=== PATIENT | female | born 2000 | race Caucasian/White ===

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

== ENCOUNTER 2021-03-24 11:06 | Emergency (ER) | payer OTHER, SELFPAY ==
--- NOTE | 2021-03-24 11:48 | ER ---
Nurse's Notes [facility] Name: Tali Guidry Age: 20 yrs Sex: Female : 2000 Arrival Date: 03/24/2021 Time: 11:10 Bed Waiting Private MD: Diagnosis: Acute upper respiratory infection, unspecified Presentation: 03/24 11:26 Chief complaint: Patient states: Pt states sore throat, denies cough. Stated boyfriend vg1 was Covid Positive last week. Coronavirus screen: Vaccine status: Patient reports being unvaccinated. Client denies travel out of the [place] in the last 14 days. Client presents with at least one sign or symptom that may indicate coronavirus-19. Standard/surgical mask placed on the client. Ebola Screen: Patient negative for fever greater than or equal to 101.5 degrees Fahrenheit, and additional compatible Ebola Virus Disease symptoms. Initial Sepsis Screen: Does the patient meet any 2 criteria? No. Patient's initial sepsis screen is negative. Does the patient have a suspected source of infection? No. Patient's initial sepsis screen is negative. Risk Assessment: Do you want to hurt yourself or someone else? Patient reports no desire to harm self or others. Onset of symptoms was March 23, 2021. 11:26 Method Of Arrival: Ambulatory [facility] 11:26 Acuity: GERMAN 4 vg1 Triage Assessment: 11:30 General: Appears in no apparent distress. comfortable, Behavior is calm, cooperative. vg1 Pain: Denies pain. 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 - Social history:: Smoking status: Patient denies any tobacco usage or history of. Screenin:09 Abuse screen: Denies threats or abuse. Nutritional screening: No deficits noted. vg1 Tuberculosis screening: No symptoms or risk factors identified. Fall Risk None identified. Assessment: 12:09 Reassessment: Pt left lobby before signing d/c papers. vg1 Vital Signs: 11:26 BP 113 / 79; Pulse 88; Resp 16; Temp 97.9; Pulse Ox 100% ; Weight 72.57 kg; Height 5 vg1 ft. 4 in. (162.56 cm); Pain 0/10; 11:26 Body Mass Index 27.46 (72.57 kg, 162.56 cm) vg1 ED Course: 11:10 Patient arrived in ED. ds1 11:27 [facility]ga [facility] [place] 11:27 Alcon Rajan MD is Attending Physician. [facility] 11:30 Triage completed. vg1 11:30 Arm band placed on. vg1 Administered Medications: No medications were administered Outcome: 11:48 Discharge ordered by . [facility] 12:10 Discharged to home ambulatory. vg1 12:10 Condition: stable 12:10 Patient left the ED. vg1 Signatures: Dequan Noriega PA PA jmm Sanford, Demi ds1 Oma Martinez, RN RN vg1
--- NOTE | 2021-03-24 11:48 | EDPHYS ---
Physician Documentation [facility] Name: Tali Guidry Age: 20 yrs Sex: Female : 2000 Arrival Date: 03/24/2021 Time: 11:10 Bed Waiting Private MD: ED Physician Alcon Rajan HPI: 03/24 11:46 This 20 yrs old Female presents to ER via Ambulatory with complaints of R/O jmm Covid. 11:46 The patient or guardian reports cough. Onset: The symptoms/episode began/occurred jmm gradually. Modifying factors: The symptoms are alleviated by nothing. the symptoms are aggravated by nothing. Associated signs and symptoms: Pertinent positives: sore throat, Pertinent negatives: fever. It is unknown whether or not the patient has had similar symptoms in the past. Room mates have covid. 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 - Social history:: Smoking status: Patient denies any tobacco usage or history of. ROS: 11:46 Constitutional: Negative for fever, chills, and weight loss, Cardiovascular: Negative jmm for chest pain, palpitations, and edema. 11:46 ENT: Positive for sore throat. 11:46 Respiratory: Positive for cough. 11:46 All other systems are negative. Exam: 11:46 Constitutional: This is a well developed, well nourished patient who is awake, alert, jmm and in no acute distress. Head/Face: atraumatic. Eyes: EOMI, no conjunctival erythema appreciated 11:46 ENT: Moist Mucus Membranes Neck: Trachea midline, Supple Chest/axilla: Normal chest wall appearance and motion. Cardiovascular: Regular rate and rhythm. No edema appreciated Respiratory: Normal respirations, no respiratory distress appreciated Abdomen/GI: Non distended, soft Back: Normal ROM Skin: General appearance color normal MS/ Extremity: Moves all extremities, no obvious deformities appreciated, no edema noted to the lower extremities Neuro: Awake and alert, normal gait Psych: Behavior is normal, Mood is normal, Patient is cooperative and pleasant Vital Signs: 11:26 BP 113 / 79; Pulse 88; Resp 16; Temp 97.9; Pulse Ox 100% ; Weight 72.57 kg; Height 5 vg1 ft. 4 in. (162.56 cm); Pain 0/10; 11:26 Body Mass Index 27.46 (72.57 kg, 162.56 cm) vg1 MDM: 11:45 Patient medically screened. [facility] 11:47 Data reviewed: vital signs, nurses notes. Counseling: I had a detailed discussion with [facility] the patient and/or guardian regarding: the historical points, exam findings, and any diagnostic results supporting the discharge/admit diagnosis, the need for outpatient follow up, to return to the emergency department if symptoms worsen or persist or if there are any questions or concerns that arise at home. 03/24 11:32 Order name: Strep vg1 Administered Medications: No medications were administered Disposition: 13:33 Co-signature as Attending Physician, Alcon Rajan MD I agree with the assessment and kdr plan of care. Disposition Summary: 03/24/21 11:48 Discharge Ordered Location: Home [facility] Condition: Stable [facility] Diagnosis - Acute upper respiratory infection, unspecified [facility] Followup: [facility] - With: Private Physician - When: 2 - 3 days - Reason: Recheck today's complaints, Continuance of care, Re-evaluation by your physician Discharge Instructions: - Discharge Summary Sheet m - Upper Respiratory Infection, Adult [facility] Forms: - Medication Reconciliation Form [facility] - Thank You Letter [facility] - Antibiotic Education [facility] - Prescription Opioid Use [facility] Signatures: Dispatcher [employer] EDlAcon Blanchard MD MD kdr Mickail, Joel, PA PA jmm Garcia, Victoria, RN RN vg1 Corrections: (The following items were deleted from the chart) 12:08 11:32 CORONAVIRUS+MR.LAB.BRZ ordered. EDMS EDMS 12: 11:32 Influenza Screen (A \T\ B)+BA.LAB.BRZ ordered. EDMS EDMS
[2021-03-24 12:21] VITALS: BP 113/79; TEMP 97.9; O2SAT 100
[2021-03-24 12:49] LABS: SARS-COV-2 RT PCR NEGATIVE (NEGATIVE)
== END 2021-03-24 12:10 | disposition home or self-care (01) ==
LOC: ER 11:06
DX: J06.9 Acute upper respiratory infection, unspecified (principal); Z20.822 Contact with and (suspected) exposure to COVID-19
CPT/HCPCS: 87070; 87081; 0240U; 99281

== ENCOUNTER 2022-01-03 14:43 | Emergency (ER) | payer OTHER ==
--- OUTSIDE RECORDS SUMMARY | 2022-01-03 14:48 | XMS REPORT | Continuity of Care Document ---
:2000 Author Organization [facility] t Address [address] [place] [address] Care Team Providers Name Role Phone Unknown Primary Care Physician Unavailable PROSPER Attending Clinician Unavailable ANGELI Attending Clinician Unavailable PUNEET GRIFFITH Attending Clinician Unavailable Puneet Griffith MD Attending Clinician Pebbles DECKER Attending Clinician PEBBLES Attending Clinician Unavailable MAKI Attending Clinician Unavailable [place] Attending Clinician [phone] Angeli RICE Attending Clinician MAKI Admitting Clinician Unavailable Payers Payer Name Policy Type Policy Number Effective Date Expiration Date Long wagner [facility] [employer] [id number] 2021 STAR 00:00:00 MEDICAID JOINT VENTURE [facility] [place] [facility] [id number] 2021 00:00:00 Problems Condition Condition Condition Status Onset Resolution Last Treating Co mments Source Name Details Category Date Date Treatment Clinician Date Missed Missed Disease Active Univers menses menses 6-13 ity of 00:00: [place] [id number] Medical Branch Disease Active Uni vers examinatio examinatio 6-13 it y of n [place] test, [place] 00 Medica l result result Branch BMI BMI Disease Active Univers 28.0-28.9, 28.0-28.9, 6-13 it y of adult adult 00:00: [place] [facility] Obesity Obesity Disease Active Univers (BMI (BMI 4-24 ity of 30-39.9) 30-39.9) 00:00: [place] [facility] History of History of Disease Active U lele depression depression 4-24 it y of 00:00: [place] [facility] History of History of Disease Active U lele anxiety anxiety 4-24 ity of 00:: [place] [facility] Screening Screening Disease Active Uni vers for STDs for STDs 1-26 ity of (sexually ([place] transmit[place] transmitte 00 Me dical d d Branch diseases) diseases) Skin Skin Disease Active Univers lesion lesion -21 ity of 00:00: [place] [facility] Asthma Asthma Disease Active Overview: Univer s 5-21 Formattin ity of 00:00: g of this [place] note Medical might be Branch different from the original. 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 Drug [facility] No Known Drug [facility] No Known Drug [facility] No Known Drug Active [facility] No Known [facility] No Known Drug Active [facility] Social History Social Habit Start Date Stop Date Quantity Comments Source ASSERTION [facility] [place] Alcohol intake 2021 2021 Current University of 00:00:00 00:00:00 non-drinker of [facility] alcohol (finding) Branch Exposure to 2021-10-16 2021-10-26 Not sure [facility] SARS-CoV-2 00:00:00 14:16:00 [facility] (event) Branch Tobacco use and 2021-10-24 2021-10-24 Smokeless tobacco [place] [facility] exposure 00:00:00 00:00:00 non-user Sex Assigned At 2000 2000 [place] [facility] 00:00:00 00:00:00 Smoking Status Start Date Stop Date Source Never smoker [facility] Medications Ordered Filled Start Stop Current Ordering Indication Dosage Frequency Signature Comments Components Source Medication Medication Date Date Medication? Clinician (SIG) Name Name 2021- No Take by Univ ers vit 6-08 06-08 mouth. ity of no.124/iron 17:04: 00:00 [place] /folic 39 :00 Medical ( Branch VITAMIN ORAL) Yes [id number] 1{tbl} Take 1 Univers vit 6-08 tablet by ity of no.130-iron 00:00: mouth [place] -folic 00 daily. Medical ( Branch VITAMIN) Yes [id number] 1{tbl} Take 1 Univers vit 6-08 tablet by ity of no.130-iron 00:00: mouth [place] -folic 00 daily. Medical ( Branch VITAMIN) Yes [id number] 1{tbl} Take 1 Univers vit 6-08 tablet by ity of no.130-iron 00:00: mouth [place] -folic 00 daily. Medical ( Branch VITAMIN) Yes [id number] 1{tbl} Take 1 Univers vit 6-08 tablet by ity of no.130-iron 00:00: mouth [place] -folic 00 daily. Medical ( Branch VITAMIN) neomycin-po 2022-0 Yes neomycin-p [place] lymyxin-dex 4-18 olymyxin-d He alth amethasone 13:13: exameth (Maxitrol) 38 3.5 0.1 % mg/mL-10,0 ophthalmic 00 suspension unit/mL-0. 1% eye drops INSTILL 1 DROP INTO AFFECTED EYE(S) BY OPHTHALMIC ROUTE EVERY 3-4 HOURS FOR 7 DAYS clindamycin Yes clindamyci [place] -benzoyl 4-18 n 1 Health peroxide 13:13: %-benzoyl (BenzacLIN) 37 peroxide 5 gel % topical gel Apply to acne areas twice a day doxycycline Yes doxycyclin [place] (Vibra-Tabs 4-18 e hyclate Hea lth ) 100 MG 13:13: 100 mg tablet 37 tablet TAKE 1 TABLET BY MOUTH ONCE DAILY doxycycline Yes [facility] (Vibramycin 3-07 Health ) 100 MG 00:00: capsule 00 fluconazole 2020-07 Yes TAKE 1 [facility] (Diflucan) 2-01 TABLET BY [facility] th 150 MG 00:00: MOUTH 1 tablet 00 TIME NOW FOR 1 DOSE fluconazole Yes 1{tbl} QD Take 1 [facility] (Diflucan) 8-19 tablet by [facility] th 200 MG 00:00: mouth 1 tablet 00 (one) time each day. fluconazole Yes 200mg QD Take 200 U T (Diflucan) 8-19 mg by [facility] 200 MG 00:00: mouth 1 tablet 00 (one) time each day. amoxicillin Yes TAKE 1 UT (Amoxil) 8-06 [facility] MG 00:00: MOUTH capsule 00 EVERY 8 HOURS UNTIL ALL TAKEN ibuprofen Yes 800mg Take 800 UT 800 MG 8-06 mg by [facility] tablet 00:00: mouth 00 every 8 (eight) hours if needed. neomycin-po Yes UT lymyxin-dex 6-29 Health amethasone 00:00: (Maxitrol) 00 3.5-73230-7 .1 ophthalmic suspension clindamycin Yes APPLY UT -benzoyl 6-21 TOPICALLY Health peroxide 00:00: TO ACNE (BenzacLIN) 00 AREA TWICE gel DAILY clindamycin Yes UT -benzoyl 4-20 Health peroxide 00:00: (Duac) 00 1.2-5% gel doxycycline Yes 100mg Q.5D Take 100 U T (Vibra-Tabs 4-20 mg by Health ) 100 MG 00:00: mouth 2 tablet 00 (two) times a day. SERTraline 2018-07 Yes [id number] 25mg Take 1 Univers (ZOLOFT) 25 0-04 tablet by ity of mg tablet 00:00: mouth [place] 00 daily. [facility] SERTraline 2018-07 Yes [id number] 25mg Take 1 Univers (ZOLOFT) 25 0-04 tablet by ity of mg tablet 00:00: mouth [place] 00 daily. [facility] SERTraline 2018-07 Yes [id number] 25mg Take 1 Univers (ZOLOFT) 25 0-04 tablet by ity of mg tablet 00:00: mouth [place] 00 daily. [facility] SERTraline 2018-07 Yes [id number] 25mg Take 1 Univers (ZOLOFT) 25 0-04 tablet by ity of mg tablet 00:00: mouth [place] 00 daily. [facility] SERTraline 2018-07 Yes [id number] 25mg Take 1 Univers (ZOLOFT) 25 0-04 tablet by ity of mg tablet 00:00: mouth [place] 00 daily. [facility] Immunizations Ordered Immunization Filled Immunization Date Status Commen ts Source Name Name TDAP (ADACEL) 2018-11-28 Completed University of VACCINE 00:00:00 [facility] TDAP (ADACEL) 2018-11-28 Completed University of VACCINE 00:00:00 [facility] TDAP (ADACEL) 2018-11-28 Completed University of VACCINE 00:00:00 [facility] TDAP (ADACEL) 2018-11-28 Completed University of VACCINE 00:00:00 [facility] TDAP (ADACEL) 2018-11-28 Completed University of VACCINE 00:00:00 [facility] Meningococcal 2014-02-09 Completed University of Vaccine 00:00:00 [facility] TDAP 2014-02-09 Completed University of 00:00:00 [facility] Varicella 2014-02-09 Completed University of (varivax)(chicken 00:00:00 [place] [facility] pox) [place] Meningococcal 2014-02-09 Completed University of Vaccine 00:00:00 [facility] TDAP 2014-02-09 Completed University of 00:00:00 [facility] Varicella 2014-02-09 Completed University of (varivax)(chicken 00:00:00 [place] [facility] pox) Branch Meningococcal 2014-02-09 Completed University of Vaccine 00:00:00 [facility] TDAP 2014-02-09 Completed University of 00:00:00 [facility] Varicella 2014-02-09 Completed University of (varivax)(chicken 00:00:00 [place] [facility] pox) Branch Meningococcal 2014-02-09 Completed University of Vaccine 00:00:00 [facility] TDAP 2014-02-09 Completed University of 00:00:00 [facility] Varicella 2014-02-09 Completed University of (varivax)(chicken 00:00:00 [place] [facility] pox) Branch Meningococcal 2014-02-09 Completed University of Vaccine 00:00:00 [facility] TDAP 2014-02-09 Completed University of 00:00:00 [facility] Varicella 2014-02-09 Completed University of (varivax)(chicken 00:00:00 [facility] edical pox) Branch H1n1 Vaccine 2009-06-24 Completed University o f 00:00:00 [facility] H1n1 Vaccine 2009-06-24 Completed University o f 00:00:00 [facility] H1n1 Vaccine 2009-06-24 Completed University o f 00:00:00 [facility] H1n1 Vaccine 2009-06-24 Completed University o f 00:00:00 [facility] H1n1 Vaccine 2009-06-24 Completed University o f 00:00:00 [facility] HEPATITIS A 2006-02-12 Completed University of 00:00:00 [facility] HEPATITIS A 2006-02-12 Completed University of 00:00:00 [facility] HEPATITIS A 2006-02-12 Completed University of 00:00:00 [facility] HEPATITIS A 2006-02-12 Completed University of 00:00:00 [facility] HEPATITIS A 2006-02-12 Completed University of 00:00:00 [facility] Pneumococcal 7 2005-07-17 Completed University of Conjugate, PCV7 00:00:00 [place] [facility] (Prevnar7) Branch Pneumococcal 7 2005-07-17 Completed University of Conjugate, PCV7 00:00:00 [place] [facility] (Prevnar7) Branch Pneumococcal 7 2005-07-17 Completed University of Conjugate, PCV7 00:00:00 [place] [facility] (Prevnar7) Branch Pneumococcal 7 2005-07-17 Completed University of Conjugate, PCV7 00:00:00 [place] [facility] (Prevnar7) Branch Pneumococcal 7 2005-07-17 Completed University of Conjugate, PCV7 00:00:00 [place] [facility] (Prevnar7) Branch HEPATITIS A 2005-03-14 Completed University of 00:00:00 [facility] Branch Pneumococcal 7 2005-03-14 Completed University of Conjugate, PCV7 00:00:00 [place] [facility] (Prevnar7) Branch HEPATITIS A 2005-03-14 Completed University of 00:00:00 [facility] Branch Pneumococcal 7 2005-03-14 Completed University of Conjugate, PCV7 00:00:00 [place] [facility] (Prevnar7) Branch HEPATITIS A 2005-03-14 Completed University of 00:00:00 [facility] Branch Pneumococcal 7 2005-03-14 Completed University of Conjugate, PCV7 00:00:00 [place] [facility] (Prevnar7) Branch HEPATITIS A 2005-03-14 Completed University of 00:00:00 [facility] Pneumococcal 7 2005-03-14 Completed University of Conjugate, PCV7 00:00:00 [place] [facility] (Prevnar7) Branch HEPATITIS A 2005-03-14 Completed University of 00:00:00 [facility] Pneumococcal 7 2005-03-14 Completed University of Conjugate, PCV7 00:00:00 [place] [facility] (Prevnar7) Branch DTAP 2004-11-02 Completed University of 00:00:00 [facility] MMR 2004-11-02 Completed University of 00:00:00 [facility] Polio (IPV/OPV) 2004-11-02 Completed Universit y of 00:00:00 [facility] DTAP 2004-11-02 Completed University of 00:00:00 [facility] MMR 2004-11-02 Completed University of 00:00:00 [facility] Polio (IPV/OPV) 2004-11-02 Completed Universit y of 00:00:00 [facility] DTAP 2004-11-02 Completed University of 00:00:00 [facility] MMR 2004-11-02 Completed University of 00:00:00 [facility] Polio (IPV/OPV) 2004-11-02 Completed Universit y of 00:00:00 [facility] DTAP 2004-11-02 Completed University of 00:00:00 [facility] MMR 2004-11-02 Completed University of 00:00:00 [place] [facility] Polio (IPV/OPV) 2004-11-02 Completed Universit y of 00:00:00 [facility] Branch DTAP 2004-11-02 Completed University of 00:00:00 [facility] MMR 2004-11-02 Completed University of 00:00:00 [facility] Polio (IPV/OPV) 2004-11-02 Completed Universit y of 00:00:00 [facility] DTAP 2003-07-23 Completed University of 00:00:00 [facility] HIB 4 Dose Schedule 2003-07-23 Completed Unive rsity of 00:00:00 [facility] Branch DTAP 2003-07-23 Completed University of 00:00:00 [facility] HIB 4 Dose Schedule 2003-07-23 Completed Unive rsity of 00:00:00 [facility] Branch DTAP 2003-07-23 Completed University of 00:00:00 [facility] HIB 4 Dose Schedule 2003-07-23 Completed Unive rsity of 00:00:00 [facility] DTAP 2003-07-23 Completed University of 00:00:00 [facility] HIB 4 Dose Schedule 2003-07-23 Completed Unive rsity of 00:00:00 [facility] DTAP 2003-07-23 Completed University of 00:00:00 [facility] HIB 4 Dose Schedule 2003-07-23 Completed Unive rsity of 00:00:00 [facility] DTAP 2002-09-17 Completed University of 00:00:00 [facility] HIB 4 Dose Schedule 2002-09-17 Completed Unive rsity of 00:00:00 [facility] DTAP 2002-09-17 Completed University of 00:00:00 [facility] HIB 4 Dose Schedule 2002-09-17 Completed Unive rsity of 00:00:00 [facility] DTAP 2002-09-17 Completed University of 00:00:00 [facility] HIB 4 Dose Schedule 2002-09-17 Completed Unive rsity of 00:00:00 [facility] Branch DTAP 2002-09-17 Completed University of 00:00:00 [facility] HIB 4 Dose Schedule 2002-09-17 Completed Unive rsity of 00:00:00 [facility] DTAP 2002-09-17 Completed University of 00:00:00 [facility] HIB 4 Dose Schedule 2002-09-17 Completed Unive rsity of 00:00:00 [facility] MMR 2001-12-18 Completed University of 00:00:00 [facility] Polio (IPV/OPV) 2001-12-18 Completed Universit y of 00:00:00 [facility] Varicella 2001-12-18 Completed University of (varivax)(chicken 00:00:00 [place] [facility] pox) Branch MMR 2001-12-18 Completed University of 00:00:00 [facility] Polio (IPV/OPV) 2001-12-18 Completed Universit y of 00:00:00 [facility] Varicella 2001-12-18 Completed University of (varivax)(chicken 00:00:00 [place] [facility] pox) Branch MMR 2001-12-18 Completed University of 00:00:00 [facility] Polio (IPV/OPV) 2001-12-18 Completed Universit y of 00:00:00 [facility] Varicella 2001-12-18 Completed University of (varivax)(chicken 00:00:00 [place] [facility] pox) Branch MMR 2001-12-18 Completed University of 00:00:00 [facility] Polio (IPV/OPV) 2001-12-18 Completed Universit y of 00:00:00 [facility] Varicella 2001-12-18 Completed University of (varivax)(chicken 00:00:00 [place] [facility] pox) Branch MMR 2001-12-18 Completed University of 00:00:00 [facility] Polio (IPV/OPV) 2001-12-18 Completed Universit y of 00:00:00 [facility] Varicella 2001-12-18 Completed University of (varivax)(chicken 00:00:00 [place] [facility] pox) Branch DTAP 2001-07-24 Completed University of 00:00:00 [facility] Pneumococcal 7 2001-07-24 Completed University of Conjugate, PCV7 00:00:00 [place] [facility] (Prevnar7) Branch DTAP 2001-07-24 Completed University of 00:00:00 [facility] Pneumococcal 7 2001-07-24 Completed University of Conjugate, PCV7 00:00:00 [place] [facility] (Prevnar7) Branch DTAP 2001-07-24 Completed University of 00:00:00 [facility] Pneumococcal 7 2001-07-24 Completed University of Conjugate, PCV7 00:00:00 [place] [facility] (Prevnar7) Branch DTAP 2001-07-24 Completed University of 00:00:00 [facility] Pneumococcal 7 2001-07-24 Completed University of Conjugate, PCV7 00:00:00 [place] [facility] (Prevnar7) Branch DTAP 2001-07-24 Completed University of 00:00:00 [facility] Pneumococcal 7 2001-07-24 Completed University of Conjugate, PCV7 00:00:00 [place] [facility] (Prevnar7) Branch HIB 4 Dose Schedule 2001-04-22 Completed Unive rsity of 00:00:00 [facility] Hep B, Adol or Pedi 2001-04-22 Completed Unive rsity of Dosage 00:00:00 [facility] Pneumococcal 7 2001-04-22 Completed University of Conjugate, PCV7 00:00:00 [place] [facility] (Prevnar7) Branch HIB 4 Dose Schedule 2001-04-22 Completed Unive rsity of 00:00:00 [facility] Hep B, Adol or Pedi 2001-04-22 Completed Unive rsity of Dosage 00:00:00 [facility] Pneumococcal 7 2001-04-22 Completed University of Conjugate, PCV7 00:00:00 [place] [facility] (Prevnar7) Branch HIB 4 Dose Schedule 2001-04-22 Completed Unive rsity of 00:00:00 [facility] Hep B, Adol or Pedi 2001-04-22 Completed Unive rsity of Dosage 00:00:00 [facility] Pneumococcal 7 2001-04-22 Completed University of Conjugate, PCV7 00:00:00 [place] [facility] (Prevnar7) Branch HIB 4 Dose Schedule 2001-04-22 Completed Unive rsity of 00:00:00 [facility] Hep B, Adol or Pedi 2001-04-22 Completed Unive rsity of Dosage 00:00:00 [facility] Pneumococcal 7 2001-04-22 Completed University of Conjugate, PCV7 00:00:00 [place] [facility] (Prevnar7) Branch HIB 4 Dose Schedule 2001-04-22 Completed Unive rsity of 00:00:00 [facility] Hep B, Adol or Pedi 2001-04-22 Completed Unive rsity of Dosage 00:00:00 [facility] Pneumococcal 7 2001-04-22 Completed University of Conjugate, PCV7 00:00:00 [place] [facility] (Prevnar7) Branch DTAP 2001-02-14 Completed University of 00:00:00 [place] [facility] HIB 4 Dose Schedule 2001-02-14 Completed Unive rsity of 00:00:00 [place] [facility] Polio (IPV/OPV) 2001-02-14 Completed Universit y of 00:00:00 [facility] Branch DTAP 2001-02-14 Completed University of 00:00:00 [place] [facility] HIB 4 Dose Schedule 2001-02-14 Completed Unive rsity of 00:00:00 [place] [facility] Polio (IPV/OPV) 2001-02-14 Completed Universit y of 00:00:00 [place] [facility] DTAP 2001-02-14 Completed University of 00:00:00 [facility] Branch HIB 4 Dose Schedule 2001-02-14 Completed Unive rsity of 00:00:00 [place] [facility] Polio (IPV/OPV) 2001-02-14 Completed Universit y of 00:00:00 [facility] Branch DTAP 2001-02-14 Completed University of 00:00:00 [facility] HIB 4 Dose Schedule 2001-02-14 Completed Unive rsity of 00:00:00 [facility] Branch Polio (IPV/OPV) 2001-02-14 Completed Universit y of 00:00:00 [place] [facility] DTAP 2001-02-14 Completed University of 00:00:00 [place] [facility] [place] HIB 4 Dose Schedule 2001-02-14 Completed Unive rsity of 00:00:00 [facility] Branch Polio (IPV/OPV) 2001-02-14 Completed Universit y of 00:00:00 [facility] DTAP 2000 Completed University of 00:00:00 [facility] HIB 4 Dose Schedule 2000 Completed Unive rsity of 00:00:00 [facility] Branch Hep B, Adol or Pedi 2000 Completed Unive rsity of Dosage 00:00:00 [facility] Branch Polio (IPV/OPV) 2000 Completed Universit y of 00:00:00 [facility] Branch DTAP 2000 Completed University of 00:00:00 [facility] HIB 4 Dose Schedule 2000 Completed Unive rsity of 00:00:00 [facility] Hep B, Adol or Pedi 2000 Completed Unive rsity of Dosage 00:00:00 [facility] Branch Polio (IPV/OPV) 2000 Completed Universit y of 00:00:00 [facility] DTAP 2000 Completed University of 00:00:00 [facility] HIB 4 Dose Schedule 2000 Completed Unive rsity of 00:00:00 [facility] Branch Hep B, Adol or Pedi 2000 Completed Unive rsity of Dosage 00:00:00 [facility] Polio (IPV/OPV) 2000 Completed Universit y of 00:00:00 [facility] DTAP 2000 Completed University of 00:00:00 [facility] HIB 4 Dose Schedule 2000 Completed Unive rsity of 00:00:00 [facility] Hep B, Adol or Pedi 2000 Completed Unive rsity of Dosage 00:00:00 [facility] Polio (IPV/OPV) 2000 Completed Universit y of 00:00:00 [facility] DTAP 2000 Completed University of 00:00:00 [facility] HIB 4 Dose Schedule 2000 Completed Unive rsity of 00:00:00 [facility] Branch Hep B, Adol or Pedi 2000 Completed Unive rsity of Dosage 00:00:00 [facility] Polio (IPV/OPV) 2000 Completed Universit y of 00:00:00 [place] [facility] Hep B, Adol or Pedi 2000 Completed Unive rsity of Dosage 00:00:00 [facility] Branch Hep B, Adol or Pedi 2000 Completed Unive rsity of Dosage 00:00:00 [place] [facility] Hep B, Adol or Pedi 2000 Completed Unive rsity of Dosage 00:00:00 [facility] Branch Hep B, Adol or Pedi 2000 Completed Unive rsity of Dosage 00:00:00 [facility] Branch Hep B, Adol or Pedi 2000 Completed Unive rsity of Dosage 00:00:00 [facility] Vital Signs Vital Name Observation Time Observation Value Comments Source Systolic blood 2021-12-14 21:38:00 119 mm[Hg] Univer sity of pressure [facility] Diastolic blood 2021-12-14 21:38:00 80 mm[Hg] Unive rsity of pressure [facility] Heart rate 2021-12-14 21:38:00 62 /min [facility] Body temperature 2021-12-14 21:38:00 36.83 Maricruz [facility] Respiratory rate 2021-12-14 21:38:00 18 /min [facility] Body height 2021-12-14 21:38:00 162.6 cm [facility] Body weight 2021-12-14 21:38:00 75.297 kg [facility] BMI 2021-12-14 21:38:00 28.49 kg/m2 [facility] Height/Length 2021-07-26 10:08:23 162.56 cm Measured Weight Dosing 2021-07-26 10:08:23 82.00 kg Height/Length 2021-07-26 10:08:04 162.56 cm Measured Weight Dosing 2021-07-26 10:08:04 82.00 kg Height/Length 2021-07-26 10:08:00 162.56 cm Measured Weight Dosing 2021-07-26 10:08:00 82.00 kg Height/Length 2021-07-26 10:07:51 162.56 cm Measured Weight Dosing 2021-07-26 10:07:51 82.00 kg Height/Length 2021-07-26 10:07:38 162.56 cm Measured Weight Dosing 2021-07-26 10:07:38 82.00 kg Height/Length 2021-07-26 10:07:37 162.56 cm Measured Weight Dosing 2021-07-26 10:07:37 82.00 kg Height/Length 2021-07-26 10:07:12 162 cm Measured Weight Dosing 2021-07-26 10:07:12 82.00 kg Height/Length 2021-07-26 10:07:10 162 cm Measured Height/Length 2021-07-26 10:07:09 162 cm Measured Height/Length 2021-07-26 10:07:08 162 cm Measured Height/Length 2019-11-02 15:34:38 Measured Height/Length 2019-11-02 09:58:44 Measured Height/Length 2019-11-02 03:45:54 Measured Procedures Procedure Date / Time Performing Clinician Source Performed URINE DRUG (IMMUNOASSAY) 2021-12-14 21:57:00 Estefania Rogel [facility] SCREEN GC & CHLAMYDIA AMPLIFIED 2021-12-14 21:57:00 Estefania Rogel [facility] TRICHOMONAS AMPLIFIED 2021-12-14 21:57:00 [facility] 2021-12-14 00:00:00 [facility] POCT URINALYSIS W/O 2021-12-14 00:00:00 Estefania Rogel [facility] SPECIFIC [facility] [place] VISUAL FIELD - 2021-10-24 18:31:10 [place] [facility] OU - BOTH EYES [place] OCT, OPTIC NERVE - OU - 2021-10-24 18:15:43 [place] [facility] [place] BOTH EYES [place] Encounters Start End Encounter Admission Attending Care Care Encounter Source Date/Time Date/Time Type Type Clinicians Facility Department ID 2021-12-06 Outpatient [facility] [id number] [place] 16:36:01 [id number] [facility] 2021-11-19 Outpatient [facility] [id number] [place] 12:50:56 [id number] [facility] 2021-10-28 Outpatient [facility] [id number] [place] 01:06:10 ORE-OFEOLUW [id number] [facility] 2022-01-25 2022-01-25 Outpatient Ale SUH [facility] [id number] Univers 11:00:00 11:00:00 KELSI [id number] [facility] 2022-01-11 2022-01-11 Outpatient DEMETRIUS LEWIS [facility] [id number] Univers 10:45:00 10:45:00 [id number] [facility] 2022-01-11 2022-01-11 Outpatient DEMETRIUS LEWIS [facility] [id number] Univers 10:45:00 10:45:00 [facility] 2022-01-02 2022-01-02 Demetrius Tony [facility] [id number] Univers 00:00:00 00:00:00 [place] [id number] i [place] [id number] [address] 2022-01-02 2022-01-02 Telephone Demetrius Griffith [facility] [id number] Univers 00:00:00 00:00:00 [place] [id number] i [facility] [id number] [id number] [address] 2021-12-21 2021-12-21 Telephone [facility] [id number] Univers 00:00:00 00:00:00 Estefania [place] [id number] it y [id number] [id number] [address] 2021-12-14 2021-12-14 Outpatient R ESTEFANIA ROGEL [facility] B [id number] Univers 16:00:00 17:01:05 ESTEFANIA ROGEL [facility] 2021-12-14 2021-12-14 Initial [facility] [id number] Univers 16:00:00 17:01:05 Estefania H[place] [id number] i ty of [place] [id number] [address] 2021-12-14 2021-12-14 Outpatient R ESTEFANIA ROGEL [facility] B [id number] Univers 16:00:00 16:00:00 ESTEFANIA ROGEL [id number] ity [facility] 2021-10-26 2021-10-26 Refill Demetrius Griffith [facility] [id number] Univers 00:00:00 00:00:00 Cam [place] [id number] [place] CAR[place] [id number] Ca dical [address] 2021-10-24 2021-10-24 Office RAFAEL Leyva 6400 [id number] [place] 12:30:00 12:45:00 Visit ShivClaudy SHIEN 350.1.13.58 [facility] [id number] [id number] 2021-01-04 2021-01-04 Outpatient ERICKSON_R [facility] [address] 11:49:00 11:49:00 [id number] [facility] 2021-01-04 2021-01-04 Outpatient Carroll [facility] [id number] 00:00:00 00:00:00 Jeremi [id number] All [id number] 2020-11-22 2020-11-22 Outpatient [facility] [address] 04:58:00 04:58:00 0517 [facility] 2020-10-21 2020-10-21 Outpatient [facility] [address] 04:08:00 04:08:00 0415 [facility] 2020-10-21 2020-10-21 Outpatient Carroll [facility] [id number] 00:00:00 00:00:00 Jeremi [id number] All [id number] 2020-10-18 2020-10-18 Outpatient [facility] [address] 11:34:00 11:34:00 0412 [facility] 2020-03-09 2020-03-09 Telephone GHULAM Suh [id number] 00:00:00 00:00:00 Kelsi Moses [id number] [place] 4.2.7.2.686 Professio [id number] [address] 2020-03-08 2020-03-08 Telephone GHULAM Suh [id number] 00:00:00 00:00:00 Kelsi Moses [id number] [place] 4.2.7.2.686 Profamilcar [id number] [address] 2020-03-05 2020-03-05 Office Angeli IAANTHONY [id number] 15:45:34 16:27:28 Visit Kelsi Moses [id number] [place] 4.2.7.2.686 luisarthur [id number] [address] 2019-11-02 2019-11-02 Emergency [facility] [id number] [address] 03:36:00 03:36:00 [facility] 2019-11-02 2019-11-02 Emergency [facility] [id number] [address] 03:36:00 03:36:00 [id number] [facility] Results Test Description Test Time Test Comments Results Result Comments Source POCT TEST 2021-12-14 21:46:00 Test Item Value Reference Range Interpretation Comme nts POCT PREG (test code = 1605) Positive On board controls acceptable with C Line (test code = 3574) Yes POCT PREG LOT # (test code = 3575) POCT PREG TEST DATE (test code = 3576) [facility]/O SPECIFIC [id number] 21:46:00 Test Item Value Reference Range Interpretation Comments POCT PH U (test code = 3254) N/A 5-8 POCT U LEUK EST (test code = N/A Negative - Negative 3263) POCT U NIT (test code = 3262) N/A Negative - Negative POCT U PROT (test code = 3259) Negative Negative - Negative POCT U GLU (test code = 3256) Negative Negative - Negative POCT U KETONE (test code = 3258) N/A Negative - Negative POCT U BLD (test code = 3257) N/A Negative - Negative [facility] [id number] 10:35:14 Test Item Value Reference Range Interpretation Comments TSH (test code = TSH) 1.650 mIU/mL 0.270-4.200 Lipid [id number] 10:28:08 Test Item Value Reference Range Interpretation Comments Cholesterol Total 200 mg/dL 0-200 RISK OF HE ART (test code = DISEASEPublishe d by Cholesterol Total) [place] [employer] [place] Optimal Borderl ine Increased RiskC HOL <200 200-239 >2 40TRIG <150 150-199 >2 00HDL Male >60 <40H DL Female >60 <5 0LDL <100 130-159 >1 60LDL Near optimal is 100-129 Triglycerides (test 75 mg/dL 9-200 code = Triglycerides) HDL (test code = HDL) 53 mg/dL 50-60 LDL (test code = LDL) 132 mg/dL 0-130 H The eq uation being used in this calcula tion is LDL = (Chol - H DL) - (Trig / 5) VLDL (test code = 15 mg/dL 5-40 The equati on being used VLDL) in this calcula tion is VLDL = Trig / 5 Chol/HDL (test code = 3.8 ratio 0.0-4.4 Chol/HDL) LDL/HDL Ratio (test 2 N The equa tion being used code = LDL/HDL Ratio) in thi s calculation is LDL/HDL Ratio=L DL Calc/HDL Chol Urine [id number] 08:29:07 C Urine Added by [id number] growth at 24 hours. No growth at 48 hours.RPR [id number] 19:04:53 Test Item Value Reference Range Interpretation Comments RPR Qual (test code = RPR Qual) Non-Reactive Non-Reactive Reactive Control (test code = Reactive Reactive Control) Weak Reactive Control (test Weak Reactive code = Weak Reactive Control) Non-Reactive Control (test code Non-Reactive = Non-Reactive Control) Lot # (test code = Lot #) [id number] Expiration Dt (test code = 07-08-2020 N Expiration Dt) HCG Qualitative [id number] 06:59:14 Test Item Value Reference Range Interpretation Comments hCG Ur (test code = Negative If the r esult is hCG Ur) "Negative" in p atients suspected to be , recom mend retest with a s ample obtained 48 to 72 hours later, or by ordering a quantitative as say. If the result i s "Borderline" te sting should be repea brooke in 48 to 72 hours. Lot # (test code = [id number] N Lot #) Expiration Dt (test 10/06/2020 N code = Expiration Dt) Neg Control (test Negative code = Neg Control) Pos Control (test Positive code = Pos Control) Internal QC (test Acceptable code = Internal QC) Automated [id number] 06:09:27 Test Item Value Reference Range Interpretation Comments Neutro Auto (test code = Neutro 60.5 % 36.0-70.0 Auto) Lymph Auto (test code = Lymph Auto) 30.6 % 12.0-44.0 [place] Auto (test code = [place] Auto) 6.1 % 0.0-11.0 Eos, Auto (test code = Eos, Auto) 2.1 % 0.0-7.0 Basophil Auto (test code = Basophil 0.3 % 0.0-2.0 Auto) Neutro Absolute (test code = Neutro 6.6 x10 1.6-7.4 Absolute) Lymph Absolute (test code = Lymph 3.33 x10 .50-4.60 Absolute) [place] Absolute (test code = [place] .66 x10 .00-1.20 Absolute) Eos Absolute (test code = Eos 0.23 x10 0.00-0.74 Absolute) Baso Absolute (test code = Baso 0.03 x10 0.00-0.21 Absolute) IG [id number] 06:09:27 Test Item Value Reference Range Interpretation Comments IG (test code = IG) 0.4 % 0.0-5.0 IG Abs (test code = IG Abs) 0 x10 N Complete Blood Count with [id number] 06:09:26 Test Item Value Reference Range Interpretation Comments WBC (test code = WBC) 10.9 x10 4.4-10.5 H RBC (test code = RBC) 5.44 x10 3.75-5.20 H Hgb (test code = Hgb) 14.0 g/dL 12.2-14.8 Hct (test code = Hct) 44.3 % 36.5-44.4 MCV (test code = MCV) 81.40 fL 80.00-100.00 MCHC (test code = 31.60 g/dL 32.00-37.50 L MCHC) RDW CV (test code = 13.2 % 11.5-14.5 RDW CV) MCH (test code = MCH) 25.7 pg 27.0-32.5 L Platelets (test code = 240.0 x10 140.0-440.0 Platelets) MPV (test code = MPV) 12.2 fL N Slide Review (test Auto Auto Result cr eated by code = Slide Review) GL_SJM_ SLIDE_REV_AUTO nRBC (test code = 0 N nRBC) NRBC Abs (test code = 0.00 x10 N NRBC Abs) IPF (test code = IPF) 0 % N Comprehensive Metabolic [id number] 06:01:23 Test Item Value Reference Range Interpretation Comments Sodium Level (test code = Sodium 141.0 mmol/L 135.0-145.0 Level) Potassium Level (test code = 4.4 mmol/L 3.5-5.1 Potassium Level) Chloride Level (test code = 103 mmol/L 98-105 Chloride Level) CO2 (test code = CO2) 24 mmol/L 22-29 Anion Gap (test code = Anion 14 mmol/L 7-16 Gap) BUN (test code = BUN) 14.10 mg/dL 6.00-20.00 Creatinine Level (test code = 0.80 mg/dL 0.50-0.90 Creatinine Level) BUN/Creat Ratio (test code = 18 N BUN/Creat Ratio) Glucose Level (test code = 76 mg/dL 70-115 Glucose Level) Calcium Level (test code = 10.0 mg/dL 8.3-10.5 Calcium Level) Alk Phos (test code = Alk Phos) 109 U/L 35-104 H Bilirubin Total (test code = 0.4 mg/dL 0.1-0.9 Bilirubin Total) Albumin Level (test code = 4.7 g/dL 3.5-5.2 Albumin Level) Protein Total (test code = 7.7 g/dL 6.4-8.3 Protein Total) ALT (test code = ALT) 9 U/L 1-33 AST (test code = AST) 18 U/L 1-32 Globulin (test code = Globulin) 3.0 g/dL 2.9-3.1 A/G Ratio (test code = A/G 1.6 ratio N Ratio) Comprehensive Metabolic [id number] 06:01:23 Test Item Value Reference Range Interpretation Comments Sodium Level (test 141.0 mmol/L 135.0-145.0 code = Sodium Level) Potassium Level 4.4 mmol/L 3.5-5.1 (test code = Potassium Level) Chloride Level (test 103 mmol/L 98-105 code = Chloride Level) CO2 (test code = 24 mmol/L 22-29 CO2) Anion Gap (test code 14 mmol/L 7-16 = Anion Gap) BUN (test code = 14.10 mg/dL 6.00-20.00 BUN) Creatinine Level 0.80 mg/dL 0.50-0.90 (test code = Creatinine Level) BUN/Creat Ratio 18 N (test code = BUN/Creat Ratio) Glucose Level (test 76 mg/dL 70-115 code = Glucose Level) Calcium Level (test 10.0 mg/dL 8.3-10.5 code = Calcium Level) Alk Phos (test code 109 U/L 35-104 H = Alk Phos) Bilirubin Total 0.4 mg/dL 0.1-0.9 (test code = Bilirubin Total) Albumin Level (test 4.7 g/dL 3.5-5.2 code = Albumin Level) Protein Total (test 7.7 g/dL 6.4-8.3 code = Protein Total) ALT (test code = 9 U/L 1-33 ALT) AST (test code = 18 U/L 1-32 AST) Globulin (test code 3.0 g/dL 2.9-3.1 = Globulin) A/G Ratio (test code 1.6 ratio N = A/G Ratio) eGFR AA (test code = >60 N eGFR (e stimated eGFR AA) mL/min/1.73 m2 Glomerular Filtration Rate ) is an estimated va lue, calculated from the patient's serum creatinine usin g the MDRD equation. It is NOT the patient 's actual GFR. The eGFR provides a more clinically usef ul measure of kidn ey disease than se rum creatinine alone.This calculation nawaf es sex and race in to account, if the information is provided. If th e race is not provided, and t he patient is -Rubi n, multiply by 1.2 12. If sex is not provided, and t he patient is fema le, multiply by 0.7 42. Results for pat ients <18 years of ag e have not been validated by e MDRD study and should be interpreted wit h caution. eGFR R esult Interpretation: eGFR > or = 60 is in the Normal RangeeGF R < 60 may mean kid isacc diseaseeGFR < 1 5 may mean kidney failure Rang es recommended by the National Kidney Foundation, http://nkdep.ni h.gov Alcohol [id number] 06:01:23 Test Item Value Reference Range Interpretation Comments Ethanol Level (test <0.00 g/dL 0.00-0.01 Intoxica brooke 0.080 g/dL code = Ethanol or more Level) Ethanol Inst (test <0 N code = Ethanol Inst) Comprehensive Metabolic [id number] 06:01:23 Test Item Value Reference Range Interpretation Comments Sodium Level (test 141.0 mmol/L 135.0-145.0 code = Sodium Level) Potassium Level 4.4 mmol/L 3.5-5.1 (test code = Potassium Level) Chloride Level (test 103 mmol/L 98-105 code = Chloride Level) CO2 (test code = 24 mmol/L 22-29 CO2) Anion Gap (test code 14 mmol/L 7-16 = Anion Gap) BUN (test code = 14.10 mg/dL 6.00-20.00 BUN) Creatinine Level 0.80 mg/dL 0.50-0.90 (test code = Creatinine Level) BUN/Creat Ratio 18 N (test code = BUN/Creat Ratio) Glucose Level (test 76 mg/dL 70-115 code = Glucose Level) Calcium Level (test 10.0 mg/dL 8.3-10.5 code = Calcium Level) Alk Phos (test code 109 U/L 35-104 H = Alk Phos) Bilirubin Total 0.4 mg/dL 0.1-0.9 (test code = Bilirubin Total) Albumin Level (test 4.7 g/dL 3.5-5.2 code = Albumin Level) Protein Total (test 7.7 g/dL 6.4-8.3 code = Protein Total) ALT (test code = 9 U/L 1-33 ALT) AST (test code = 18 U/L 1-32 AST) Globulin (test code 3.0 g/dL 2.9-3.1 = Globulin) A/G Ratio (test code 1.6 ratio N = A/G Ratio) eGFR AA (test code = >60 N eGFR (e stimated eGFR AA) mL/min/1.73 m2 Glomerular Filtration Rate ) is an estimated va lue, calculated from the patient's serum creatinine usin g the MDRD equation. It is NOT the patient 's actual GFR. The eGFR provides a more clinically usef ul measure of kidn ey disease than se rum creatinine alone.This calculation nawaf es sex and race in to account, if the information is provided. If th e race is not provided, and t he patient is -Rubi n, multiply by 1.2 12. If sex is not provided, and t he patient is fema le, multiply by 0.7 42. Results for pat ients <18 years of ag e have not been validated by [facility] MDRD study and should be interpreted wit h caution. eGFR R esult Interpretation: eGFR > or = 60 is in the Normal RangeeGF R < 60 may mean kid isacc diseaseeGFR < 1 5 may mean kidney failure Rang es recommended by the National Kidney Foundation, http://nkdep.ni h.gov eGFR Non-AA (test >60.00 N eGFR (lane mated code = eGFR Non-AA) mL/min/1.73 m2 Glomer ular Filtration Rate ) is an estimated va lue, calculated from the patient's serum creatinine usin g the MDRD equation. It is NOT the patient 's actual GFR. The eGFR provides a more clinically usef ul measure of kidn ey disease than se rum creatinine alone.This calculation nawaf es sex and race in to account, if the information is provided. If th e race is not provided, and t he patient is -Rubi n, multiply by 1.2 12. If sex is not provided, and t he patient is fema le, multiply by 0.7 42. Results for pat ients <18 years of ag e have not been validated by [facility] MDRD study and should be interpreted wit h caution. eGFR R esult Interpretation: eGFR > or = 60 is in the Normal RangeeGF R < 60 may mean kid isacc diseaseeGFR < 1 5 may mean kidney failure Rang es recommended by the National Kidney Foundation, http://nkdep.ni h.gov Urinalysis [id number] 05:47:01 Test Item Value Reference Range Interpretation Comments UA WBC (test code = UA WBC) 6-10 0-5 A UA RBC (test code = UA RBC) 0-5 0-5 UA Bacteria (test code = UA None Seen Bacteria) UA Squam Epithelial (test code = UA 6-10 A Squam Epithelial) UA Mucous (test code = UA Mucous) Moderate A Urine Drug [id number] 05:43:24 Test Item Value Reference Range Interpretation Comments Amphetamine Screen Ur Negative Negative (test code = Amphetamine Screen Ur) Barbiturate Screen Ur Negative Negative (test code = Barbiturate Screen Ur) Benzodiazepines Ur (test Negative Negative code = Benzodiazepines Ur) Cocaine Screen Ur (test Negative Negative code = Cocaine Screen Ur) U Methadone Scr (test Negative Negative code = U Methadone Scr) Opiate Screen Ur (test Negative Negative code = Opiate Screen Ur) U PCP Scrn (test code = Negative Negative U PCP Scrn) Cannabinoid Screen Ur POSITIVE Negative A (test code = Cannabinoid Screen Ur) U TCA (test code = U Negative Negative The res ults of all TCA) drug screen nerissa ts are only preliminar y. Clinical consideration a nd professional ju dgment should be appli ed to any drug of abu se test result, particularly wh en preliminary pos itive results are obt ained. Please order a separate confir matory test if desired . Urinalysis with Culture, if [id number] 05:43:13 Test Item Value Reference Range Interpretation Comments UA Color (test code = UA Color) YELLO Yellow UA Appear (test code = UA Appear) CLEAR Clear UA pH (test code = UA pH) 5.5 N UA Spec Grav (test code = UA Spec 1.030 1.001-1.035 Grav) UA Glucose (test code = UA NEG Negative Glucose) UA Bili (test code = UA Bili) small mg/dL N UA Ketones (test code = UA 40 mg/dL N Ketones) UA Blood (test code = UA Blood) TR Negative A UA Protein (test code = UA 100 mg/dL N Protein) UA Urobilinogen (test code = UA .2 mg/dL >0.2 Urobilinogen) UA Nitrite (test code = UA NEG Negative Nitrite) UA Leuk Est (test code = UA Leuk NEG Negative Est) UA Micro Ind? (test code = UA Indicated Not Indicated A Micro Ind?)
--- NOTE | 2022-01-03 17:26 | ER ---
Nurse's Notes [facility] Name: Tali Guidry Age: 21 yrs Sex: Female : 2000 Arrival Date: 01/03/2022 Time: 14:48 Bed 20 Private MD: Diagnosis: Acute upper respiratory infection, unspecified Presentation: 01/03 15:13 Chief complaint: Patient states: Sent by PCP to be tested for COVID. Pt reports sore ss throat, body aches and cough that began Sunday. Coronavirus screen: Client denies travel out of the [place] in the last 14 days. Ebola Screen: Patient denies exposure to infectious person. Patient denies travel to an Ebola-affected area in the 21 days before illness onset. Initial Sepsis Screen: Does the patient meet any 2 criteria? No. Patient's initial sepsis screen is negative. Does the patient have a suspected source of infection? No. Patient's initial sepsis screen is negative. Risk Assessment: Do you want to hurt yourself or someone else? Patient reports no desire to harm self or others. Onset of symptoms was December 30, 2021. 15:13 Method Of Arrival: Ambulatory ss 15:13 Acuity: GERMAN 4 ss Triage Assessment: 15:00 General: Appears in no apparent distress. Behavior is calm, cooperative. Pain: jg9 Complains of pain in neck-throat. 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 - Social history:: Smoking status: Patient denies any tobacco usage or history of. Screenin:00 Abuse screen: Denies threats or abuse. Denies injuries from another. Nutritional jg9 screening: No deficits noted. Tuberculosis screening: No symptoms or risk factors identified. Fall Risk None identified. Assessment: 17:40 Reassessment: Po challenge completed without incident. jg9 Vital Signs: 15:13 BP 108 / 68; Pulse 99; Resp 15; Temp 98.4(TE); Pulse Ox 100% on R/A; Weight 72.57 kg; ss Height 5 ft. 4 in. (162.56 cm); Pain 2/10; 17:35 BP 109 / 81; Pulse 82; Resp 12 S; Pulse Ox 99% on R/A; jg9 15:13 Body Mass Index 27.46 (72.57 kg, 162.56 cm) ED Course: 14:48 Patient arrived in ED. mr 14:56 Wood Bunch PA is PHCP. cp 14:56 Jeramy Hernandez MD is Attending Physician. cp 15:15 Triage completed. ss 15:15 Arm band placed on right wrist. ss 16:00 Patient has correct armband on for positive identification. Bed in low position. Call jg9 light in reach. Side rails up X 1. 17:00 Darlene Meyers, LETI is Primary Nurse. jg9 17:41 No provider procedures requiring assistance completed. jg9 17:42 Patient did not have IV access during this emergency room visit. jg9 Administered Medications: No medications were administered Medication: 17:41 VIS not applicable for this client. jg9 Outcome: 17:25 Discharge ordered by . cp 17:41 Discharged to home ambulatory. jg9 17:41 Condition: stable 17:41 Discharge instructions given to patient, Instructed on discharge instructions, follow up and referral plans. Demonstrated understanding of instructions, follow-up care. 17:42 Patient left the ED. jg9 Signatures: SheriffCristina mr BullockMary, RN RN Wood Bunch PA PA cp Darlene Meyers, LETI RN jg9
--- NOTE | 2022-01-03 17:26 | EDPHYS ---
Physician Documentation [facility] Name: Tali Guidry Age: 21 yrs Sex: Female : 2000 Arrival Date: 01/03/2022 Time: 14:48 Bed 20 Private MD: ED Physician Jeramy Hernandez HPI: 01/03 15:20 This 21 yrs old Female presents to ER via Ambulatory with complaints of Flu Symptoms, cp 8wks . 15:20 The patient or guardian reports cough, that is intermittent. cp 15:20 Onset: The symptoms/episode began/occurred 4 day(s) ago. cp 15:20 Associated signs and symptoms: Pertinent positives: sore throat, Pertinent negatives: cp diarrhea, vomiting, vaginal bleeding. 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 - Social history:: Smoking status: Patient denies any tobacco usage or history of. ROS: 15:25 Constitutional: Negative for chills, fever, poor PO intake. cp 15:25 Eyes: Negative for injury, pain, redness, and discharge. cp 15:25 ENT: Positive for sore throat, Negative for drainage from ear(s), ear pain, difficulty swallowing, difficulty handling secretions. 15:25 Respiratory: Positive for cough, Negative for shortness of breath, wheezing. 15:25 Abdomen/GI: Negative for abdominal pain, nausea, vomiting, and diarrhea. 15:25 : Negative for urinary symptoms, vaginal bleeding. cp 15:25 Neuro: Negative for altered mental status, dizziness, headache, weakness. cp 15:25 All other systems are negative. Exam: 15:30 Constitutional: The patient appears in no acute distress, alert, awake, comfortable, cp non-toxic, well developed, well nourished. 15:30 Head/Face: Normocephalic, atraumatic. cp 15:30 Eyes: Periorbital structures: appear normal, Conjunctiva: normal, no exudate, no cp injection, Lids and lashes: appear normal, bilaterally. 15:30 ENT: External ear(s): are unremarkable, Ear canal(s): are normal, clear, TM's: dullness, bilaterally, Nose: is normal, Mouth: Lips: moist, Oral mucosa: moist, Posterior pharynx: Airway: no evidence of obstruction, patent. 15:30 Neck: ROM/movement: is normal, is supple, without pain, no range of motions limitations, no meningismus. 15:30 Chest/axilla: Inspection: normal. 15:30 Cardiovascular: Rate: normal, Rhythm: regular. 15:30 Respiratory: the patient does not display signs of respiratory distress, Respirations: normal, no use of accessory muscles, no retractions, labored breathing, is not present, Breath sounds: decreased breath sounds, are not appreciated, stridor, is not appreciated, + upper airway congestion. wheezing: is not appreciated. 15:30 Abdomen/GI: Exam negative for discomfort, distension, guarding, Inspection: abdomen appears normal. Vital Signs: 15:13 BP 108 / 68; Pulse 99; Resp 15; Temp 98.4(TE); Pulse Ox 100% on R/A; Weight 72.57 kg; ss Height 5 ft. 4 in. (162.56 cm); Pain 2/10; 17:35 BP 109 / 81; Pulse 82; Resp 12 S; Pulse Ox 99% on R/A; jg9 15:13 Body Mass Index 27.46 (72.57 kg, 162.56 cm) ss MDM: 15:41 Patient medically screened. cp 16:00 Differential diagnosis: bronchitis, flu, URI, COVID-19. cp 17:24 Data reviewed: vital signs, nurses notes, lab test result(s), and as a result, I will cp discharge patient. Counseling: I had a detailed discussion with the patient and/or guardian regarding: the historical points, exam findings, and any diagnostic results supporting the discharge/admit diagnosis, lab results, to return to the emergency department if symptoms worsen or persist or if there are any questions or concerns that arise at home. 01/03 15:16 Order name: Flu; Complete Time: 17:20 ss 01/03 15:16 Order name: Strep; Complete Time: 17:20 ss 01/03 15:16 Order name: COVID-19 SARS RT PCR (Document "Date of Onset" if Symptomatic); Complete ss Time: 17:20 01/03 16:21 Order name: Throat Culture EDMO 01/03 17:20 Order name: PO challenge; Complete Time: 17:42 cp Administered Medications: No medications were administered Disposition: 18:04 Co-signature as Attending Physician, Jeramy Hernandez MD. rn Disposition Summary: 01/03/22 17:25 Discharge Ordered Location: Home cp Problem: new cp Symptoms: are unchanged cp Condition: Stable cp Diagnosis - Acute upper respiratory infection, unspecified cp Followup: cp - With: Private Physician - When: 2 - 3 days - Reason: Worsening of condition Discharge Instructions: - Discharge Summary Sheet cp - Viral Respiratory Infection cp - Cool Mist Vaporizer cp Forms: - Medication Reconciliation Form cp - Thank You Letter cp - Antibiotic Education cp - Prescription Opioid Use cp Signatures: Dispatcher [employer] Jermay Najera MD MD rn Smirch, Shelby, RN RN ss Page, Corey, PA PA cp Corrections: (The following items were deleted from the chart) 01/04 15:06 01/03 15:20 Associated signs and symptoms: Pertinent positives: sore throat, Pertinent cp negatives: diarrhea, vomiting, cp
[2022-01-03 17:59] VITALS: TEMP 98.4
[2022-01-03 18:01] VITALS: BP 109/81; O2SAT 99
== END 2022-01-03 17:42 | disposition home or self-care (01) ==
LOC: ER 14:43
DX: O99.511 Diseases of the respiratory system complicating pregnancy, first trimester (principal); J06.9 Acute upper respiratory infection, unspecified; Z3A.08 8 weeks gestation of pregnancy; Z20.822 Contact with and (suspected) exposure to COVID-19
CPT/HCPCS: 87070; 87081; 87804 ×2; U0003

== ENCOUNTER 2023-01-20 20:51 | Emergency (ER) | payer OTHER ==
--- OUTSIDE RECORDS SUMMARY | 2023-01-20 21:02 | XMS REPORT | Continuity of Care Document ---
:[address] [facility] t Address [address] [place] [address] Care Team Providers Name Role Phone Unknown, Physician Primary Care Physician Unavailable DEMETRIUS GRIFFITH Attending Clinician Unavailable Gladis FRIEDMAN, Demetrius Maynard Attending Clinician Kevyn Meadows MD Attending Clinician [phone] Fabby Suh PA-C Attending Clinician FABBY SUH Attending Clinician Unavailable 2, [facility] Attending Clinician Unavailable Doctor Unassigned, Shelby Attending Clinician Unavailable Michelle Campbell MD Attending Clinician Kaitlin Romo MD Attending Clinician Kali FRIEDMAN, Bree Spann Attending Clinician [phone] Ultrasound, Ad[facility] Mfm Attending Clinician Unavailable Maxi Kelley MD, Kae Attending Clinician [phone] KAE SCHMIDT Attending Clinician Unavailable Polo LANDEROS, Clarissa Bernardo Attending Clinician Unavailable Anyi LUTZ, Migdalia Attending Clinician Tam LUTZ, Erickson Attending Clinician ERICKSON SHAH Attending Clinician Unavailable Henry Emmanuel Attending Clinician Nilam DECKER, Adalid Attending Clinician ADALID ROGEL Attending Clinician Unavailable Narendra Leyva MD Attending Clinician [phone] Tiana Goncalves MD Attending Clinician Pob, [facility] Main Attending Clinician Unavailable MICHELLE CAMPBELL Attending Clinician Unavailable ERANASTACIA_R Attending Clinician Unavailable Jeremi Hodges Attending Clinician [phone] Lab, Adc Fam Pob I Attending Clinician Unavailable Shazia Bliss Attending Clinician SHAZIA JAY Attending Clinician Unavailable Caridad Avitia MA Attending Clinician Unavailable Tyson Daugherty DO Attending Clinician Robert Carbone Attending Clinician ProviderAdam Urgent Care Attending Clinician Unavailable ROBERT ZULETA Attending Clinician Unavailable Pa Frias DO Attending Clinician Celeste Madera DO Attending Clinician Rashi Moon MD Attending Clinician RASHI MOON Attending Clinician Unavailable Brit Montano PA-C Attending Clinician Oswald LANDEROS, Stephanie Marcos Attending Clinician Unavailable DEMETRIUS GRIFFITH Admitting Clinician Unavailable Demetrius Griffith MD Admitting Clinician KAITLIN ROMO Admitting Clinician Unavailable BREE BASS Admitting Clinician Unavailable ERICKSON_R Admitting Clinician Unavailable Payers Payer Name Policy Type Policy Number Effective Date Expiration Date [facility] [id number] 2022 00:00:00 [facility] COMMUNITY PLAN [id number] 2021 STAR 00:00:00 MEDICAID OF [place] [id number] 2021 00:00:00 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 will need Repeat Pap smear PP Chlamydia Chlamydia Disease Active Uni vers trachomati trachomati 1-25 it y of s s 00:00: [place] infection infection 00 Medi suzanna of lower of lower Branch genitourin genitourin apolinar sites apolinar sites Normal Normal Disease Active Univers labor labor 1-25 ity of 00:00: [place] 00 Medical Branch Pain of Pain of Disease Active 2021-07 Univers round round 2-12 ity of ligament ligament 00:00: [place] during during 00 Medical Bran ch 24 weeks 24 weeks Disease Active 2021-07 [facility] di gestation gestation 0-20 st of of 00:00: [facility] 00 l Status Status Disease Active 2021-07 Methodi post fall post fall 0-20 st 00:00: [facility]ospita 00 l High risk High risk Disease Active Uni vers , , 7-06 it y of antepartum antepartum 00:[place] 00 [place] Problem Active S weeny depression Depression 4-15 Co mmuni 00:00: ty 00 [facility] Acne Acne Problem Active [place] 4-15 Communi 00:00: ty 00 [facility] Microcytos Microcytos Problem Active S weeny is is 4-15 Communi 00:00: ty 00 [facility] History of History of Problem Active S weeny chlamydial Chlamydial 2-05 Co mmuni infection Infection 00:00: ty 00 [facility] Liveborn Liveborn Disease Active Unive rs infant, of infant, of 8-01 it y of shafer shafer 00:00: Kylah lamar , , 00 Me dical born in born in [facility] by vaginal by vaginal delivery delivery 38 weeks 38 weeks Disease Active Unive rs gestation gestation 7-30 ity of of of 00:00: [place] 00 [facility] suzanna Branch History of History of Disease Active U adaners depression depression 4-24 it y of 00:00: [place] 00 Medical Branch History of History of Disease Active U nivers anxiety anxiety 4-24 ity of 00:00: [place] 00 Medical Branch Skin Skin Disease Active Univers lesion lesion 11-26 ity of 00:00: [place] [address] Medical Branch Asthma Asthma Disease Active Overview: Univer s 11-26 Formattin ity of 00:00: g of this [place] note Medical might be Branch different from the original. 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 Known Drug [facility] Known Drug [facility] No Known Drug [facility] NO KNOWN Drug Active [facility] ALLERGIE Class ity of [facility] Social History Social Habit Start Date Stop Date Quantity Comments Source ASSERTION 2021-11-18 [facility] 00:[facility]:00 Hospital Gender identity [facility] Sexual orientation [facility] Alcohol intake 2022-11-032022-11-03 Ex-drinker [facility] 00:00:00 00:00:00 (finding) Hospital History of Social 2022-11-03 2022-11-[address] function 00:00:00 00:00:00 Hospital Exposure to 2022-08-13 2022-08-23 Not sure University SARS-CoV-2 (event) 00:00:00 15:53:00 [facility] Tobacco use and 2022-04-27 2022-04-27 Smokeless [facility] exposure 00:00:00 00:00:00 tobacco non-user Hospital Sex Assigned At 2000 2000 [facility] 00:00:00 00:00:00 Hospital Smoking Status Start Date Stop Date Source Never smoked tobacco [facility] Medications Ordered Filled Start Stop Current Ordering Indication Dosage Frequency Signature Comments Components Source Medication Medication Date Date Medication? Clinician (SIG) Name Name Yes [id number] 1{tbl} Take 1 Univers vitamin 1-27 tablet by ity of w/FA tablet 00:00: [place] 00 the Medical morning. Branch docusate Yes [id number] 200mg Take 2 U nivers 100 mg 1-27 capsules ity of capsule 00:00: by mouth [place] 00 once daily Medical as needed Branch for Constipati on. ferrous Yes [id number] 325mg Take 1 Un star sulfate 325 1-27 tablet by ity of mg (65 mg 00:00: [place] iron[place] 00 the Medical tablet morning Branch and 1 tablet in the evening. ibuprofen Yes [id number] 600mg Take 1 Univers 600 mg 1-27 tablet by ity of tablet 00:00: mouth [place] 00 every 6 Medical (six) Branch hours as needed (Pain). Take with food or milk. 2022- No [id number] 1{tbl} Take 1 Univers vitamin 1-27 02-15 tablet by ity of w/FA tablet 00:00: 00:00 mouth [place] :00 the Medical morning. Branch docusate 2022- No [id number] 200mg Take 2 Univers 100 mg 1-27 02-15 capsules ity of capsule 00:00: 00:00 by mouth [place] 00 :00 once daily Medical as needed Branch for Constipati on. ferrous 2022- No [id number] 325mg Take 1 U nivers sulfate 325 08-0415 tablet by it y of mg (65 mg 00:00: 00:00 mouth [place] iron) 00 :00 the Medical tablet morning Branch and 1 tablet in the evening. ibuprofen 2022- No [id number] 600mg Take 1 Univers 600 mg 08-0415 tablet by ity of tablet 00:00: 00:00 mouth [place] 00 :00 every 6 Medical (six) Branch hours as needed (Pain). Take with food or milk. rho(D) Yes 300ug 300 mcg, Univer s immune 08-03 Intramuscu ity of globulin 20:07: lar, ONCE, [place] (RHOGAM) 53 For 1 Medical syringe 300 dose, Branch mcg Conditiona l, Routine witch Shankar Yes Topical, Un star (TUCKS) 50 08-03 Q4HPRN, ity of % topical 20:07: [place] pad 48 on [facility] Medical 08/03/22 at Branch 1407, Until Discontinu ed, Routine, rectal/hem orrhoidal pain HYDROcodone Yes 1{tbl} 1 tablet, Univers -acetaminop 08-03 Oral, ity of hen (NORCO 20:07: Q6HPRN, [place] 5) 5-325 mg 48 Starting Medi suzanna tablet 1 on [facility] Branch tablet 08/03/22 at 1407, Until Discontinu ed, Routine, Pain (scale 7-10) ibuprofen Yes 600mg 600 mg, Univ ers (IBU) 08-03 Oral, ity of tablet 600 20:07: Q6HPRN, [place] mg 48 Starting Medical on [place] Branch 08/03/22 at 1407, Until Discontinu ed, Routine, Pain (scale 4-6) acetaminoph Yes 650mg 650 mg, Un star en 08-03 Oral, ity of (TYLENOL) 20:07: Q6HPRN, [place] tablet 650 48 Starting Medic al mg on [place] Branch 08/03/22 at 1407, Until Discontinu ed, Routine, Pain (scale 1-3) diphenhydrA 0 Yes 25mg 25 mg, Univ ers MINE 08-03 Oral, ity of (BENADRYL) 20:07: Q6HPRN, [place] tablet 25 48 Starting Medica l mg on [facility] Branch 08/03/22 at 1407, Until Discontinu ed, Routine, Sleep, Itching ondansetron 0 Yes 4mg 4 mg, Slow Univers (ZOFRAN 08-03 IV Push, ity of (PF)) 20:07: Q8HPRN, [place] injection 4 48 Starting Medi suzanna mg on [facility] Branch 08/03/22 at 1407, Until Discontinu ed, Routine, Nausea and Vomiting (N/V) simethicone 0 Yes 160mg 160 mg, Un star (GAS RELIEF 08-03 Oral, ity of (SIMETHICON 20:07: PC+HSPRN, [place] E)) 48 Starting Medical chewable on [facility] tablet 160 08/03/22 at mg 1407, Until Discontinu ed, Routine, Gas docusate 0 Yes 200mg 200 mg, Unive rs (COLACE) 08-03 Oral, ity of capsule 200 20:07: QDAILYPRN, [place] mg 48 Starting Medical on [facility] Branch 08/03/22 at 1407, Until Discontinu ed, Routine, Constipati on magnesium 0 Yes 30mL 30 mL, Univer s hydroxide 08-03 Oral, ity of (MILK OF 20:07: QDAILYPRN, [place] MAGNESIA) 48 Starting Medica l 400 mg/5 mL on [facility] suspension 08/03/22 at 30 mL 1407, Until Discontinu ed, Routine, Constipati on benzocaine- 0 Yes Topical, Un star menthol 08-03 PRN, ity of (DERMOPLAST 20:07: [place] ) 20-0.5 % 48 on [facility] Medical topical 08/03/22 at Branch spray 1407, Until Discontinu ed, Routine, Perineum discomfort oxytocin 2022-0 2023- No 300mL/h 300 mL/hr, Univers (PITOCIN) 08-03 IV ity of 30 units in 19:27: 20:07 Infusion, [place] NS 500 mL 42 :51 SEE-INSTRU Medi suzanna IV infusion CTIONS, Branc h Starting on [place] 08/03/[address] art at 300 mL/hr for 1 hr then 150 mL/hr for 1 hr. & nbsp; For post delivery uterotonic
fentaNYL-ro 2022-2022- No Epidural, Univers pivacaine 2 08-03 CONTINUOUS i ty of mcg/mL-0.1 16:38: 20:35 PRN, [place] % (PF) in 00 :41 Starting Medica l NS 200 mL on [place] Branch epidural 08/03/22 at infusion 1038, RTU Until [place] 08/03/22 at 1435, Routine, Intra-op fentaNYL-ro 2022- No Epidural, Univers pivacaine 2 08-03 ONCE INTRA i ty of mcg/mL-0.1 16:38: 20:35 PROCEDURE, [place] % (PF) in 00 :41 Starting Medica l NS 200 mL on [place] Branch epidural 08/03/22 at infusion 1038, RTU Until [place] 08/03/22 at 1435, Routine, Intra-op lidocaine-e 2022- No Intraderma Univers pinephrine 08-03 l, ONCE ity o f (XYLOCAINE 16:32: 20:35 INTRA [place] W/EPINEPHRI 00 :41 PROCEDURE, Me dical NE) 1.5 Starting Branch %-1:200,000 on [place] injection 08/03/22 at 1032, Until [place] 08/03/22 at 1435, Routine, Intra-op oxytocin 2022- No 2mU/min at 2-40 Un star (PITOCIN) 08-03 mL/hr, IV ity of 30 units in 14:53: 20:07 Infusion, [place] NS 500 mL 47 :51 TITRATE, Medica l IV infusion Starting Bran ch on [place] 08/03/22 at 0853, Until [place] 08/03/22 at 1407, MIGUEL lactated 2022- No 500mL at 999 Unive rs ringers IV 08-02 mL/hr, 500 it y of infusion 22:50: 20:07 mL, IV [place] 500 mL 47 :51 Infusion, Medical PRN - SEE Branch INSTRUCTIO NS, Starting on Sun08/02/22 at 1650, Until [place] 08/03/22 at 1407, Routine D5W-LR IV 2022- No 1000mL at 1-125 U nivers infusion 08-02 01- mL/hr, IV ity o f 1,000 mL 22:50: 20:07 Infusion, [place] 47 :51 TITRATE, Medical Starting Branch on Sun08/02/22 at 1650, Until [place] 08/03/22 at 1407, Routine azithromyci 0 Yes [id number] 500mg Take 1 Univers n 500 mg 1-18 tablet by ity of tablet 00:00: mouth in [place] 00 the Medical morning. Muse fluconazole 0 Yes [id number] 200mg Take 1 Univers (DIFLUCAN) 1-18 tablet by ity of 200 mg 00:00: mouth in [place] tablet 00 the Medical morning. Muse azithromyci 0 Yes [id number] 500mg Take 1 Univers n 500 mg 1-18 tablet by ity of tablet 00:00: mouth in [place] 00 the Medical morning. Branch fluconazole 2022-0 Yes [id number] 200mg Take 1 Univers (DIFLUCAN) 1-18 tablet by ity of 200 mg 00:00: mouth in [place] tablet 00 the Medical morning. Branch azithromyci 0 Yes [id number] 500mg Take 1 Univers n 500 mg 1-18 tablet by ity of tablet 00:00: mouth in [place] 00 the Medical morning. Branch fluconazole 2022-0 Yes [id number] 200mg Take 1 Univers (DIFLUCAN) 1-18 tablet by ity of 200 mg 00:00: mouth in [place] tablet 00 the Medical morning. Muse azithromyci 0 Yes [id number] 500mg Take 1 Univers n 500 mg 1-18 tablet by ity of tablet 00:00: mouth in [place] 00 the Medical morning. Branch fluconazole 2022-0 Yes [id number] 200mg Take 1 Univers (DIFLUCAN) 1-18 tablet by ity of 200 mg 00:00: mouth in [place] tablet 00 the Medical morning. Branch azithromyci 2022-0 2022- No [id number] 500mg Take 1 Univers n 500 mg 1-18 25 tablet by ity o f tablet 00:00: 00:00 mouth in [place] 00 :00 the Medical morning. Branch fluconazole 2022-2022- No [id number] 200mg Take 1 Univers (DIFLUCAN) 07-26 tablet by ity of 200 mg 00:00: 00:00 mouth in [place] tablet 00 :00 the Medical morning. Branch 2021-07 Yes 1{tbl} QD Take 1 [facility] di vit,calc76- 0-[address] iron-folic 16:55: mouth Hospit a 29 mg iron- 35 daily. l 1 mg tablet per tablet 2021-07 Yes 1{tbl} QD Take 1 [facility] di vit,calc76- 0-[address] iron-folic 16:55: mouth Hospit a 29 mg iron- 35 daily. l 1 mg tablet per tablet metroNIDAZO Yes [id number] 500mg Take 1 Univers LE 500 mg 8-26 tablet by ity o f tablet 00:00: mouth [place] 00 every 12 Medical (twelve) Branch hours. metroNIDAZO Yes [id number] 500mg Take 1 Univers LE 500 mg 8-26 tablet by ity o f tablet 00:00: mouth [place] 00 every 12 Medical (twelve) Branch hours. metroNIDAZO 0 Yes [id number] 500mg Take 1 Univers LE 500 mg 8-26 tablet by ity o f tablet 00:00: mouth [place] 00 every 12 Medical (twelve) Branch hours. metroNIDAZO Yes [id number] 500mg Take 1 Univers LE 500 mg 8-26 tablet by ity o f tablet 00:00: mouth [place] 00 every 12 Medical (twelve) Branch hours. metroNIDAZO 0 Yes [id number] 500mg Take 1 Univers LE 500 mg 8-26 tablet by ity o f tablet 00:00: mouth [place] 00 every 12 Medical (twelve) Branch hours. metroNIDAZO 2021-0 Yes [id number] 500mg Take 1 Univers LE 500 mg 8-26 tablet by ity o f tablet 00:00: mouth [place] 00 every 12 Medical (twelve) Branch hours. metroNIDAZO Yes [id number] 500mg Take 1 Univers LE 500 mg 8-26 tablet by ity o f tablet 00:00: mouth [place] 00 every 12 Medical (twelve) Branch hours. metroNIDAZO 2-0 Yes [id number] 500mg Take 1 Univers LE 500 mg 8-26 tablet by ity o f tablet 00:00: mouth [place] 00 every 12 Medical (twelve) Branch hours. metroNIDAZO 2-0 Yes [id number] 500mg Take 1 Univers LE 500 mg 8-26 tablet by ity o f tablet 00:00: mouth [place] 00 every 12 Medical (twelve) Branch hours. metroNIDAZO 2-0 Yes [id number] 500mg Take 1 Univers LE 500 mg 8-26 tablet by ity o f tablet 00:00: mouth [place] 00 every 12 Medical (twelve) Branch hours. metroNIDAZO 2-0 Yes [id number] 500mg Take 1 Univers LE 500 mg 8-26 tablet by ity o f tablet 00:00: mouth [place] 00 every 12 Medical (twelve) Branch hours. metroNIDAZO 2-0 Yes [id number] 500mg Take 1 Univers LE 500 mg 8-26 tablet by ity o f tablet 00:00: mouth [place] 00 every 12 Medical (twelve) Branch hours. metroNIDAZO 2021-0 Yes [id number] 500mg Take 1 Univers LE 500 mg 8-26 tablet by ity o f tablet 00:00: mouth [place] 00 every 12 Medical (twelve) Branch hours. metroNIDAZO 2-0 Yes [id number] 500mg Take 1 Univers LE 500 mg 8-26 tablet by ity o f tablet 00:00: mouth [place] 00 every 12 Medical (twelve) Branch hours. metroNIDAZO 2-0 Yes [id number] 500mg Take 1 Univers LE 500 mg 8-26 tablet by ity o f tablet 00:00: mouth [place] 00 every 12 Medical (twelve) Branch hours. metroNIDAZO 2-0 Yes [id number] 500mg Take 1 Univers LE 500 mg 8-26 tablet by ity o f tablet 00:00: mouth [place] 00 every 12 Medical (twelve) Branch hours. metroNIDAZO 2022-0 Yes [id number] 500mg Take 1 Univers LE 500 mg 8-26 tablet by ity o f tablet 00:00: mouth [place] 00 every 12 Medical (twelve) Branch hours. metroNIDAZO 2-0 Yes [id number] 500mg Take 1 Univers LE 500 mg 8-26 tablet by ity o f tablet 00:00: mouth [place] 00 every 12 Medical (twelve) Branch hours. metroNIDAZO 2022-0 Yes [id number] 500mg Take 1 Univers LE 500 mg 8-26 tablet by ity o f tablet 00:00: mouth [place] 00 every 12 Medical (twelve) Branch hours. metroNIDAZO 2022-0 Yes [id number] 500mg Take 1 Univers LE 500 mg 8-26 tablet by ity o f tablet 00:00: mouth [place] 00 every 12 Medical (twelve) Branch hours. metroNIDAZO 2022-0 Yes [id number] 500mg Take 1 Univers LE 500 mg 8-26 tablet by ity o f tablet 00:00: mouth [place] 00 every 12 Medical (twelve) Branch hours. metroNIDAZO 2022-0 Yes [id number] 500mg Take 1 Univers LE 500 mg 8-26 tablet by ity o f tablet 00:00: mouth [place] 00 every 12 Medical (twelve) Branch hours. metroNIDAZO 2-0 Yes [id number] 500mg Take 1 Univers LE 500 mg 8-26 tablet by ity o f tablet 00:00: mouth [place] 00 every 12 Medical (twelve) Branch hours. metroNIDAZO 2-0 Yes [id number] 500mg Take 1 Univers LE 500 mg 8-26 tablet by ity o f tablet 00:00: mouth [place] 00 every 12 Medical (twelve) Branch hours. metroNIDAZO 2-0 Yes [id number] 500mg Take 1 Univers LE 500 mg 8-26 tablet by ity o f tablet 00:00: mouth [place] 00 every 12 Medical (twelve) Branch hours. metroNIDAZO 2-0 Yes [id number] 500mg Take 1 Univers LE 500 mg 8-26 tablet by ity o f tablet 00:00: mouth [place] 00 every 12 Medical (twelve) Branch hours. metroNIDAZO 2022-0 Yes [id number] 500mg Take 1 Univers LE 500 mg 8-26 tablet by ity o f tablet 00:00: mouth [place] 00 every 12 Medical (twelve) Branch hours. metroNIDAZO 2022-0 Yes [id number] 500mg Take 1 Univers LE 500 mg 8-26 tablet by ity o f tablet 00:00: mouth [place] 00 every 12 Medical (twelve) Branch hours. metroNIDAZO 2022-0 Yes [id number] 500mg Take 1 Univers LE 500 mg 8-26 tablet by ity o f tablet 00:00: mouth [place] 00 every 12 Medical (twelve) Branch hours. metroNIDAZO 2021-0 Yes [id number] 500mg Take 1 Univers LE 500 mg 8-26 tablet by ity o f tablet 00:00: mouth [place] 00 every 12 Medical (twelve) Branch hours. metroNIDAZO 2021-0 Yes [id number] 500mg Take 1 Univers LE 500 mg 8-26 tablet by ity o f tablet 00:00: mouth [place] 00 every 12 Medical (twelve) Branch hours. metroNIDAZO 2021-0 2023- No [id number] 500mg Take 1 Univers LE 500 mg 8-26 01-25 tablet by ity of tablet 00:00: 00:00 mouth [place] 00 :00 every 12 Medical (twelve) Branch hours. pyridoxine, 0 Yes [id number] 25mg Take 1 Univers VITAMIN 7-06 tablet by ity of B-6, 00:00: mouth [place] (VITAMIN 00 every 6 Medical B-6) 25 mg (six) Branch tablet hours as needed for Nausea and Vomiting (N/V). doxylamine 2021-0 Yes [id number] 25mg Take 1 U nivers (UNISOM, 7-06 tablet by ity of DOXYLAMINE, 00:00: [place] 25 mg 00 bedtime as Medica l tablet needed for Branch Nausea and Vomiting (N/V). metoclopram 2021-0 Yes [id number] 10mg Take 1 Univers john HCl 10 7-06 tablet by ity of mg tablet 00:00: mouth [place] 00 every 6 Medical (six) Branch hours as needed for Nausea and Vomiting (N/V). pyridoxine, 2021-0 Yes [id number] 25mg Take 1 Univers VITAMIN 7-06 tablet by ity of B-6, 00:00: mouth [place] (VITAMIN 00 every 6 Medical B-6) 25 mg (six) Branch tablet hours as needed for Nausea and Vomiting (N/V). doxylamine 2021-0 Yes [id number] 25mg Take 1 U nivers (UNISOM, 7-06 tablet by ity of DOXYLAMINE, 00:00: [place] 25 mg 00 bedtime as Medica l tablet needed for Branch Nausea and Vomiting (N/V). metoclopram 2022-0 Yes [id number] 10mg Take 1 Univers john HCl 10 7-06 tablet by ity of mg tablet 00:00: mouth [place] 00 every 6 Medical (six) Branch hours as needed for Nausea and Vomiting (N/V). pyridoxine, 2021-0 Yes [id number] 25mg Take 1 Univers VITAMIN 7-06 tablet by ity of B-6, 00:00: mouth [place] (VITAMIN 00 every 6 Medical B-6) 25 mg (six) Branch tablet hours as needed for Nausea and Vomiting (N/V). doxylamine 2-0 Yes [id number] 25mg Take 1 U nivers (UNISOM, 7-06 tablet by ity of DOXYLAMINE, 00:00: mouth [place] 25 mg 00 bedtime as Medica l tablet needed for Branch Nausea and Vomiting (N/V). metoclopram 2-0 Yes [id number] 10mg Take 1 Univers jhon HCl 10 7-06 tablet by ity of mg tablet 00:00: mouth [place] 00 every 6 Medical (six) Branch hours as needed for Nausea and Vomiting (N/V). pyridoxine, 2021-0 Yes [id number] 25mg Take 1 Univers VITAMIN 7-06 tablet by ity of B-6, 00:00: mouth [place] (VITAMIN 00 every 6 Medical B-6) 25 mg (six) Branch tablet hours as needed for Nausea and Vomiting (N/V). doxylamine 2-0 Yes [id number] 25mg Take 1 U nivers (UNISOM, 7-06 tablet by ity of DOXYLAMINE, 00:00: mouth [place] 25 mg 00 bedtime as Medica l tablet needed for Branch Nausea and Vomiting (N/V). metoclopram 2-0 Yes [id number] 10mg Take 1 Univers john HCl 10 7-06 tablet by ity of mg tablet 00:00: mouth [place] 00 every 6 Medical (six) Branch hours as needed for Nausea and Vomiting (N/V). pyridoxine, 2-0 Yes [id number] 25mg Take 1 Univers VITAMIN 7-06 tablet by ity of B-6, 00:00: mouth [place] (VITAMIN 00 every 6 Medical B-6) 25 mg (six) Branch tablet hours as needed for Nausea and Vomiting (N/V). doxylamine 2022-0 Yes [id number] 25mg Take 1 U nivers (UNISOM, 7-06 tablet by ity of DOXYLAMINE, 00:00: mouth [place] 25 mg 00 bedtime as Medica l tablet needed for Branch Nausea and Vomiting (N/V). metoclopram 2022-0 Yes [id number] 10mg Take 1 Univers john HCl 10 7-06 tablet by ity of mg tablet 00:00: mouth [place] 00 every 6 Medical (six) Branch hours as needed for Nausea and Vomiting (N/V). pyridoxine, 2022-0 Yes [id number] 25mg Take 1 Univers VITAMIN 7-06 tablet by ity of B-6, 00:00: mouth [place] (VITAMIN 00 every 6 Medical B-6) 25 mg (six) Branch tablet hours as needed for Nausea and Vomiting (N/V). doxylamine 2022-0 Yes [id number] 25mg Take 1 U nivers (UNISOM, 7-06 tablet by ity of DOXYLAMINE, 00:00: [place] 25 mg 00 bedtime as Medica l tablet needed for Branch Nausea and Vomiting (N/V). metoclopram 2022-0 Yes [id number] 10mg Take 1 Univers john HCl 10 7-06 tablet by ity of mg tablet 00:00: mouth [place] 00 every 6 Medical (six) Branch hours as needed for Nausea and Vomiting (N/V). pyridoxine, 2022-0 Yes [id number] 25mg Take 1 Univers VITAMIN 7-06 tablet by ity of B-6, 00:00: mouth [place] (VITAMIN 00 every 6 Medical B-6) 25 mg (six) Branch tablet hours as needed for Nausea and Vomiting (N/V). doxylamine 2022-0 Yes [id number] 25mg Take 1 U nivers (UNISOM, 7-06 tablet by ity of DOXYLAMINE, 00:00: [place] 25 mg 00 bedtime as Medica l tablet needed for Branch Nausea and Vomiting (N/V). metoclopram 2022-0 Yes [id number] 10mg Take 1 Univers john HCl 10 7-06 tablet by ity of mg tablet 00:00: mouth [place] 00 every 6 Medical (six) Branch hours as needed for Nausea and Vomiting (N/V). pyridoxine, 2021-0 Yes [id number] 25mg Take 1 [facility] VIT[facility] 7-06 tablet by [facility] of B-6, 00:00: mouth [place] (VITAMIN 00 every 6 Medical B-6) 25 mg (six) Branch tablet hours as needed for Nausea and Vomiting (N/V). doxylamine 2-0 Yes [id number] 25mg Take 1 [facility] (UNISOM, 7-06 tablet by [facility] of DOXYLAMINE, 00:00: [place] 25 mg 00 bedtime as Medica l tablet needed for Branch Nausea and Vomiting (N/V). metoclopram 2022-0 Yes [id number] 10mg Take 1 [facility] john HCl 10 7-06 tablet by [facility] of mg tablet 00:00: mouth [place] 00 every 6 Medical (six) Branch hours as needed for Nausea and Vomiting (N/V). pyridoxine, 2021-0 Yes [id number] 25mg Take 1 [facility] VITAMIN 7-06 tablet by [facility] of B-6, 00:00: mouth [place] (VITAMIN 00 every 6 Medical B-6) 25 mg (six) Branch tablet hours as needed for Nausea and Vomiting (N/V). doxylamine 2021-0 Yes [id number] 25mg Take 1 [facility] (UNISOM, 7-06 tablet by it[facility] of DOXYLAMINE, 00:00: [facility] [place] 25 mg 00 bedtime as Medica l tablet needed for Branch Nausea and Vomiting (N/V). metoclopram 2-0 Yes [id number] 10mg Take 1 [facility] j[facility] HCl 10 7-06 tablet by [facility] of mg tablet 00:00: mouth [place] 00 every 6 Medical (six) Branch hours as needed for Nausea and Vomiting (N/V). pyridoxine, 2-0 Yes [id number] 25mg Take 1 [facility] VITAMIN 7-06 tablet by [facility] of B-6, 00:00: mouth [place] (VITAMIN 00 every 6 Medical B-6) 25 mg (six) Branch tablet hours as needed for Nausea and Vomiting (N/V). doxylamine 2022-0 Yes [id number] 25mg Take 1 [facility] (UNISOM, 7-06 tablet by it[facility] of DOXYLAMINE, 00:00: [facility] [place] 25 mg 00 bedtime as Medica l tablet needed for Branch Nausea and Vomiting (N/V). metoclopram 2022-0 Yes [id number] 10mg Take 1 [facility] j[facility] HCl 10 7-06 tablet by [facility] of mg tablet 00:00: mouth [place] 00 every 6 Medical (six) Branch hours as needed for Nausea and Vomiting (N/V). pyridoxine, 2-0 Yes [id number] 25mg Take 1 [facility] VITAMIN 7-06 tablet by [facility] of B-6, 00:00: mouth [place] (VITAMIN 00 every 6 Medical B-6) 25 mg (six) Branch tablet hours as needed for Nausea and Vomiting (N/V). doxylamine 2022-0 Yes [id number] 25mg Take 1 [facility] (UNISOM, 7-06 tablet by [facility] of DOXYLAMINE, 00:00: [facility] [place] 25 mg 00 bedtime as Medica l tablet needed for Branch Nausea and Vomiting (N/V). metoclopram 2022-0 Yes [id number] 10mg Take 1 [facility] HCl 10 7-06 tablet by [facility] of mg tablet 00:00: mouth [place] 00 every 6 Medical (six) Branch hours as needed for Nausea and Vomiting (N/V). pyridoxine, 2021-0 Yes [id number] 25mg Take 1 [facility] VITAMIN 7-06 tablet by [facility] of B-6, 00:00: mouth [place] (VITAMIN 00 every 6 Medical B-6) 25 mg (six) Branch tablet hours as needed for Nausea and Vomiting (N/V). doxylamine 2022-0 Yes [id number] 25mg Take 1 [facility] (UNISOM, 7-06 tablet by [facility] of DOXYLAMINE, 00:00: mouth [place] 25 mg 00 bedtime as Medica l tablet needed for Branch Nausea and Vomiting (N/V). metoclopram 2022-0 Yes [id number] 10mg Take 1 [facility] HCl 10 7-06 tablet by [facility] of mg tablet 00:00: mouth [place] 00 every 6 Medical (six) Branch hours as needed for Nausea and Vomiting (N/V). pyridoxine, 2022-0 Yes [id number] 25mg Take 1 [facility] VITAMIN 7-06 tablet by [facility] of B-6, 00:00: mouth [place] (VITAMIN 00 every 6 Medical B-6) 25 mg (six) Branch tablet hours as needed for Nausea and Vomiting (N/V). doxylamine 2022-0 Yes [id number] 25mg Take 1 [facility] (UNISOM, 7-06 tablet by it[facility] of DOXYLAMINE, 00:00: mouth [place] ) 25 mg 00 bedtime as Medica l tablet needed for Branch Nausea and Vomiting (N/V). metoclopram 2-0 Yes [id number] 10mg Take 1 [facility] HCl 10 7-06 tablet by [facility] of mg tablet 00:00: mouth [place] 00 every 6 Medical (six) Branch hours as needed for Nausea and Vomiting (N/V). pyridoxine, 2021-0 Yes [id number] 25mg Take 1 [facility] VITAMIN 7-06 tablet by [facility] of B-6, 00:00: mouth [place] (VITAMIN 00 every 6 Medical B-6) 25 mg (six) Branch tablet hours as needed for Nausea and Vomiting (N/V). doxylamine 2-0 Yes [id number] 25mg Take 1 [facility] (UNISOM, 7-06 tablet by it[facility] of DOXYLAMINE, 00:00: mouth [place] ) 25 mg 00 bedtime as Medica l tablet needed for Branch Nausea and Vomiting (N/V). metoclopram 2-0 Yes [id number] 10mg Take 1 [facility] HCl 10 7-06 tablet by [facility] of mg tablet 00:00: mouth [place] 00 every 6 Medical (six) Branch hours as needed for Nausea and Vomiting (N/V). pyridoxine, 2-0 Yes [id number] 25mg Take 1 [facility] VITAMIN 7-06 tablet by [facility] of B-6, 00:00: mouth [place] (VITAMIN 00 every 6 Medical B-6) 25 mg (six) Branch tablet hours as needed for Nausea and Vomiting (N/V). doxylamine 2022-0 Yes [id number] 25mg Take 1 [facility] (UNISOM, 7-06 tablet by ity of DOXYLAMINE, 00:00: mouth [place] ) 25 mg 00 bedtime as Medica l tablet needed for Branch Nausea and Vomiting (N/V). metoclopram 2022-0 Yes [id number] 10mg Take 1 [facility] HCl 10 7-06 tablet by [facility] of mg tablet 00:00: mouth [place] 00 every 6 Medical (six) Branch hours as needed for Nausea and Vomiting (N/V). pyridoxine, 2021-0 Yes [id number] 25mg Take 1 [facility] VITAMIN 7-06 tablet by [facility] of B-6, 00:00: mouth [place] (VITAMIN 00 every 6 Medical B-6) 25 mg (six) Branch tablet hours as needed for Nausea and Vomiting (N/V). doxylamine 2021-0 Yes [id number] 25mg Take 1 [facility] (UNISOM, 7-06 tablet by ity of DOXYLAMINE, 00:00: mouth [place] ) 25 mg 00 bedtime as Medica l tablet needed for Branch Nausea and Vomiting (N/V). metoclopram 2021-0 Yes [id number] 10mg Take 1 [facility] HCl 10 7-06 tablet by [facility] of mg tablet 00:00: mouth [place] 00 every 6 Medical (six) Branch hours as needed for Nausea and Vomiting (N/V). pyridoxine, 2021-0 Yes [id number] 25mg Take 1 [facility] VITAMIN 7-06 tablet by [facility] of B-6, 00:00: mouth [place] (VITAMIN 00 every 6 Medical B-6) 25 mg (six) Branch tablet hours as needed for Nausea and Vomiting (N/V). doxylamine 2021-0 Yes [id number] 25mg Take 1 [facility] (UNISOM, 7-06 tablet by ity of DOXYLAMINE, 00:00: mouth [place] ) 25 mg 00 bedtime as Medica l tablet needed for Branch Nausea and Vomiting (N/V). metoclopram 2021-0 Yes [id number] 10mg Take 1 [facility] HCl 10 7-06 tablet by [facility] of mg tablet 00:00: mouth [place] 00 every 6 Medical (six) Branch hours as needed for Nausea and Vomiting (N/V). pyridoxine, 2021-0 Yes [id number] 25mg Take 1 [facility] VITAMIN 7-06 tablet by [facility] of B-6, 00:00: mouth [place] (VITAMIN 00 every 6 Medical B-6) 25 mg (six) Branch tablet hours as needed for Nausea and Vomiting (N/V). doxylamine 2022-0 Yes [id number] 25mg Take 1 [facility] (UNISOM, 7-06 tablet by it[facility] of DOXYLAMINE, 00:00: mouth [place] ) 25 mg 00 bedtime as Medica l tablet needed for Branch Nausea and Vomiting (N/V). metoclopram 2022-0 Yes [id number] 10mg Take 1 [facility] HCl 10 7-06 tablet by [facility] of mg tablet 00:00: mouth [place] 00 every 6 Medical (six) Branch hours as needed for Nausea and Vomiting (N/V). pyridoxine, 2-0 Yes [id number] 25mg Take 1 [facility] VITAMIN 7-06 tablet by [facility] of B-6, 00:00: mouth [place] (VITAMIN 00 every 6 Medical B-6) 25 mg (six) Branch tablet hours as needed for Nausea and Vomiting (N/V). doxylamine 2022-0 Yes [id number] 25mg Take 1 [facility] (UNISOM, 7-06 tablet by [facility] of DOXYLAMINE, 00:00: mouth [place] ) 25 mg 00 bedtime as Medica l tablet needed for Branch Nausea and Vomiting (N/V). metoclopram 2022-0 Yes [id number] 10mg Take 1 [facility] HCl 10 7-06 tablet by [facility] of mg tablet 00:00: mouth [place] 00 every 6 Medical (six) Branch hours as needed for Nausea and Vomiting (N/V). pyridoxine, 2-0 Yes [id number] 25mg Take 1 [facility] VITAMIN 7-06 tablet by [facility] of B-6, 00:00: mouth [place] (VITAMIN 00 every 6 Medical B-6) 25 mg (six) Branch tablet hours as needed for Nausea and Vomiting (N/V). doxylamine 2022-0 Yes [id number] 25mg Take 1 [facility] (UNISOM, 7-06 tablet by ity of DOXYLAMINE, 00:00: mouth [place] ) 25 mg 00 bedtime as Medica l tablet needed for Branch Nausea and Vomiting (N/V). metoclopram 2022-0 Yes [id number] 10mg Take 1 [facility] HCl 10 7-06 tablet by [facility] of mg tablet 00:00: mouth [place] 00 every 6 Medical (six) Branch hours as needed for Nausea and Vomiting (N/V). pyridoxine, 2-0 Yes [id number] 25mg Take 1 [facility] VITAMIN 7-06 tablet by [facility] of B-6, 00:00: mouth [place] (VITAMIN 00 every 6 Medical B-6) 25 mg (six) Branch tablet hours as needed for Nausea and Vomiting (N/V). doxylamine 2022-0 Yes [id number] 25mg Take 1 [facility] (UNISOM, 7-06 tablet by ity of DOXYLAMINE, 00:00: mouth [place] ) 25 mg 00 bedtime as Medica l tablet needed for Branch Nausea and Vomiting (N/V). metoclopram 2022-0 Yes [id number] 10mg Take 1 [facility] HCl 10 7-06 tablet by [facility] of mg tablet 00:00: mouth [place] 00 every 6 Medical (six) Branch hours as needed for Nausea and Vomiting (N/V). pyridoxine, 2021-0 Yes [id number] 25mg Take 1 [facility] VITAMIN 7-06 tablet by [facility] of B-6, 00:00: mouth [place] (VITAMIN 00 every 6 Medical B-6) 25 mg (six) Branch tablet hours as needed for Nausea and Vomiting (N/V). doxylamine 2021-0 Yes [id number] 25mg Take 1 [facility] (UNISOM, 7-06 tablet by ity of DOXYLAMINE, 00:00: mouth [place] ) 25 mg 00 bedtime as Medica l tablet needed for Branch Nausea and Vomiting (N/V). metoclopram 2-0 Yes [id number] 10mg Take 1 [facility] HCl 10 7-06 tablet by [facility] of mg tablet 00:00: mouth [place] 00 every 6 Medical (six) Branch hours as needed for Nausea and Vomiting (N/V). pyridoxine, 2-0 Yes [id number] 25mg Take 1 [facility] VITAMIN 7-06 tablet by [facility] of B-6, 00:00: mouth [place] (VITAMIN 00 every 6 Medical B-6) 25 mg (six) Branch tablet hours as needed for Nausea and Vomiting (N/V). doxylamine 2022-0 Yes [id number] 25mg Take 1 [facility] (UNISOM, 7-06 tablet by ity of DOXYLAMINE, 00:00: mouth [place] ) 25 mg 00 bedtime as Medica l tablet needed for Branch Nausea and Vomiting (N/V). metoclopram 2022-0 Yes [id number] 10mg Take 1 [facility] HCl 10 7-06 tablet by [facility] of mg tablet 00:00: mouth [place] 00 every 6 Medical (six) Branch hours as needed for Nausea and Vomiting (N/V). pyridoxine, 2-0 Yes [id number] 25mg Take 1 [facility] VITAMIN 7-06 tablet by [facility] of B-6, 00:00: mouth [place] (VITAMIN 00 every 6 Medical B-6) 25 mg (six) Branch tablet hours as needed for Nausea and Vomiting (N/V). doxylamine 2022-0 Yes [id number] 25mg Take 1 [facility] (UNISOM, 7-06 tablet by ity of DOXYLAMINE, 00:00: mouth [place] ) 25 mg 00 bedtime as Medica l tablet needed for Branch Nausea and Vomiting (N/V). metoclopram 2-0 Yes [id number] 10mg Take 1 [facility] HCl 10 7-06 tablet by [facility] of mg tablet 00:00: mouth [place] 00 every 6 Medical (six) Branch hours as needed for Nausea and Vomiting (N/V). pyridoxine, 2021-0 Yes [id number] 25mg Take 1 [facility] VITAMIN 7-06 tablet by ity of B-6, 00:00: mouth [place] (VITAMIN 00 every 6 Medical B-6) 25 mg (six) Branch tablet hours as needed for Nausea and Vomiting (N/V). doxylamine 2-0 Yes [id number] 25mg Take 1 [facility] (UNISOM, 7-06 tablet by ity of DOXYLAMINE, 00:00: mouth [place] ) 25 mg 00 bedtime as Medica l tablet needed for Branch Nausea and Vomiting (N/V). metoclopram 2022-0 Yes [id number] 10mg Take 1 [facility] j[facility] HCl 10 7-06 tablet by ity of mg tablet 00:00: mouth [place] 00 every 6 Medical (six) Branch hours as needed for Nausea and Vomiting (N/V). pyridoxine, 2022-0 Yes [id number] 25mg Take 1 [facility] VITAMIN 7-06 tablet by ity of B-6, 00:00: mouth [place] (VITAMIN 00 every 6 Medical B-6) 25 mg (six) Branch tablet hours as needed for Nausea and Vomiting (N/V). doxylamine 2022-0 Yes [id number] 25mg Take 1 [facility] (UNISOM, 7-06 tablet by ity of DOXYLAMINE, 00:00: mouth [place] ) 25 mg 00 bedtime as Medica l tablet needed for Branch Nausea and Vomiting (N/V). metoclopram 2-0 Yes [id number] 10mg Take 1 [facility] HCl 10 7-06 tablet by ity of mg tablet 00:00: mouth [place] 00 every 6 Medical (six) Branch hours as needed for Nausea and Vomiting (N/V). pyridoxine, 2021-0 Yes [id number] 25mg Take 1 [facility] VITAMIN 7-06 tablet by ity of B-6, 00:00: mouth [place] (VITAMIN 00 every 6 Medical B-6) 25 mg (six) Branch tablet hours as needed for Nausea and Vomiting (N/V). doxylamine 2021-0 Yes [id number] 25mg Take 1 [facility] (UNISOM, 7-06 tablet by ity of DOXYLAMINE, 00:00: mouth [place] ) 25 mg 00 bedtime as Medica l tablet needed for Branch Nausea and Vomiting (N/V). metoclopram 2021-0 Yes [id number] 10mg Take 1 [facility] HCl 10 7-06 tablet by ity of mg tablet 00:00: mouth [place] 00 every 6 Medical (six) Branch hours as needed for Nausea and Vomiting (N/V). pyridoxine, 2021-0 Yes [id number] 25mg Take 1 [facility] VITAMIN 7-06 tablet by ity of B-6, 00:00: mouth [place] (VITAMIN 00 every 6 Medical B-6) 25 mg (six) Branch tablet hours as needed for Nausea and Vomiting (N/V). doxylamine 2022-0 Yes [id number] 25mg Take 1 [facility] (UNISOM, 7-06 tablet by ity of DOXYLAMINE, 00:00: mouth [place] ) 25 mg 00 bedtime as Medica l tablet needed for Branch Nausea and Vomiting (N/V). metoclopram 2022-0 Yes [id number] 10mg Take 1 [facility] HCl 10 7-06 tablet by ity of mg tablet 00:00: mouth [place] 00 every 6 Medical (six) Branch hours as needed for Nausea and Vomiting (N/V). pyridoxine, 2021-0 Yes [id number] 25mg Take 1 [facility] VITAMIN 7-06 tablet by it[facility] of B-6, 00:00: mouth [place] (VITAMIN 00 every 6 Medical B-6) 25 mg (six) Branch tablet hours as needed for Nausea and Vomiting (N/V). doxylamine 2021-0 Yes [id number] 25mg Take 1 [facility] (UNISOM, 7-06 tablet by ity of DOXYLAMINE, 00:00: mouth [place] ) 25 mg 00 bedtime as Medica l tablet needed for Branch Nausea and Vomiting (N/V). metoclopram 2021-0 Yes [id number] 10mg Take 1 [facility] HCl 10 7-06 tablet by [facility] of mg tablet 00:00: mouth [place] 00 every 6 Medical (six) Branch hours as needed for Nausea and Vomiting (N/V). pyridoxine, 2021-0 Yes [id number] 25mg Take 1 [facility] VITAMIN 7-06 tablet by ity of B-6, 00:00: mouth [place] (VITAMIN 00 every 6 Medical B-6) 25 mg (six) Branch tablet hours as needed for Nausea and Vomiting (N/V). doxylamine 2021-0 Yes [id number] 25mg Take 1 [facility] (UNISOM, 7-06 tablet by ity of DOXYLAMINE, 00:00: mouth [place] ) 25 mg 00 bedtime as Medica l tablet needed for Branch Nausea and Vomiting (N/V). metoclopram 2021-0 Yes [id number] 10mg Take 1 [facility] HCl 10 7-06 tablet by [facility] of mg tablet 00:00: mouth [place] 00 every 6 Medical (six) Branch hours as needed for Nausea and Vomiting (N/V). pyridoxine, 2021-0 Yes [id number] 25mg Take 1 [facility] VITAMIN 7-06 tablet by [facility] of B-6, 00:00: mouth [place] (VITAMIN 00 every 6 Medical B-6) 25 mg (six) Branch tablet hours as needed for Nausea and Vomiting (N/V). doxylamine 2022-0 Yes [id number] 25mg Take 1 [facility] (UNISOM, 7-06 tablet by ity of DOXYLAMINE, 00:00: mouth [place] ) 25 mg 00 bedtime as Medica l tablet needed for Branch Nausea and Vomiting (N/V). metoclopram 2022-0 Yes [id number] 10mg Take 1 [facility] HCl 10 7-06 tablet by [facility] of mg tablet 00:00: mouth [place] 00 every 6 Medical (six) Branch hours as needed for Nausea and Vomiting (N/V). pyridoxine, 2021-0 Yes [id number] 25mg Take 1 [facility] VITAMIN 7-06 tablet by ity of B-6, 00:00: mouth [place] (VITAMIN 00 every 6 Medical B-6) 25 mg (six) Branch tablet hours as needed for Nausea and Vomiting (N/V). doxylamine 2022-0 Yes [id number] 25mg Take 1 [facility] (UNISOM, 7-06 tablet by ity of DOXYLAMINE, 00:00: mouth [place] ) 25 mg 00 bedtime as Medica l tablet needed for Branch Nausea and Vomiting (N/V). metoclopram 2-0 Yes [id number] 10mg Take 1 [facility] HCl 10 7-06 tablet by [facility] of mg tablet 00:00: mouth [place] 00 every 6 Medical (six) Branch hours as needed for Nausea and Vomiting (N/V). pyridoxine, 2021-0 Yes [id number] 25mg Take 1 [facility] VITAMIN 7-06 tablet by it[facility] of B-6, 00:00: mouth [place] (VITAMIN 00 every 6 Medical B-6) 25 mg (six) Branch tablet hours as needed for Nausea and Vomiting (N/V). doxylamine 2022-0 Yes [id number] 25mg Take 1 [facility] (UNISOM, 7-06 tablet by ity of DOXYLAMINE, 00:00: mouth [place] ) 25 mg 00 bedtime as Medica l tablet needed for Branch Nausea and Vomiting (N/V). metoclopram 2022-0 Yes [id number] 10mg Take 1 [facility] HCl 10 7-06 tablet by [facility] of mg tablet 00:00: mouth [place] 00 every 6 Medical (six) Branch hours as needed for Nausea and Vomiting (N/V). pyridoxine, 2022- No [id number] 25mg Take 1 [facility] VITAMIN 01-11 tablet by [facility] of B-6, 00:00: 00:00 mouth [place] (VITAMIN 00 :00 every 6 Medical B-6) 25 mg (six) Branch tablet hours as needed for Nausea and Vomiting (N/V). doxylamine 2022- No [id number] 25mg Take 1 [facility] (UNISOM, 01-11 tablet by ity o f DOXYLAMINE, 00:00: 00:00 [place] 25 mg 00 :00 bedtime as Medica l tablet needed for Branch Nausea and Vomiting (N/V). metoclopram 2022- No [id number] 10mg Take 1 [facility] HCl 10 01-11 tablet by [facility] of mg tablet 00:00: 00:00 mouth [place] 00 :00 every 6 Medical (six) Branch hours as needed for Nausea and Vomiting (N/V). Yes [id number] 1{tbl} Take 1 [facility] vit 6-08 tablet by it[facility] of no.130-iron 00:00: mouth [place] -folic 00 daily. Medical ( Branch VITAMIN) Yes [id number] 1{tbl} Take 1 [facility] vit 6-08 tablet by [facility] of no.130-iron 00:00: mouth [place] -folic 00 daily. Medical ( Branch VITAMIN) Yes [id number] 1{tbl} Take 1 [facility] vit 6-08 tablet by it[facility] of no.130-iron 00:00: mouth [place] -folic 00 daily. Medical ( Branch VITAMIN) Yes [id number] 1{tbl} Take 1 [facility] vit 6-08 tablet by it[facility] of no.130-iron 00:00: mouth [place] -folic 00 daily. Medical ( Branch VITAMIN) Yes [id number] 1{tbl} Take 1 [facility] vit 6-08 tablet by it[facility] of no.130-iron 00:00: mouth [place] -folic 00 daily. Medical ( Branch VITAMIN) Yes [id number] 1{tbl} Take 1 [facility] vit 6-08 tablet by [facility] of no.130-iron 00:00: mouth [place] -folic 00 daily. Medical ( Branch VITAMIN) Yes [id number] 1{tbl} Take 1 [facility] vit 6-08 tablet by it[facility] of no.130-iron 00:00: mouth [place] -folic 00 daily. Medical ( Branch VITAMIN) Yes [id number] 1{tbl} Take 1 [facility] vit 6-08 tablet by ity of no.130-iron 00:00: mouth [place] -folic 00 daily. Medical ( Branch VITAMIN) Yes [id number] 1{tbl} Take 1 [facility] vit 6-08 tablet by it[facility] of no.130-iron 00:00: mouth [place] -folic 00 daily. Medical ( Branch VITAMIN) Yes [id number] 1{tbl} Take 1 [facility] vit 6-08 tablet by [facility]y of no.130-iron 00:00: mouth [place] -folic 00 daily. Medical ( Branch VITAMIN) Yes [id number] 1{tbl} Take 1 [facility] vit 6-08 tablet by [facility] of no.130-iron 00:00: mouth [place] -folic 00 daily. Medical ( Branch VITAMIN) Yes [id number] 1{tbl} Take 1 [facility] vit 6-08 tablet by [facility] of no.130-iron 00:00: mouth [place] -folic 00 daily. Medical ( Branch VITAMIN) Yes [id number] 1{tbl} Take 1 [facility] vit 6-08 tablet by ity of no.130-iron 00:00: mouth [place] -folic 00 daily. Medical ( Branch VITAMIN) Yes [id number] 1{tbl} Take 1 [facility] vit 6-08 tablet by ity of no.130-iron 00:00: mouth [place] -folic 00 daily. Medical ( Branch VITAMIN) Yes [id number] 1{tbl} Take 1 [facility] vit 6-08 tablet by ity of no.130-iron 00:00: mouth [place] -folic 00 daily. Medical ( Branch VITAMIN) Yes [id number] 1{tbl} Take 1 [facility] vit 6-08 tablet by ity of no.130-iron 00:00: mouth [place] -folic 00 daily. Medical ( Branch VITAMIN) Yes [id number] 1{tbl} Take 1 [facility] vit 6-08 tablet by ity of no.130-iron 00:00: mouth [place] -folic 00 daily. Medical ( Branch VITAMIN) Yes [id number] 1{tbl} Take 1 [facility] vit 6-08 tablet by [facility] of no.130-iron 00:00: mouth [place] -folic 00 daily. Medical ( Branch VITAMIN) Yes [id number] 1{tbl} Take 1 [facility] vit 6-08 tablet by ity of no.130-iron 00:00: mouth [place] -folic 00 daily. Medical ( Branch VITAMIN) Yes [id number] 1{tbl} Take 1 [facility] vit 6-08 tablet by ity of no.130-iron 00:00: mouth [place] -folic 00 daily. Medical ( Branch VITAMIN) Yes [id number] 1{tbl} Take 1 [facility] vit 6-08 tablet by [facility] of no.130-iron 00:00: mouth [place] -folic 00 daily. Medical ( Branch VITAMIN) Yes [id number] 1{tbl} Take 1 [facility] vit 6-08 tablet by ity of no.130-iron 00:00: mouth [place] -folic 00 daily. Medical ( Branch VITAMIN) Yes [id number] 1{tbl} Take 1 [facility] vit 6-08 tablet by ity of no.130-iron 00:00: mouth [place] -folic 00 daily. Medical ( Branch VITAMIN) Yes [id number] 1{tbl} Take 1 [facility] vit 6-08 tablet by ity of no.130-iron 00:00: mouth [place] -folic 00 daily. Medical ( Branch VITAMIN) Yes [id number] 1{tbl} Take 1 [facility] vit 6-08 tablet by ity of no.130-iron 00:00: mouth [place] -folic 00 daily. Medical ( Branch VITAMIN) Yes [id number] 1{tbl} Take 1 [facility] vit 6-08 tablet by ity of no.130-iron 00:00: mouth [place] -folic 00 daily. Medical ( Branch VITAMIN) Yes [id number] 1{tbl} Take 1 [facility] vit 6-08 tablet by ity of no.130-iron 00:00: mouth [place] -folic 00 daily. Medical ( Branch VITAMIN) Yes [id number] 1{tbl} Take 1 [facility] vit 6-08 tablet by ity of no.130-iron 00:00: mouth [place] -folic 00 daily. Medical ( Branch VITAMIN) Yes [id number] 1{tbl} Take 1 [facility] vit 6-08 tablet by ity of no.130-iron 00:00: mouth [place] -folic 00 daily. Medical ( Branch VITAMIN) Yes [id number] 1{tbl} Take 1 [facility] vit 6-08 tablet by ity of no.130-iron 00:00: mouth [place] -folic 00 daily. Medical ( Branch VITAMIN) Yes [id number] 1{tbl} Take 1 [facility] vit 6-08 tablet by ity of no.130-iron 00:00: mouth [place] -folic 00 daily. Medical ( Branch VITAMIN) Yes [id number] 1{tbl} Take 1 [facility] vit 6-08 tablet by ity of no.130-iron 00:00: mouth [place] -folic 00 daily. Medical ( Branch VITAMIN) Yes [id number] 1{tbl} Take 1 [facility] vit 6-08 tablet by ity of no.130-iron 00:00: mouth [place] -folic 00 daily. Medical ( Branch VITAMIN) 2022- No [id number] 1{tbl} Take 1 [facility] vit 6-08 01-27 tablet by [facility] of no.130-iron 00:00: 00:[place] :00 daily. Medical ( Branch VITAMIN) neomycin-po Yes neomycin-p [facility] lymyxin-dex 4-18 olymyxin-d He [...] TAKE 1 [facility] (Diflucan) 2-01 TABLET BY [facility] th 150 MG 00:00: MOUTH 1 tablet 00 TIME NOW FOR 1 DOSE fluconazole Yes 1{tbl} QD Take 1 [facility] (Diflucan) 8-19 tablet by [facility] 200 MG 00:00: mouth 1 tablet 00 (one) time each day. fluconazole Yes 200mg QD Take 200 U T (Diflucan) 8-19 mg by [facility] 200 MG 00:00: mouth 1 tablet 00 (one) time each day. amoxicillin Yes TAKE 1 [facility] (Amoxil) 8-06 CAPSULE BY [facility] h 500 MG 00:00: MOUTH capsule 00 EVERY 8 HOURS UNTIL ALL TAKEN ibuprofen Yes 800mg Take 800 [facility] 800 MG 8-06 mg by [facility] tablet 00:00: mouth 00 every 8 (eight) hours if needed. neomycin-po Yes [facility] lymyxin-dex 6-29 Health amethasone 00:00: (Maxitrol) 00 3.5-65175-5 .1 ophthalmic suspension clindamycin Yes APPLY [facility] -benzoyl 6-21 TOPICALLY Health peroxide 00:00: TO [facility] (BenzacLIN) 00 AREA TWICE gel DAILY clindamycin Yes [facility] -benzoyl 4-20 Health peroxide 00:00: (Duac) 00 1.2-5% gel doxycycline Yes 100mg Q.5D Take 100 U T (Vibra-Tabs 4-20 mg by [facility] ) 100 MG 00:00: mouth 2 tablet 00 (two) times a day. clindamycin clindamycin No clindamyci [place] 1 %-benzoyl 1 %-benzoyl n 1 C [facility] peroxide 5 peroxide 5 %-benzoyl ty % topical % topical peroxide 5 [facility] gel APPLY gel APPLY % topical l TO THE TO THE gel APPLY Clinic s AFFECTED AFFECTED TO THE AREA(S) BY AREA(S) BY AFFECTED TOPICAL TOPICAL AREA(S) BY ROUTE 2 ROUTE 2 TOPICAL TIMES PER TIMES PER ROUTE 2 DAY IN THE DAY IN THE TIMES PER MORNING AND MORNING AND DAY IN THE EVENING EVENING MORNING AND EVENING doxycycline doxycycline No 1 BID doxycyclin [place] hyclate 100 hyclate 100 e hyclate Communi mg tablet mg tablet 100 mg ty Take 1 Take 1 tablet [facility] tablet tablet Take 1 l twice a day twice a day tablet Clinics by oral by oral twice a route. route. day by oral route. clindamycin clindamycin No clindamyci [place] 1 %-benzoyl 1 %-benzoyl n 1 C [facility] peroxide 5 peroxide 5 %-benzoyl ty % topical % topical peroxide 5 [facility] gel Apply gel Apply % topical l to acne to acne gel Apply Clin ics areas twice areas twice to acne a day a day areas twice a day doxycycline doxycycline No doxycyclin [place] hyclate 100 hyclate 100 e hyclate Communi mg tablet mg tablet 100 mg ty TAKE 1 TAKE 1 tablet [facility] TABLET BY TABLET BY TAKE 1 l MOUTH ONCE MOUTH ONCE TABLET BY Clinics DAILY DAILY MOUTH ONCE DAILY neomycin-po neomycin-po No neomycin-p [place] lymyxin-dex lymyxin-dex olymyxin-d [facility] ameth 3.5 ameth 3.5 exameth ty mg/mL-10,00 mg/mL-10,00 3.5 H [facility] 0 0 mg/mL-10,0 l unit/mL-0.1 unit/mL-0.1 00 C linics % eye drops % eye drops unit/mL-0. INSTILL 1 INSTILL 1 1% eye DROP INTO DROP INTO drops AFFECTED AFFECTED INSTILL 1 EYE(S) BY EYE(S) BY DROP INTO OPHTHALMIC OPHTHALMIC AFFECTED ROUTE EVERY ROUTE EVERY EYE(S) BY 3-4 HOURS 3-4 HOURS OPHTHALMIC FOR 7 DAYS FOR 7 DAYS ROUTE EVERY 3-4 HOURS FOR 7 DAYS Immunizations Ordered Immunization Filled Immunization Date Status Commen ts Source Name Name AP 2022-06-19 Completed [facility] 00:00:00 [facility] 2022-06-19 Completed [facility] 00:00:00 [facility] 2022-06-19 Completed [facility]00 [facility] TDAP 2022-06-19 Completed [facility] 00:00:00 [facility] TDAP 2022-06-19 Completed [facility] 00:00:00 [facility] TDAP 2022-06-19 Completed [facility] 00:00:00 [facility] TDAP 2022-06-19 Completed [facility] 00:00:00 [facility] TDAP 2022-06-19 Completed [facility] 00:00:00 [facility] TDAP 2022-06-19 Completed [facility] 00:00:00 [facility] TDAP 2022-06-19 Completed [facility] 00:00:00 [facility] TDAP 2022-06-19 Completed [facility] 00:00:00 [facility] TDAP 2022-06-19 Completed [facility] 00:00:00 [facility] TDAP 2022-06-19 Completed [facility] 00:00:00 [facility] TDAP 2022-06-19 Completed [facility] 00:00:00 [facility] TDAP 2022-06-19 Completed [facility] 00:00:00 [facility] TDAP 2022-06-19 Completed [facility] 00:00:00 [facility] TDAP 2022-06-19 Completed [facility] 00:00:00 [facility] TDAP 2022-06-19 Completed [facility] 00:00:00 [facility] TDAP 2022-06-19 Completed [facility] 00:00:00 [facility] TDAP 2022-06-19 Completed [facility] 00:00:00 [facility] TDAP 2022-06-19 Completed [facility] 00:00:00 [facility] TDAP 2022-06-19 Completed [facility] 00:00:00 [facility] TDAP (ADACEL) 2018-11-28 Completed [facility] VACCINE 00:00:00 [facility] TDAP (ADACEL) 2018-11-28 Completed [facility] VACCINE 00:00:00 [facility] TDAP (ADACEL) 2018-11-28 Completed [facility] VACCINE 00:00:00 [facility] TDAP (ADACEL) 2018-11-28 Completed [facility] VACCINE 00:00:00 [facility] TDAP (ADACEL) 2018-11-28 Completed [facility] VACCINE 00:00:00 [facility] TDAP (ADACEL) 2018-11-28 Completed [facility] VACCINE 00:00:00 [facility] TDAP (ADACEL) 2018-11-28 Completed [facility] VACCINE 00:00:00 [facility] TDAP (ADACEL) 2018-11-28 Completed [facility] VACCINE 00:00:00 [facility] TDAP (ADACEL) 2018-11-28 Completed [facility] VACCINE 00:00:00 [facility] TDAP (ADACEL) 2018-11-28 Completed [facility] VACCINE 00:00:00 [facility] TDAP (ADACEL) 2018-11-28 Completed [facility] VACCINE 00:00:00 [facility] TDAP (ADACEL) 2018-11-28 Completed [facility] VACCINE 00:00:00 [facility] TDAP (ADACEL) 2018-11-28 Completed [facility] VACCINE 00:00:00 [facility] TDAP (ADACEL) 2018-11-28 Completed [facility] VACCINE 00:00:00 [facility] TDAP (ADACEL) 2018-11-28 Completed [facility] VACCINE 00:00:00 [facility] TDAP (ADACEL) 2018-11-28 Completed [facility] VACCINE 00:00:00 [facility] TDAP (ADACEL) 2018-11-28 Completed [facility] VACCINE 00:00:00 [facility] TDAP (ADACEL) 2018-11-28 Completed [facility] VACCINE 00:00:00 [facility] TDAP (ADACEL) 2018-11-28 Completed [facility] VACCINE 00:00:00 [facility] TDAP (ADACEL) 2018-11-28 Completed [facility] VACCINE 00:00:00 [facility] TDAP (ADACEL) 2018-11-28 Completed [facility] VACCINE 00:00:00 [facility] TDAP (ADACEL) 2018-11-28 Completed [facility] VACCINE 00:00:00 [facility] TDAP (ADACEL) 2018-11-28 Completed [facility] VACCINE 00:00:00 [facility] TDAP (ADACEL) 2018-11-28 Completed [facility] VACCINE 00:00:00 [facility] TDAP (ADACEL) 2018-11-28 Completed [facility] VACCINE 00:00:00 [facility] TDAP (ADACEL) 2018-11-28 Completed [facility] VACCINE 00:00:00 [facility] TDAP (ADACEL) 2018-11-28 Completed [facility] VACCINE 00:00:00 [facility] TDAP (ADACEL) 2018-11-28 Completed [facility] VACCINE 00:00:00 [facility] TDAP (ADACEL) 2018-11-28 Completed [facility] VACCINE 00:00:00 [facility] TDAP (ADACEL) 2018-11-28 Completed [facility] VACCINE 00:00:00 [facility] TDAP (ADACEL) 2018-11-28 Completed [facility] VACCINE 00:00:00 [facility] TDAP (ADACEL) 2018-11-28 Completed [facility] VACCINE 00:00:00 [facility] TDAP (ADACEL) 2018-11-28 Completed [facility] VACCINE 00:00:00 [facility] TDAP (ADACEL) 2018-11-28 Completed [facility] VACCINE 00:00:00 [facility] TDAP (ADACEL) 2018-11-28 Completed [facility] VACCINE 00:00:00 [facility] Meningococcal 2014-02-09 Completed [facility] Vaccine 00:00:00 [facility] TDAP 2014-02-09 Completed [facility] 00:00:00 [facility] Varicella 2014-02-09 Completed [facility] (varivax)(chicken 00:00:00 [facility] pox[facility] Meningococcal 2014-02-09 Completed [facility] Vaccine 00:00:00 [facility] TDAP 2014-02-09 Completed [facility] 00:00:00 [facility] Varicella 2014-02-09 Completed [facility] (varivax)(chicken 00:00:00 [facility] Meningococcal 2014-02-09 Completed [facility] Vaccine 00:00:00 [facility] TDAP 2014-02-09 Completed [facility] 00:00:00 [facility] Varicella 2014-02-09 Completed [facility] (varivax)(chicken 00:00:00 [facility] Meningococcal 2014-02-09 Completed [facility] Vaccine 00:00:00 [facility] TDAP 2014-02-09 Completed [facility] 00:00:00 [facility] Varicella 2014-02-09 Completed [facility] (varivax)(chicken 00:00:00 [facility] Meningococcal 2014-02-09 Completed [facility] Vaccine 00:00:00 [facility] TDAP 2014-02-09 Completed [facility] 00:00:00 [facility] Varicella 2014-02-09 Completed [facility] (varivax)(chicken 00:00:00 [facility] Meningococcal 2014-02-09 Completed [facility] Vaccine 00:00:00 [facility] TDAP 2014-02-09 Completed [facility] 00:00:00 [facility] Varicella 2014-02-09 Completed [facility] (varivax)(chicken 00:00:00 [facility] Meningococcal 2014-02-09 Completed [facility] Vaccine 00:00:00 [facility] TDAP 2014-02-09 Completed [facility] 00:00:00 [facility] Varicella 2014-02-09 Completed [facility] (varivax)(chicken 00:00:00 [facility] Meningococcal 2014-02-09 Completed [facility] Vaccine 00:00:00 [facility] TDAP 2014-02-09 Completed [facility] 00:00:00 [facility] Varicella 2014-02-09 Completed [facility] (varivax)(chicken 00:00:00 [place] [facility] Meningococcal 2014-02-09 Completed [facility] Vaccine 00:00:00 [facility] TDAP 2014-02-09 Completed [facility] 00:00:00 [facility] Varicella 2014-02-09 Completed [facility] (varivax)(chicken 00:00:00 [place] [facility] Meningococcal 2014-02-09 Completed [facility] Vaccine 00:00:00 [facility] TDAP 2014-02-09 Completed [facility] 00:00:00 [facility] Varicella 2014-02-09 Completed [facility] (varivax)(chicken 00:00:00 [place] [facility] Meningococcal 2014-02-09 Completed [facility] Vaccine 00:00:00 [facility] TDAP 2014-02-09 Completed [facility] 00:00:00 [facility] Varicella 2014-02-09 Completed [facility] (varivax)(chicken 00:00:00 [place] [facility] Meningococcal 2014-02-09 Completed [facility] Vaccine 00:00:00 [facility] TDAP 2014-02-09 Completed [facility] 00:00:00 [facility] Varicella 2014-02-09 Completed [facility] (varivax)(chicken 00:00:00 [facility] Meningococcal 2014-02-09 Completed [facility] Vaccine 00:00:00 [facility] TDAP 2014-02-09 Completed [facility] 00:00:00 [facility] Varicella 2014-02-09 Completed [facility] (varivax)(chicken 00:00:00 [place] [facility] Meningococcal 2014-02-09 Completed [facility] Vaccine 00:00:00 [facility] TDAP 2014-02-09 Completed [facility] 00:00:00 [facility] Varicella 2014-02-09 Completed [facility] (varivax)(chicken 00:00:00 [place] [facility] Meningococcal 2014-02-09 Completed [facility] Vaccine 00:00:00 [facility] TDAP 2014-02-09 Completed [facility] 00:00:00 [facility] Varicella 2014-02-09 Completed [facility] (varivax)(chicken 00:00:00 [place] [facility] Meningococcal 2014-02-09 Completed [facility] Vaccine 00:00:00 [facility] TDAP 2014-02-09 Completed [facility] 00:00:00 [facility] Varicella 2014-02-09 Completed [facility] (varivax)(chicken 00:00:00 [place] [facility] Meningococcal 2014-02-09 Completed [facility] Vaccine 00:00:00 [facility] TDAP 2014-02-09 Completed [facility] 00:00:00 [facility] Varicella 2014-02-09 Completed [facility] (varivax)(chicken 00:00:00 [place] [facility] Meningococcal 2014-02-09 Completed [facility] Vaccine 00:00:00 [facility] TDAP 2014-02-09 Completed [facility] 00:00:00 [facility] Varicella 2014-02-09 Completed [facility] (varivax)(chicken 00:00:00 [place] [facility] Meningococcal 2014-02-09 Completed [facility] Vaccine 00:00:00 [facility] TDAP 2014-02-09 Completed [facility] 00:00:00 [facility] Varicella 2014-02-09 Completed [facility] (varivax)(chicken 00:00:00 [place] [facility] Meningococcal 2014-02-09 Completed [facility] Vaccine 00:00:00 [facility] TDAP 2014-02-09 Completed [facility] 00:00:00 [facility] Varicella 2014-02-09 Completed [facility] (varivax)(chicken 00:00:00 [place] [facility] Meningococcal 2014-02-09 Completed [facility] Vaccine 00:00:00 [facility] TDAP 2014-02-09 Completed [facility] 00:00:00 [facility] Varicella 2014-02-09 Completed [facility] (varivax)(chicken 00:00:00 [place] [facility] Meningococcal 2014-02-09 Completed [facility] Vaccine 00:00:00 [facility] TDAP 2014-02-09 Completed [facility] 00:00:00 [facility] Varicella 2014-02-09 Completed [facility] (varivax)(chicken 00:00:00 [place] [facility] Meningococcal 2014-02-09 Completed [facility] Vaccine 00:00:00 [facility] TDAP 2014-02-09 Completed [facility] 00:00:00 [facility] Varicella 2014-02-09 Completed [facility] (varivax)(chicken 00:00:00 [place] [facility] Meningococcal 2014-02-09 Completed [facility] Vaccine 00:00:00 [facility] TDAP 2014-02-09 Completed [facility] 00:00:00 [facility] Varicella 2014-02-09 Completed [facility] (varivax)(chicken 00:00:00 [place] [facility] Meningococcal 2014-02-09 Completed [facility] Vaccine 00:00:00 [facility] TDAP 2014-02-09 Completed [facility] 00:00:00 [facility] Varicella 2014-02-09 Completed [facility] (varivax)(chicken 00:00:00 [facility] Meningococcal 2014-02-09 Completed [facility] Vaccine 00:00:00 [facility] TDAP 2014-02-09 Completed [facility] 00:00:00 [facility] Varicella 2014-02-09 Completed [facility] (varivax)(chicken 00:00:00 [place] [facility] Meningococcal 2014-02-09 Completed [facility] Vaccine 00:00:00 [facility] TDAP 2014-02-09 Completed [facility] 00:00:00 [facility] Varicella 2014-02-09 Completed [facility] (varivax)(chicken 00:00:00 [place] [facility] Meningococcal 2014-02-09 Completed [facility] Vaccine 00:00:00 [facility] TDAP 2014-02-09 Completed [facility] 00:00:00 [facility] Varicella 2014-02-09 Completed [facility] (varivax)(chicken 00:00:00 [place] [facility] Meningococcal 2014-02-09 Completed [facility] Vaccine 00:00:00 [facility] TDAP 2014-02-09 Completed [facility] 00:00:00 [facility] Varicella 2014-02-09 Completed [facility] (varivax)(chicken 00:00:00 [place] [facility] Meningococcal 2014-02-09 Completed [facility] Vaccine 00:00:00 [facility] TDAP 2014-02-09 Completed [facility] 00:00:00 [facility] Varicella 2014-02-09 Completed [facility] (varivax)(chicken 00:00:00 [place] [facility] Meningococcal 2014-02-09 Completed [facility] Vaccine 00:00:00 [facility] TDAP 2014-02-09 Completed [facility] 00:00:00 [facility] Varicella 2014-02-09 Completed [facility] (varivax)(chicken 00:00:00 [place] [facility] Meningococcal 2014-02-09 Completed [facility] Vaccine 00:00:00 [facility] TDAP 2014-02-09 Completed [facility] 00:00:00 [facility] Varicella 2014-02-09 Completed [facility] (varivax)(chicken 00:00:00 [place] [facility] Meningococcal 2014-02-09 Completed [facility] Vaccine 00:00:00 [facility] TDAP 2014-02-09 Completed [facility] 00:00:00 [facility] Varicella 2014-02-09 Completed [facility] (varivax)(chicken 00:00:00 [place] [facility] Meningococcal 2014-02-09 Completed [facility] Vaccine 00:00:00 [facility] TDAP 2014-02-09 Completed [facility] 00:00:00 [facility] Varicella 2014-02-09 Completed [facility] (varivax)(chicken 00:00:00 [place] [facility] Meningococcal 2014-02-09 Completed [facility] Vaccine 00:00:00 [facility] TDAP 2014-02-09 Completed [facility] 00:00:00 [facility] Varicella 2014-02-09 Completed [facility] (varivax)(chicken 00:00:00 [place] [facility] H1n1 Vaccine 2009-06-24 Completed [facility] f 00:00:00 [facility] H1n1 Vaccine 2009-06-24 Completed [facility] f 00:00:00 [facility] H1n1 Vaccine 2009-06-24 Completed [facility] 00:00:00 [facility] H1n1 Vaccine 2009-06-24 Completed [facility] 00:00:00 [facility] H1n1 Vaccine 2009-06-24 Completed [facility] 00:00:00 [facility] H1n1 Vaccine 2009-06-24 Completed [facility] 00:00:00 [facility] H1n1 Vaccine 2009-06-24 Completed [facility] 00:00:00 [facility] H1n1 Vaccine 2009-06-24 Completed [facility] 00:00:00 [facility] H1n1 Vaccine 2009-06-24 Completed [facility] 00:00:00 [facility] H1n1 Vaccine 2009-06-24 Completed [facility] 00:00:00 [facility] H1n1 Vaccine 2009-06-24 Completed [facility] f 00:00:00 [facility] H1n1 Vaccine 2009-06-24 Completed [facility] f 00:00:00 [facility] H1n1 Vaccine 2009-06-24 Completed [facility] f 00:00:00 [facility] H1n1 Vaccine 2009-06-24 Completed [facility] 00:00:00 [facility] H1n1 Vaccine 2009-06-24 Completed [facility] 00:00:00 [facility] H1n1 Vaccine 2009-06-24 Completed [facility] 00:00:00 [facility] H1n1 Vaccine 2009-06-24 Completed [facility] f 00:00:00 [facility] H1n1 Vaccine 2009-06-24 Completed [facility] f 00:00:00 [facility] H1n1 Vaccine 2009-06-24 Completed [facility] f 00:00:00 [facility] H1n1 Vaccine 2009-06-24 Completed [facility] f 00:00:00 [facility] H1n1 Vaccine 2009-06-24 Completed [facility] 00:00:00 [facility] H1n1 Vaccine 2009-06-24 Completed [facility] 00:00:00 [facility] H1n1 Vaccine 2009-06-24 Completed [facility] f 00:00:00 [facility] H1n1 Vaccine 2009-06-24 Completed [facility] 00:00:00 [facility] H1n1 Vaccine 2009-06-24 Completed [facility] 00:00:00 [facility] H1n1 Vaccine 2009-06-24 Completed [facility] 00:00:00 [facility] H1n1 Vaccine 2009-06-24 Completed [facility] 00:00:00 [facility] H1n1 Vaccine 2009-06-24 Completed [facility] 00:00:00 [facility] H1n1 Vaccine 2009-06-24 Completed [facility] 00:00:00 [facility] H1n1 Vaccine 2009-06-24 Completed [facility] 00:00:00 [facility] H1n1 Vaccine 2009-06-24 Completed [facility] 00:00:00 [facility] H1n1 Vaccine 2009-06-24 Completed [facility] 00:00:00 [facility] H1n1 Vaccine 2009-06-24 Completed [facility] 00:00:00 [facility] H1n1 Vaccine 2009-06-24 Completed [facility] 00:00:00 [facility] H1n1 Vaccine 2009-06-24 Completed [facility] f 00:00:00 [facility] HEPATITIS A 2006-02-12 Completed [facility] 00:00:00 [facility] HEPATITIS A 2006-02-12 Completed [facility] 00:00:00 [facility] HEPATITIS A 2006-02-12 Completed [facility] 00:00:00 [facility] HEPATITIS A 2006-02-12 Completed [facility] 00:00:00 [facility] HEPATITIS A 2006-02-12 Completed [facility] 00:00:00 [facility] HEPATITIS A 2006-02-12 Completed [facility] 00:00:00 [facility] HEPATITIS A 2006-02-12 Completed [facility] 00:00:00 [facility] HEPATITIS A 2006-02-12 Completed [facility] 00:00:00 [facility] HEPATITIS A 2006-02-12 Completed [facility] 00:00:00 [facility] HEPATITIS A 2006-02-12 Completed [facility] 00:00:00 [facility] HEPATITIS A 2006-02-12 Completed [facility] 00:00:00 [facility] HEPATITIS A 2006-02-12 Completed [facility] 00:00:00 [facility] HEPATITIS A 2006-02-12 Completed [facility] 00:00:00 [facility] HEPATITIS A 2006-02-12 Completed [facility] 00:00:00 [facility] HEPATITIS A 2006-02-12 Completed [facility] 00:00:00 [facility] HEPATITIS A 2006-02-12 Completed [facility] 00:00:00 [facility] HEPATITIS A 2006-02-12 Completed [facility] 00:00:00 [facility] HEPATITIS A 2006-02-12 Completed [facility] 00:00:00 [facility] HEPATITIS A 2006-02-12 Completed [facility] 00:00:00 [facility] HEPATITIS A 2006-02-12 Completed [facility] 00:00:00 [facility] HEPATITIS A 2006-02-12 Completed [facility] 00:00:00 [facility] HEPATITIS A 2006-02-12 Completed [facility] 00:00:00 [facility] HEPATITIS A 2006-02-12 Completed [facility] 00:00:00 [facility] HEPATITIS A 2006-02-12 Completed [facility] 00:00:00 [facility] HEPATITIS A 2006-02-12 Completed [facility] 00:00:00 [facility] HEPATITIS A 2006-02-12 Completed [facility] 00:00:00 [facility] HEPATITIS A 2006-02-12 Completed [facility] 00:00:00 [facility] HEPATITIS A 2006-02-12 Completed [facility] 00:00:00 [facility] HEPATITIS A 2006-02-12 Completed [facility] 00:00:00 [facility] HEPATITIS A 2006-02-12 Completed [facility] 00:00:00 [facility] HEPATITIS A 2006-02-12 Completed [facility] 00:00:00 [facility] HEPATITIS A 2006-02-12 Completed [facility] 00:00:00 [facility] HEPATITIS A 2006-02-12 Completed [facility] 00:00:00 [facility] HEPATITIS A 2006-02-12 Completed [facility] 00:00:00 [facility] HEPATITIS A 2006-02-12 Completed [facility] 00:00:00 [facility] Pneumococcal 7 2005-07-17 Completed [facility] Conjugate, [...] HEPATITIS A 2005-03-14 Completed [facility] 00:00:00 [facility] Pneumococcal 7 2005-03-14 Completed [facility] Conjugate, PCV7 00:00:00 [place] [facility] (Prevnar7[facility] HEPATITIS A 2005-03-14 Completed [facility] 00:00:00 [facility] Pneumococcal 7 2005-03-14 Completed [facility] Conjugate, PCV7 00:00:00 [place] [facility] (Prevnar7[facility] HEPATITIS A 2005-03-14 Completed [facility] 00:00:00 [facility] Pneumococcal 7 2005-03-14 Completed [facility] Conjugate, PCV7 00:00:00 [place] [facility] (Prevnar7) [facility] HEPATITIS A 2005-03-14 Completed [facility] 00:00:00 [facility] Pneumococcal 7 2005-03-14 Completed [facility] Conjugate, PCV7 00:00:00 [place] [facility] (Prevnar7) [facility] HEPATITIS A 2005-03-14 Completed [facility] 00:00:00 [facility] Pneumococcal 7 2005-03-14 Completed [facility] Conjugate, PCV7 00:00:00 [place] [facility] (Prevnar7) [facility] HEPATITIS A 2005-03-14 Completed [facility] 00:00:00 [facility] Pneumococcal 7 2005-03-14 Completed [facility] Conjugate, PCV7 00:00:00 [place] [facility] (Prevnar7) [facility] HEPATITIS A 2005-03-14 Completed [facility] 00:00:00 [facility] Pneumococcal 7 2005-03-14 Completed [facility] Conjugate, PCV7 00:00:00 [place] [facility] (Prevnar7) Branch HEPATITIS A 2005-03-14 Completed [facility] 00:00:00 [facility] Pneumococcal 7 2005-03-14 Completed [facility] of Conjugate, PCV7 00:00:00 [facility] (Pre[facility] HEPATITIS A 2005-03-14 Completed [facility] 00:00:00 [facility] Pneumococcal 7 2005-03-14 Completed [facility] of Conjugate, PCV7 00:00:00 [facility] (Prevnar7) [facility] HEPATITIS A 2005-03-14 Completed [facility] 00:00:00 [facility] Pneumococcal 7 2005-03-14 Completed [facility] of Conjugate, PCV7 00:00:00 [facility] (Prevnar7) [facility] HEPATITIS A 2005-03-14 Completed [facility] 00:00:00 [facility] Pneumococcal 7 2005-03-14 Completed [facility] of Conjugate, PCV7 00:00:00 [facility] (Pre[facility]ar7[facility] Muse HEPATITIS A 2005-03-14 Completed [facility] 00:00:00 [facility] Pneumococcal 7 2005-03-14 Completed [facility] of Conjugate, PCV7 00:00:00 [facility] (Prevnar7) [facility] HEPATITIS A 2005-03-14 Completed [facility] 00:00:00 [facility] Pneumococcal 7 2005-03-14 Completed [facility] of Conjugate, PCV7 00:00:00 [facility] (Prevnar7) [facility] HEPATITIS A 2005-03-14 Completed [facility] 00:00:00 [facility] Pneumococcal 7 2005-03-14 Completed [facility] of Conjugate, PCV7 00:00:00 [facility] (Prevnar7) [facility] HEPATITIS A 2005-03-14 Completed [facility] 00:00:00 [facility] Pneumococcal 7 2005-03-14 Completed [facility] Conjugate, PCV7 00:00:00 [facility] (Prevnar7) [facility] HEPATITIS A 2005-03-14 Completed [facility] 00:00:00 [facility] Pneumococcal 7 2005-03-14 Completed [facility] Conjugate, PCV7 00:00:00 [facility] (Prevnar7) [facility] HEPATITIS A 2005-03-14 Completed [facility] 00:00:00 [facility] Pneumococcal 7 2005-03-14 Completed [facility] Conjugate, PCV7 00:00:00 [facility] (Prevnar7) [facility] HEPATITIS A 2005-03-14 Completed [facility] 00:00:00 [facility] Pneumococcal 7 2005-03-14 Completed [facility] Conjugate, PCV7 00:00:00 [facility] (Prevnar7) [facility] HEPATITIS A 2005-03-14 Completed [facility] 00:00:00 [facility] Pneumococcal 7 2005-03-14 Completed [facility] Conjugate, PCV7 00:00:00 [facility] (Prevnar7) [facility] HEPATITIS A 2005-03-14 Completed [facility] 00:00:00 [facility] Pneumococcal 7 2005-03-14 Completed [facility] Conjugate, PCV7 00:00:00 [facility] (Prevnar7) [facility] HEPATITIS A 2005-03-14 Completed [facility] 00:00:00 [facility] Pneumococcal 7 2005-03-14 Completed [facility] Conjugate, PCV7 00:00:00 [facility] (Prevnar7) [facility] HEPATITIS A 2005-03-14 Completed [facility] 00:00:00 [facility] Pneumococcal 7 2005-03-14 Completed [facility] Conjugate, PCV7 00:00:00 [facility] (Prevnar7) [facility] HEPATITIS A 2005-03-14 Completed [facility] 00:00:00 [facility] Pneumococcal 7 2005-03-14 Completed [facility] Conjugate, PCV7 00:00:00 [facility] (Prevnar7) [facility] HEPATITIS A 2005-03-14 Completed [facility] 00:00:00 [facility] Pneumococcal 7 2005-03-14 Completed [facility] Conjugate, PCV7 00:00:00 [facility] (Prevnar7) [facility] HEPATITIS A 2005-03-14 Completed [facility] 00:00:00 [facility] Pneumococcal 7 2005-03-14 Completed [facility] Conjugate, PCV7 00:00:00 [facility] (Prevnar7) [facility] HEPATITIS A 2005-03-14 Completed [facility] 00:00:00 [facility] Pneumococcal 7 2005-03-14 Completed [facility] Conjugate, PCV7 00:00:00 [facility] (Prevnar7) [facility] HEPATITIS A 2005-03-14 Completed [facility] 00:00:00 [facility] Pneumococcal 7 2005-03-14 Completed [facility] of Conjugate, PCV7 00:00:00 [facility] (Prevnar7) [facility] HEPATITIS A 2005-03-14 Completed [facility] 00:00:00 [facility] Pneumococcal 7 2005-03-14 Completed [facility] of Conjugate, PCV7 00:00:00 [facility] (Prevnar7) [facility] HEPATITIS A 2005-03-14 Completed [facility] 00:00:00 [facility] Pneumococcal 7 2005-03-14 Completed [facility] of Conjugate, PCV7 00:00:00 [facility] (Prevnar7) [facility] HEPATITIS A 2005-03-14 Completed [facility] 00:00:00 [facility] Pneumococcal 7 2005-03-14 Completed [facility] Conjugate, PCV7 00:00:00 [facility] (Prevnar7) [facility] HEPATITIS A 2005-03-14 Completed [facility] 00:00:00 [facility] Pneumococcal 7 2005-03-14 Completed [facility] Conjugate, PCV7 00:00:00 [facility] (Prevnar7) [facility] HEPATITIS A 2005-03-14 Completed [facility] 00:00:00 [facility] Pneumococcal 7 2005-03-14 Completed [facility] Conjugate, PCV7 00:00:00 [facility] ([facility] HEPATITIS A 2005-03-14 Completed [facility] 00:00:00 [facility] Pneumococcal 7 2005-03-14 Completed [facility] Conjugate, PCV7 00:00:00 [facility] (Prevnar7) [facility] HEPATITIS A 2005-03-14 Completed [facility] 00:00:00 [facility] Pneumococcal 7 2005-03-14 Completed [facility] of Conjugate, PCV7 00:00:00 [facility] (Prevnar7) [facility] HEPATITIS A 2005-03-14 Completed [facility] 00:00:00 [facility] Pneumococcal 7 2005-03-14 Completed [facility] of Conjugate, PCV7 00:00:00 [facility] (Prevnar7) [facility] DTAP 2004-11-02 Completed [facility] 00:00:00 [facility] MMR 2004-11-02 Completed [facility] of 00:00:00 [facility] Polio (IPV/OPV) 2004-11-02 Completed [facility]it [facility] 00:00:00 [facility] DTAP 2004-11-02 Completed [facility] 00:00:00 [facility] MMR 2004-11-02 Completed [facility] 00:00:00 [facility] Polio (IPV/OPV) 2004-11-02 Completed [facility] 00:00:00 [facility] DTAP 2004-11-02 Completed [facility] 00:00:00 [facility] MMR 2004-11-02 Completed [facility] 00:00:00 [facility] Polio (IPV/OPV) 2004-11-02 Completed [facility] 00:00:00 [facility] DTAP 2004-11-02 Completed [facility] 00:00:00 [facility] MMR 2004-11-02 Completed [facility] 00:00:00 [facility] Polio (IPV/OPV) 2004-11-02 Completed [facility] 00:00:00 [facility] DTAP 2004-11-02 Completed [facility] 00:00:00 [facility] MMR 2004-11-02 Completed [facility] 00:00:00 [facility] Polio (IPV/OPV) 2004-11-02 Completed [facility] 00:00:00 [facility] DTAP 2004-11-02 Completed [facility] 00:00:00 [facility] MMR 2004-11-02 Completed [facility] 00:00:00 [facility] Polio (IPV/OPV) 2004-11-02 Completed [facility] 00:00:00 [facility] DTAP 2004-11-02 Completed [facility] 00:00:00 [facility] MMR 2004-11-02 Completed [facility] 00:00:00 [facility] Polio (IPV/OPV) 2004-11-02 Completed [facility] 00:00:00 [facility] DTAP 2004-11-02 Completed [facility] 00:00:00 [facility] MMR 2004-11-02 Completed [facility] 00:00:00 [facility] Polio (IPV/OPV) 2004-11-02 Completed [facility] 00:00:00 [facility] DTAP 2004-11-02 Completed [facility] 00:00:00 [facility] MMR 2004-11-02 Completed [facility] 00:00:00 [facility] Polio (IPV/OPV) 2004-11-02 Completed [facility] 00:00:00 [facility] DTAP 2004-11-02 Completed [facility] 00:00:00 [facility] MMR 2004-11-02 Completed [facility] 00:00:00 [facility] Polio (IPV/OPV) 2004-11-02 Completed [facility] 00:00:00 [facility] DTAP 2004-11-02 Completed [facility] 00:00:00 [facility] MMR 2004-11-02 Completed [facility] 00:00:00 [facility] Polio (IPV/OPV) 2004-11-02 Completed [facility] 00:00:00 [facility] DTAP 2004-11-02 Completed [facility] 00:00:00 [facility] MMR 2004-11-02 Completed [facility] 00:00:00 [facility] Polio (IPV/OPV) 2004-11-02 Completed [facility] 00:00:00 [facility] DTAP 2004-11-02 Completed [facility] 00:00:00 [facility] MMR 2004-11-02 Completed [facility] 00:00:00 [facility] Polio (IPV/OPV) 2004-11-02 Completed [facility] 00:00:00 [facility] DTAP 2004-11-02 Completed [facility] 00:00:00 [facility] MMR 2004-11-02 Completed [facility] 00:00:00 [facility] Polio (IPV/OPV) 2004-11-02 Completed [facility] 00:00:00 [facility] DTAP 2004-11-02 Completed [facility] 00:00:00 [facility] MMR 2004-11-02 Completed [facility] 00:00:00 [facility] Polio (IPV/OPV) 2004-11-02 Completed [facility] 00:00:00 [facility] DTAP 2004-11-02 Completed [facility] 00:00:00 [facility] MMR 2004-11-02 Completed [facility] 00:00:00 [facility] Polio (IPV/OPV) 2004-11-02 Completed [facility] 00:00:00 [facility] DTAP 2004-11-02 Completed [facility] 00:00:00 [facility] MMR 2004-11-02 Completed [facility] 00:00:00 [facility] Polio (IPV/OPV) 2004-11-02 Completed [facility] 00:00:00 [facility] DTAP 2004-11-02 Completed [facility] 00:00:00 [facility] MMR 2004-11-02 Completed [facility] 00:00:00 [facility] Polio (IPV/OPV) 2004-11-02 Completed [facility] 00:00:00 [facility] DTAP 2004-11-02 Completed [facility] 00:00:00 [facility] MMR 2004-11-02 Completed [facility] 00:00:00 [facility] Polio (IPV/OPV) 2004-11-02 Completed [facility] 00:00:00 [facility] DTAP 2004-11-02 Completed [facility] 00:00:00 [facility] MMR 2004-11-02 Completed [facility] 00:00:00 [facility] Polio (IPV/OPV) 2004-11-02 Completed [facility] 00:00:00 [facility] DTAP 2004-11-02 Completed [facility] 00:00:00 [facility] MMR 2004-11-02 Completed [facility] 00:00:00 [facility] Polio (IPV/OPV) 2004-11-02 Completed [facility] 00:00:00 [facility] DTAP 2004-11-02 Completed [facility] 00:00:00 [facility] MMR 2004-11-02 Completed [facility] 00:00:00 [facility] Polio (IPV/OPV) 2004-11-02 Completed [facility] 00:00:00 [facility] DTAP 2004-11-02 Completed [facility] 00:00:00 [facility] MMR 2004-11-02 Completed [facility] 00:00:00 [facility] Polio (IPV/OPV) 2004-11-02 Completed [facility] 00:00:00 [facility] DTAP 2004-11-02 Completed [facility] 00:00:00 [facility] MMR 2004-11-02 Completed [facility] 00:00:00 [facility] Polio (IPV/OPV) 2004-11-02 Completed [facility] 00:00:00 [facility] DTAP 2004-11-02 Completed [facility] 00:00:00 [facility] MMR 2004-11-02 Completed [facility] 00:00:00 [facility] Polio (IPV/OPV) 2004-11-02 Completed [facility] 00:00:00 [facility] DTAP 2004-11-02 Completed [facility] 00:00:00 [facility] MMR 2004-11-02 Completed [facility] 00:00:00 [facility] Polio (IPV/OPV) 2004-11-02 Completed [facility] 00:00:00 [facility] DTAP 2004-11-02 Completed [facility] 00:00:00 [facility] MMR 2004-11-02 Completed [facility] 00:00:00 [facility] Polio (IPV/OPV) 2004-11-02 Completed [facility] 00:00:00 [facility] DTAP 2004-11-02 Completed [facility] 00:00:00 [facility] MMR 2004-11-02 Completed [facility] 00:00:00 [facility] Polio (IPV/OPV) 2004-11-02 Completed [facility] 00:00:00 [facility] DTAP 2004-11-02 Completed [facility] 00:00:00 [facility] MMR 2004-11-02 Completed [facility] 00:00:00 [facility] Polio (IPV/OPV) 2004-11-02 Completed [facility] 00:00:00 [facility] DTAP 2004-11-02 Completed [facility] 00:00:00 [facility] MMR 2004-11-02 Completed [facility] 00:00:00 [facility] Polio (IPV/OPV) 2004-11-02 Completed [facility] 00:00:00 [facility] DTAP 2004-11-02 Completed [facility] 00:00:00 [facility] MMR 2004-11-02 Completed [facility] 00:00:00 [facility] Polio (IPV/OPV) 2004-11-02 Completed [facility] 00:00:00 [facility] DTAP 2004-11-02 Completed [facility] 00:00:00 [facility] MMR 2004-11-02 Completed [facility] 00:00:00 [facility] Polio (IPV/OPV) 2004-11-02 Completed [facility] 00:00:00 [facility] DTAP 2004-11-02 Completed [facility] 00:00:00 [facility] MMR 2004-11-02 Completed [facility] 00:00:00 [facility] Polio (IPV/OPV) 2004-11-02 Completed [facility] 00:00:00 [facility] DTAP 2004-11-02 Completed [facility] 00:00:00 [facility] MMR 2004-11-02 Completed [facility] 00:00:00 [facility] Polio (IPV/OPV) 2004-11-02 Completed [facility] 00:00:00 [facility] DTAP 2004-11-02 Completed [facility] 00:00:00 [facility] MMR 2004-11-02 Completed [facility] 00:00:00 [facility] Polio (IPV/OPV) 2004-11-02 Completed [facility] 00:00:00 [facility] DTAP 2003-07-23 Completed [facility] 00:00:00 [facility] HIB 4 Dose Schedule 2003-07-23 Completed Unive rsity of 00:00:00 [facility] DTAP 2003-07-23 Completed [facility] 00:00:00 [facility] HIB 4 Dose Schedule 2003-07-23 Completed Unive rsity of 00:00:00 [facility] DTAP 2003-07-23 Completed [facility] 00:00:00 [facility] HIB 4 Dose Schedule 2003-07-23 Completed Unive rsity of 00:00:00 [facility] DTAP 2003-07-23 Completed [facility] 00:00:00 [facility] HIB 4 Dose Schedule 2003-07-23 Completed Unive rsity of 00:00:00 [facility] DTAP 2003-07-23 Completed [facility] 00:00:00 [facility] HIB 4 Dose Schedule 2003-07-23 Completed Unive rsity of 00:00:00 [facility] DTAP 2003-07-23 Completed [facility] 00:00:00 [facility] HIB 4 Dose Schedule 2003-07-23 Completed Unive rsity of 00:00:00 [facility] DTAP 2003-07-23 Completed [facility] 00:00:00 [facility] HIB 4 Dose Schedule 2003-07-23 Completed Unive rsity of 00:00:00 [facility] DTAP 2003-07-23 Completed [facility] 00:00:00 [facility] HIB 4 Dose Schedule 2003-07-23 Completed Unive rsity of 00:00:00 [facility] DTAP 2003-07-23 Completed [facility] 00:00:00 [facility] HIB 4 Dose Schedule 2003-07-23 Completed Unive rsity of 00:00:00 [facility] DTAP 2003-07-23 Completed [facility] 00:00:00 [facility] HIB 4 Dose Schedule 2003-07-23 Completed Unive rsity of 00:00:00 [facility] DTAP 2003-07-23 Completed [facility] 00:00:00 [facility] HIB 4 Dose Schedule 2003-07-23 Completed Unive rsity of 00:00:00 [facility] DTAP 2003-07-23 Completed [facility] 00:00:00 [facility] HIB 4 Dose Schedule 2003-07-23 Completed Unive rsity of 00:00:00 [facility] DTAP 2003-07-23 Completed [facility] 00:00:00 [facility] HIB 4 Dose Schedule 2003-07-23 Completed Unive rsity of 00:00:00 [facility] DTAP 2003-07-23 Completed [facility] 00:00:00 [facility] HIB 4 Dose Schedule 2003-07-23 Completed Unive rsity of 00:00:00 [facility] DTAP 2003-07-23 Completed [facility] 00:00:00 [facility] HIB 4 Dose Schedule 2003-07-23 Completed Unive rsity of 00:00:00 [facility] DTAP 2003-07-23 Completed [facility] 00:00:00 [facility] HIB 4 Dose Schedule 2003-07-23 Completed Unive rsity of 00:00:00 [facility] DTAP 2003-07-23 Completed [facility] 00:00:00 [facility] HIB 4 Dose Schedule 2003-07-23 Completed Unive rsity of 00:00:00 [facility] DTAP 2003-07-23 Completed [facility] 00:00:00 [facility] HIB 4 Dose Schedule 2003-07-23 Completed Unive rsity of 00:00:00 [facility] DTAP 2003-07-23 Completed [facility] 00:00:00 [facility] HIB 4 Dose Schedule 2003-07-23 Completed Unive rsity of 00:00:00 [facility] DTAP 2003-07-23 Completed [facility] 00:00:00 [facility] HIB 4 Dose Schedule 2003-07-23 Completed Unive rsity of 00:00:00 [facility] DTAP 2003-07-23 Completed [facility] 00:00:00 [facility] HIB 4 Dose Schedule 2003-07-23 Completed [facility]ive rsity of 00:00:00 [facility] DTAP 2003-07-23 Completed [facility] 00:00:00 [facility] HIB 4 Dose Schedule 2003-07-23 Completed Unive rsity of 00:00:00 [facility] DTAP 2003-07-23 Completed [facility] 00:00:00 [facility] HIB 4 Dose Schedule 2003-07-23 Completed Unive rsity of 00:00:00 [facility] DTAP 2003-07-23 Completed [facility] 00:00:00 [facility] HIB 4 Dose Schedule 2003-07-23 Completed Unive rsity of 00:00:00 [facility] DTAP 2003-07-23 Completed [facility] 00:00:00 [facility] HIB 4 Dose Schedule 2003-07-23 Completed Unive rsity of 00:00:00 [facility] DTAP 2003-07-23 Completed [facility] 00:00:00 [facility] HIB 4 Dose Schedule 2003-07-23 Completed [facility]ive rsity of 00:00:00 [facility] DTAP 2003-07-23 Completed [facility] 00:00:00 [facility] HIB 4 Dose Schedule 2003-07-23 Completed [facility] rsity of 00:00:00 [facility] DTAP 2003-07-23 Completed [facility] 00:00:00 [facility] HIB 4 Dose Schedule 2003-07-23 Completed Unive rsity of 00:00:00 [facility] DTAP 2003-07-23 Completed [facility] 00:00:00 [facility] HIB 4 Dose Schedule 2003-07-23 Completed Unive rsity of 00:00:00 [facility] DTAP 2003-07-23 Completed [facility] 00:00:00 [facility] HIB 4 Dose Schedule 2003-07-23 Completed Unive rsity of 00:00:00 [facility] DTAP 2003-07-23 Completed [facility] 00:00:00 [facility] HIB 4 Dose Schedule 2003-07-23 Completed [facility] rs[facility] of 00:00:00 [facility] DTAP 2003-07-23 Completed [facility] 00:00:00 [facility] HIB 4 Dose Schedule 2003-07-23 Completed [facility] of 00:00:00 [facility] DTAP 2003-07-23 Completed [facility] 00:00:00 [facility] HIB 4 Dose Schedule 2003-07-23 Completed [facility]ive rs[facility] of 00:00:00 [facility] DTAP 2003-07-23 Completed [facility] 00:00:00 [facility] HIB 4 Dose Schedule 2003-07-23 Completed [facility] rsity of 00:00:00 [facility] DTAP 2003-07-23 Completed [facility] 00:00:00 [facility] HIB 4 Dose Schedule 2003-07-23 Completed [facility]ive rsity of 00:00:00 [facility] DTAP 2002-09-17 Completed [facility] 00:00:00 [facility] HIB 4 Dose Schedule 2002-09-17 Completed [facility]ive [facility]ity of 00:00:00 [facility] DTAP 2002-09-17 Completed [facility] 00:00:00 [facility] HIB 4 Dose Schedule 2002-09-17 Completed [facility] 00:00:00 [facility] DTAP 2002-09-17 Completed [facility] 00:00:00 [facility] HIB 4 Dose Schedule 2002-09-17 Completed [facility] 00:00:00 [facility] DTAP 2002-09-17 Completed [facility] 00:00:00 [facility] HIB 4 Dose Schedule 2002-09-17 Completed [facility] 00:00:00 [facility] DTAP 2002-09-17 Completed [facility] 00:00:00 [facility] HIB 4 Dose Schedule 2002-09-17 Completed [facility] 00:00:00 [facility] DTAP 2002-09-17 Completed [facility] 00:00:00 [facility] HIB 4 Dose Schedule 2002-09-17 Completed [facility] 00:00:00 [facility] DTAP 2002-09-17 Completed [facility] 00:00:00 [facility] HIB 4 Dose Schedule 2002-09-17 Completed [facility] 00:00:00 [facility] DTAP 2002-09-17 Completed [facility] 00:00:00 [facility] HIB 4 Dose Schedule 2002-09-17 Completed [facility] 00:00:00 [facility] DTAP 2002-09-17 Completed [facility] 00:00:00 [facility] HIB 4 Dose Schedule 2002-09-17 Completed [facility] 00:00:00 [facility] DTAP 2002-09-17 Completed [facility] 00:00:00 [facility] HIB 4 Dose Schedule 2002-09-17 Completed [facility] 00:00:00 [facility] DTAP 2002-09-17 Completed [facility] 00:00:00 [facility] HIB 4 Dose Schedule 2002-09-17 Completed [facility] 00:00:00 [facility] DTAP 2002-09-17 Completed [facility] 00:00:00 [facility] HIB 4 Dose Schedule 2002-09-17 Completed [facility] 00:00:00 [facility] DTAP 2002-09-17 Completed [facility] 00:00:00 [facility] HIB 4 Dose Schedule 2002-09-17 Completed [facility] 00:00:00 [facility] DTAP 2002-09-17 Completed [facility] 00:00:00 [facility] HIB 4 Dose Schedule 2002-09-17 Completed [facility] 00:00:00 [facility] DTAP 2002-09-17 Completed [facility] 00:00:00 [facility] HIB 4 Dose Schedule 2002-09-17 Completed [facility] 00:00:00 [facility] DTAP 2002-09-17 Completed [facility] 00:00:00 [facility] HIB 4 Dose Schedule 2002-09-17 Completed [facility] 00:00:00 [facility] DTAP 2002-09-17 Completed [facility] 00:00:00 [facility] HIB 4 Dose Schedule 2002-09-17 Completed [facility] 00:00:00 [facility] DTAP 2002-09-17 Completed [facility] 00:00:00 [facility] HIB 4 Dose Schedule 2002-09-17 Completed [facility] 00:00:00 [facility] DTAP 2002-09-17 Completed [facility] 00:00:00 [facility] HIB 4 Dose Schedule 2002-09-17 Completed [facility] 00:00:00 [facility] DTAP 2002-09-17 Completed [facility] 00:00:00 [facility] HIB 4 Dose Schedule 2002-09-17 Completed [facility] 00:00:00 [facility] DTAP 2002-09-17 Completed [facility] 00:00:00 [facility] HIB 4 Dose Schedule 2002-09-17 Completed [facility] 00:00:00 [facility] DTAP 2002-09-17 Completed [facility] 00:00:00 [facility] HIB 4 Dose Schedule 2002-09-17 Completed [facility] 00:00:00 [facility] DTAP 2002-09-17 Completed [facility] 00:00:00 [facility] HIB 4 Dose Schedule 2002-09-17 Completed [facility] 00:00:00 [facility] DTAP 2002-09-17 Completed [facility] 00:00:00 [facility] HIB 4 Dose Schedule 2002-09-17 Completed [facility] 00:00:00 [facility] DTAP 2002-09-17 Completed [facility] 00:00:00 [facility] HIB 4 Dose Schedule 2002-09-17 Completed [facility] 00:00:00 [facility] DTAP 2002-09-17 Completed [facility] 00:00:00 [facility] HIB 4 Dose Schedule 2002-09-17 Completed [facility] 00:00:00 [facility] DTAP 2002-09-17 Completed [facility] 00:00:00 [facility] HIB 4 Dose Schedule 2002-09-17 Completed [facility] 00:00:00 [facility] DTAP 2002-09-17 Completed [facility] 00:00:00 [facility] HIB 4 Dose Schedule 2002-09-17 Completed [facility] 00:00:00 [facility] DTAP 2002-09-17 Completed [facility] 00:00:00 [facility] HIB 4 Dose Schedule 2002-09-17 Completed [facility] 00:00:00 [facility] DTAP 2002-09-17 Completed [facility] 00:00:00 [facility] HIB 4 Dose Schedule 2002-09-17 Completed [facility] 00:00:00 [facility] DTAP 2002-09-17 Completed [facility] 00:00:00 [facility] HIB 4 Dose Schedule 2002-09-17 Completed [facility] 00:00:00 [facility] DTAP 2002-09-17 Completed [facility] 00:00:00 [facility] HIB 4 Dose Schedule 2002-09-17 Completed [facility] 00:00:00 [facility] DTAP 2002-09-17 Completed [facility] 00:00:00 [facility] HIB 4 Dose Schedule 2002-09-17 Completed [facility] 00:00:00 [facility] DTAP 2002-09-17 Completed [facility] 00:00:00 [facility] HIB 4 Dose Schedule 2002-09-17 Completed [facility] 00:00:00 [facility] DTAP 2002-09-17 Completed [facility] 00:00:00 [facility] HIB 4 Dose Schedule 2002-09-17 Completed [facility] 00:00:00 [facility] MMR 2001-12-18 Completed [facility] 00:00:00 [facility] Polio (IPV/OPV) 2001-12-18 Completed [facility] 00:00:00 [facility] Varicella 2001-12-18 Completed [facility] of (varivax)(chicken 00:00:00 [facility] [place] [facility] pox[facility] MMR 2001-12-18 Completed [facility] 00:00:00 [facility] Polio (IPV/OPV) 2001-12-18 Completed [facility] 00:00:00 [facility] Varicella 2001-12-18 Completed [facility] (varivax)(chicken 00:00:00 [place] [facility] pox[facility] MMR 2001-12-18 Completed [facility] 00:00:00 [facility] Polio (IPV/OPV) 2001-12-18 Completed [facility] 00:00:00 [facility] Varicella 2001-12-18 Completed [facility] (varivax)(chicken 00:00:00 [place] [facility] pox[facility] MMR 2001-12-18 Completed [facility] 00:00:00 [facility] Polio (IPV/OPV) 2001-12-18 Completed [facility] 00:00:00 [facility] Varicella 2001-12-18 Completed [facility] (varivax)(chicken 00:00:00 [place] [facility] pox) [facility] MMR 2001-12-18 Completed [facility] 00:00:00 [facility] Polio (IPV/OPV) 2001-12-18 Completed [facility] 00:00:00 [facility] Varicella 2001-12-18 Completed [facility] (varivax)(chicken 00:00:00 [place] [facility] pox) [facility] MMR 2001-12-18 Completed [facility] 00:00:00 [facility] Polio (IPV/OPV) 2001-12-18 Completed [facility] 00:00:00 [facility] Varicella 2001-12-18 Completed [facility] (varivax)(chicken 00:00:00 [place] [facility] pox) [facility] MMR 2001-12-18 Completed [facility] 00:00:00 [facility] Polio (IPV/OPV) 2001-12-18 Completed [facility] 00:00:00 [facility] Varicella 2001-12-18 Completed [facility] (varivax)(chicken 00:00:00 [place] [facility] pox) [facility] MMR 2001-12-18 Completed [facility] 00:00:00 [facility] Polio (IPV/OPV) 2001-12-18 Completed [facility] 00:00:00 [facility] Varicella 2001-12-18 Completed [facility] (varivax)(chicken 00:00:00 [place] [facility] pox) [facility] MMR 2001-12-18 Completed [facility] 00:00:00 [facility] Polio (IPV/OPV) 2001-12-18 Completed [facility] 00:00:00 [facility] Varicella 2001-12-18 Completed [facility] (varivax)(chicken 00:00:00 [place] [facility] pox) [facility] MMR 2001-12-18 Completed [facility] 00:00:00 [facility] Polio (IPV/OPV) 2001-12-18 Completed [facility] 00:00:00 [facility] Varicella 2001-12-18 Completed [facility] (varivax)(chicken 00:00:00 [place] [facility] pox) [facility] MMR 2001-12-18 Completed [facility] 00:00:00 [facility] Polio (IPV/OPV) 2001-12-18 Completed [facility] 00:00:00 [facility] Varicella 2001-12-18 Completed [facility] (varivax)(chicken 00:00:00 [place] [facility] pox[facility] 2001-12-18 Completed [facility] 00:00:00 [facility] Polio (IPV/OPV) 2001-12-18 Completed [facility] 00:00:00 [facility] Varicella 2001-12-18 Completed [facility] (varivax)(chicken 00:00:00 [place] [facility] pox[facility] 2001-12-18 Completed [facility] 00:00:00 [facility] Polio (IPV/OPV) 2001-12-18 Completed [facility] 00:00:00 [facility] Varicella 2001-12-18 Completed [facility] (varivax)(chicken 00:00:00 [place] [facility] pox) [facility] MMR 2001-12-18 Completed [facility] 00:00:00 [facility] Polio (IPV/OPV) 2001-12-18 Completed [facility] 00:00:00 [facility] Varicella 2001-12-18 Completed [facility] (varivax)(chicken 00:00:00 [place] [facility] pox) [facility] MMR 2001-12-18 Completed [facility] 00:00:00 [facility] Polio (IPV/OPV) 2001-12-18 Completed [facility] 00:00:00 [facility] Varicella 2001-12-18 Completed [facility] (varivax)(chicken 00:00:00 [place] [facility] pox) [facility] MMR 2001-12-18 Completed [facility] 00:00:00 [facility] Polio (IPV/OPV) 2001-12-18 Completed [facility] 00:00:00 [facility] Varicella 2001-12-18 Completed [facility] (varivax)(chicken 00:00:00 [place] [facility] pox) [facility] MMR 2001-12-18 Completed [facility] 00:00:00 [facility] Polio (IPV/OPV) 2001-12-18 Completed [facility] 00:00:00 [facility] Varicella 2001-12-18 Completed [facility] (varivax)(chicken 00:00:00 [place] [facility] pox) [facility] MMR 2001-12-18 Completed [facility] 00:00:00 [facility] Polio (IPV/OPV) 2001-12-18 Completed [facility] 00:00:00 [facility] Varicella 2001-12-18 Completed [facility] (varivax)(chicken 00:00:00 [place] [facility] pox[facility] 2001-12-18 Completed [facility] 00:00:00 [facility] Polio (IPV/OPV) 2001-12-18 Completed [facility] 00:00:00 [facility] Varicella 2001-12-18 Completed [facility] (varivax)(chicken 00:00:00 [place] [facility] pox[facility] 2001-12-18 Completed [facility] 00:00:00 [facility] Polio (IPV/OPV) 2001-12-18 Completed [facility] 00:00:00 [facility] Varicella 2001-12-18 Completed [facility] (varivax)(chicken 00:00:00 [place] [facility] pox[facility] 2001-12-18 Completed [facility] 00:00:00 [facility] Polio (IPV/OPV) 2001-12-18 Completed [facility] 00:00:00 [facility] Varicella 2001-12-18 Completed [facility] (varivax)(chicken 00:00:00 [place] [facility] pox) [facility] MMR 2001-12-18 Completed [facility] 00:00:00 [facility] Polio (IPV/OPV) 2001-12-18 Completed [facility] 00:00:00 [facility] Varicella 2001-12-18 Completed [facility] (varivax)(chicken 00:00:00 [place] [facility] pox) [facility] MMR 2001-12-18 Completed [facility] 00:00:00 [facility] Polio (IPV/OPV) 2001-12-18 Completed [facility] 00:00:00 [facility] Varicella 2001-12-18 Completed [facility] (varivax)(chicken 00:00:00 [place] [facility] pox[facility] 2001-12-18 Completed [facility] 00:00:00 [facility] Polio (IPV/OPV) 2001-12-18 Completed [facility] 00:00:00 [facility] Varicella 2001-12-18 Completed [facility] (varivax)(chicken 00:00:00 [place] [facility] pox[facility] 2001-12-18 Completed [facility] 00:00:00 [facility] Polio (IPV/OPV) 2001-12-18 Completed [facility] 00:00:00 [facility] Varicella 2001-12-18 Completed [facility] (varivax)(chicken 00:00:00 [place] [facility] pox[facility] 2001-12-18 Completed [facility] 00:00:00 [facility] Polio (IPV/OPV) 2001-12-18 Completed [facility] 00:00:00 [facility] Varicella 2001-12-18 Completed [facility] (varivax)(chicken 00:00:00 [place] [facility] pox[facility] 2001-12-18 Completed [facility] 00:00:00 [facility] Polio (IPV/OPV) 2001-12-18 Completed [facility] 00:00:00 [facility] Varicella 2001-12-18 Completed [facility] (varivax)(chicken 00:00:00 [place] [facility] pox[facility] 2001-12-18 Completed [facility] 00:00:00 [facility] Polio (IPV/OPV) 2001-12-18 Completed [facility] 00:00:00 [facility] Varicella 2001-12-18 Completed [facility] (varivax)(chicken 00:00:00 [place] [facility] pox[facility] 2001-12-18 Completed [facility] 00:00:00 [facility] Polio (IPV/OPV) 2001-12-18 Completed [facility] 00:00:00 [facility] Varicella 2001-12-18 Completed [facility] (varivax)(chicken 00:00:00 [place] [facility] pox[facility] 2001-12-18 Completed [facility] 00:00:00 [facility] Polio (IPV/OPV) 2001-12-18 Completed [facility] 00:00:00 [facility] Varicella 2001-12-18 Completed [facility] (varivax)(chicken 00:00:00 [place] [facility] pox) [facility] MMR 2001-12-18 Completed [facility] 00:00:00 [facility] Polio (IPV/OPV) 2001-12-18 Completed [facility] 00:00:00 [facility] Varicella 2001-12-18 Completed [facility] (varivax)(chicken 00:00:00 [place] [facility] pox) [facility] MMR 2001-12-18 Completed [facility] 00:00:00 [facility] Polio (IPV/OPV) 2001-12-18 Completed [facility] 00:00:00 [facility] Varicella 2001-12-18 Completed [facility] (varivax)(chicken 00:00:00 [facility] [place] [facility] 2001-12-18 Completed [facility] 00:00:00 [facility] Polio (IPV/OPV) 2001-12-18 Completed [facility] 00:00:00 [facility] Varicella 2001-12-18 Completed [facility] (varivax)(chicken 00:00:00 [place] [facility] pox[facility] 2001-12-18 Completed [facility] 00:00:00 [facility] Polio (IPV/OPV) 2001-12-18 Completed [facility] 00:00:00 [facility] Varicella 2001-12-18 Completed [facility] (varivax)(chicken 00:00:00 [place] [facility] pox[facility] 2001-12-18 Completed [facility] 00:00:00 [facility] Polio (IPV/OPV) 2001-12-18 Completed [facility] 00:00:00 [facility] Varicella 2001-12-18 Completed [facility] (varivax)(chicken 00:00:00 [place] [facility] pox) [facility] DTAP 2001-07-24 Completed [facility] 00:00:00 [facility] Pneumococcal 7 2001-07-24 Completed [facility] of Conjugate, PCV7 00:00:00 [facility] [place] [facility] (Prevnar7) [facility] DTAP 2001-07-24 Completed [facility] 00:00:00 [facility] Pneumococcal 7 2001-07-24 Completed [facility] Conjugate, PCV7 00:00:00 [facility] [place] [facility] (Prevnar7) [facility] DTAP 2001-07-24 Completed [facility] 00:00:00 [facility] Pneumococcal 7 2001-07-24 Completed [facility] Conjugate, PCV7 00:00:00 [place] [facility] (Prevnar7) [facility] DTAP 2001-07-24 Completed [facility] 00:00:00 [facility] Pneumococcal 7 2001-07-24 Completed [facility] Conjugate, PCV7 00:00:00 [place] [facility] (Prevnar7) [facility] DTAP 2001-07-24 Completed [facility] 00:00:00 [facility] Pneumococcal 7 2001-07-24 Completed [facility] Conjugate, PCV7 00:00:00 [place] [facility] (Prevnar7) [facility] DTAP 2001-07-24 Completed [facility] 00:00:00 [facility] Pneumococcal 7 2001-07-24 Completed [facility] Conjugate, PCV7 00:00:00 [place] [facility] (Prevnar7) [facility] DTAP 2001-07-24 Completed [facility] 00:00:00 [facility] Pneumococcal 7 2001-07-24 Completed [facility] Conjugate, PCV7 00:00:00 [place] [facility] (Prevnar7) [facility] DTAP 2001-07-24 Completed [facility] 00:00:00 [facility] Pneumococcal 7 2001-07-24 Completed [facility] Conjugate, PCV7 00:00:00 [place] [facility] (Prevnar7) [facility] DT 2001-07-24 Completed [facility] 00:00:00 [facility] Pneumococcal 7 2001-07-24 Completed [facility] Conjugate, PCV7 00:00:00 [place] [facility] (Prevnar7) [facility] DTAP 2001-07-24 Completed [facility] 00:00:00 [facility] Pneumococcal 7 2001-07-24 Completed [facility] Conjugate, PCV7 00:00:00 [place] [facility] (Prevnar7) [facility] DTAP 2001-07-24 Completed [facility] 00:00:00 [facility] Pneumococcal 7 2001-07-24 Completed [facility] Conjugate, PCV7 00:00:00 [place] [facility] (Prevnar7) [facility] DTAP 2001-07-24 Completed [facility] 00:00:00 [facility] Pneumococcal 7 2001-07-24 Completed [facility] Conjugate, PCV7 00:00:00 [place] [facility] (Prevnar7) [facility] DTAP 2001-07-24 Completed [facility] 00:00:00 [facility] Pneumococcal 7 2001-07-24 Completed [facility] Conjugate, PCV7 00:00:00 [place] [facility] (Prevnar7) [facility] DTAP 2001-07-24 Completed [facility] 00:00:00 [facility] Pneumococcal 7 2001-07-24 Completed [facility] Conjugate, PCV7 00:00:00 [place] [facility] (Prevnar7) [facility] DTAP 2001-07-24 Completed [facility] 00:00:00 [facility] Pneumococcal 7 2001-07-24 Completed [facility] Conjugate, PCV7 00:00:00 [place] [facility] (Prevnar7) [facility] DTAP 2001-07-24 Completed [facility] 00:00:00 [facility] Pneumococcal 7 2001-07-24 Completed [facility] Conjugate, PCV7 00:00:00 [place] [facility] (Prevnar7) [facility] DTAP 2001-07-24 Completed [facility] 00:00:00 [facility] Pneumococcal 7 2001-07-24 Completed [facility] Conjugate, PCV7 00:00:00 [place] [facility] (Prevnar7) [facility] 2001-07-24 Completed [facility] 00:00:00 [facility] Pneumococcal 7 2001-07-24 Completed [facility] Conjugate, PCV7 00:00:00 [place] [facility] (Prevnar7) [facility] DT 2001-07-24 Completed [facility] 00:00:00 [facility] Pneumococcal 7 2001-07-24 Completed [facility] Conjugate, PCV7 00:00:00 [place] [facility] (Prevnar7) [facility] 2001-07-24 Completed [facility] 00:00:00 [facility] Pneumococcal 7 2001-07-24 Completed [facility] Conjugate, PCV7 00:00:00 [place] [facility] (Prevnar7) [facility] 2001-07-24 Completed [facility] 00:00:00 [facility] Pneumococcal 7 2001-07-24 Completed [facility] Conjugate, PCV7 00:00:00 [place] [facility] (Prevnar7) [facility] AP 2001-07-24 Completed [facility] 00:00:00 [facility] Pneumococcal 7 2001-07-24 Completed [facility] Conjugate, PCV7 00:00:00 [place] [facility] (Prevnar7) [facility] AP 2001-07-24 Completed [facility] 00:00:00 [facility] Pneumococcal 7 2001-07-24 Completed [facility] Conjugate, PCV7 00:00:00 [place] [facility] (Prevnar7) [facility] 2001-07-24 Completed [facility] 00:00:00 [facility] Pneumococcal 7 2001-07-24 Completed [facility] Conjugate, PCV7 00:00:00 [place] [facility] (Prevnar7) [facility] DTAP 2001-07-24 Completed [facility] 00:00:00 [facility] Pneumococcal 7 2001-07-24 Completed [facility] Conjugate, PCV7 00:00:00 [place] [facility] (Prevnar7) [facility] DTAP 2001-07-24 Completed [facility] 00:00:00 [facility] Pneumococcal 7 2001-07-24 Completed [facility] Conjugate, PCV7 00:00:00 [place] [facility] (Prevnar7) [facility] DTAP 2001-07-24 Completed [facility] 00:00:00 [facility] Pneumococcal 7 2001-07-24 Completed [facility] Conjugate, PCV7 00:00:00 [place] [facility] (Prevnar7) [facility] DT 2001-07-24 Completed [facility] 00:00:00 [facility] Pneumococcal 7 2001-07-24 Completed [facility] Conjugate, PCV7 00:00:00 [place] [facility] (Prevnar7) [facility] 2001-07-24 Completed [facility] 00:00:00 [facility] Pneumococcal 7 2001-07-24 Completed [facility] Conjugate, PCV7 00:00:00 [place] [facility] (Prevnar7) [facility] 2001-07-24 Completed [facility] 00:00:00 [facility] Pneumococcal 7 2001-07-24 Completed [facility] Conjugate, PCV7 00:00:00 [place] [facility] (Prevnar7) [facility] 2001-07-24 Completed [facility] 00:00:00 [facility] Pneumococcal 7 2001-07-24 Completed [facility] Conjugate, PCV7 00:00:00 [place] [facility] (Prevnar7) [facility] DT 2001-07-24 Completed [facility] 00:00:00 [facility] Pneumococcal 7 2001-07-24 Completed [facility] Conjugate, PCV7 00:00:00 [place] [facility] (Prevnar7) [facility] 2001-07-24 Completed [facility] 00:00:00 [facility] Pneumococcal 7 2001-07-24 Completed [facility] Conjugate, PCV7 00:00:00 [place] [facility] (Prevnar7) [facility] 2001-07-24 Completed [facility] 00:00:00 [facility] Pneumococcal 7 2001-07-24 Completed [facility] Conjugate, PCV7 00:00:00 [place] [facility] (Prevnar7) [facility] 2001-07-24 Completed [facility] 00:00:00 [facility] Pneumococcal 7 2001-07-24 Completed [facility] Conjugate, PCV7 00:00:00 [place] [facility] (Prevnar7) [facility] HIB 4 Dose Schedule 2001-04-22 Completed [facility] 00:00:00 [facility] Hep B, Adol or Pedi 2001-04-22 Completed [facility] Dosage 00:00:00 [facility] Pneumococcal 7 2001-04-22 Completed [facility] Conjugate, PCV7 00:00:00 [place] [facility] (Prevnar7) [facility] HIB 4 Dose Schedule 2001-04-22 Completed [facility] 00:00:00 [facility] Hep B, Adol or Pedi 2001-04-22 Completed [facility] Dosage 00:00:00 [facility] Pneumococcal 7 2001-04-22 Completed [facility] Conjugate, PCV7 00:00:00 [place] [facility] (Prevnar7) [facility] HIB 4 Dose Schedule 2001-04-22 Completed [facility] 00:00:00 [facility] Hep B, Adol or Pedi 2001-04-22 Completed [facility] Dosage 00:00:00 [facility] Pneumococcal 7 2001-04-22 Completed [facility] Conjugate, PCV7 00:00:00 [place] [facility] (Prevnar7) [facility] HIB 4 Dose Schedule 2001-04-22 Completed [facility] 00:00:00 [facility] Hep B, Adol or Pedi 2001-04-22 Completed [facility] Dosage 00:00:00 [facility] Pneumococcal 7 2001-04-22 Completed [facility] Conjugate, PCV7 00:00:00 [place] [facility] (Prevnar7) [facility] HIB 4 Dose Schedule 2001-04-22 Completed [facility] 00:00:00 [facility] Hep B, Adol or Pedi 2001-04-22 Completed [facility] Dosage 00:00:00 [facility] Pneumococcal 7 2001-04-22 Completed [facility] Conjugate, PCV7 00:00:00 [place] [facility] (Prevnar7) [facility] HIB 4 Dose Schedule 2001-04-22 Completed [facility] 00:00:00 [facility] Hep B, Adol or Pedi 2001-04-22 Completed [facility] Dosage 00:00:00 [facility] Pneumococcal 7 2001-04-22 Completed [facility] Conjugate, PCV7 00:00:00 [place] [facility] (Prevnar7) [facility] HIB 4 Dose Schedule 2001-04-22 Completed [facility] 00:00:00 [facility] Hep B, Adol or Pedi 2001-04-22 Completed [facility] Dosage 00:00:00 [facility] Pneumococcal 7 2001-04-22 Completed [facility] Conjugate, PCV7 00:00:00 [place] [facility] (Pre[facility] HIB 4 Dose Schedule 2001-04-22 Completed [facility] 00:00:00 [facility] Hep B, Adol or Pedi 2001-04-22 Completed [facility] Dosage 00:00:00 [facility] Pneumococcal 7 2001-04-22 Completed [facility] Conjugate, PCV7 00:00:00 [place] [facility] (Prevnar7) [facility] HIB 4 Dose Schedule 2001-04-22 Completed [facility] 00:00:00 [facility] Hep B, Adol or Pedi 2001-04-22 Completed [facility] Dosage 00:00:00 [facility] Pneumococcal 7 2001-04-22 Completed [facility] Conjugate, PCV7 00:00:00 [facility] [place] [facility] (Prevnar7) [facility] HIB 4 Dose Schedule 2001-04-22 Completed [facility] 00:00:00 [facility] Hep B, Adol or Pedi 2001-04-22 Completed [facility] Dosage 00:00:00 [facility] Pneumococcal 7 2001-04-22 Completed [facility] Conjugate, PCV7 00:00:00 [place] [facility] (Prevnar7[facility] HIB 4 Dose Schedule 2001-04-22 Completed [facility] 00:00:00 [facility] Hep B, Adol or Pedi 2001-04-22 Completed [facility] Dosage 00:00:00 [facility] Pneumococcal 7 2001-04-22 Completed [facility] Conjugate, PCV7 00:00:00 [place] [facility] (Prevnar7) [facility] HIB 4 Dose Schedule 2001-04-22 Completed [facility] 00:00:00 [facility] Hep B, Adol or Pedi 2001-04-22 Completed [facility] Dosage 00:00:00 [facility] Pneumococcal 7 2001-04-22 Completed [facility] Conjugate, PCV7 00:00:00 [place] [facility] (Prevnar7) [facility] HIB 4 Dose Schedule 2001-04-22 Completed [facility] 00:00:00 [facility] Hep B, Adol or Pedi 2001-04-22 Completed [facility] Dosage 00:00:00 [facility] Pneumococcal 7 2001-04-22 Completed [facility] Conjugate, PCV7 00:00:00 [place] [facility] (Prevnar7[facility] HIB 4 Dose Schedule 2001-04-22 Completed [facility] 00:00:00 [facility] Hep B, Adol or Pedi 2001-04-22 Completed [facility] Dosage 00:00:00 [facility] Pneumococcal 7 2001-04-22 Completed [facility] Conjugate, PCV7 00:00:00 [place] [facility] (Prevnar7[facility] HIB 4 Dose Schedule 2001-04-22 Completed [facility] 00:00:00 [facility] Hep B, Adol or Pedi 2001-04-22 Completed [facility] Dosage 00:00:00 [facility] Pneumococcal 7 2001-04-22 Completed [facility] Conjugate, PCV7 00:00:00 [place] [facility] (Prevnar7[facility] HIB 4 Dose Schedule 2001-04-22 Completed [facility] 00:00:00 [facility] Hep B, Adol or Pedi 2001-04-22 Completed [facility] Dosage 00:00:00 [facility] Pneumococcal 7 2001-04-22 Completed [facility] Conjugate, PCV7 00:00:00 [place] [facility] (Prevnar7[facility] HIB 4 Dose Schedule 2001-04-22 Completed [facility] 00:00:00 [facility] Hep B, Adol or Pedi 2001-04-22 Completed [facility] Dosage 00:00:00 [facility] Pneumococcal 7 2001-04-22 Completed [facility] Conjugate, PCV7 00:00:00 [place] [facility] (Prevnar7[facility] HIB 4 Dose Schedule 2001-04-22 Completed [facility] 00:00:00 [facility] Hep B, Adol or Pedi 2001-04-22 Completed [facility] Dosage 00:00:00 [facility] Pneumococcal 7 2001-04-22 Completed [facility] Conjugate, PCV7 00:00:00 [place] [facility] (Prevnar7[facility] HIB 4 Dose Schedule 2001-04-22 Completed [facility] 00:00:00 [facility] Hep B, Adol or Pedi 2001-04-22 Completed [facility] Dosage 00:00:00 [facility] Pneumococcal 7 2001-04-22 Completed [facility] Conjugate, PCV7 00:00:00 [place] [facility] (Prevnar7[facility] HIB 4 Dose Schedule 2001-04-22 Completed [facility] 00:00:00 [facility] Hep B, Adol or Pedi 2001-04-22 Completed [facility] Dosage 00:00:00 [facility] Pneumococcal 7 2001-04-22 Completed [facility] Conjugate, PCV7 00:00:00 [place] [facility] (Prevnar7) [facility] HIB 4 Dose Schedule 2001-04-22 Completed [facility] 00:00:00 [facility] Hep B, Adol or Pedi 2001-04-22 Completed [facility] Dosage 00:00:00 [facility] Pneumococcal 7 2001-04-22 Completed [facility] Conjugate, PCV7 00:00:00 [place] [facility] (Prevnar7[facility] HIB 4 Dose Schedule 2001-04-22 Completed [facility] 00:00:00 [facility] Hep B, Adol or Pedi 2001-04-22 Completed [facility] Dosage 00:00:00 [facility] Pneumococcal 7 2001-04-22 Completed [facility] Conjugate, PCV7 00:00:00 [place] [facility] (Prevnar7) [facility] HIB 4 Dose Schedule 2001-04-22 Completed [facility] 00:00:00 [facility] Hep B, Adol or Pedi 2001-04-22 Completed [facility] Dosage 00:00:00 [facility] Pneumococcal 7 2001-04-22 Completed [facility] Conjugate, PCV7 00:00:00 [place] [facility] (Prevnar7) [facility] HIB 4 Dose Schedule 2001-04-22 Completed [facility] 00:00:00 [facility] Hep B, Adol or Pedi 2001-04-22 Completed [facility] Dosage 00:00:00 [facility] Pneumococcal 7 2001-04-22 Completed [facility] Conjugate, PCV7 00:00:00 [place] [facility] (Prevnar7) [facility] HIB 4 Dose Schedule 2001-04-22 Completed [facility] 00:00:00 [facility] Hep B, Adol or Pedi 2001-04-22 Completed [facility] Dosage 00:00:00 [facility] Pneumococcal 7 2001-04-22 Completed [facility] Conjugate, PCV7 00:00:00 [place] [facility] (Prevnar7[facility] HIB 4 Dose Schedule 2001-04-22 Completed [facility] 00:00:00 [facility] Hep B, Adol or Pedi 2001-04-22 Completed [facility] Dosage 00:00:00 [facility] Pneumococcal 7 2001-04-22 Completed [facility] Conjugate, PCV7 00:00:00 [place] [facility] (Prevnar7) [facility] HIB 4 Dose Schedule 2001-04-22 Completed [facility] 00:00:00 [facility] Hep B, Adol or Pedi 2001-04-22 Completed [facility] Dosage 00:00:00 [facility] Pneumococcal 7 2001-04-22 Completed [facility] Conjugate, PCV7 00:00:00 [place] [facility] (Prevnar7) [facility] HIB 4 Dose Schedule 2001-04-22 Completed [facility] 00:00:00 [facility] Hep B, Adol or Pedi 2001-04-22 Completed [facility] Dosage 00:00:00 [facility] Pneumococcal 7 2001-04-22 Completed [facility] Conjugate, PCV7 00:00:00 [place] [facility] (Prevnar7[facility] HIB 4 Dose Schedule 2001-04-22 Completed [facility] 00:00:00 [facility] Hep B, Adol or Pedi 2001-04-22 Completed [facility] Dosage 00:00:00 [facility] Pneumococcal 7 2001-04-22 Completed [facility] Conjugate, PCV7 00:00:00 [place] [facility] (Prevnar7) [facility] HIB 4 Dose Schedule 2001-04-22 Completed [facility] 00:00:00 [facility] Hep B, Adol or Pedi 2001-04-22 Completed [facility] Dosage 00:00:00 [facility] Pneumococcal 7 2001-04-22 Completed [facility] Conjugate, PCV7 00:00:00 [place] [facility] (Prevnar7) [facility] HIB 4 Dose Schedule 2001-04-22 Completed [facility] 00:00:00 [facility] Hep B, Adol or Pedi 2001-04-22 Completed [facility] Dosage 00:00:00 [facility] Pneumococcal 7 2001-04-22 Completed [facility] Conjugate, PCV7 00:00:00 [place] [facility] (Prevnar7) [facility] HIB 4 Dose Schedule 2001-04-22 Completed [facility] 00:00:00 [facility] Hep B, Adol or Pedi 2001-04-22 Completed [facility] Dosage 00:00:00 [facility] Pneumococcal 7 2001-04-22 Completed [facility] Conjugate, PCV7 00:00:00 [place] [facility] (Prevnar7) [facility] HIB 4 Dose Schedule 2001-04-22 Completed [facility] 00:00:00 [facility] Hep B, Adol or Pedi 2001-04-22 Completed [facility] Dosage 00:00:00 [facility] Pneumococcal 7 2001-04-22 Completed [facility] Conjugate, PCV7 00:00:00 [place] [facility] (Prevnar7) [facility] HIB 4 Dose Schedule 2001-04-22 Completed [facility] 00:00:00 [facility] Hep B, Adol or Pedi 2001-04-22 Completed [facility] Dosage 00:00:00 [facility] Pneumococcal 7 2001-04-22 Completed [facility] Conjugate, PCV7 00:00:00 [place] [facility] (Prevnar7) [facility] HIB 4 Dose Schedule 2001-04-22 Completed [facility] 00:00:00 [facility] Hep B, Adol or Pedi 2001-04-22 Completed [facility] Dosage 00:00:00 [facility] Pneumococcal 7 2001-04-22 Completed [facility] Conjugate, PCV7 00:00:00 [place] [facility] (Prevnar7[facility] DTAP 2001-02-14 Completed [facility] 00:00:00 [facility] HIB 4 Dose Schedule 2001-02-14 Completed [facility] 00:00:00 [facility] Polio (IPV/OPV) 2001-02-14 Completed [facility] 00:00:00 [facility] DTAP 2001-02-14 Completed [facility] 00:00:00 [facility] HIB 4 Dose Schedule 2001-02-14 Completed [facility] 00:00:00 [facility] Polio (IPV/OPV) 2001-02-14 Completed [facility] 00:00:00 [facility] DTAP 2001-02-14 Completed [facility] 00:00:00 [facility] HIB 4 Dose Schedule 2001-02-14 Completed [facility] 00:00:00 [facility] Polio (IPV/OPV) 2001-02-14 Completed [facility] 00:00:00 [facility] DTAP 2001-02-14 Completed [facility] 00:00:00 [facility] HIB 4 Dose Schedule 2001-02-14 Completed [facility] 00:00:00 [facility] Polio (IPV/OPV) 2001-02-14 Completed [facility] 00:00:00 [facility] DTAP 2001-02-14 Completed [facility] 00:00:00 [facility] HIB 4 Dose Schedule 2001-02-14 Completed [facility] 00:00:00 [facility] Polio (IPV/OPV) 2001-02-14 Completed [facility] 00:00:00 [facility] DTAP 2001-02-14 Completed [facility] 00:00:00 [facility] HIB 4 Dose Schedule 2001-02-14 Completed [facility] 00:00:00 [facility] Polio (IPV/OPV) 2001-02-14 Completed [facility] 00:00:00 [facility] DTAP 2001-02-14 Completed [facility] 00:00:00 [facility] HIB 4 Dose Schedule 2001-02-14 Completed [facility] 00:00:00 [facility] Polio (IPV/OPV) 2001-02-14 Completed [facility] 00:00:00 [facility] DTAP 2001-02-14 Completed [facility] 00:00:00 [facility] HIB 4 Dose Schedule 2001-02-14 Completed [facility] 00:00:00 [facility] Polio (IPV/OPV) 2001-02-14 Completed [facility] 00:00:00 [facility] DTAP 2001-02-14 Completed [facility] 00:00:00 [facility] HIB 4 Dose Schedule 2001-02-14 Completed [facility] 00:00:00 [facility] Polio (IPV/OPV) 2001-02-14 Completed [facility] 00:00:00 [facility] DTAP 2001-02-14 Completed [facility] 00:00:00 [facility] HIB 4 Dose Schedule 2001-02-14 Completed [facility] 00:00:00 [facility] Polio (IPV/OPV) 2001-02-14 Completed [facility] 00:00:00 [facility] DTAP 2001-02-14 Completed [facility] 00:00:00 [facility] HIB 4 Dose Schedule 2001-02-14 Completed [facility] 00:00:00 [facility] Polio (IPV/OPV) 2001-02-14 Completed [facility] 00:00:00 [facility] DTAP 2001-02-14 Completed [facility] 00:00:00 [facility] HIB 4 Dose Schedule 2001-02-14 Completed [facility] 00:00:00 [facility] Polio (IPV/OPV) 2001-02-14 Completed [facility] 00:00:00 [facility] DTAP 2001-02-14 Completed [facility] 00:00:00 [facility] HIB 4 Dose Schedule 2001-02-14 Completed [facility] 00:00:00 [facility] Polio (IPV/OPV) 2001-02-14 Completed [facility] 00:00:00 [facility] DTAP 2001-02-14 Completed [facility] 00:00:00 [facility] HIB 4 Dose Schedule 2001-02-14 Completed [facility] 00:00:00 [facility] Polio (IPV/OPV) 2001-02-14 Completed [facility] 00:00:00 [facility] DTAP 2001-02-14 Completed [facility] 00:00:00 [facility] HIB 4 Dose Schedule 2001-02-14 Completed [facility] 00:00:00 [facility] Polio (IPV/OPV) 2001-02-14 Completed [facility] 00:00:00 [facility] DTAP 2001-02-14 Completed [facility] 00:00:00 [facility] HIB 4 Dose Schedule 2001-02-14 Completed [facility] 00:00:00 [facility] Polio (IPV/OPV) 2001-02-14 Completed [facility] 00:00:00 [facility] DTAP 2001-02-14 Completed [facility] 00:00:00 [facility] HIB 4 Dose Schedule 2001-02-14 Completed [facility] 00:00:00 [facility] Polio (IPV/OPV) 2001-02-14 Completed [facility] 00:00:00 [facility] DTAP 2001-02-14 Completed [facility] 00:00:00 [facility] HIB 4 Dose Schedule 2001-02-14 Completed [facility] 00:00:00 [facility] Polio (IPV/OPV) 2001-02-14 Completed [facility] 00:00:00 [facility] DTAP 2001-02-14 Completed [facility] 00:00:00 [facility] HIB 4 Dose Schedule 2001-02-14 Completed [facility] 00:00:00 [facility] Polio (IPV/OPV) 2001-02-14 Completed [facility] 00:00:00 [facility] DTAP 2001-02-14 Completed [facility] 00:00:00 [facility] HIB 4 Dose Schedule 2001-02-14 Completed [facility] 00:00:00 [facility] Polio (IPV/OPV) 2001-02-14 Completed [facility] 00:00:00 [facility] DTAP 2001-02-14 Completed [facility] 00:00:00 [facility] HIB 4 Dose Schedule 2001-02-14 Completed [facility] 00:00:00 [facility] Polio (IPV/OPV) 2001-02-14 Completed [facility] 00:00:00 [facility] DTAP 2001-02-14 Completed [facility] 00:00:00 [facility] HIB 4 Dose Schedule 2001-02-14 Completed [facility] 00:00:00 [facility] Polio (IPV/OPV) 2001-02-14 Completed [facility] 00:00:00 [facility] DTAP 2001-02-14 Completed [facility] 00:00:00 [facility] HIB 4 Dose Schedule 2001-02-14 Completed [facility] 00:00:00 [facility] Polio (IPV/OPV) 2001-02-14 Completed [facility] 00:00:00 [facility] DTAP 2001-02-14 Completed [facility] 00:00:00 [facility] HIB 4 Dose Schedule 2001-02-14 Completed [facility] 00:00:00 [facility] Polio (IPV/OPV) 2001-02-14 Completed [facility] 00:00:00 [facility] DTAP 2001-02-14 Completed [facility] 00:00:00 [facility] HIB 4 Dose Schedule 2001-02-14 Completed [facility] 00:00:00 [facility] Polio (IPV/OPV) 2001-02-14 Completed [facility] 00:00:00 [facility] DTAP 2001-02-14 Completed [facility] 00:00:00 [facility] HIB 4 Dose Schedule 2001-02-14 Completed [facility] 00:00:00 [facility] Polio (IPV/OPV) 2001-02-14 Completed [facility] 00:00:00 [facility] DTAP 2001-02-14 Completed [facility] 00:00:00 [facility] HIB 4 Dose Schedule 2001-02-14 Completed [facility] 00:00:00 [facility] Polio (IPV/OPV) 2001-02-14 Completed [facility] 00:00:00 [facility] DTAP 2001-02-14 Completed [facility] 00:00:00 [facility] HIB 4 Dose Schedule 2001-02-14 Completed [facility] 00:00:00 [facility] Polio (IPV/OPV) 2001-02-14 Completed [facility] 00:00:00 [facility] DTAP 2001-02-14 Completed [facility] 00:00:00 [facility] HIB 4 Dose Schedule 2001-02-14 Completed [facility] 00:00:00 [facility] Polio (IPV/OPV) 2001-02-14 Completed [facility] 00:00:00 [facility] DTAP 2001-02-14 Completed [facility] 00:00:00 [facility] HIB 4 Dose Schedule 2001-02-14 Completed [facility] 00:00:00 [facility] Polio (IPV/OPV) 2001-02-14 Completed [facility] 00:00:00 [facility] DTAP 2001-02-14 Completed [facility] 00:00:00 [facility] HIB 4 Dose Schedule 2001-02-14 Completed [facility] 00:00:00 [facility] Polio (IPV/OPV) 2001-02-14 Completed [facility] 00:00:00 [facility] DTAP 2001-02-14 Completed [facility] 00:00:00 [facility] HIB 4 Dose Schedule 2001-02-14 Completed [facility] 00:00:00 [facility] Polio (IPV/OPV) 2001-02-14 Completed [facility] 00:00:00 [facility] DTAP 2001-02-14 Completed [facility] 00:00:00 [facility] HIB 4 Dose Schedule 2001-02-14 Completed [facility] 00:00:00 [facility] Polio (IPV/OPV) 2001-02-14 Completed [facility] 00:00:00 [facility] DTAP 2001-02-14 Completed [facility] 00:00:00 [facility] HIB 4 Dose Schedule 2001-02-14 Completed [facility] 00:00:00 [facility] Polio (IPV/OPV) 2001-02-14 Completed [facility] 00:00:00 [facility] DTAP 2001-02-14 Completed [facility] 00:00:00 [facility] HIB 4 Dose Schedule 2001-02-14 Completed [facility] 00:00:00 [facility] Polio (IPV/OPV) 2001-02-14 Completed [facility] 00:00:00 [facility] DTAP 2000 Completed [facility] 00:00:00 [facility] HIB 4 Dose Schedule 2000 Completed [facility] 00:00:00 [facility] Hep B, Adol or Pedi 2000 Completed [facility] Dosage 00:00:00 [facility] Polio (IPV/OPV) 2000 Completed [facility] 00:00:00 [facility] DTAP 2000 Completed [facility] 00:00:00 [facility] HIB 4 Dose Schedule 2000 Completed [facility] 00:00:00 [facility] Hep B, Adol or Pedi 2000 Completed [facility] Dosage 00:00:00 [facility] Polio (IPV/OPV) 2000 Completed [facility] 00:00:00 [facility] DTAP 2000 Completed [facility] 00:00:00 [facility] HIB 4 Dose Schedule 2000 Completed [facility] 00:00:00 [facility] Hep B, Adol or Pedi 2000 Completed [facility] Dosage 00:00:00 [facility] Polio (IPV/OPV) 2000 Completed [facility] 00:00:00 [facility] DTAP 2000 Completed [facility] 00:00:00 [facility] HIB 4 Dose Schedule 2000 Completed [facility] 00:00:00 [facility] Hep B, Adol or Pedi 2000 Completed [facility] Dosage 00:00:00 [facility] Polio (IPV/OPV) 2000 Completed [facility] 00:00:00 [facility] DTAP 2000 Completed [facility] 00:00:00 [facility] HIB 4 Dose Schedule 2000 Completed [facility] 00:00:00 [facility] Hep B, Adol or Pedi 2000 Completed [facility] Dosage 00:00:00 [facility] Polio (IPV/OPV) 2000 Completed [facility] 00:00:00 [facility] DTAP 2000 Completed [facility] 00:00:00 [facility] HIB 4 Dose Schedule 2000 Completed [facility] 00:00:00 [facility] Hep B, Adol or Pedi 2000 Completed [facility] Dosage 00:00:00 [facility] Polio (IPV/OPV) 2000 Completed [facility] 00:00:00 [facility] DTAP 2000 Completed [facility] 00:00:00 [facility] HIB 4 Dose Schedule 2000 Completed [facility] 00:00:00 [facility] Hep B, Adol or Pedi 2000 Completed [facility] Dosage 00:00:00 [facility] Polio (IPV/OPV) 2000 Completed [facility] 00:00:00 [facility] DTAP 2000 Completed [facility] 00:00:00 [facility] HIB 4 Dose Schedule 2000 Completed [facility] 00:00:00 [facility] Hep B, Adol or Pedi 2000 Completed [facility] Dosage 00:00:00 [facility] Polio (IPV/OPV) 2000 Completed [facility] 00:00:00 [facility] DTAP 2000 Completed [facility] 00:00:00 [facility] HIB 4 Dose Schedule 2000 Completed [facility] 00:00:00 [facility] Hep B, Adol or Pedi 2000 Completed [facility] Dosage 00:00:00 [facility] Polio (IPV/OPV) 2000 Completed [facility] 00:00:00 [facility] DTAP 2000 Completed [facility] 00:00:00 [facility] HIB 4 Dose Schedule 2000 Completed [facility] 00:00:00 [facility] Hep B, Adol or Pedi 2000 Completed [facility] Dosage 00:00:00 [facility] Polio (IPV/OPV) 2000 Completed [facility] 00:00:00 [facility] DTAP 2000 Completed [facility] 00:00:00 [facility] HIB 4 Dose Schedule 2000 Completed [facility] 00:00:00 [facility] Hep B, Adol or Pedi 2000 Completed [facility] Dosage 00:00:00 [facility] Polio (IPV/OPV) 2000 Completed [facility] 00:00:00 [facility] DTAP 2000 Completed [facility] 00:00:00 [facility] HIB 4 Dose Schedule 2000 Completed [facility] 00:00:00 [facility] Hep B, Adol or Pedi 2000 Completed [facility] Dosage 00:00:00 [facility] Polio (IPV/OPV) 2000 Completed [facility] 00:00:00 [facility] DTAP 2000 Completed [facility] 00:00:00 [facility] HIB 4 Dose Schedule 2000 Completed [facility] 00:00:00 [facility] Hep B, Adol or Pedi 2000 Completed [facility] Dosage 00:00:00 [facility] Polio (IPV/OPV) 2000 Completed [facility] 00:00:00 [facility] DTAP 2000 Completed [facility] 00:00:00 [facility] HIB 4 Dose Schedule 2000 Completed [facility] 00:00:00 [facility] Hep B, Adol or Pedi 2000 Completed [facility] Dosage 00:00:00 [facility] Polio (IPV/OPV) 2000 Completed [facility] 00:00:00 [facility] DTAP 2000 Completed [facility] 00:00:00 [facility] [facility] HIB 4 Dose Schedule 2000 Completed [facility] 00:00:00 [facility] Hep B, Adol or Pedi 2000 Completed Unive rsity of Dosage 00:00:00 [facility] Polio (IPV/OPV) 2000 Completed [facility] y [facility] 00:00:00 [facility] DTAP 2000 Completed University of 00:00:00 [facility] HIB 4 Dose Schedule 2000 Completed [facility] rsity of 00:00:00 [facility] Hep B, Adol or Pedi 2000 Completed Unive rsity of Dosage 00:00:00 [facility] Polio (IPV/OPV) 2000 Completed [facility] y [facility] 00:00:00 [facility] DTAP 2000 Completed University of 00:00:00 [facility] HIB 4 Dose Schedule 2000 Completed [facility]ive rsity of 00:00:00 [facility] Hep B, Adol or Pedi 2000 Completed [facility]ive rsity of Dosage 00:00:00 [facility] Polio (IPV/OPV) 2000 Completed [facility] 00:00:00 [facility] DTAP 2000 Completed University of 00:00:00 [facility] HIB 4 Dose Schedule 2000 Completed [facility]ity [facility] 00:00:00 [facility] Hep B, Adol or Pedi 2000 Completed Unive rsity of Dosage 00:00:00 [facility] Polio (IPV/OPV) 2000 Completed [facility] 00:00:00 [facility] DTAP 2000 Completed University of 00:00:00 [facility] HIB 4 Dose Schedule 2000 Completed [facility]ive rsity of 00:00:00 [facility] Hep B, Adol or Pedi 2000 Completed Unive rsity of Dosage 00:00:00 [facility] Polio (IPV/OPV) 2000 Completed [facility] y [facility] 00:00:00 [facility] DTAP 2000 Completed University of 00:00:00 [facility] HIB 4 Dose Schedule 2000 Completed [facility]ity of 00:00:00 [facility] Hep B, Adol or Pedi 2000 Completed Unive rsity of Dosage 00:00:00 [facility] Polio (IPV/OPV) 2000 Completed [facility] 00:00:00 [facility] DTAP 2000 Completed University [facility] 00:00:00 [facility] HIB 4 Dose Schedule 2000 Completed [facility]ive rsity of 00:00:00 [facility] Hep B, Adol or Pedi 2000 Completed [facility]ive rsity of Dosage 00:00:00 [facility] Polio (IPV/OPV) 2000 Completed [facility] 00:00:00 [facility] DTAP 2000 Completed University [facility] 00:00:00 [facility] HIB 4 Dose Schedule 2000 Completed Unive rsity of 00:00:00 [facility] Hep B, Adol or Pedi 2000 Completed Unive rsity of Dosage 00:00:00 [facility] Polio (IPV/OPV) 2000 Completed [facility] 00:00:00 [facility] DTAP 2000 Completed University of 00:00:00 [facility] HIB 4 Dose Schedule 2000 Completed [facility] rsity of 00:00:00 [facility] Hep B, Adol or Pedi 2000 Completed [facility]ive rsity of Dosage 00:00:00 [facility] Polio (IPV/OPV) 2000 Completed [facility] 00:00:00 [facility] DTAP 2000 Completed University of 00:00:00 [facility] HIB 4 Dose Schedule 2000 Completed [facility]ity of 00:00:00 [facility] Hep B, Adol or Pedi 2000 Completed [facility]ive rsity of Dosage 00:00:00 [facility] Polio (IPV/OPV) 2000 Completed [facility] 00:00:00 [facility] DTAP 2000 Completed University of 00:00:00 [facility] HIB 4 Dose Schedule 2000 Completed [facility]ive [facility]ity of 00:00:00 [facility] Hep B, Adol or Pedi 2000 Completed [facility]ity of Dosage 00:00:00 [facility] Polio (IPV/OPV) 2000 Completed [facility] 00:00:00 [facility] DTAP 2000 Completed [facility] 00:00:00 [facility] HIB 4 Dose Schedule 2000 Completed [facility]ity of 00:00:00 [facility] Hep B, Adol or Pedi 2000 Completed [facility]ive rsity of Dosage 00:00:00 [facility] Polio (IPV/OPV) 2000 Completed [facility] 00:00:00 [facility] DTAP 2000 Completed University of 00:00:00 [facility] HIB 4 Dose Schedule 2000 Completed [facility]ity of 00:00:00 [facility] Hep B, Adol or Pedi 2000 Completed [facility]ive rsity of Dosage 00:00:00 [facility] Polio (IPV/OPV) 2000 Completed [facility] 00:00:00 [facility] DTAP 2000 Completed [facility] of 00:00:00 [facility] HIB 4 Dose Schedule 2000 Completed [facility]ity of 00:00:00 [facility] Hep B, Adol or Pedi 2000 Completed Unive rsity of Dosage 00:00:00 [facility] Polio (IPV/OPV) 2000 Completed [facility] 00:00:00 [facility] DTAP 2000 Completed University of 00:00:00 [facility] HIB 4 Dose Schedule 2000 Completed [facility]ive rsity of 00:00:00 [facility] Hep B, Adol or Pedi 2000 Completed [facility]ive rsity of Dosage 00:00:00 [facility] Polio (IPV/OPV) 2000 Completed [facility] 00:00:00 [facility] DTAP 2000 Completed University of 00:00:00 [facility] HIB 4 Dose Schedule 2000 Completed [facility] 00:00:00 [facility] Hep B, Adol or Pedi 2000 Completed [facility]ive rsity of Dosage 00:00:00 [facility] Polio (IPV/OPV) 2000 Completed [facility] 00:00:00 [facility] DTAP 2000 Completed University of 00:00:00 [facility] HIB 4 Dose Schedule 2000 Completed [facility]ity of 00:00:00 [facility] Hep B, Adol or Pedi 2000 Completed [facility]ive rsity of Dosage 00:00:00 [facility] Polio (IPV/OPV) 2000 Completed [facility] 00:00:00 [facility] DTAP 2000 Completed [facility] of 00:00:00 [facility] HIB 4 Dose Schedule 2000 Completed [facility]ity of 00:00:00 [facility] Hep B, Adol or Pedi 2000 Completed [facility]ive rsity of Dosage 00:00:00 [facility] Polio (IPV/OPV) 2000 Completed [facility] 00:00:00 [facility] DTAP 2000 Completed [facility] of 00:00:00 [facility] HIB 4 Dose Schedule 2000 Completed [facility] of 00:00:00 [facility] Hep B, Adol or Pedi 2000 Completed [facility]ive rsity of Dosage 00:00:00 [facility] Polio (IPV/OPV) 2000 Completed [facility] 00:00:00 [facility] DTAP 2000 Completed [facility] 00:00:00 [facility] HIB 4 Dose Schedule 2000 Completed [facility]ity of 00:00:00 [facility] Hep B, Adol or Pedi 2000 Completed [facility]ive rsity of Dosage 00:00:00 [facility] Polio (IPV/OPV) 2000 Completed [facility] 00:00:00 [facility] DTAP 2000 Completed University of 00:00:00 [facility] HIB 4 Dose Schedule 2000 Completed [facility]ive rsity of 00:00:00 [facility] Hep B, Adol or Pedi 2000 Completed [facility]ive rsity of Dosage 00:00:00 [facility] Polio (IPV/OPV) 2000 Completed [facility] 00:00:00 [facility] Hep B, Adol or Pedi 2000 Completed [facility]ive [facility]ity of Dosage 00:00:00 [facility] Hep B, Adol or Pedi 2000 Completed [facility] of Dosage 00:00:00 [facility] Hep B, Adol or Pedi 2000 Completed [facility] of Dosage 00:00:00 [facility] Hep B, Adol or Pedi 2000 Completed [facility] of Dosage 00:00:00 [facility] Hep B, Adol or Pedi 2000 Completed [facility] of Dosage 00:00:00 [facility] Hep B, Adol or Pedi 2000 Completed [facility] of Dosage 00:00:00 [facility] Hep B, Adol or Pedi 2000 Completed [facility] of Dosage 00:00:00 [facility] Hep B, Adol or Pedi 2000 Completed [facility]ive [facility] of Dosage 00:00:00 [facility] Hep B, Adol or Pedi 2000 Completed [facility] of Dosage 00:00:00 [facility] Hep B, Adol or Pedi 2000 Completed [facility] of Dosage 00:00:00 [facility] Hep B, Adol or Pedi 2000 Completed [facility]ive [facility]ity of Dosage 00:00:00 [facility] Hep B, Adol or Pedi 2000 Completed [facility]ity of Dosage 00:00:00 [facility] Hep B, Adol or Pedi 2000 Completed [facility] of Dosage 00:00:00 [facility] Hep B, Adol or Pedi 2000 Completed [facility]ive [facility]ity of Dosage 00:00:00 [facility] Hep B, Adol or Pedi 2000 Completed [facility]ive [facility]ity of Dosage 00:00:00 [facility] Hep B, Adol or Pedi 2000 Completed [facility]ity of Dosage 00:00:00 [facility] Hep B, Adol or Pedi 2000 Completed [facility] of Dosage 00:00:00 [facility] Hep B, Adol or Pedi 2000 Completed [facility]ive [facility]ity of Dosage 00:00:00 [facility] Hep B, Adol or Pedi 2000 Completed [facility] of Dosage 00:00:00 [facility] Hep B, Adol or Pedi 2000 Completed [facility] of Dosage 00:00:00 [facility] Hep B, Adol or Pedi 2000 Completed [facility] of Dosage 00:00:00 [facility] Hep B, Adol or Pedi 2000 Completed [facility] of Dosage 00:00:00 [facility] Hep B, Adol or Pedi 2000 Completed [facility] of Dosage 00:00:00 [facility] Hep B, Adol or Pedi 2000 Completed [facility] of Dosage 00:00:00 [facility] Hep B, Adol or Pedi 2000 Completed [facility] of Dosage 00:00:00 [facility] Hep B, Adol or Pedi 2000 Completed [facility] of Dosage 00:00:00 [facility] Hep B, Adol or Pedi 2000 Completed [facility] of Dosage 00:00:00 [facility] Hep B, Adol or Pedi 2000 Completed [facility] of Dosage 00:00:00 [facility] Hep B, Adol or Pedi 2000 Completed [facility] of Dosage 00:00:00 [facility] Hep B, Adol or Pedi 2000 Completed [facility] of Dosage 00:00:00 [facility] Hep B, Adol or Pedi 2000 Completed [facility] of Dosage 00:00:00 [facility] Hep B, Adol or Pedi 2000 Completed [facility] of Dosage 00:00:00 [facility] Hep B, Adol or Pedi 2000 Completed [facility] of Dosage 00:00:00 [facility] Hep B, Adol or Pedi 2000 Completed [facility]ive [facility]ity of Dosage 00:00:00 [facility] Hep B, Adol or Pedi 2000 Completed [facility]ive [facility] of Dosage 00:00:00 [facility] Vital Signs Vital Name Observation Time Observation Value Comments Source Systolic blood 2022-08-23 22:13:00 103 mm[Hg] Univer [facility]ity of pressure [facility] Diastolic blood 2022-08-23 22:13:00 67 mm[Hg] Unive rsity of pressure [facility] Heart rate 2022-08-23 22:13:00 85 /min [facility] Body temperature 2022-08-23 22:13:00 37.06 Maricruz Univ ersity of [facility] Body height 2022-08-23 22:13:00 162.6 cm [facility] Body weight 2022-08-23 22:13:00 84.46 kg [facility] BMI 2022-08-23 22:13:00 31.96 kg/m2 [facility] Heart rate 2022-08-04 14:00:00 73 /min [facility]i ty of [facility] Respiratory rate 2022-08-04 14:00:00 20 /min [facility] Oxygen saturation in 2022-08-04 14:00:00 100 /min University Arterial blood by [facility] Pulse oximetry Branch Systolic blood 2022-08-04 09:54:00 117 mm[Hg] Univer sity of pressure [facility] Diastolic blood 2022-08-04 09:54:00 95 mm[Hg] Unive rsity of pressure [facility] Body temperature 2022-08-04 09:54:00 35.94 [place]icruz Univ ersity of [facility] Body height 2022-08-02 22:23:00 162.6 cm [facility] Body weight 2022-08-02 22:23:00 93.895 kg [facility] BMI 2022-08-02 22:23:00 35.53 kg/m2 [facility] of [facility] Systolic blood 2022-08-02 20:48:00 123 mm[Hg] Univer sity of pressure [facility] Diastolic blood 2022-08-02 20:48:00 77 mm[Hg] Unive rsity of pressure [facility] Heart rate 2022-08-02 20:48:00 102 /min [facility] Body temperature 2022-08-02 20:48:00 36.72 [place] Univ ers[facility] of [facility] Body height 2022-08-02 20:48:00 162.6 cm [facility] Body weight 2022-08-02 20:48:00 94.439 kg [facility] BMI 2022-08-02 20:48:00 35.74 kg/m2 [facility] Systolic blood 2022-07-25 19:43:00 126 mm[Hg] Univer sity of pressure [facility] Diastolic blood 2022-07-25 19:43:00 86 mm[Hg] Unive rsity of pressure [facility] Heart rate 2022-07-25 19:43:00 96 /min [facility]i ty of [facility] Body temperature 2022-07-25 19:43:00 36.78 [place]ruz [facility] Body height 2022-07-25 19:43:00 162.6 cm [facility] Body weight 2022-07-25 19:43:00 92.443 kg [facility] BMI 2022-07-25 19:43:00 34.98 kg/m2 [facility] Systolic blood 2022-07-04 19:36:00 105 mm[Hg] Univer sity of pressure [facility] Diastolic blood 2022-07-04 19:36:00 71 mm[Hg] [facility] pressure [facility] Heart rate 2022-07-04 19:36:00 97 /min [facility] Body temperature 2022-07-04 19:36:00 36.61 [place]ruz [facility] of [facility] Respiratory rate 2022-07-04 19:36:00 18 /min Univ ersity of [facility] Body height 2022-07-04 19:36:00 162.6 cm [facility] Body weight 2022-07-04 19:36:00 91.264 kg [facility] BMI 2022-07-04 19:36:00 34.54 kg/m2 [facility]i ty of [facility] Oxygen saturation in 2022-07-04 19:36:00 99 /min University of Arterial blood by [facility] Pulse oximetry Branch Systolic blood 2022-06-19 19:25:00 101 mm[Hg] Univer [facility]ity of pressure [facility] Diastolic blood 2022-06-19 19:25:00 67 mm[Hg] [facility]ive [facility]ity of pressure [facility] Heart rate 2022-06-19 19:25:00 80 /min [facility] Body temperature 2022-06-19 19:25:00 36.72 [place]ruz [facility] Respiratory rate 2022-06-19 19:25:00 18 /min [facility] Body height 2022-06-19 19:25:00 162.6 cm [facility] Body weight 2022-06-19 19:25:00 87.816 kg [facility] BMI 2022-06-19 19:25:00 33.23 kg/m2 [facility] Systolic blood 2022-05-31 19:08:00 99 mm[Hg] Univer [facility]ity of pressure [facility] Diastolic blood 2022-05-31 19:08:00 64 mm[Hg] Unive [facility]ity of pressure [facility] Heart rate 2022-05-31 19:08:00 94 /min [facility] Body temperature 2022-05-31 19:08:00 36.67 [place]ruz [facility] Respiratory rate 2022-05-31 19:08:00 18 /min Univ [facility] of [facility] Body height 2022-05-31 19:08:00 162.6 cm [facility] Body weight 2022-05-31 19:08:00 85.276 kg [facility] BMI 2022-05-31 19:08:00 32.27 kg/m2 [facility] Systolic blood 2022-05-03 20:15:00 106 mm[Hg] Univer [facility]ity of pressure [facility] Diastolic blood 2022-05-03 20:15:00 72 mm[Hg] Unive [facility]ity of pressure [facility] Heart rate 2022-05-03 20:15:00 85 /min [facility] Body temperature 2022-05-03 20:15:00 36.83 [place]ruz [facility] Respiratory rate 2022-05-03 20:15:00 18 /min [facility] Body height 2022-05-03 20:15:00 162.6 cm [facility] Body weight 2022-05-03 20:15:00 82.555 kg [facility] BMI 2022-05-03 20:15:00 31.24 kg/m2 [facility] Systolic blood 2022-04-27 04:49:00 119 mm[Hg] Univer sity of pressure [facility] Diastolic blood 2022-04-27 04:49:00 61 mm[Hg] Unive rsity of pressure [facility] Heart rate 2022-04-27 04:49:00 80 /min [facility]i ty of [facility] Body temperature 2022-04-27 04:49:00 36.89 [place]ruz [facility] of [facility] Respiratory rate 2022-04-27 04:49:00 20 /min Univ ersity of [facility] Oxygen saturation in 2022-04-27 04:49:00 100 /min University of Arterial blood by [facility] Pulse oximetry Branch Body weight 2022-04-27 04:04:00 81.829 kg [facility] BMI 2022-04-27 04:04:00 30.97 kg/m2 [facility] Systolic blood 2022-04-05 18:58:00 100 mm[Hg] Univer [facility]ity of pressure [facility] Diastolic blood 2022-04-05 18:58:00 66 mm[Hg] Unive rsity of pressure [facility] Heart rate 2022-04-05 18:58:00 86 /min [facility] Body temperature 2022-04-05 18:58:00 36.78 [place]ruz [facility] Respiratory rate 2022-04-05 18:58:00 18 /min [facility] Body height 2022-04-05 18:58:00 162.6 cm [facility] Body weight 2022-04-05 18:58:00 78.926 kg [facility] BMI 2022-04-05 18:58:00 29.87 kg/m2 [facility] Systolic blood 2022-03-22 18:57:00 104 mm[Hg] Univer [facility]ity of pressure [facility] Diastolic blood 2022-03-22 18:57:00 66 mm[facility]Hg] [facility] Heart rate 2022-03-22 18:57:00 118 /min [facility] Body temperature 2022-03-22 18:57:00 37.06 Maricruz [facility] 2022-03-22 18:57:00 18 /min [facility] Body height 2022-03-22 18:57:00 162.6 cm [facility] Body weight 2022-03-22 18:57:00 76.794 kg [facility] BMI 2022-03-22 18:57:00 29.06 kg/m2 [facility] Oxygen saturation in 2022-03-22 18:57:00 97 /min [facility] blood by [facility] Pulse oximetry Branch BP Diastolic 2021-01-04 00:00:00 52 mm[Hg] [facility] s Height 2021-01-04 00:00:00 64 [in_i] [facility] s BMI (Body Mass 2021-01-04 00:00:00 27.1 kg/m2 [facility] s BP Systolic 2021-01-04 00:00:00 84 mm[Hg] [facility] s Body Weight 2021-01-04 00:00:00 2528 [oz_av] [facility] s BP Diastolic 2020-10-21 00:00:00 72 mm[Hg] [facility] s Height 2020-10-21 00:00:00 64 [in_i] [facility] s BMI (Body Mass 2020-10-21 00:00:00 28.2 kg/m2 [facility] BP Systolic 2020-10-21 00:00:00 112 mm[Hg] [facility] s Body Weight 2020-10-21 00:00:00 2624 [oz_av] [facility] s Height/Length 2021-07-26 10:08:23 162.56 cm Measured Weight [...] 2019-11-02 09:58:44 Measured Height/Length 2019-11-02 03:45:54 Measured Systolic blood 2022-05-08 17:37:00 102 mm[Hg] [facility] pressure Diastolic blood 2022-05-08 17:37:00 62 mm[Hg] [facility] pressure Heart rate 2022-05-08 17:37:00 77 /min [facility] Body temperature 2022-05-08 17:37:00 36.61 Maricruz [facility] Respiratory rate 2022-05-08 17:37:00 18 /min [facility] Body height 2022-05-08 17:37:00 162.6 cm [facility] Body weight 2022-05-08 17:37:00 81.647 kg [facility] BMI 2022-05-08 17:37:00 30.90 kg/m2 [facility] Oxygen saturation in 2022-05-08 17:13:40 99 /min [facility] Arterial blood by Pulse oximetry Procedures Procedure Date / Time Performing Clinician Source Performed CBC WITH DIFF 2022-08-04 09:50:00 Demetrius Griffith [facility] CENTRAL NEURAXIAL BLOCK 2022-08-03 16:20:00 Dori Un [facility] CBC WITH DIFF 2022-08-02 23:11:00 Demetrius Griffith [facility] HEPATITIS B SURFACE 2022-08-02 23:11:00 Demetrius Griffith [facility] ANTIGEN [facility] ADC OR HAIM ONLY - RPR 2022-08-02 23:11:00 Demetrius Griffith Un [facility] HIV 1/2 AG-AB WITH REFLEX 2022-08-02 23:11:00 Demetrius Griffith Un [facility] HB ABO GROUPING 2022-08-02 22:15:00 Demetrius Griffith [facility] RHO (D) IMMUNE GLOBULIN 2022-08-02 22:15:00 Demetrius Griffith [facility] ASSIGNMENT OF BENEFITS 2022-08-02 21:49:01 Doctor Unassigned, [facility] Muse CONSENT/REFUSAL FOR 2022-08-02 21:47:38 Doctor Unassaye, [facility] DIAGNOSIS AND TREATMENT [facility] POCT URINALYSIS W/O 2022-08-02 00:00:00 Demetrius Griffith [facility] SPECIFIC GRAVITY [facility] DSU PRE-OP 2022-07-26 06:01:00 Doctor Unassigned, [facility] Name Medical Muse >14 WEEKS US 2022-07-25 22:21:27 Demetrius Griffith [facility] POCT URINALYSIS W/O 2022-07-25 00:00:00 Demetrius Griffith [facility] SPECIFIC GRAVITY Medical Muse DME/SUPPLY JUSTIFICATION 2022-07-11 06:01:00 Doctor Unassaye, [facility] ASSIGNMENT OF BENEFITS 2022-06-27 14:39:36 [facility] POCT URINALYSIS W/O 2022-06-19 19:28:00 Demetrius Griffith [facility] SPECIFIC GRAVITY Medical Muse TDAP VACCINE, >11 YRS, IM 2022-06-19 19:26:45 [facility]EN, 2022-05-08 21:17:00 Kaitlin Romo [facility] OBSTETRICAL PATIENT US BIOPHYSICAL 2022-05-08 19:08:00 Kaitlin Romo [facility] PROFILE POCT URINALYSIS W/O 2022-05-03 00:00:00 Demetrius Griffith [facility] GRAVITY [facility] US LIMITED 2022-04-27 20:48:00 Vicki Goncalves [facility] ASSIGNMENT OF BENEFITS 2022-04-27 03:50:27 Doctor Unassigned, [facility] Name Medical Branch CONSENT/REFUSAL FOR 2022-04-27 03:50:09 Doctor Unassigned, [facility] DIAGNOSIS AND TREATMENT [facility] OP CORRESPONDENCE 2022-04-25 05:01:00 Doctor Unassaye, [facility] MATERNAL SERUM SCREEN 1-Q 2022-04-05 20:13:00 Demetrius Griffith [facility] POCT URINALYSIS W/O 2022-04-05 00:00:00 Fabby Suh [facility] GRAVITY Medical Muse [place] VISUAL FIELD - 2021-10-24 18:31:10 [facility] - BOTH EYES [facility] OCT, OPTIC NERVE - OU - 2021-10-24 18:15:43 [facility] Plan of Care Planned Activity Planned Date Details Comments Source Future Scheduled 2022-12-25 COVID-19 VACCINE (#1) [facility] Test 22:16:52 [code = COVID-19 VACCINE (#1)] Future Scheduled 2022-12-25 Hepatitis C screening [facility] Test 22:16:52 (procedure) [code = 198361279] Future Scheduled 2022-12-25 [facility] Test 22:16:52 malignant neoplasm of cervix (procedure) [code = 635699094] Future Scheduled 2022-12-25 [facility]INE [facility] 22:16:52 [code = INFLUENZA VACCINE] Future Scheduled 2022-12-25 [facility] Test 22:16:52 Chlamydia trachomatis (procedure) [code = 041012765] Future Scheduled 2022-10-10 COVID-19 VACCINE (#1) [facility] Test 13:45:26 [code = COVID-19 VACCINE (#1)] Future Scheduled 2022-10-10 Hepatitis C screening [facility] Test 13:45:26 (procedure) [code = 306192199] Future Scheduled 2022-10-10 [facility] Test 13:45:26 malignant neoplasm of cervix (procedure) [code = 771086964] Future Scheduled 2022-10-10 [facility]ACCINE [facility] Test 13:45:26 [code = INFLUENZA VACCINE] Future Scheduled 2022-10-10 [facility] Test 13:45:26 Chlamydia trachomatis (procedure) [code = 021602535] Diagnostic Test 2020-10-21 iron + TIBC + [facility] Pending 00:00:00 ferritin, serum [code Hospit al Clinics = iron + TIBC + ferritin, serum] Diagnostic Test 2020-10-21 CBC w/ auto diff [facility] Pending 00:00:00 [code = CBC w/ auto Hospital Clinics diff] Diagnostic Test 2020-10-21 test, urine [facility] Pending 00:00:00 [code = Hospital C linics test, urine] Diagnostic Test 2020-10-21 CT + NG RNA, urine [facility] Pending 00:00:00 [code = CT + NG RNA, Hospita l Clinics urine] Encounters Start End Encounter Admission Attending Care Care Encounter Source Date/Time Date/Time Type Type Clinicians Facility Department ID 2022-03-03 Outpatient X [facility] MICAH [id number] Univers 16:15:59 ity of [facility] 2021-09-19 Outpatient [facility] [id number] [place] 11:23:27 Health 2021-09-19 Outpatient [facility] [id number] [place] 11:23:27 Health 2021-05-07 Emergency [facility] [id number] Univers 10:41:53 ity of [facility] 2021-05-05 Emergency [facility] [id number] Univers 19:52:41 ity of [facility] 2023-02-20 2023-02-20 Outpatient R DEMETRIUS GRIFFITH [facility] [id number] Univers 13:30:00 13:30:00 ity of [facility] 2022-09-26 2022-09-26 Outpatient R DEMETRIUS GRIFFITH [facility] [id number] Univers 14:00:00 14:00:00 ity of [facility] 2022-08-23 2022-08-23 Outpatient R GLADIS DEMETRIUS [facility] [id number] Univers 15:45:00 16:47:02 ity of [facility] 2022-08-23 2022-08-23 Routine Gladis [facility] 1.2.777.757 [id number] Univers 15:45:00 16:47:02 Cam CHANDA 350.1.13.10 ity of [place] [facility] EDESSIO [id number] Nv dical [address] 2022-08-02 2022-08-04 Inpatient P DEMETRIUS GRIFFITH [facility] MICAH [id number] Univers 15:47:00 19:04:00 ity of [facility] 2022-08-02 2022-08-04 [facility] Demetrius Griffith [facility] 1.2.840.114 [id number] Univers 15:47:00 19:04:00 Encounter Caesar ARMAS 350.1.13.10 [facility] [place] C[place] [id number] [address] 2022-08-03 2022-08-03 Anesthesia Alquicira-M [facility] 1.2.840.114 [id number] Univers 10:20:00 14:35:00 Event CHANDA herndon 350.1.13.10 i ty of [facility] 4.2.7.2.686 [place] CAMPUS [id number] [address] 2022-08-02 2022-08-02 Outpatient R DEMETRIUS GRIFFITH [facility] [id number] Univers 14:30:00 15:27:07 ity [facility] 2022-08-02 2022-08-02 Routine Gladis Demetrius INANTHONY 1.2.001.800 [id number] Univers 14:30:00 15:27:07 Caesar FLORE[place] 350.1.13.10 ity [facility] [place] [id number] [address] 2022-08-02 2022-08-02 Telephone Angeli [facility] 1.2.840.114 [id number] Univers 00:00:00 00:00:00 Fabby ARMAS 350.1.13.10 i ty of [place] [id number] [address] 2022-08-01 2022-08-01 Outpatient R ANGELI [facility] [id number] Univers 14:00:00 14:00:00 FABBY itjuan [facility] 2022-07-28 2022-07-28 Telephone Demetrius Griffith [facility] 1.2.840.114 [id number] Univers 00:00:00 00:00:00 Cam PAULINETON 350.1.13.10 i ty of [place] [id number] [address] 2022-07-27 2022-07-27 Telephone Gladis Demetrius [facility] 1.2.840.114 [id number] Univers 00:00:00 00:00:00 Cam [place] 350.1.13.10 i ty of [place].2.[place] [id number] [address] 2022-07-26 2022-07-26 Fabric Stretcher 2, Adc Lab [facility] 1.2.840.114 [id number] Univers 14:00:00 14:15:00 Visit Gladis Demetriusvitor [place] 350.1.13.10 ity of [place].7.2.[place] [phone] Nv dical NAL [address] [facility] 2022-07-26 2022-07-26 Outpatient R DEMETRIUS GRIFFITH [facility] [id number] Univers 14:00:00 14:00:00 ity of [facility] 2022-07-26 2022-07-26 Orders Doctor ANNABELLE 1.2.840.114 [id number] Univers 00:00:00 00:00:00 Only Unassigned, CONNIE 350.1.13.10 ity of [facility] 4.2.7.2.686 [place] [phone] [address] 2022-07-26 2022-07-26 Case Demetrius Griffith [facility] 1.2.406.839 [id number] Univers 00:00:00 00:00:00 Management Caesar ARMAS 350.1.13.10 ity of [place] [phone] Nv dical NAL [address] [facility] 2022-07-25 2022-07-25 Outpatient R DEMETRIUS GRIFFITH [facility] [id number] Univers 14:00:00 15:09:01 ity of [facility] 2022-07-25 2022-07-25 Routine Gladis Demetrius [facility] 1.2.782.454 2230 [id number] Univers 14:00:00 15:09:01 Caesar ARMAS 350.1.13.10 ity of [place] [id number] Nv dical NAL 134 [facility] 2022-07-18 2022-07-18 Outpatient R DEMETRIUS GRIFFITH [facility] [id number] Univers 13:00:00 13:00:00 ity of [facility] 2022-07-13 2022-07-13 [facility] 1.2.980.461 [id number] 0327 Univers 00:00:00 00:00:00 Michelle ARMAS 350.1.13.10 ity of [place] [phone] Nv dical NAL 134 [facility] 2022-07-11 2022-07-11 [facility] 1.2.949.904 [id number] 6558 Univers 00:00:00 00:00:00 Michelle ARMAS 350.1.13.10 ity of [place] [id number] Nv dical NAL 134 [facility] 2022-07-11 2022-07-11 Orders Doctor ANNABELLE 1.2.840.114 [id number] Univers 00:00:00 00:00:00 Only Unassigned, CONNIE 350.1.13.10 ity of [place] [facility] 4.2.7.2.686 [place] [id number] [address] 2022-07-04 2022-07-04 Outpatient R ANGELI [facility] [id number] Univers 13:45:00 13:53:36 FABBY ity [facility] 2022-07-04 2022-07-04 [facility] 1.2.995.556 [id number] [id number] Univers 13:45:00 13:53:36 Fabby ARMAS 350.1.13.10 ity of [place] [id number] Nv dicaz NAL [address] [facility] 2022-06-27 2022-06-27 Fabric Stretcher 2, Adc Lab [facility] 1.2.840.114 [id number] Univers 09:00:00 09:15:00 Visit Demetrius Griffith 350.1.13.10 ity of [place] [phone] Nv dical NAL 353 [facility] 2022-06-27 2022-06-27 Outpatient R DEMETRIUS GRIFFITH [facility] [id number] Univers 09:00:00 09:00:00 ity of [facility] 2022-06-27 2022-06-27 Orders Doctor ANNABELLE 1.2.840.114 [id number] Univers 00:00:00 00:00:00 Only Unassigned, CONNIE 350.1.13.10 ity of [place] [facility] 4.2.7.2.686 [place] [id number] [address] 2022-06-20 2022-06-20 Telephone Demetrius Griffith [facility] 1.2.840.114 [id number] Univers 00:00:00 00:00:00 Cam CHANDA 350.1.13.10 i ty of [place].2.[place] [id number] Nv dical NAL [address] [facility] 2022-06-19 2022-06-19 Fabric Stretcher 2, Adc Lab [facility] 1.2.840.114 [id number] Univers 14:15:00 14:30:00 Visit Demetrius Griffith 350.1.13.10 ity of [place] [phone] Nv dicjamar CARVALHO [address] [facility] 2022-06-19 2022-06-19 Outpatient R DEMETRIUS GRIFFITH [facility] [id number] Univers 13:15:00 14:08:06 ity of [facility] 2022-06-19 2022-06-19 Routine Gladis Demetrius [facility] 1.2.273.041 [id number] [id number] Univers 13:15:00 14:08:06 Caesar FLORESBRYON 350.1.13.10 ity [facility] 4.2.7.2.[place] [phone] Nv dical NAL [address] [facility] 2022-06-19 2022-06-19 Letter Demetrius Griffith [facility] 1.2.674.312 1712 [id number] Univers 00:00:00 00:00:00 (Out) Ceasar ARMAS 350.1.13.10 i ty of [place].2.[place] [id number] Nv dical NAL 134 [facility] 2022-06-19 2022-06-19 Case JOSE Suh 1.2.264.099 1544 7005 Univers 00:00:00 00:00:00 Management Fabby PEDIATRIC 350.1.13.10 [place]y of [place]2.[place] [phone] [place] [address] [address] [facility] 2022-05-31 2022-05-31 Outpatient R ANGELI [facility] [id number] Univers 13:15:00 13:48:25 FABBY ity of [facility] 2022-05-31 2022-05-31 Routine Angeli [facility] 1.2.209.792 5235 0261 Univers 13:15:00 13:48:25 Fabby ARMAS 350.1.13.10 ity of Visit [place] 4.2.7.2.686 Kylah lamar PROFESSIO [phone] [address] 2022-05-09 2022-05-09 Outpatient DEMETRIUS LEWIS [facility] [id number] [facility] 13:15:00 13:15:00 ity of [facility] 2022-05-08 2022-05-08 Emergency Clarissa, 1.2.840.1 [id number] 2099 [id number] Methodi 12:13:00 16:47:[address] 3.430.2.7 Hospit a .3.927031 l .8 2022-05-08 2022-05-08 Emergency Clarissa, 1.2.840.1 [id number] 2099 [id number] Methodi 12:13:00 16:47:[address] 3.430.2.7 Hospit a .3.821216 l .8 2022-05-08 2022-05-08 Travel 1.2.840.1 1.2.554.724 4748 [id number] Methodi 00:00:00 00:00:[address] 3.430.2.7 0.2.7.3.698 Ho spita .3.900395 084.8 l .8 2022-05-08 2022-05-08 Travel 1.2.840.1 1.2.778.964 8704 064188 Methodi 00:00:00 00:00:[address] 3.430.2.7 0.2.7.3.698 Ho spita .3.229112 084.8 l .8 2022-05-03 2022-05-03 Outpatient R DEMETRIUS GRIFFITH [facility] [id number] Univers 15:30:00 16:03:00 ity of [facility] 2022-05-03 2022-05-03 Routine Demetrius Griffith [facility] 1.2.327.483 3590 4367 Univers 15:30:00 16:03:00 Caesar ARMAS 350.1.13.10 ity of Visit [place]2.[place] [facility] [phone] Nv dical NAL [address] [facility] 2022-04-27 2022-04-27 Emergency Bass, 1.2.840.1 [id number] 074 [id number] Methodi 13:50:00 16:22:[address] Maria Ines 3.430.2.7 Hospit a .3.437710 l .8 2022-04-27 2022-04-27 Emergency Bass, 1.2.840.1 [id number] Methodi 13:50:00 16:22:[address] Maria Ines 3.430.2.7 Hospit a .3.888684 l .8 2022-04-26 2022-04-27 Outpatient P GLADIS [facility] MICAH [id number] Univers 23:10:00 00:05:00 ity of [facility] 2022-04-26 2022-04-27 Emergency Felicia GriffithFormerly [facility] 1.2.840.114 [id number] Univers 23:10:00 00:05:00 Caesar ARMAS 350.1.13.10 i ty of [place].2.[place] [id number] [facility] suzanna [address] 2022-04-26 2022-04-26 Orders Doctor ALANIS 1.2.840.114 [id number] Univers 00:00:00 00:00:00 Only Unassigned, CONNIE 350.1.13.10 ity of [place] [facility] 4.2.7.2.686 [place] 225.7528371 [facility] suzanna [address] 2022-04-25 2022-04-25 Orders Doctor ALANIS 1.2.840.114 [id number] Univers 00:00:00 00:00:00 Only Unassigned, CONNIE 350.1.13.10 ity of [place] [facility] 4.2.7.2.686 [place] [id number] [address] 2022-04-10 2022-04-10 Telephone Demetrius Griffith [facility] 1.2.840.114 [id number] Univers 00:00:00 00:00:00 Cam [place] 350.1.13.10 i ty of [place].2.[place] PROFESS[place] 441.8582651 Nv dical NAL 134 [facility] 2022-04-07 2022-04-07 Outpatient P [facility] [id number] Univers 09:45:00 09:45:00 ity of [facility] 2022-04-05 2022-04-05 Fabric Stretcher 2, Adc Lab [facility] 1.2.840.114 [id number] Univers 14:45:00 15:00:00 Visit Fabby Suh 350.1.13.10 ity of [place] 535.4508177 Nv dical NAL 353 [facility] 2022-04-05 2022-04-05 Outpatient R ANGELI [facility] [id number] Univers 14:45:00 14:45:00 FABBY ity of [facility] 2022-04-05 2022-04-05 Routine Angeli [facility] 1.2.420.672 [id number] 8156 Univers 10:30:00 14:35:36 Fabby ARMAS 350.1.13.10 ity of Visit [place]2.[place] [id number] Nv dical NAL 134 [facility] 2022-04-05 2022-04-05 Orders Demetrius Griffith 1.2.456.407 [id number] Univers 00:00:00 00:00:00 Only Cam CONNIE 350.1.13.10 it y of HOSPITAL 4.2.7.2.686 [place] 105.7469102 [address] 2022-03-28 2022-03-28 Fabric Stretcher Ultrasound, Adc [facility] 1.2 .840.114 [id number] Univers 13:00:00 14:00:00 Visit Maxi Allie Kae ARMAS 350.1 .13.10 ity of [place] 528.4376804 Nv dicjamar [facility] [address] BUILDING 2022-03-28 2022-03-28 Outpatient P [facility] [id number] Univers 13:00:00 13:00:00 ity of [facility] 2022-03-28 2022-03-28 Outpatient P MAXI [facility] [id number] Univers 13:00:00 13:00:00 SHILA it y of KAE Lamar [facility] 2022-03-23 2022-03-23 Letter ANNABELLE Cuellar 1.2.840.114 [id number] Univers 00:00:00 00:00:00 (Out) Clarissa [place] 350.1.13.10 it y of [facility] 4.2.7.2.686 [place] [phone] [address] 2022-03-22 2022-03-22 Urgent Migdalia De Santiago [facility] 1.2.840.114 [id number] Univers 14:00:00 14:06:15 Care Fabby Suh [facility] 350.1.13.10 ity of Erickosn hSah 4.2.7.2.686 [facility] [id number] [facility] [address] MEDICAL OFFICE BUILDING 2022-03-22 2022-03-22 Outpatient R TAM [facility] [id number] Univers 14:00:00 14:06:15 ERICKSNO ity [facility] 2022-03-22 2022-03-22 Outpatient R TAM [facility] [id number] Univers 14:00:00 14:00:00 ERICKSON ity [facility] 2022-03-22 2022-03-22 Routine Angeli [facility] 1.2.589.726 [id number] 0913 Univers 09:45:00 13:32:46 Fabby ARMAS 350.1.13.10 ity of [place] 512.8547623 Nv dical NAL [address] [place] [address] 2022-03-22 2022-03-22 Telephone Angeli [facility] 1.2.840.114 [id number] Univers 00:00:00 00:00:00 Fabby [place] 350.1.13.10 i ty of [place].7.2.[place] [id number] Nv dical NAL [address] [place] [address] 2022-03-08 2022-03-08 Outpatient R DEMETRIUS GRIFFITH [facility] [id number] Univers 13:00:00 13:41:52 ity of [facility] 2022-03-08 2022-03-08 Routine Gladis [facility] 1.2.017.347 [id number] [id number] Univers 13:00:00 13:41:52 Cam CHANDA 350.1.13.10 ity of [place] [id number] Nv dical NAL [address] [place] [address] 2022-03-03 2022-03-03 Outpatient X DEMETRIUS GRIFFITH [facility] MICAH [id number] Univers 13:36:00 16:00:00 ity of [facility] 2022-03-03 2022-03-03 Emergency Henry Devries Merle [facility] 1.2.840. 114 [id number] Univers 13:36:00 16:00:00 Gladis Demetriusvitor ARMAS 350.1.13.10 ity of [place]2.7.2.[place] C[place] [id number] [address] 2022-02-08 2022-02-08 Outpatient R ANGELI [facility] [id number] Univers 11:15:00 12:26:47 FABBY ity of [facility] 2022-02-08 2022-02-08 [facility] 1.2.602.101 [id number] [id number] Univers 11:15:00 12:26:47 Fabby ARMAS 350.1.13.10 ity of [place]2.[place] [id number] Nv dical NAL [address] [place] [address] 2022-01-23 2022-01-23 Telephone Demetrius Griffith [facility] 1.2.840.114 [id number] Univers 00:00:00 00:00:00 Cam [place] 350.1.13.10 i ty of [place].2.[place] 365.4206712 Nv dical NAL 134 [facility] 2022-01-20 2022-01-20 Telephone Demetrius Griffith [facility] 1.2.840.114 [id number] Univers 00:00:00 00:00:00 Cam [place] 350.1.13.10 i ty [place].2.[place] [id number] Nv dical NAL 134 [facility] 2022-01-19 2022-01-19 Telephone Demetrius Griffith [facility] 1.2.840.114 95 [id number] Univers 00:00:00 00:00:00 Cam [place] 350.1.13.10 i ty of [place].7.2.[place] 653.3357247 Nv dical NAL 134 [facility] 2022-01-18 2022-01-18 Outpatient R [facility] [id number] Univers 08:30:00 08:30:00 ity [facility] 2022-01-17 2022-01-17 Fabric Stretcher 2, Adc Lab [facility] 1.2.840.114 [id number] Univers 09:15:00 09:30:00 Visit Demetrius Griffith Caesar ARMAS 350.1.13.10 [facility] 4.2.7.2.[place] [phone] Nv johan CARVALHO [address] [place] [address] 2022-01-17 2022-01-17 Outpatient R GLADIS DEMETRIUS [facility] [id number] Univers 09:15:00 09:15:00 ity [facility] 2022-01-11 2022-01-11 Outpatient R GLADIS DEMETRIUS [facility] [id number] Univers 10:45:00 12:01:06 ity [facility] 2022-01-11 2022-01-11 Routine Gladis [facility] 1.2.274.195 [id number] 6981 Univers 10:45:00 12:01:06 Cam [place] 350.1.13.10 ity [facility] [place].2.[place] [id number] [address] 2022-01-11 2022-01-11 Outpatient R DEMETRIUS GRIFFITH [facility] [id number] Univers 10:45:00 10:45:00 ity of [facility] 2022-01-11 2022-01-11 Orders Doctor ANNABELLE 1.2.840.114 [id number] Univers 00:00:00 00:00:00 Only Unassigned, CONNIE 350.1.13.10 ity of [place] [facility] 4.2.7.2.686 [place] [id number] [address] 2022-01-02 2022-01-02 Telephone Felicia GriffithFormerly [facility] 1.2.840.114 [id number] Univers 00:00:00 00:00:00 Caesar ARMAS 350.1.13.10 i ty [facility] 4.2.[place] [id number] [address] 2022-01-02 2022-01-02 Telephone Demetrius Griffith [facility] 1.2.840.114 [id number] Univers 00:00:00 00:00:00 Caesar ARMAS 350.1.13.10 i ty [facility] 4.2.[place] [id number] [address] 2021-12-21 2021-12-21 Telephone [facility] 1.2.840.11 [id number] Univers 00:00:00 00:00:00 Adalid [place] 350.1.13.10 it y of [place] [id number] [address] 2021-12-20 2021-12-20 Orders Doctor ANNABELLE 1.2.840.114 [id number] Univers 00:00:00 00:00:00 Only Unassigned, CONNIE 350.1.13.10 ity of [place] [facility] 4.2.7.2.686 [place] [phone] [facility] 009 Muse 2021-12-14 2021-12-14 Outpatient R ZAINADALID [facility] B [id number] Univers 16:00:00 17:01:05 ADALID ROGEL ity [facility] 2021-12-14 2021-12-14 Initial [facility] 1.2.840.114 [id number] Univers 16:00:00 17:01:05 Adalid HILTON 350.1.13.10 i ty of Visit [place] [phone] [facility] [address] 2021-10-26 2021-10-26 Office Angeli [facility] 1.2.042.284 [id number] Univers 15:45:00 15:45:00 Visit Fabby ARMAS 350.1.13.10 i ty of [place] [phone] N[place] dical NAL 134 [facility] 2021-10-26 2021-10-26 Fabric Stretcher 2, Adc Lab [facility] 1.2.840.114 [id number] Univers 15:15:00 15:30:00 Visit Fabby Suh 350.1.13.10 [facility] 4.2.7.[place] [id number] N[place] dical NAL 353 [facility] 2021-10-26 2021-10-26 Outpatient R [facility] [id number] Univers 15:45:00 15:05:59 FABBY el [facility] 2021-10-26 2021-10-26 Orders Doctor ALANIS 1.2.840.114 [id number] Univers 00:00:00 00:00:00 Only Unassigned, CONNIE 350.1.13.10 ity of [place] [facility] 4.2.7.2.686 [place] [phone] [address] 2021-10-26 2021-10-26 RefDemetrius Fragoso [facility] 1.2.427.373 [id number] Univers 00:00:00 00:00:00 Cam [place] 350.1.13.10 i ty [place] [id number] N[place] dical NAL 134 [facility] 2021-10-25 2021-10-25 Outpatient R [facility] [id number] Univers 10:30:00 10:30:00 [facility] 2021-10-25 2021-10-25 Outpatient R [facility]GELI [facility] [id number] [facility] 10:30:00 10:30:00 [facility] 2021-10-24 2021-10-24 Office Autumn UTP 6400 1.2.536.005 [id number] [place] 12:30:00 12:45:[address] 350.1.13.58 Health atomi 9.2.7.2.686 [id number] [id number] 2021-09-19 2021-09-19 Office Tiana Goncalves UTP 6400 1.2.840.114 1 [id number] [place] 09:00:00 12:26:[address] 350.1.13.58 Health 9.2.7.2.686 [id number] [id number] 2021-06-08 2021-06-08 Demetrius Sandra [facility] 1.2.159.042 [id number] Univers 00:00:00 00:00:00 Management Caesar [place] 350.1.13.10 ity [place] 4[place].2[place] [phone] Nv dical NAL 134 [facility] 2021-06-07 2021-06-07 Fabric Stretcher Jessica, Adrian Lab Main [facility] 1.2.8 40.114 [id number] Univers 10:04:19 10:19:19 Visit Demetrius Griffith 350.1.13.10 ity of [place] 4[place].2[place] [id number] Nv dical NAL 353 [facility] 2021-06-07 2021-06-07 Outpatient R DEMETRIUS GRIFFITH [facility] [id number] Univers 10:15:00 10:15:00 ity of [facility] 2021-06-07 2021-06-07 Office Demetrius Griffith [facility] 1.2.247.698 [id number] Univers 09:17:52 09:48:54 Visit Cam ANGLEBRYON 350.1.13.10 i ty [facility] 4.2.[place] [phone] Nv dical NAL [address] [place] [address] 2021-06-07 2021-06-07 Outpatient R DEMETRIUS GRIFFITH [facility] [id number] Univers 09:00:00 09:48:54 ity of [facility] 2021-06-07 2021-06-07 Orders Doctor ANNABELLE 1.2.840.114 [id number] Univers 00:00:00 00:00:00 Only Unassigned, CONNIE 350.1.13.10 ity of [place] [facility] 4.2.7.2.686 [place] [phone] [address] 2021-02-24 2021-02-24 Case GriffithFeliciaen [facility] 1.2.852.726 [id number] Univers 00:00:00 00:00:00 Management Cam Wall[place] 350.1.13.10 [place] [phone] Nv dical nal [address] [place] [address] 2021-02-22 2021-02-22 Outpatient R [facility] [id number] Univers 09:00:00 09:00:00 ity of [facility] 2021-02-21 2021-02-21 Office Demetrius Griffith [facility] 1.2.301.348 [id number] Univers 13:14:38 13:58:52 Visit Cam [place] 350.1.13.10 i [place].7.2.[place] [phone] Nv dical nal [address] [place] [address] 2021-02-21 2021-02-21 Outpatient R GLADIS DEMETRIUS [facility] [id number] Univers 13:30:00 13:30:00 ity [facility] 2021-02-18 2021-02-18 Outpatient R LU [facility] [id number] Univers 08:30:00 08:30:00 MICHELLE ity of [facility] 2021-01-04 2021-01-04 Outpatient ERICKSON_R [facility] [address] [place] 11:49:00 11:49:00 0629 Commun i ty Hosp[facility] Clinics 2021-01-04 2021-01-04 Jeremi [facility] [place] 00:00:00 00:00:00 All [facility] DO: [address] a [facility] l [address], HOSPITAL Clinic [place], [place], [address] JOSEPHINE , Ph. [phone] 2021-01-04 2021-01-04 Outpatient Josephine [facility] [id number] [id number] 00:00:00 00:00:00 Jeremi [id number] All [id number] 2020-11-22 2020-11-22 Outpatient ERJOSÉON_R [facility] [address] [place] 04:58:00 04:58:00 0517 Commun i ty Hospita l Clinics 2020-11-18 2020-11-18 Laboratory Lab, Adc [facility] Pob I [facility] 1.2. 840.114 [id number] Univers 17:57:24 18:17:24 Only Shazia Jay 350.1.13.[address] [facility] 4.2.7.2.686 [place] Profess[place] [phone] Nv dical nal [address] 2020-11-18 2020-11-18 Outpatient R ARCHANA [facility] [id number] Univers 18:00:00 18:00:00 SHAZIA el o f [facility] 2020-11-18 2020-11-18 Luisito Avitia [facility] 1.2.840.114 [id number] Univers 00:00:00 00:00:00 (Out) Caridad Navarro 350.1.13.[address] [facility] 4.2.7.2.686 [place] Profess[place] [phone] Nv dical nal [address] 2020-10-21 2020-10-21 Outpatient ERJOSÉON_R [facility] [address] [place] 04:08:00 04:08:00 0415 Commun i ty Hospita l Clinics 2020-10-21 2020-10-21 Jeremi [facility] [place] [address] [place] 00:00:00 00:00:00 [facility] uni [facility] - ty DO: [address] a [facility] l [address], HOSPITAL Clinic [place], [place], [address] JOSEPHINE , Ph. [phone] 2020-10-21 2020-10-21 Outpatient Hodges [facility] 18bed [id number] 00:00:00 00:00:00 Jeremi [id number] All [id number] 2020-10-18 2020-10-18 Outpatient JOSEPHINE_R [facility] [address] [place] 11:34:00 11:34:00 0412 Commun i ty Hospita l Clinics 2020-09-28 2020-09-28 Patient Dat [facility] 1.2.840.114 [id number] Univers 00:00:00 00:00:00 [facility] 350.1.13.10 i ty of Located within [facility] 4.2.7.2.686 Kylah CONSTANTINO [phone] Nv dical [address] 2020-09-23 2020-09-23 Outpatient Ale SUH [facility] [id number] Univers 15:30:00 15:30:00 FABBY el [facility] 2020-09-13 2020-09-13 Outpatient Ale SUH [facility] [id number] Univers 09:15:00 09:15:00 FABBY [facility] 2020-08-25 2020-08-25 Outpatient Ale SHU [facility] [id number] Univers 13:00:00 13:00:00 [facility] 2020-08-20 2020-08-20 Telephone Song [facility] 1.2.896.888 [id number] Univers 00:00:00 00:00:00 Robert [facility] 350.1.13.10 it y of [place] 4.2.7.2.686 [place] Professio [phone] Nv dicaz nal [address] [place] [address] Office [facility] One 2020-08-18 2020-08-18 Telephone Song [facility] 1.2.957.866 [id number] Univers 00:00:00 00:00:00 Robert Navarro 350.1.13.10 it y of [place] 4.2.7.2.686 [place] Professio [phone] [facility] nal [address] [place] [address] Office [facility] One 2020-08-13 2020-08-13 Urgent Provider, [facility] 1.2.840.114 [id number] Univers 14:17:28 14:37:28 Care Robert Zuleta [facility] 350.1.13.10 ity of [place] 4.2.7.2.686 [place] Profess[place] [phone] [address] One 2020-08-13 2020-08-13 Out[facility] [id number] Univers 14:20:00 14:20:00 ROBERT el [facility] 2020-06-18 2020-06-18 [facility] 1.2.948.929 [id number] Univers 09:36:00 11:11:00 Pa Armas 350.1.13.10 i ty of [place] 4.2.7.2.686 [facility] [phone] [facility] [address] 2020-03-15 2020-03-15 Nurse ANNABELLE Cuellar 1.2.840.114 [id number] Univers 00:00:00 00:00:00 Triage Clarissa ROSALES 350.1.13.10 it y of [facility] 4.2.7.2.686 [place] [phone] [facility] 019 [address] 2020-03-12 2020-03-12 Telephone [facility] 1.2.840.114 [id number] Univers 00:00:00 00:00:00 Fabby Armas 350.1.13.10 i ty [place] [phone] [address] 2020-03-11 2020-03-11 Telephone [facility] 1.2.840.114 [id number] Univers 00:00:00 00:00:00 Fabby Armas 350.1.13.10 i ty of [place] 4[place].7.2.[place] [phone] [address] 2020-03-09 2020-03-09 Outpatient R [facility] [id number] Univers 08:00:00 08:00:00 ity of [facility] 2020-03-09 2020-03-09 Telephone [facility] 1.2.840.114 [id number] 00:00:00 00:00:00 Fabby Armas 350.1.13.10 [place] 4.2.7.2.686 Professio [phone] [address] 2020-03-09 2020-03-09 Telephone Angeli [facility] 1.2.840.114 [id number] [facility] 00:00:00 00:00:00 Fabby Armas 350.1.13.10 i ty [place].2.[place] [phone] [address] 2020-03-08 2020-03-08 Telephone [facility] 1.2.840.114 [id number] 00:00:00 00:00:00 Fabby Armas 350.1.13.10 [place] 4.2.7.2.686 Professio [phone] [address] 2020-03-08 2020-03-08 Telephone [facility] 1.2.840.114 [id number] [facility] 00:00:00 00:00:00 Fabby Armas 350.1.13.10 i ty [place] 4[place]2.7.2.[place] [phone] [address] 2020-03-05 2020-03-05 Office [facility] 1.2.237.612 [id number] 15:45:34 16:27:28 Visit Fabby Armas 350.1.13.10 [place] 4.2.7.2.686 Professio [phone] [address] 2020-03-05 2020-03-05 Office Angeli [facility] 1.2.047.369 [id number] Univers 15:45:34 16:27:28 Visit Fabby Armas 350.1.13.10 i ty [place] 4[place]2.7.2.[place] [phone] [address] 2020-03-05 2020-03-05 Outpatient [facility] [id number] Univers 15:30:00 15:30:00 [facility] 2020-03-05 2020-03-05 Outpatient R [facility] [id number] Univers 15:00:00 15:00:00 ity [facility] 2020-03-05 2020-03-05 Outpatient [facility] [id number] Univers 10:45:00 10:45:00 [facility] 2020-03-05 2020-03-05 Orders Doctor ANNABELLE 1.2.840.114 [id number] Univers 00:00:00 00:00:00 Only Unassigned, CONNIE 350.1.13.10 ity of [place] [facility] 4.2.7.2.686 [place] [phone] [address] 2020-03-03 2020-03-03 Telephone [facility] 1.2.840.114 [id number] Univers 00:00:00 00:00:00 Fabby Armas 350.1.13.10 i ty [place].2.[place] [phone] Nv dic[address] 2020-02-09 2020-02-09 Outpatient R [facility] [id number] Univers 10:00:00 10:00:00 [facility] [place] [facility] 2020-02-09 2020-02-09 Telephone [facility] 1.2.840.114 [id number] Univers 00:00:00 00:00:00 Fabby Armas 350.1.13.10 i ty of [place] 4.2.7.2.[place] [phone] Nv dic[address] 2020-02-08 2020-02-08 Case [facility] 1.2.073.066 [id number] [id number] Univers 00:00:00 00:00:00 Management Fabby Floreston 350.1.13.10 ity of [place] 4.2.7.2.[place] [phone] [address] 2020-02-06 2020-02-06 Office [facility] 1.2.574.926 [id number] Univers 12:57:11 13:22:04 Visit Fabby Chanda 350.1.13.10 i ty of [place] 4.2.7.2.[place] [phone] [address] 2020-02-06 2020-02-06 Outpatient R [facility] [id number] Univers 13:15:00 13:15:00 FABBY ity [facility] 2020-02-06 2020-02-06 Outpatient R [facility] [id number] Univers 09:20:00 09:20:00 ity [facility] 2020-02-05 2020-02-05 Telephone [facility]ina[facility] 1.2.840.114 [id number] Univers 00:00:00 00:00:00 Fabby Chanda 350.1.13.10 i ty [place] 4.2.7.2.[place] [phone] [address] 2020-01-20 2020-01-20 Telephone [facility] 1.2.169.431 [id number] Univers 00:00:00 00:00:00 Michelle Armas 350.1.13.10 ity of [place] 4[place]2.7.2.686 [place] [phone] Nv dical [address] 2020-01-19 2020-01-19 Case [facility] 1.2.840.114 [id number] Univers 00:00:00 00:00:00 Management Michelle Armas 350.1.13.10 ity of [place] 4[place]2.7.2.686 [place] [phone] Nv dic[address] 2020-01-16 2020-01-16 [facility] 1.2.840.114 [id number] Univers 14:47:31 15:55:51 Visit Michelle Armas 350.1.13.10 ity of [place].7.2.[place] [phone] [address] 2020-01-16 2020-01-16 [facility] [id number] Univers 14:30:00 14:30:00 MICHELLE ity of [facility] 2020-01-16 2020-01-16 Orders Doctor ANNABELLE 1.2.840.114 [id number] Univers 00:00:00 00:00:00 Only Unassigned, CONNIE 350.1.13.10 ity of [place] [facility] 4.2.7.2.686 [place] [phone] [facility] [address] 2020-01-15 2020-01-15 Telephone [facility] 1.2.840.114 [id number] Univers 00:00:00 00:00:00 Fabby Armas 350.1.13.10 i ty [place] 4[place]2.7.2.[place] [phone] [address] 2019-12-24 2019-12-24 Patient Demetrius Griffith [facility] 1.2.519.740 [id number] Univers 00:00:00 00:00:00 Secure Msg Caesar Armas 350.1.13.10 ity of [place].2.[place] [phone] Nv dic[address] 2019-11-11 2019-11-11 Emergency [facility] 1.2.840.114 [id number] Univers 00:23:35 02:02:00 Celeste Armas 350.1.13.10 ity of [place]2.7.2.686 [place] [phone] [facility] [address] 2019-11-02 2019-11-02 [facility] Shantelle . 1.2.840.114 [id number] Univers 12:32:54 23:59:00 Encounter Melindacharlessamanthagladys CERVANTES 350.1.13.10 ity of [facility] 4.2.7.2.686 [place] CENTER [phone] [facility] [address] 2019-11-02 2019-11-02 Emergency [facility] [id number] [address] 03:36:00 03:36:00 [facility] 2019-11-02 2019-11-02 Emergency [facility] [id number] [address] 03:36:00 03:36:00 -[id number] Luis Daniel [facility] 2019-11-02 2019-11-02 Outpatient R SHANTELLE [facility] NUT [id number] Univers 00:00:00 00:00:00 RASHI el o f [facility] 2019-10-27 2019-10-27 Patient Demetrius Griffith [facility] 1.2.866.688 [id number] Univers 00:00:00 00:00:00 Secure Msg Caesar Armas 350.1.13.10 ity of [place].7.2.[place] [phone] Nv dical nal [address] [place] [address] 2019-08-25 2019-08-25 Office Angeli [facility] 1.2.193.258 [id number] Univers 08:04:44 08:50:12 Visit Fabby Armas 350.1.13.10 i ty of [place] 4[place]2.7.2.[place] [phone] Nv dical nal [address] [place] [address] 2019-08-25 2019-08-25 Orders Doctor ALANIS 1.2.840.114 [id number] Univers 00:00:00 00:00:00 Only Unassigned, CONNIE 350.1.13.10 ity of [place] [facility] 4.2.7.2.686 [place] [phone] [facility] [address] 2019-04-10 2019-04-10 Outpatient R DEMETRIUS GRIFFITH [facility] [id number] Univers 15:15:00 17:04:52 ity of [facility] 2019-03-16 2019-03-16 Emergency Charmaine [facility] 1.2.595.882 [id number] Univers 14:00:11 15:41:00 Brit Chanda 350.1.13.10 i ty [place]2.7.2.[place] [phone] [facility] [address] 2019-03-06 2019-03-06 Routine Demetrius Griffith [facility] 1.2.295.899 [id number] Univers 15:53:58 16:55:11 Cam [place] 350.1.13.10 ity of Visit [place] 4[place]2.7.2.[place] [phone] Nv dical nal [address] [facility] 2019-02-28 2019-02-28 Patient Oswald [facility] 1.2.840.114 [id number] Univers 00:00:00 00:00:00 Secure Msg Stephanie Marcos [place] 350.1.13.10 ity of [place] 4[place]2.7.2.[place] [phone] Nv dical nal [address] [place] [address] 2019-02-04 2019-02-07 Hospital Demetrius Griffith [facility] 1.2.840.114 [id number] Univers 15:37:00 19:05:00 Encounter Cam [place] 350.1.13.10 ity of [place] 4[place]2.7.2.[place] [phone] [facility] [address] 2019-02-04 2019-02-04 Routine Demetrius Griffith [facility] 1.2.753.981 [id number] Univers 14:54:45 15:27:46 Cam [place] 350.1.13.10 ity of Visit [place] 4.2.7.2.[place] [phone] Nv dical nal 134 [facility] 2019-02-04 2019-02-04 Orders Doctor ANNABELLE 1.2.840.114 [id number] Univers 00:00:00 00:00:00 Only Unassigned, CONNIE 350.1.13.10 ity of [place] [facility] 4.2.7.2.686 [place] as [phone] [facility] 009 Muse Results Test Description Test Time Test Comments Results Result Comments Source CBC with Differential 2022-08-04 11:18:26 Test Item Value Reference Range Interpretation Comme nts WBC (test code = 6690-2) See_Comment H [A utomated message] The system which ge nerated this result transmit brooke reference range: 4.30 - 1 1.10 10*3/?L. The reference r alix was not used to interpr et this result as normal/abnor mal. RBC (test code = 789-8) See_Comment [Au tomated message] The system which ge nerated this result transmit brooke reference range: 3.93 - 5 .25 10*6/?L. The reference r alix was not used to interpr et this result as normal/abnor mal. HGB (test code = 718-7) 11.7 g/dL 11.6-15.0 HCT (test code = 4544-3) 36.7 % 35.7-45.2 MCV (test code = 787-2) 79.6 fL 80.6-95.5 L MCH (test code = 785-6) 25.4 pg 25.9-32.8 L MCHC (test code = 786-4) 31.9 g/dL 31.6-35.1 RDW-SD (test code = 99813-3) 41.6 fL 39.0-49.9 RDW-CV (test code = 788-0) 14.6 % 12.0-15.5 PLT (test code = 777-3) See_Comment L [Au tomated message] The system which ge nerated this result transmit brooke reference range: 166 - 35 8 10*3/?L. The reference range was not used to interpret th is result as normal/abnormal . MPV (test code = 68635-0) 12.2 fL 9.5-12.9 NRBC/100 WBC (test code = See_Comment [ Automated message] The 5612671308) system which [employer] nerated this result transmit brooke reference range: 0.0 - 10 .0 /100 WBCs. The reference r alix was not used to interpr et this result as normal/abnor mal. NRBC x10^3 (test code = See_Comment [Au tomated message] The 3512951419) system which [employer] nerated this result transmit brooke reference range: 10*3/?L. The reference range was not u sed to interpret this result as normal/abnormal . GRAN MAT (NEUT) % (test code 69.7 % = 770-8) IMM GRAN % (test code = 0.80 % 8997119086) LYMPH % (test code = 736-9) 20.9 % MONO % (test code = 5905-5) 7.6 % EOS % (test code = 713-8) 0.8 % BASO % (test code = 706-2) 0.2 % GRAN MAT x10^3(ANC) (test 9.56 10*3/uL 1.88-7.09 H code = 6489072083) IMM GRAN x10^3 (test code = 0.11 10*3/uL 0.00-0.06 H 6330396899) LYMPH x10^3 (test code = 2.87 10*3/uL 1.32-3.29 731-0) MONO x10^3 (test code = 1.04 10*3/uL 0.33-0.92 H 742-7) EOS x10^3 (test code = 0.11 10*3/uL 0.03-0.39 711-2) BASO x10^3 (test code = 0.03 10*3/uL 0.01-0.07 704-7) Lab Interpretation (test Abnormal code = 47565-1) [facility] IMMUNE [id number] 21:21:44 Test Item Value Reference Range Interpretation Comments RHIG CANDIDATE? No- see comment Patient i s not a (test code = candidate for R hIg- 5055) Patient is Rh Positive.Perfor med at [facility] Laboratory Services - ADC Blood [address] [place], [place] [address]Rdxp Free: [phone] A No. [id number] [facility] CenterType and Screen - ONCE [id number] 00:11:31 Test Item Value Reference Range Interpretation Comments ABO & RH (test code O Positive Performe d at [facility] = 20) Laboratory Serv ices - [facility] Blood Bank1 [address] [place], [place] [address]Cgjo Free: [phone] A No. [id number] IAT (test code = Negative Performed a t [facility] 1185) Laboratory Serv [facility] Blood Bank[address] [place] [address]Rqnq Free: [phone] A No. [id number] [facility] URINALYSIS W/O SPECIFIC [id number] 20:46:00 Test Item Value Reference Range Interpretation Comments POCT PH U (test code = 3254) n/a 5-8 POCT U LEUK EST (test code = n/a Negative - Negative 3263) POCT U NIT (test code = 3262) n/a Negative - Negative POCT U PROT (test code = 3259) negative Negative - Negative POCT U GLU (test code = 3256) negative Negative - Negative POCT U KETONE (test code = 3258) n/a Negative - Negative POCT U BLD (test code = 3257) n/a Negative - Negative [facility] URINALYSIS W/O SPECIFIC [id number] 19:49:00 Test Item Value Reference Range Interpretation Comments POCT PH U (test code = 3254) n/a 5-8 POCT U LEUK EST (test code = 3263) n/a Negative - Negative POCT U NIT (test code = 3262) n/a Negative - Negative POCT U PROT (test code = 3259) Trace Negative - Negative POCT U GLU (test code = 3256) Normal Negative - Negative POCT U KETONE (test code = 3258) n/a Negative - Negative POCT U BLD (test code = 3257) n/a Negative - Negative [facility] URINALYSIS W/O SPECIFIC [id number] 19:28:00 Test Item Value Reference Range Interpretation Comments POCT PH U (test code = 3254) n/a 5-8 POCT U LEUK EST (test code = n/a Negative - Negative 3263) POCT U NIT (test code = 3262) n/a Negative - Negative POCT U PROT (test code = 3259) negative Negative - Negative POCT U GLU (test code = 3256) negative Negative - Negative POCT U KETONE (test code = 3258) n/a Negative - Negative POCT U BLD (test code = 3257) n/a Negative - Negative [facility] URINALYSIS W/O SPECIFIC [id number] 20:51:00 Test Item Value Reference Range Interpretation Comments POCT PH U (test code = 3254) n/a 5-8 POCT U LEUK EST (test code = 3263) n/a Negative - Negative POCT U NIT (test code = 3262) n/a Negative - Negative POCT U PROT (test code = 3259) neg Negative - Negative POCT U GLU (test code = 3256) neg Negative - Negative POCT U KETONE (test code = 3258) n/a Negative - Negative POCT U BLD (test code = 3257) n/a Negative - Negative [facility] CenterMATERNAL SERUM SCREEN [id number] 20:00:00 Test Item Value Reference Range Interpretation Comments INTERPRETATION:-Q SEE NOTE Screen ne gative for (test code = open NTD. 93607-3) MSAFP RISK OPEN <1 IN 5000 NTD-Q (test code = 54000-8) $MSAFP-Q (test 43.9 ng/mL code = 1834-1) ADJ MULTIPLE OF MEDIAN-Q (test code = 62626-9) -Q (test code = See Below This is a s creening 8251-1) test, not a dmitri gnostic test. Thisrisk assessment repo rt is based in part o n demographicdata provided by the ordering physic gerry. Please notifyth e laboratory prom ptly if any data are in correct. Forassistance w ith recalculations, please call your local [facility] lab oratory. For assistance withinterpretat ion of these results, please contact [facility] gen etic counselor or [phone] [facility]([phone]). Inte rpretive CutoffsScreen P ositive for Open NTD: > or = 2.50 adjusted M OM ?> or = 1.90 ad justed MOM for ?insulin-depend ent diabetics ? > or = 4.00 adjusted M OM for ?twins ? > or = 3.50 adjusted M OM for ?twins insulin-depende nt ?diabetics ?> or = 4.50 adjusted M OM for ?tripletsFor additional info rmation, please refer [email or web address] [email or web address]/FA [email or web address](This link is being provided for informational/e ducation al purposes on y) GESTATIONAL AGE-Q weeks (test code = 73621-7) MATERNAL WEIGHT-Q lbs (test code = 3142-7) EST'D DATE OF 08/12/2022 DELIVERY-Q (test code = 54055-6) ILANA DETERMINED LMP BY-Q (test code = 65475-0) MOTHER'S ETHNIC ORIGIN-Q (test code = 28192-1) NUMBER OF FETUSES-Q (test code = 17192-3) INSULIN-DEPEND NO DIABETIC-Q (test code = 65585-3) REPEAT SPECIMEN-Q NO (test code = 59723-7) HX OF NEURAL TUBE NO DEFECTS-Q (test code = 47609-7) PREV NO DOWN SYND-Q (test code = 47475-2) DONOR EGG-Q (test NO code = 75100-6) DONOR AGE: EGG NOT GIVEN REPORT COMME NT:VERIFY RETRIEVAL-Q (test PT ID code = 51866-7) JEWEL (test code = PERFORMED BY JEWEL) [facility]; [address] [place] [address]; MARY JIMENEZ MD [facility] URINALYSIS W/O SPECIFIC [id number] 19:00:00 Test Item Value Reference Range Interpretation Comments POCT PH U (test code = 3254) n/a 5-8 POCT U LEUK EST (test code = 3263) n/a Negative - Negative POCT U NIT (test code = 3262) n/a Negative - Negative POCT U PROT (test code = 3259) neg Negative - Negative POCT U GLU (test code = 3256) neg Negative - Negative POCT U KETONE (test code = 3258) n/a Negative - Negative POCT U BLD (test code = 3257) n/a Negative - Negative [facility]O SPECIFIC [id number] 19:00:00 Test Item Value Reference Range Interpretation Comments POCT PH U (test code = 3254) n/a 5-8 POCT U LEUK EST (test code = 3263) n/a Negative - Negative POCT U NIT (test code = 3262) n/a Negative - Negative POCT U PROT (test code = 3259) neg Negative - Negative POCT U GLU (test code = 3256) neg Negative - Negative POCT U KETONE (test code = 3258) n/a Negative - Negative POCT U BLD (test code = 3257) n/a Negative - Negative [facility] CenterThy[facility] Stimulating [id number] 10:35:14 Test Item Value Reference Range Interpretation Comments TSH (test code = TSH) 1.650 mIU/mL 0.270-4.200 Lipid [id number] 10:28:08 Test Item Value Reference Range Interpretation Comments Cholesterol Total 200 mg/dL 0-200 RISK OF HE ART (test code = DISEASEPublishe d by Cholesterol Total) [employer] [place] lyte Optimal Borderl ine Increased RiskC HOL <200 200-239 >240TRI G <150 150-199 >200HDL Male >60 <40HDL Fema le >60 <50LDL <100 130 -159 >160LDL Near op timal is 100-129 Triglycerides (test 75 mg/dL 9-200 [...] is LDL/HDL Ratio=L DL Calc/HDL Chol Urine [id number] 08:29:07 C Urine Added by [id number] growth at 24 hours. No growth at 48 hours.RPR [id number] 19:04:53 Test Item Value Reference Range Interpretation [...] = 07-08-2020 N Expiration Dt) HCG Qualitative [id number] 06:59:14 Test Item Value Reference Range Interpretation Comments hCG Ur (test code = Negative If the r esult is hCG Ur) "Negative" in p atients suspected to be , recom mend retest with a s ample obtained 48 to 72 hours later, or by ordering a quantitative as say. If the result is "Borderline" te sting should be repea brooke in 48 to 72 hours. Lot # (test code = [id number] Lot #) Expiration Dt (test 10/06/2020 N code = Expiration Dt) Neg Control (test Negative code = Neg Control) Pos Control (test Positive code = Pos Control) Internal QC (test Acceptable code = Internal QC) Automated [id number] 06:09:27 Test Item Value Reference Range Interpretation Comments Neutro Auto (test code = Neutro 60.5 % 36.0-70.0 Auto) Lymph Auto (test code = Lymph Auto) 30.6 % 12.0-44.0 Austin Auto (test code = Austin Auto) 6.1 % 0.0-11.0 Eos, Auto (test code = Eos, Auto) 2.1 % 0.0-7.0 Basophil Auto (test code = Basophil 0.3 % 0.0-2.0 Auto) Neutro Absolute (test code = Neutro 6.6 x10 1.6-7.4 Absolute) Lymph Absolute (test code = Lymph 3.33 x10 .50-4.60 Absolute) Austin Absolute (test code = Austin .66 x10 .00-1.20 Absolute) Eos Absolute (test code = Eos 0.23 x10 0.00-0.74 Absolute) Baso Absolute (test code = Baso 0.03 x10 0.00-0.21 Absolute) IG [id number] 06:09:27 Test Item Value Reference Range Interpretation Comments IG (test code = IG) 0.4 % 0.0-5.0 IG Abs (test code = IG Abs) 0 x10 N Complete Blood Count with [id number] 06:09:26 Test Item Value Reference Range Interpretation [...] = IPF) 0 % N Comprehensive Metabolic [id number] 06:01:23 Test Item Value Reference Range Interpretation [...] A/G 1.6 ratio N Ratio) Comprehensive Metabolic [id number] 06:01:23 Test Item Value Reference Range Interpretation [...] ag e have not been validated by th e MDRD study and should be interpreted wit h caution. eGFR R esult Interpretation: eGFR > or = 60 is in the Normal RangeeGF R < 60 may mean kid isacc diseaseeGFR < 1 5 may mean kidney failure Rang es recommended by the National Kid[employer] Foundation, http://nkdep.ni h.gov Alcohol [id number] 06:01:23 Test Item Value Reference Range Interpretation Comments Ethanol Level (test <0.00 g/dL 0.00-0.01 Intoxica brooke 0.080 g/dL code = Ethanol or more Level) Ethanol Inst (test <0 N code = Ethanol Inst) Comprehensive Metabolic [id number] 06:01:23 Test Item Value Reference Range Interpretation [...] ag e have not been validated by th e MDRD study and should be interpreted [...] ag e have not been validated by th e MDRD study and should be interpreted wit h caution. eGFR R esult Interpretation: eGFR > or = 60 is in the Normal RangeeGF R < 60 may mean kid isacc diseaseeGFR < 1 5 may mean kidney failure Rang es recommended by the National Kidney Foundation, http://nkdep.ni h.gov Urinalysis [id number] 05:47:01 Test Item Value Reference Range Interpretation Comments UA WBC (test code = UA WBC) 6-10 0-5 A UA RBC (test code = UA RBC) 0-5 0-5 UA Bacteria (test code = UA None Seen Bacteria) UA Squam Epithelial (test code = UA 6-10 A Squam Epithelial) UA Mucous (test code = UA Mucous) Moderate A Urine Drug [id number] 05:43:24 Test Item Value Reference Range Interpretation [...] if desired . Urinalysis with Culture, if [id number] 05:43:13 Test Item Value Reference Range Interpretation [...]
[2023-01-20 22:35] LABS: Specific Gravity 1.026 (1.005-1.030)
[2023-01-20 22:44] LABS: Specific Gravity 1.026 (1.005-1.030); Urine Bacteria None Seen /HPF (<20); Urine Bilirubin NEGATIVE (Negative); Urine Blood Negative (Negative); Urine Clarity Extremely Turbid (Clear); Urine Color Light-Yellow (Yellow); Urine Glucose NEGATIVE (Negative); Urine Mucus Slight /HPF (None Seen); Urine Protein TRACE (Negative); Urine RBC <5 /HPF (None Seen); Urine Urobilinogen 1+ (Normal)
--- NOTE | 2023-01-21 00:10 | ER ---
Nurse's Notes [facility] Name: Tali Guidry Age: 22 yrs Sex: Female : 2000 Arrival Date: 01/20/2023 Time: 20:51 Bed 17 Private MD: Diagnosis: Other urogenital candidiasis;Chlamydial infection, unspecified Presentation: 01/20 21:36 Ebola Screen: No symptoms or risks identified at this time. Initial Sepsis Screen: Does kd3 the patient meet any 2 criteria? No. Patient's initial sepsis screen is negative. Does the patient have a suspected source of infection? No. Patient's initial sepsis screen is negative. 21:36 Method Of Arrival: Ambulatory kd3 21:37 Chief complaint: Patient states: I feel sore in my vaginal area and i am having white, kd3 thick discharge that does not smell bad. Coronavirus screen: Vaccine status: Patient reports being unvaccinated. Risk Assessment: Do you want to hurt yourself or someone else? Patient reports no desire to harm self or others. Onset of symptoms was January 20, 2023. 21:37 Acuity: GERMAN 4 kd3 Triage Assessment: 21:38 General: Appears in no apparent distress. Behavior is calm, cooperative. Pain: kd3 Complains of pain in groin. Neuro: Level of Consciousness is awake, alert, obeys commands, Oriented to person, place, time, situation. Respiratory: Airway is patent Trachea midline Respiratory effort is even, unlabored, Respiratory pattern is regular, symmetrical. 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 - Social history:: Smoking status: Patient denies any tobacco usage or history of. Screenin:38 Abuse screen: Denies threats or abuse. Has been threatened or abused. Nutritional ha1 screening: No deficits noted. Tuberculosis screening: No symptoms or risk factors identified. 21:39 [facility] ED Fall Risk Assessment (Adult) History of falling in the last 3 months, ha1 including since admission No falls in past 3 months (0 pts) Confusion or Disorientation No (0 pts) Intoxicated or Sedated No (0 pts) Impaired Gait No (0 pts) Mobility Assist Device Used No (0 pt) Altered Elimination No (0 pt) Score/Fall Risk Level 0 - 2 = Low Risk Oriented to surroundings, Maintained a safe environment, Educated pt \T\ family on fall prevention, incl call for assistance when getting out of bed. Assessment: 21:39 General: Appears comfortable, Behavior is calm, cooperative. Pain: Denies pain. Neuro: ha1 Level of Consciousness is awake, alert, obeys commands, Oriented to person, place, time, situation. Cardiovascular: Patient's skin is warm and dry. Respiratory: Airway is patent Respiratory effort is even, unlabored, Respiratory pattern is regular, symmetrical. : Reports discharge, from vagina that is white. 22:35 Reassessment: Patient and/or family updated on plan of care and expected duration. Pain ha1 level reassessed. Patient is alert, oriented x 3, equal unlabored respirations, skin warm/dry/pink. Patient denies pain at this time. 23:25 Reassessment: Patient and/or family updated on plan of care and expected duration. Pain ha1 level reassessed. Patient is alert, oriented x 3, equal unlabored respirations, skin warm/dry/pink. 01/21 00:25 Reassessment: Patient and/or family updated on plan of care and expected duration. Pain ha1 level reassessed. Patient is alert, oriented x 3, equal unlabored respirations, skin warm/dry/pink. Patient denies pain at this time. Vital Signs: 01/20 21:35 BP 105 / 64; Pulse 80; Resp 18; Temp 98.5(TE); Pulse Ox 100% on R/A; Weight 77.11 kg; kd3 Height 5 ft. 4 in. ; 21:38 BP 109 / 65; Pulse 60; Resp 18; Pulse Ox 100% ; ha1 22:30 BP 127 / 98; Pulse 59; Resp 16 S; Pulse Ox 100% on R/A; ha1 23:25 BP 124 / 65; Pulse 72; Resp 15 S; Pulse Ox 100% on R/A; ha1 01/21 00:25 BP 125 / 69; Pulse 62; Resp 18 S; Pulse Ox 100% ; ha1 01/20 21:35 Body Mass Index 29.18 (77.11 kg, 162.56 cm) kd3 ED Course: 01/20 20:56 Patient arrived in ED. bp1 21:09 Randi Stewart [facility]. sb4 21:09 Jw Velasquez MD is Attending Physician. sb4 21:38 Triage completed. kd3 21:38 Arm band placed on right wrist. kd3 21:38 Patient has correct armband on for positive identification. Bed in low position. Call ha1 light in reach. Side rails up X 1. Side rails up X2. 22:05 Mady Mata, RN is Primary Nurse. ha1 01/21 00:27 No provider procedures requiring assistance completed. Patient did not have IV access ha1 during this emergency room visit. 00:28 Provided Education on: follow up and medication. ha1 Administered Medications: 00:18 Drug: Fluconazole PO 150 mg Route: PO; ha1 00:25 Follow up: Response: No adverse reaction ha1 Medication: 01/20 23:00 VIS not applicable for this client. ha1 Outcome: 01/21 00:10 Discharge ordered by . sb4 00:27 Discharged to home ambulatory, with family. ha1 00:27 Condition: stable 00:27 Discharge instructions given to patient, family, Instructed on discharge instructions, follow up and referral plans. no driving heavy equipment, Demonstrated understanding of instructions, follow-up care, medications, Prescriptions given X 1. 00:28 Patient left the ED. ha1 Signatures: Kate Andrews bp1 Holly Carter RN RN kd3 Mady Mata, LETI RN ha1 Randi Stewart PA-C PA-C sb4
--- NOTE | 2023-01-21 00:10 | EDPHYS ---
Physician Documentation [facility] Name: Tali Guidry Age: 22 yrs Sex: Female : 2000 Arrival Date: 01/20/2023 Time: 20:51 Bed 17 Private MD: ED Physician Jw Velasquez HPI: 01/20 22:29 This 22 yrs old Female presents to ER via Ambulatory with complaints of Vaginal sb4 Discharge, Vaginal Itching. 22:29 The patient presents with a possible exposure to a sexually transmitted disease, sb4 chlamydia, vaginal discharge, that is white discharge, patient has had similar discharge in the past. Onset: The symptoms/episode began/occurred at an unknown time. Modifying factors: The symptoms are alleviated by nothing, the symptoms are aggravated by nothing. Associated signs and symptoms: The patient has no apparent associated signs or symptoms. The patient has experienced similar episodes in the past. 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 - Social history:: Smoking status: Patient denies any tobacco usage or history of. ROS: 22:29 Positive for vaginal discharge, vaginal itching. sb4 22:29 Constitutional: Negative for fever, chills, and weight loss, Eyes: Negative for injury, pain, redness, and discharge, Cardiovascular: Negative for chest pain, palpitations, and edema, Abdomen/GI: Negative for abdominal pain, nausea, vomiting, diarrhea, and constipation, MS/Extremity: Negative for injury and deformity. 22:29 All other systems are negative. Exam: 22:29 Constitutional: This is a well developed, well nourished patient who is awake, alert, sb4 and in no acute distress. Head/Face: Normocephalic, atraumatic. Eyes: Extra-ocular motions intact. Periorbital areas with no swelling, redness, or edema. Back: No spinal tenderness. No costovertebral tenderness. Full range of motion. Skin: Warm, dry with normal turgor. Normal color with no rashes, no lesions, and no evidence of cellulitis. MS/ Extremity: Pulses equal, no cyanosis. Neurovascular intact. Full, normal range of motion. Vital Signs: 21:35 BP 105 / 64; Pulse 80; Resp 18; Temp 98.5(TE); Pulse Ox 100% on R/A; Weight 77.11 kg; kd3 Height 5 ft. 4 in. ; 21:38 BP 109 / 65; Pulse 60; Resp 18; Pulse Ox 100% ; ha1 22:30 BP 127 / 98; Pulse 59; Resp 16 S; Pulse Ox 100% on R/A; ha1 23:25 BP 124 / 65; Pulse 72; Resp 15 S; Pulse Ox 100% on R/A; ha1 01/21 00:25 BP 125 / 69; Pulse 62; Resp 18 S; Pulse Ox 100% ; ha1 01/20 21:35 Body Mass Index 29.18 (77.11 kg, 162.56 cm) kd3 MDM: 01/20 21:09 Patient medically screened. sb4 22:30 Differential diagnosis: perlita infection, cervicitis, pelvic inflammatory disease, sb4 urinary tract infection, vaginosis, STI. 01/21 00:09 Data reviewed: vital signs, nurses notes, lab test result(s), and as a result, I will sb4 discharge patient. Test considered but Not performed:. Counseling: I had a detailed discussion with the patient and/or guardian regarding: the historical points, exam findings, and any diagnostic results supporting the discharge/admit diagnosis, lab results. 01/20 22:09 Order name: UAM; Complete Time: 22:49 sb4 01/20 22:10 Order name: Test, Urine; Complete Time: 22:38 sb4 01/20 22:52 Order name: GC (Kyle/Chl) Probe URINE EDMS Administered Medications: 00:18 Drug: Fluconazole PO 150 mg Route: PO; ha1 00:25 Follow up: Response: No adverse reaction ha1 Disposition: 05:00 Co-signature as Attending Physician, Jw Velasquez MD I reviewed the patient's care rt provided by the Advanced Practice Provider and agree with the diagnosis and treatment plan. Disposition Summary: 01/21/23 00:10 Discharge Ordered Location: Home sb4 Problem: new sb4 Symptoms: are unchanged sb4 Condition: Stable sb4 Diagnosis - Other urogenital candidiasis sb4 - Chlamydial infection, unspecified sb4 Followup: sb4 - With: Private Physician - When: As needed - Reason: Recheck today's complaints, Continuance of care, Re-evaluation by your physician Discharge Instructions: - Discharge Summary Sheet sb4 - Chlamydia, Female sb4 - Vaginal Yeast Infection, Adult sb4 Forms: - Medication Reconciliation Form sb4 - Thank You Letter sb4 - Antibiotic Education sb4 - Prescription Opioid Use sb4 - Patient Portal Instructions sb4 Prescriptions: - Doxycycline Hyclate 100 mg Oral Tablet - take 1 tablet by ORAL route every 12 hours; 20 tablet; Refills: 0, Product sb4 Selection Permitted Signatures: Dispatcher [employer] EDMS Holly Carter RN RN kd3 Mady Mata RN RN ha1 Randi Stewart, PAFlorentino PAFlorentino sb4 Jw Velasquez MD MD rt Corrections: (The following items were deleted from the chart) 01/20 22:52 22:18 GC (Gonorr/Clamydia) Probe+R.LAB.BRZ ordered. EDMS EDMS
[2023-01-21] MEDS ORDERED: FLUCONAZOLE 100 MG TAB ONE (00:29)
[2023-01-21 01:19] VITALS: TEMP 98.5; O2SAT 100
[2023-01-21 01:30] VITALS: BP 125/69
[2023-01-24 16:11] LABS: C.trachomatis RNA,TMA Not Detected (Not Detected)
== END 2023-01-21 00:28 | disposition home or self-care (01) ==
LOC: ER 20:51
DX: B37.49 Other urogenital candidiasis (principal); A74.9 Chlamydial infection, unspecified
CPT/HCPCS: 81001; 81025; 87490; 87590; 99283

== ENCOUNTER 2023-03-22 07:58 | Emergency (ER) | payer OTHER ==
--- OUTSIDE RECORDS SUMMARY | 2023-03-22 08:10 | XMS REPORT | Continuity of Care Document ---
:2000 Author Organization Formerly [facility] t Address [address] [facility] [address] [place] [address] Care Team Providers Name Role Phone Asked, No Pcp Primary Care Physician Unavailable DEMETRIUS GRIFFITH Attending Clinician Unavailable JOHN MARTINEZ Attending Clinician Unavailable OmJohn Guido Attending Clinician Unknown, Attending Attending Clinician Unavailable Demetrius Griffith MD Attending Clinician Kevyn Meadows MD Attending Clinician [phone] Fabby Suh PA-C Attending Clinician FABBY SUH Attending Clinician Unavailable 2, [facility] Lab Attending Clinician Unavailable Doctor Unassigned, [place] Attending Clinician Unavailable Michelle Campbell MD Attending Clinician Kaitlin Romo MD Attending Clinician Kali FRIEDMAN, Bree Spann Attending Clinician [phone] Ultrasound, Adc Mfm Attending Clinician Unavailable Maxi Kelley MD, Kae Attending Clinician [phone] KAE SCHMIDT Attending Clinician Unavailable Clarissa Cuellar RN Attending Clinician Unavailable Anyi HEADWAITER/HEADWAITRESS, Rania Attending Clinician Tam LUTZ Erickson Attending Clinician ERICKSON SHAH Attending Clinician Unavailable Henry Emmanuel Attending Clinician Nilam DECKER, Adalid Attending Clinician ADALID ROGEL Attending Clinician Unavailable Narendra Leyva MD Attending Clinician [phone] Tiana Goncalves MD Attending Clinician Pob, [facility] Lab Main Attending Clinician Unavailable MICHELLE CAMPBELL Attending Clinician Unavailable MAKI Attending Clinician Unavailable Jeremi Hodges Attending Clinician [phone] Lab, Adc Fam Pob I Attending Clinician Unavailable Shazia Bliss Attending Clinician SHAZIA JAY Attending Clinician Unavailable Caridad Avitia MA Attending Clinician Unavailable Tyson Daugherty DO Attending Clinician Robert Carbone Attending Clinician Provider, [facility] Attending Clinician Unavailable ROBERT ZULETA Attending Clinician Unavailable Pa Frias DO Attending Clinician Celeste Madera DO Attending Clinician Rashi Moon MD Attending Clinician RASHI MOON Attending Clinician Unavailable Brit Montano PA-C Attending Clinician Oswald LANDEROS, Stephanie Marcos Attending Clinician Unavailable DEMETRIUS GRIFFITH Admitting Clinician Unavailable Demetrius Griffith MD Admitting Clinician KAITLIN ROMO Admitting Clinician Unavailable BREE BASS Admitting Clinician Unavailable MAKI Admitting Clinician Unavailable Payers Payer Name Policy Type Policy Number Effective Date Expiration Date Long wagner [facility] STAR [id number] 2022 00:00:00 [facility] COMMUNITY PLAN [id number] 2021 STAR 00:00:00 MEDICA[place] [id number] 2021 00:00:00 [facility] [id number] 2018 2019 PPO/POS 00:00:00 00:00:00 Problems Condition [...] 1-25 it y of s s 00:00: [place] infection infection 00 Medi suzanna of lower of lower Branch genitourin genitourin apolinar sites apolinar sites Normal Normal Disease Active Univers labor labor 1-25 ity of 00:00: [place] 00 Medical Branch Pain of Pain of Disease Active 2021-07 Univers round round 2-12 ity of ligament ligament 00:00: [place] during during 00 Medical Bran ch 24 weeks 24 weeks Disease Active 2021-07 Metho di gestation gestation 0-20 st of of 00:00: Hospita 00 l Status Status Disease Active 2021-07 Methodi post fall post fall 0-20 st 00:00: Hospita 00 l High risk High risk Disease Active Uni vers , , 01-11 it y of antepartum antepartum 00:00: [place] Problem Active S weeny depression Depression 4-15 Co mmuni 00:00: [place] 00 Hospita Clinics Acne Acne Problem Active Hilliards 4-15 Communi 00:00: [place] 00 Hospita Clinics Microcytos Microcytos Problem Active S weeny is is 4-15 Communi 00:00: [place] 00 Hospita Clinics History of History of Problem Active S jerome chlamydial Chlamydial 2-05 Co mmuni infection [facility]:00[facility] Live[facility] Disease Active Unive rs infant, of infant, of 8-01 it y of shafer shafer 00:[place] , , 00 Me dical born in [facility] by vaginal by vaginal delivery delivery 38 weeks 38 weeks Disease Active Unive rs gestation gestation 7-30 ity of of of 00:00: [place] 00 Medi suzanna Branch History of History of Disease Active U adaners depression depression 4-24 it y of 00:00: [place] Medical Branch History of History of Disease Active U nivers anxiety anxiety 4-24 ity of 00:00: [place] Medical [facility] Skin Skin Disease Active Univers lesion lesion 5- ity of 00:00: [place] Medical [facility] Asthma Asthma Disease Active Overview: Univer s - Formattin ity of 00:00: g of this note Medical might be Branch different from the original. 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 No Known Drug Active [facility] No Known Drug [facility] No Known Drug [facility] No Known Drug [facility] No Known [facility] No Known Drug [facility] No Known Drug [facility] No Known Drug [facility] NO K[facility]OWN Drug Active [facility] Social History Social Habit Start Date Stop Date Quantity Comments Source ASSERTION 2021-11-18 [facility] 00:[facility]00 [facility] identity [facility] Sexual orientation [facility] Alcohol intake 2022-11-03 2022-11-03 Ex-drinker [facility] 00:00:00 00:00:00 (finding) Hospital History of Social 2022-11-03 2022-11-[address] function 00:00:00 00:00:00 Hospital Exposure to 2022-08-13 2022-08-23 Not sure University of SARS-CoV-2 (event) 00:00:00 15:53:00 [facility] [facility] Tobacco use and 2022-04-27 2022-04-27 Smokeless Shinto exposure 00:00:00 00:00:00 tobacco non-user Hospital Sex Assigned At 2000 2000 [facility] 00:00:00 00:00:00 Hospital Smoking Status Start Date Stop Date Source Never smoked tobacco [facility] Medications Ordered Filled Start Stop Current Ordering Indication Dosage Frequency Signature Comments Components Source Medication Medication Date Date Medication? Clinician (SIG) Name Name Yes [id number] 1{tbl} Take 1 Univers vitamin 1-27 tablet by ity of w/FA tablet 00:00: [place] 00 the Medical morning. Branch docusate Yes [id number] 200mg Take 2 U nivers 100 mg 1-27 capsules ity of capsule 00:00: by mouth [place] 00 once daily Medical as needed Branch for Constipati on. ferrous Yes [id number] 325mg Take 1 Un star sulfate 325 1-27 tablet by ity of mg (65 mg 00:00: [place] iron) 00 the Medical tablet morning Branch and 1 tablet in the evening. ibuprofen Yes [id number] 600mg Take 1 Univers 600 mg 1-27 tablet by ity of tablet 00:00: mouth [place] 00 every 6 Medical (six) Branch hours as needed (Pain). Take with food or milk. 2022- No [id number] 1{tbl} Take 1 Univers vitamin 1-27 02-15 tablet by ity of w/FA tablet 00:00: 00:00 [place] :00 the Medical morning. Branch docusate 2022- No [id number] 200mg Take 2 Univers 100 mg 08-04-15 capsules ity of capsule 00:00: 00:00 by mouth [place] 00 :00 once daily Medical as needed [place] for Constipati on. ferrous 2022- No [id number] 325mg Take 1 U nivers sulfate 325 08-0415 tablet by it y of mg (65 mg 00:00: 00:00 mouth [place] iron) 00 :00 the Medical tablet morning Branch and 1 tablet in the evening. ibuprofen 2022- No [id number] 600mg Take 1 Univers 600 mg 08-0415 [...] 20:07: [place] pad 48 on [facility] Medical 08/03/22 at [place] 1407, Until Discontinu ed, Routine, rectal/hem orrhoidal pain HYDROcodone Yes 1{tbl} 1 tablet, Univers -acetaminop 08-03 Oral, ity of hen (NORCO 20:07: Q6HPRN, [place] 5) 5-325 mg 48 Starting Medi suzanna tablet 1 on [facility] Branch tablet 08/03/22 at 1407, Until Discontinu ed, Routine, Pain (scale 7-10) ibuprofen Yes 600mg 600 mg, Univ ers (IBU) 08-03 Oral, ity of tablet 600 20:07: Q6HPRN, [place] mg 48 Starting Medical on [facility] Branch 08/03/22 at 1407, Until Discontinu ed, Routine, Pain (scale 4-6) acetaminoph Yes 650mg 650 mg, Un star en 08-03 Oral, ity of (TYLENOL) 20:07: Q6HPRN, [place] tablet 650 48 Starting Medic al mg on [facility] Branch 08/03/22 at 1407, Until Discontinu ed, Routine, Pain (scale 1-3) diphenhydrA 0 Yes 25mg 25 mg, Univ ers MINE 08-03 Oral, ity of (BENADRYL) 20:07: Q6HPRN, [place] tablet 25 48 Starting Medica l mg on [facility] Branch 08/03/22 at 1407, Until Discontinu ed, Routine, Sleep, Itching ondansetron 2022-0 Yes 4mg 4 mg, Slow Univers (ZOFRAN 08-03 IV Push, ity of (PF)) 20:07: Q8HPRN, [place] injection 4 48 Starting Medi suzanna mg on [facility] Branch 08/03/22 at 1407, Until Discontinu ed, Routine, Nausea and Vomiting (N/V) simethicone 0 Yes 160mg 160 mg, Un star (GAS RELIEF 08-03 Oral, ity of (SIMETHICON 20:07: PC+HSPRN, [place] E)) 48 Starting Medical chewable on [facility] tablet 160 08/03/22 at mg 1407, Until Discontinu ed, Routine, Gas docusate 0 Yes 200mg 200 mg, Unive rs (COLACE) 08-03 Oral, ity of capsule 200 20:07: QDAILYPRN, [place] mg 48 Starting Medical on [facility] Branch 08/03/22 at 1407, Until Discontinu ed, Routine, Constipati on magnesium 0 Yes 30mL 30 mL, Univer s hydroxide 08-03 Oral, ity of (MILK OF 20:07: QDAILYPRN, [place] MAGNESIA) 48 Starting Medica l 400 mg/[address] [facility] suspension 08/03/22 at 30 mL 1407, Until Discontinu ed, Routine, Constipati on benzocaine- 0 Yes Topical, Un star menthol 08-03 PRN, ity of (DERMOPLAST 20:07: [place] 20-0.5 % 48 on [facility] Medical topical 08/03/22 at Branch spray 1407, Until Discontinu ed, Routine, Perineum discomfort oxytocin 2022-0 2023- No 300mL/h 300 mL/hr, Univers (PITOCIN) 08-03 IV ity of 30 units in 19:27: 20:07 Infusion, [place] NS 500 mL 42 :51 SEE-INSTRU Medi suzanna IV infusion CTIONS, Branc h Starting on [facility] 08/03/[address] at 300 mL/hr for 1 hr then 150 mL/hr for 1 hr. & nbsp; For post delivery uterotonic
fentaNYL-ro 2022- No Epidural, Univers pivacaine 2 08-03 CONTINUOUS i ty of mcg/mL-0.1 16:38: 20:35 PRN, [place] % (PF) in 00 :41 Starting [...] of 30 units in 14:53: 20:07 Infusion, [place] NS 500 mL 47 :51 TITRATE, Medica l IV infusion Starting Bran ch on Alize 08/03/22 at 0853, Until Alize 08/03/22 at 1407, MIGUEL lactated 2022- No 500mL at 999 Unive rs ringers IV 1 01- mL/hr, 500 it y of infusion 22:50: 20:07 mL, IV [place] 500 mL 47 :51 Infusion, Medical PRN - SEE Branch JERICHOIO NS, Starting on Sun08/02/22 at 1650, Until Alize 08/03/22 at 1407, Routine D5W-LR IV 2022- No 1000mL at 1-125 U nivers infusion 08-02- mL/hr, IV ity o f 1,000 mL 22:50: 20:07 Infusion, [place] 47 :51 TITRATE, Medical Starting Branch on Sun08/02/22 at 1650, Until Alize 08/03/22 at 1407, Routine azithromyci 2022-0 Yes [id number] 500mg Take 1 Univers n 500 mg 1-18 tablet by ity of tablet 00:00: mouth in [place] 00 the Medical morning. Branch fluconazole 2022-0 Yes [id number] 200mg Take 1 Univers (DIFLUCAN) 1-18 tablet by ity of 200 mg 00:00: mouth in [place] tablet 00 the Medical morning. Branch azithromyci 2022-0 Yes [id number] 500mg Take 1 Univers n 500 mg 1-18 tablet by ity of tablet 00:00: mouth in [place] 00 the Medical morning. Branch fluconazole 2022-0 Yes [id number] 200mg Take 1 Univers (DIFLUCAN) 1-18 tablet by ity of 200 mg 00:00: mouth in [place] tablet 00 the Medical morning. Branch azithromyci 2022-0 Yes [id number] 500mg Take 1 Univers n 500 mg 1-18 tablet by ity of tablet 00:00: mouth in [place] 00 the Medical morning. Branch fluconazole 2022-0 Yes [id number] 200mg Take 1 Univers (DIFLUCAN) 1-18 tablet by ity of 200 mg 00:00: mouth in [place] tablet 00 the Medical morning. Branch azithromyci 2022-0 Yes [id number] 500mg Take 1 Univers n 500 mg 1-18 tablet by ity of tablet 00:00: mouth in [place] 00 the Medical morning. Branch fluconazole 2022-0 Yes [id number] 200mg Take 1 Univers (DIFLUCAN) 1-18 tablet by ity of 200 mg 00:00: mouth in [place] tablet 00 the Medical morning. Branch azithromyci 2022- No [id number] 500mg Take 1 Univers n 500 mg 07-26 tablet by ity o f tablet 00:00: 00:00 mouth in [place] 00 :00 the Medical morning. Branch fluconazole 2022- No [id number] 200mg Take 1 Univers (DIFLUCAN) 07-26 tablet [...] 1 mg tablet per tablet metroNIDAZO Yes [id number] 500mg Take 1 Univers LE 500 mg 8-26 tablet by ity o f tablet 00:00: mouth [place] 00 every 12 Medical (twelve) Branch hours. metroNIDAZO 0 Yes [id number] 500mg Take 1 Univers LE 500 mg 8-26 tablet by ity o f tablet 00:00: mouth [place] 00 every 12 Medical (twelve) Branch hours. metroNIDAZO 0 Yes [id number] 500mg Take 1 Univers LE 500 mg 8-26 tablet by ity o f tablet 00:00: mouth [place] 00 every 12 Medical (twelve) Branch hours. metroNIDAZO 2021-0 Yes [id number] 500mg Take 1 Univers LE 500 mg 8-26 tablet by ity o f tablet 00:00: mouth [place] 00 every 12 Medical (twelve) Branch hours. metroNIDAZO 2021-0 Yes [id number] 500mg Take 1 Univers LE 500 mg 8-26 tablet by ity o f tablet 00:00: mouth [place] 00 every 12 Medical (twelve) Branch hours. metroNIDAZO 2-0 Yes [id number] 500mg Take 1 Univers LE 500 mg 8-26 tablet by ity o f tablet 00:00: mouth [place] 00 every 12 Medical (twelve) Branch hours. metroNIDAZO 2-0 Yes [id number] 500mg Take 1 Univers LE 500 mg 8-26 tablet by ity o f tablet 00:00: mouth [place] 00 every 12 Medical (twelve) Branch hours. metroNIDAZO 2-0 Yes [id number] 500mg Take 1 Univers LE 500 mg 8-26 tablet by ity o f tablet 00:00: mouth [place] 00 every 12 Medical (twelve) Branch hours. metroNIDAZO 2-0 Yes [id number] 500mg Take 1 Univers LE 500 mg 8-26 tablet by ity o f tablet 00:00: mouth [place] 00 every 12 Medical (twelve) Branch hours. metroNIDAZO 2-0 Yes [id number] 500mg Take 1 Univers LE 500 mg 8-26 tablet by ity o f tablet 00:00: mouth [place] 00 every 12 Medical (twelve) Branch hours. metroNIDAZO 2021-0 Yes [id number] 500mg Take 1 Univers LE 500 mg 8-26 tablet by ity o f tablet 00:00: mouth [place] 00 every 12 Medical (twelve) Branch hours. metroNIDAZO 2-0 Yes [id number] 500mg Take 1 Univers LE 500 mg 8-26 tablet by ity o f tablet 00:00: mouth [place] 00 every 12 Medical (twelve) Branch hours. metroNIDAZO 2-0 Yes [id number] 500mg Take 1 Univers LE 500 mg 8-26 tablet by ity o f tablet 00:00: mouth [place] 00 every 12 Medical (twelve) Branch hours. metroNIDAZO 2-0 Yes [id number] 500mg Take 1 Univers LE 500 mg 8-26 tablet by ity o f tablet 00:00: mouth [place] 00 every 12 Medical (twelve) Branch hours. metroNIDAZO 2022-0 Yes [id number] 500mg Take 1 Univers LE 500 mg 8-26 tablet by ity o f tablet 00:00: mouth [place] 00 every 12 Medical (twelve) Branch hours. metroNIDAZO 2-0 Yes [id number] 500mg Take 1 Univers LE 500 mg 8-26 tablet by ity o f tablet 00:00: mouth [place] 00 every 12 Medical (twelve) Branch hours. metroNIDAZO 2022-0 Yes [id number] 500mg Take 1 Univers LE 500 mg 8-26 tablet by ity o f tablet 00:00: mouth [place] 00 every 12 Medical (twelve) Branch hours. metroNIDAZO 2-0 Yes [id number] 500mg Take 1 Univers LE 500 mg 8-26 tablet by ity o f tablet 00:00: mouth [place] 00 every 12 Medical (twelve) Branch hours. metroNIDAZO 2-0 Yes [id number] 500mg Take 1 Univers LE 500 mg 8-26 tablet by ity o f tablet 00:00: mouth [place] 00 every 12 Medical (twelve) Branch hours. metroNIDAZO 2-0 Yes [id number] 500mg Take 1 Univers LE 500 mg 8-26 tablet by ity o f tablet 00:00: mouth [place] 00 every 12 Medical (twelve) Branch hours. metroNIDAZO 2-0 Yes [id number] 500mg Take 1 Univers LE 500 mg 8-26 tablet by ity o f tablet 00:00: mouth [place] 00 every 12 Medical (twelve) Branch hours. metroNIDAZO 2021-0 Yes [id number] 500mg Take 1 Univers LE 500 mg 8-26 tablet by ity o f tablet 00:00: mouth [place] 00 every 12 Medical (twelve) Branch hours. metroNIDAZO 2-0 Yes [id number] 500mg Take 1 Univers LE 500 mg 8-26 tablet by ity o f tablet 00:00: mouth [place] 00 every 12 Medical (twelve) Branch hours. metroNIDAZO 2-0 Yes [id number] 500mg Take 1 Univers LE 500 mg 8-26 tablet by ity o f tablet 00:00: mouth [place] 00 every 12 Medical (twelve) Branch hours. metroNIDAZO 2-0 Yes [id number] 500mg Take 1 Univers LE 500 mg 8-26 tablet by ity o f tablet 00:00: mouth [place] 00 every 12 Medical (twelve) Branch hours. metroNIDAZO 2022-0 Yes [id number] 500mg Take 1 Univers LE 500 mg 8-26 tablet by ity o f tablet 00:00: mouth [place] 00 every 12 Medical (twelve) Branch hours. metroNIDAZO 2022-0 Yes [id number] 500mg Take 1 Univers LE 500 mg 8-26 tablet by ity o f tablet 00:00: mouth [place] 00 every 12 Medical (twelve) Branch hours. metroNIDAZO 2021-0 Yes [id number] 500mg Take 1 Univers LE 500 mg 8-26 tablet by ity o f tablet 00:00: mouth [place] 00 every 12 Medical (twelve) Branch hours. metroNIDAZO 2021-0 Yes [id number] 500mg Take 1 Univers LE 500 mg 8-26 tablet by ity o f tablet 00:00: mouth [place] 00 every 12 Medical (twelve) Branch hours. metroNIDAZO 2021-0 Yes [id number] 500mg Take 1 Univers LE 500 mg 8-26 tablet by ity o f tablet 00:00: mouth [place] 00 every 12 Medical (twelve) Branch hours. metroNIDAZO 2021-0 Yes [id number] 500mg Take 1 Univers LE 500 mg 8-26 tablet by ity o f tablet 00:00: mouth [place] 00 every 12 Medical (twelve) Branch hours. metroNIDAZO 2021-0 2023- No [id number] 500mg Take 1 Univers LE 500 mg 8-26 01-25 tablet by ity of tablet 00:00: 00:00 mouth [place] 00 :00 every 12 Medical (twelve) Branch hours. pyridoxine, 0 Yes [id number] 25mg Take 1 Univers VITAMIN 7-06 tablet by ity of B-6, 00:00: mouth [place] (VITAMIN 00 every 6 Medical B-6) 25 mg (six) Branch tablet hours as needed for Nausea and Vomiting (N/V). doxylamine 0 Yes [id number] 25mg Take 1 U nivers (UNISOM, 7-06 tablet by ity of DOXYLAMINE, 00:00: [place] 25 mg 00 bedtime as Medica l tablet needed for Branch Nausea and Vomiting (N/V). metoclopram 2021-0 Yes [id number] 10mg Take 1 Univers john HCl 10 7-06 tablet by ity of mg tablet 00:00: mouth [place] 00 every 6 Medical (six) Branch hours as needed for Nausea and Vomiting (N/V). pyridoxine, 2021-0 Yes [id number] 25mg Take 1 Univers VITAMIN 7-06 tablet by ity of B-6, 00:00: mouth [place] (VITAMIN 00 every 6 Medical B-6) 25 mg (six) Branch tablet hours as needed for Nausea and Vomiting (N/V). doxylamine 2022-0 Yes [id number] 25mg Take 1 U nivers (UNISOM, 7-06 tablet by ity of DOXYLAMINE, 00:00: [place] 25 mg 00 bedtime as Medica l tablet needed for Branch Nausea and Vomiting (N/V). metoclopram 2-0 Yes [id number] 10mg Take 1 Univers john HCl 10 7-06 tablet by ity of mg tablet 00:00: mouth [place] 00 every 6 Medical (six) Branch hours as needed for Nausea and Vomiting (N/V). pyridoxine, 2-0 Yes [id number] 25mg Take 1 Univers VITAMIN 7-06 tablet by ity of B-6, 00:00: mouth [place] (VITAMIN 00 every 6 Medical B-6) 25 mg (six) Branch tablet hours as needed for Nausea and Vomiting (N/V). doxylamine 2021-0 Yes [id number] 25mg Take 1 U nivers (UNISOM, 7-06 tablet by ity of DOXYLAMINE, 00:00: [place] 25 mg 00 bedtime as Medica l tablet needed for Branch Nausea and Vomiting (N/V). metoclopram 2-0 Yes [id number] 10mg Take 1 Univers john HCl 10 7-06 tablet by ity of mg tablet 00:00: mouth [place] 00 every 6 Medical (six) Branch hours as needed for Nausea and Vomiting (N/V). pyridoxine, 2-0 Yes [id number] 25mg Take 1 Univers VITAMIN 7-06 tablet by ity of B-6, 00:00: mouth [place] (VITAMIN 00 every 6 Medical B-6) 25 mg (six) Branch tablet hours as needed for Nausea and Vomiting (N/V). doxylamine 2022-0 Yes [id number] 25mg Take 1 U nivers (UNISOM, 7-06 tablet by ity of DOXYLAMINE, 00:00: [place] 25 mg 00 bedtime as Medica l tablet needed for Branch Nausea and Vomiting (N/V). metoclopram 2022-0 Yes [id number] 10mg Take 1 Univers john HCl 10 7-06 tablet by ity of mg tablet 00:00: mouth [place] 00 every 6 Medical (six) Branch hours as needed for Nausea and Vomiting (N/V). pyridoxine, 2-0 Yes [id number] 25mg Take 1 Univers VITAMIN 7-06 tablet by ity of B-6, 00:00: mouth [place] (VITAMIN 00 every 6 Medical B-6) 25 mg (six) Branch tablet hours as needed for Nausea and Vomiting (N/V). doxylamine 2022-0 Yes [id number] 25mg Take 1 U nivers (UNISOM, 7-06 tablet by ity of DOXYLAMINE, 00:00: [place] 25 mg 00 bedtime as Medica l tablet needed for Branch Nausea and Vomiting (N/V). metoclopram 2022-0 Yes [id number] 10mg Take 1 Univers john HCl 10 7-06 tablet by ity of mg tablet 00:00: mouth [place] 00 every 6 Medical (six) Branch hours as needed for Nausea and Vomiting (N/V). pyridoxine, 2021-0 Yes [id number] 25mg Take 1 Univers VITAMIN 7-06 tablet by ity of B-6, 00:00: mouth [place] (VITAMIN 00 every 6 Medical B-6) 25 mg (six) Branch tablet hours as needed for Nausea and Vomiting (N/V). doxylamine 2-0 Yes [id number] 25mg Take 1 U nivers (UNISOM, 7-06 tablet by ity of DOXYLAMINE, 00:00: [place] 25 mg 00 bedtime as Medica l tablet needed for Branch Nausea and Vomiting (N/V). metoclopram 2-0 Yes [id number] 10mg Take 1 Univers john HCl 10 7-06 tablet by ity of mg tablet 00:00: mouth [place] 00 every 6 Medical (six) Branch hours as needed for Nausea and Vomiting (N/V). pyridoxine, 2022-0 Yes [id number] 25mg Take 1 Univers VITAMIN 7-06 tablet by ity of B-6, 00:00: mouth [place] (VITAMIN 00 every 6 Medical B-6) 25 mg (six) Branch tablet hours as needed for Nausea and Vomiting (N/V). doxylamine 2022-0 Yes [id number] 25mg Take 1 U nivers (UNISOM, 7-06 tablet by ity of DOXYLAMINE, 00:00: [place] 25 mg 00 bedtime as Medica l tablet needed for Branch Nausea and Vomiting (N/V). metoclopram 2022-0 Yes [id number] 10mg Take 1 Univers john HCl 10 7-06 tablet by ity of mg tablet 00:00: mouth [place] 00 every 6 Medical (six) Branch hours as needed for Nausea and Vomiting (N/V). pyridoxine, 2021-0 Yes [id number] 25mg Take 1 Univers VITAMIN 7-06 tablet by ity of B-6, 00:00: mouth [place] (VITAMIN 00 every 6 Medical B-6) 25 mg (six) Branch tablet hours as needed for Nausea and Vomiting (N/V). doxylamine 2-0 Yes [id number] 25mg Take 1 U nivers (UNISOM, 7-06 tablet by ity of DOXYLAMINE, 00:00: [place] 25 mg 00 bedtime as Medica l tablet needed for Branch Nausea and Vomiting (N/V). metoclopram 2-0 Yes [id number] 10mg Take 1 Univers john HCl 10 7-06 tablet by ity of mg tablet 00:00: mouth [place] 00 every 6 Medical (six) Branch hours as needed for Nausea and Vomiting (N/V). pyridoxine, 2021-0 Yes [id number] 25mg Take 1 Univers VITAMIN 7-06 tablet by ity of B-6, 00:00: mouth [place] (VITAMIN 00 every 6 Medical B-6) 25 mg (six) Branch tablet hours as needed for Nausea and Vomiting (N/V). doxylamine 2-0 Yes [id number] 25mg Take 1 U nivers (UNISOM, 7-06 tablet by ity of DOXYLAMINE, 00:00: [place] 25 mg 00 bedtime as Medica l tablet needed for Branch Nausea and Vomiting (N/V). metoclopram 2022-0 Yes [id number] 10mg Take 1 Univers john HCl 10 7-06 tablet by ity of mg tablet 00:00: mouth [place] 00 every 6 Medical (six) Branch hours as needed for Nausea and Vomiting (N/V). pyridoxine, 2022-0 Yes [id number] 25mg Take 1 Univers VITAMIN 7-06 tablet by ity of B-6, 00:00: mouth [place] (VITAMIN 00 every 6 Medical B-6) 25 mg (six) Branch tablet hours as needed for Nausea and Vomiting (N/V). doxylamine 2-0 Yes [id number] 25mg Take 1 U nivers (UNISOM, 7-06 tablet by ity of DOXYLAMINE, 00:00: [place] 25 mg 00 bedtime as Medica l tablet needed for Branch Nausea and Vomiting (N/V). metoclopram 2-0 Yes [id number] 10mg Take 1 Univers john HCl 10 7-06 tablet by [facility] mg tablet 00:00: mouth [place] 00 every 6 Medical (six) Branch hours as needed for Nausea and Vomiting (N/V). pyridoxine, 2021-0 Yes [id number] 25mg Take 1 [facility] VITAMIN 7-06 tablet by [facility] of B-6, 00:00: mouth [place] (VITAMIN 00 every 6 Medical B-6) 25 mg (six) Branch tablet hours as needed for Nausea and Vomiting (N/V). doxylamine 2021-0 Yes [id number] 25mg Take 1 [facility] (UNISOM, 7-06 tablet by [facility] DOXYLAMINE, 00:00: [place] 25 mg 00 bedtime as Medica l tablet needed for Branch Nausea and Vomiting (N/V). metoclopram 2-0 Yes [id number] 10mg Take 1 [facility] john HCl 10 7-06 tablet by [facility] of mg tablet 00:00: mouth [place] 00 every 6 Medical (six) Branch hours as needed for Nausea and Vomiting (N/V). pyridoxine, 2021-0 Yes [id number] 25mg Take 1 [facility] VITAMIN 7-06 tablet by [facility] of B-6, 00:00: mouth [place] (VITAMIN 00 every 6 Medical B-6) 25 mg (six) Branch tablet hours as needed for Nausea and Vomiting (N/V). doxylamine 2022-0 Yes [id number] 25mg Take 1 [facility] (UNISOM, 7-06 tablet by [facility] DOXYLAMINE, 00:00: [place] 25 mg 00 bedtime as Medica l tablet needed for Branch Nausea and Vomiting (N/V). metoclopram 2-0 Yes [id number] 10mg Take 1 [facility] john HCl 10 7-06 tablet by [facility] of mg tablet 00:00: mouth [place] 00 every 6 Medical (six) Branch hours as needed for Nausea and Vomiting (N/V). pyridoxine, 2021-0 Yes [id number] 25mg Take 1 [facility] VITAMIN 7-06 tablet by [facility] of B-6, 00:00: mouth [place] (VITAMIN 00 every 6 Medical B-6) 25 mg (six) Branch tablet hours as needed for Nausea and Vomiting (N/V). doxylamine 2021-0 Yes [id number] 25mg Take 1 [facility] (UNISOM, 7-06 tablet by [facility] of DOXYLAMINE, 00:00: [place] 25 mg 00 bedtime as Medica l tablet needed for Branch Nausea and Vomiting (N/V). metoclopram 2021-0 Yes [id number] 10mg Take 1 [facility] john HCl 10 7-06 tablet by [facility] of mg tablet 00:00: mouth [place] 00 every 6 Medical (six) Branch hours as needed for Nausea and Vomiting (N/V). pyridoxine, 2021-0 Yes [id number] 25mg Take 1 [facility] VITAMIN 7-06 tablet by [facility] of B-6, 00:00: mouth [place] (VITAMIN 00 every 6 Medical B-6) 25 mg (six) Branch tablet hours as needed for Nausea and Vomiting (N/V). doxylamine 2021-0 Yes [id number] 25mg Take 1 [facility] (UNISOM, 7-06 tablet by [facility] of DOXYLAMINE, 00:00: [facility] [place] 25 mg 00 bedtime as Medica l tablet needed for Branch Nausea and Vomiting (N/V). metoclopram 2-0 Yes [id number] 10mg Take 1 [facility] HCl 10 7-06 tablet by [facility] of mg tablet 00:00: mouth [place] 00 every 6 Medical (six) Branch hours as needed for Nausea and Vomiting (N/V). pyridoxine, 2-0 Yes [id number] 25mg Take 1 [facility] VITAMIN 7-06 tablet by [facility] of B-6, 00:00: mouth [place] (VITAMIN 00 every 6 Medical B-6) 25 mg (six) Branch tablet hours as needed for Nausea and Vomiting (N/V). doxylamine 2022-0 Yes [id number] 25mg Take 1 [facility] (UNISOM, 7-06 tablet by [facility] of DOXYLAMINE, 00:00: [facility] [place] 25 mg 00 bedtime as Medica l tablet needed for Branch Nausea and Vomiting (N/V). metoclopram 2022-0 Yes [id number] 10mg Take 1 [facility] HCl 10 7-06 tablet by [facility] of mg tablet 00:00: mouth [place] 00 every 6 Medical (six) Branch hours as needed for Nausea and Vomiting (N/V). pyridoxine, 2022-0 Yes [id number] 25mg Take 1 [facility] VITAMIN 7-06 tablet by [facility] of B-6, 00:00: mouth [place] (VITAMIN 00 every 6 Medical B-6) 25 mg (six) Branch tablet hours as needed for Nausea and Vomiting (N/V). doxylamine 2022-0 Yes [id number] 25mg Take 1 [facility] (UNISOM, 7-06 tablet by [facility] of DOXYLAMINE, 00:00: [facility] [place] 25 mg 00 bedtime as Medica l tablet needed for Branch Nausea and Vomiting (N/V). metoclopram 2022-0 Yes [id number] 10mg Take 1 [facility] john HCl 10 7-06 tablet by [facility] of mg tablet 00:00: mouth [place] 00 every 6 Medical (six) Branch hours as needed for Nausea and Vomiting (N/V). pyridoxine, 2022-0 Yes [id number] 25mg Take 1 [facility] VITAMIN 7-06 tablet by [facility] of B-6, 00:00: mouth [place] (VITAMIN 00 every 6 Medical B-6) 25 mg (six) Branch tablet hours as needed for Nausea and Vomiting (N/V). doxylamine 2022-0 Yes [id number] 25mg Take 1 [facility] (UNISOM, 7-06 tablet by [facility] of DOXYLAMINE, 00:00: [facility] [place] 25 mg 00 bedtime as Medica l tablet needed for Branch Nausea and Vomiting (N/V). metoclopram 2022-0 Yes [id number] 10mg Take 1 [facility] j[facility] HCl 10 7-06 tablet by [facility] of mg tablet 00:00: mouth [place] 00 every 6 Medical (six) Branch hours as needed for Nausea and Vomiting (N/V). pyridoxine, 2-0 Yes [id number] 25mg Take 1 [facility] VITAMIN 7-06 tablet by [facility] of B-6, 00:00: mouth [place] (VITAMIN 00 every 6 Medical B-6) 25 mg (six) Branch tablet hours as needed for Nausea and Vomiting (N/V). doxylamine 2022-0 Yes [id number] 25mg Take 1 [facility] (UNISOM, 7-06 tablet by [facility] of DOXYLAMINE, 00:00: [facility] [place] 25 mg 00 bedtime as Medica l tablet needed for Branch Nausea and Vomiting (N/V). metoclopram 2022-0 Yes [id number] 10mg Take 1 [facility] HCl 10 7-06 tablet by [facility] of mg tablet 00:00: mouth [place] 00 every 6 Medical (six) Branch hours as needed for Nausea and Vomiting (N/V). pyridoxine, 2021-0 Yes [id number] 25mg Take 1 [facility] VITAMIN 7-06 tablet by [facility] of B-6, 00:00: mouth [place] (VITAMIN 00 every 6 Medical B-6) 25 mg (six) Branch tablet hours as needed for Nausea and Vomiting (N/V). doxylamine 2021-0 Yes [id number] 25mg Take 1 [facility] (UNISOM, 7-06 tablet by [facility] of DOXYLAMINE, 00:00: [facility] [place] ) 25 mg 00 bedtime as Medica l tablet needed for Branch Nausea and Vomiting (N/V). metoclopram 2-0 Yes [id number] 10mg Take 1 [facility] j[facility] HCl 10 7-06 tablet by [facility] of mg tablet 00:00: mouth [place] 00 every 6 Medical (six) Branch hours as needed for Nausea and Vomiting (N/V). pyridoxine, 2022-0 Yes [id number] 25mg Take 1 [facility] VITAMIN 7-06 tablet by [facility] of B-6, 00:00: mouth [place] (VITAMIN 00 every 6 Medical B-6) 25 mg (six) Branch tablet hours as needed for Nausea and Vomiting (N/V). doxylamine 2022-0 Yes [id number] 25mg Take 1 [facility] (UNISOM, 7-06 tablet by [facility] of DOXYLAMINE, 00:00: [facility] [place] 25 mg 00 bedtime as Medica l tablet needed for Branch Nausea and Vomiting (N/V). metoclopram 2-0 Yes [id number] 10mg Take 1 [facility] HCl 10 7-06 tablet by [facility] of mg tablet 00:00: mouth [place] 00 every 6 Medical (six) Branch hours as needed for Nausea and Vomiting (N/V). pyridoxine, 2021-0 Yes [id number] 25mg Take 1 [facility] VITAMIN 7-06 tablet by [facility] of B-6, 00:00: mouth [place] (VITAMIN 00 every 6 Medical B-6) 25 mg (six) Branch tablet hours as needed for Nausea and Vomiting (N/V). doxylamine 2021-0 Yes [id number] 25mg Take 1 [facility] (UNISOM, 7-06 tablet by [facility] of DOXYLAMINE, 00:00: [facility] [place] 25 mg 00 bedtime as Medica l tablet needed for Branch Nausea and Vomiting (N/V). metoclopram 2021-0 Yes [id number] 10mg Take 1 [facility] HCl 10 7-06 tablet by [facility] of mg tablet 00:00: mouth [place] 00 every 6 Medical (six) Branch hours as needed for Nausea and Vomiting (N/V). pyridoxine, 2021-0 Yes [id number] 25mg Take 1 [facility] VITAMIN 7-06 tablet by [facility] of B-6, 00:00: mouth [place] (VITAMIN 00 every 6 Medical B-6) 25 mg (six) Branch tablet hours as needed for Nausea and Vomiting (N/V). doxylamine 2-0 Yes [id number] 25mg Take 1 [facility] (UNISOM, 7-06 tablet by [facility] of DOXYLAMINE, 00:00: mouth [place] ) 25 mg 00 bedtime as Medica l tablet needed for Branch Nausea and Vomiting (N/V). metoclopram 2-0 Yes [id number] 10mg Take 1 [facility] HCl 10 7-06 tablet by [facility] of mg tablet 00:00: mouth [place] 00 every 6 Medical (six) Branch hours as needed for Nausea and Vomiting (N/V). pyridoxine, 2021-0 Yes [id number] 25mg Take 1 [facility] VITAMIN 7-06 tablet by [facility] of B-6, 00:00: mouth [place] (VITAMIN 00 every 6 Medical B-6) 25 mg (six) Branch tablet hours as needed for Nausea and Vomiting (N/V). doxylamine 2021-0 Yes [id number] 25mg Take 1 [facility] (UNISOM, 7-06 tablet by [facility] of DOXYLAMINE, 00:00: mouth [place] ) 25 mg 00 bedtime as Medica l tablet needed for Branch Nausea and Vomiting (N/V). metoclopram 2021-0 Yes [id number] 10mg Take 1 [facility] HCl 10 7-06 tablet by [facility] of mg tablet 00:00: mouth [place] 00 every 6 Medical (six) Branch hours as needed for Nausea and Vomiting (N/V). pyridoxine, 2021-0 Yes [id number] 25mg Take 1 [facility] VITAMIN 7-06 tablet by [facility] of B-6, 00:00: mouth [place] (VITAMIN 00 every 6 Medical B-6) 25 mg (six) Branch tablet hours as needed for Nausea and Vomiting (N/V). doxylamine 2021-0 Yes [id number] 25mg Take 1 [facility] (UNISOM, 7-06 tablet by it[facility] of DOXYLAMINE, 00:00: mouth [place] ) 25 mg 00 bedtime as Medica l tablet needed for Branch Nausea and Vomiting (N/V). metoclopram 2021-0 Yes [id number] 10mg Take 1 [facility] john HCl 10 7-06 tablet by [facility] of mg tablet 00:00: mouth [place] 00 every 6 Medical (six) Branch hours as needed for Nausea and Vomiting (N/V). pyridoxine, 2021-0 Yes [id number] 25mg Take 1 [facility] VITAMIN 7-06 tablet by [facility] of B-6, 00:00: mouth [place] (VITAMIN 00 every 6 Medical B-6) 25 mg (six) Branch tablet hours as needed for Nausea and Vomiting (N/V). doxylamine 2-0 Yes [id number] 25mg Take 1 [facility] (UNISOM, 7-06 tablet by [facility] of DOXYLAMINE, 00:00: mouth [place] ) 25 mg 00 bedtime as Medica l tablet needed for Branch Nausea and Vomiting (N/V). metoclopram 2022-0 Yes [id number] 10mg Take 1 [facility] HCl 10 7-06 tablet by [facility] of mg tablet 00:00: mouth [place] 00 every 6 Medical (six) Branch hours as needed for Nausea and Vomiting (N/V). pyridoxine, 2-0 Yes [id number] 25mg Take 1 [facility] VITAMIN 7-06 tablet by [facility] of B-6, 00:00: mouth [place] (VITAMIN 00 every 6 Medical B-6) 25 mg (six) Branch tablet hours as needed for Nausea and Vomiting (N/V). doxylamine 2-0 Yes [id number] 25mg Take 1 [facility] (UNISOM, 7-06 tablet by ity of DOXYLAMINE, 00:00: mouth [place] ) 25 mg 00 bedtime as Medica l tablet needed for Branch Nausea and Vomiting (N/V). metoclopram 2-0 Yes [id number] 10mg Take 1 [facility] j[facility] HCl 10 7-06 tablet by [facility] of mg tablet 00:00: mouth [place] 00 every 6 Medical (six) Branch hours as needed for Nausea and Vomiting (N/V). pyridoxine, 2021-0 Yes [id number] 25mg Take 1 [facility] VITAMIN 7-06 tablet by [facility] of B-6, 00:00: mouth [place] (VITAMIN 00 every 6 Medical B-6) 25 mg (six) Branch tablet hours as needed for Nausea and Vomiting (N/V). doxylamine 2-0 Yes [id number] 25mg Take 1 [facility] (UNISOM, 7-06 tablet by ity of DOXYLAMINE, 00:00: mouth [place] ) 25 mg 00 bedtime as Medica l tablet needed for Branch Nausea and Vomiting (N/V). metoclopram 2-0 Yes [id number] 10mg Take 1 [facility] HCl 10 7-06 tablet by [facility] of mg tablet 00:00: mouth [place] 00 every 6 Medical (six) Branch hours as needed for Nausea and Vomiting (N/V). pyridoxine, 2-0 Yes [id number] 25mg Take 1 [facility] VITAMIN 7-06 tablet by [facility] of B-6, 00:00: mouth [place] (VITAMIN 00 every 6 Medical B-6) 25 mg (six) Branch tablet hours as needed for Nausea and Vomiting (N/V). doxylamine 2022-0 Yes [id number] 25mg Take 1 [facility] (UNISOM, 7-06 tablet by ity of DOXYLAMINE, 00:00: mouth [place] ) 25 mg 00 bedtime as Medica l tablet needed for Branch Nausea and Vomiting (N/V). metoclopram 2022-0 Yes [id number] 10mg Take 1 [facility] john HCl 10 7-06 tablet by [facility] of mg tablet 00:00: mouth [place] 00 every 6 Medical (six) Branch hours as needed for Nausea and Vomiting (N/V). pyridoxine, 2-0 Yes [id number] 25mg Take 1 [facility] VITAMIN 7-06 tablet by [facility] of B-6, 00:00: mouth [place] (VITAMIN 00 every 6 Medical B-6) 25 mg (six) Branch tablet hours as needed for Nausea and Vomiting (N/V). doxylamine 2022-0 Yes [id number] 25mg Take 1 [facility] (UNISOM, 7-06 tablet by [facility] of DOXYLAMINE, 00:00: mouth [place] ) 25 mg 00 bedtime as Medica l tablet needed for Branch Nausea and Vomiting (N/V). metoclopram 2022-0 Yes [id number] 10mg Take 1 [facility] j[facility] HCl 10 7-06 tablet by [facility] of mg tablet 00:00: mouth [place] 00 every 6 Medical (six) Branch hours as needed for Nausea and Vomiting (N/V). pyridoxine, 2-0 Yes [id number] 25mg Take 1 [facility] VITAMIN 7-06 tablet by [facility] of B-6, 00:00: mouth [place] (VITAMIN 00 every 6 Medical B-6) 25 mg (six) Branch tablet hours as needed for Nausea and Vomiting (N/V). doxylamine 2022-0 Yes [id number] 25mg Take 1 [facility] (UNISOM, 7-06 tablet by ity of DOXYLAMINE, 00:00: mouth [place] ) 25 mg 00 bedtime as Medica l tablet needed for Branch Nausea and Vomiting (N/V). metoclopram 2022-0 Yes [id number] 10mg Take 1 [facility] HCl 10 7-06 tablet by [facility] of mg tablet 00:00: mouth [place] 00 every 6 Medical (six) Branch hours as needed for Nausea and Vomiting (N/V). pyridoxine, 2-0 Yes [id number] 25mg Take 1 [facility] VITAMIN 7-06 tablet by [facility] of B-6, 00:00: mouth [place] (VITAMIN 00 every 6 Medical B-6) 25 mg (six) Branch tablet hours as needed for Nausea and Vomiting (N/V). doxylamine 2-0 Yes [id number] 25mg Take 1 [facility] (UNISOM, 7-06 tablet by ity of DOXYLAMINE, 00:00: mouth [place] ) 25 mg 00 bedtime as Medica l tablet needed for Branch Nausea and Vomiting (N/V). metoclopram 2022-0 Yes [id number] 10mg Take 1 [facility] j[facility] HCl 10 7-06 tablet by [facility] of mg tablet 00:00: mouth [place] 00 every 6 Medical (six) Branch hours as needed for Nausea and Vomiting (N/V). pyridoxine, 2021-0 Yes [id number] 25mg Take 1 [facility] VITAMIN 7-06 tablet by [facility]y of B-6, 00:00: mouth [place] (VITAMIN 00 every 6 Medical B-6) 25 mg (six) Branch tablet hours as needed for Nausea and Vomiting (N/V). doxylamine 2021-0 Yes [id number] 25mg Take 1 [facility] (UNISOM, 7-06 tablet by ity of DOXYLAMINE, 00:00: mouth [place] ) 25 mg 00 bedtime as Medica l tablet needed for Branch Nausea and Vomiting (N/V). metoclopram 2-0 Yes [id number] 10mg Take 1 [facility] HCl 10 7-06 tablet by [facility] of mg tablet 00:00: mouth [place] 00 every 6 Medical (six) Branch hours as needed for Nausea and Vomiting (N/V). pyridoxine, 2022-0 Yes [id number] 25mg Take 1 [facility] VITAMIN 7-06 tablet by [facility] of B-6, 00:00: mouth [place] (VITAMIN 00 every 6 Medical B-6) 25 mg (six) Branch tablet hours as needed for Nausea and Vomiting (N/V). doxylamine 2022-0 Yes [id number] 25mg Take 1 [facility] (UNISOM, 7-06 tablet by [facility] of DOXYLAMINE, 00:00: mouth [place] 25 mg 00 bedtime as Medica l tablet needed for Branch Nausea and Vomiting (N/V). metoclopram Yes [id number] 10mg Take 1 [facility] HCl 10 7- tablet by [facility] of mg tablet 00:00: mouth [place] 00 every 6 Medical (six) Branch hours as needed for Nausea and Vomiting (N/V). pyridoxine, 2022- No [id number] 25mg Take 1 [facility] VITAMIN 01-11 tablet by [facility] of B-6, 00:00: 00:00 mouth [place] (VITAMIN 00 :00 every 6 Medical B-6) 25 mg (six) Branch tablet hours as needed for Nausea and Vomiting (N/V). doxylamine 2022- No [id number] 25mg Take 1 [facility] (UNISOM, 01-11 tablet by ity o f DOXYLAMINE, 00:00: 00:00 [place] 25 mg 00 :00 bedtime as Medica l tablet needed for Branch Nausea and Vomiting (N/V). metoclopram 2022- No [id number] 10mg Take 1 [facility] HCl 10 01-11 tablet by [facility] of mg tablet 00:00: 00:00 mouth [place] 00 :00 every 6 Medical (six) Branch hours as needed for Nausea and Vomiting (N/V). Yes [id number] 1{tbl} Take 1 [facility] vit 6-08 tablet by it[facility] of no.130-iron 00:00: mouth [place] -folic 00 daily. Medical ( Branch VITAMIN) Yes [id number] 1{tbl} Take 1 [facility] vit 6-08 tablet by ity of no.130-iron 00:00: mouth [place] -folic 00 daily. Medical ( Branch VITAMIN) Yes [id number] 1{tbl} Take 1 [facility] vit 6-08 tablet by ity of no.130-iron 00:00: mouth [place] -folic 00 daily. Medical ( Branch VITAMIN) Yes [id number] 1{tbl} Take 1 [facility] vit 6-08 tablet by it[facility] of no.130-iron 00:00: mouth [place] -folic 00 daily. Medical ( Branch VITAMIN) Yes [id number] 1{tbl} Take 1 [facility] vit 6-08 tablet by it[facility] of no.130-iron 00:00: mouth [place] -folic 00 daily. Medical ( Branch VITAMIN) Yes [id number] 1{tbl} Take 1 [facility] vit 6-08 tablet by it[facility] of no.130-iron 00:00: mouth [place] -folic 00 daily. Medical ( Branch VITAMIN) Yes [id number] 1{tbl} Take 1 [facility] vit 6-08 tablet by [facility] of no.130-iron 00:00: mouth [place] -folic 00 daily. Medical ( Branch VITAMIN) Yes [id number] 1{tbl} Take 1 [facility] vit 6-08 tablet by [facility] of no.130-iron 00:00: mouth [place] -folic 00 daily. Medical ( Branch VITAMIN) Yes [id number] 1{tbl} Take 1 [facility] vit 6-08 tablet by [facility] of no.130-iron 00:00: mouth [place] -folic 00 daily. Medical ( Branch VITAMIN) Yes [id number] 1{tbl} Take 1 [facility] vit 6-08 tablet by [facility] of no.130-iron 00:00: mouth [place] -folic 00 daily. Medical ( Branch VITAMIN) Yes [id number] 1{tbl} Take 1 [facility] vit 6-08 tablet by it[facility] of no.130-iron 00:00: mouth [place] -folic 00 daily. Medical ( Branch VITAMIN) Yes [id number] 1{tbl} Take 1 [facility] vit 6-08 tablet by it[facility] of no.130-iron 00:00: mouth [place] -folic 00 daily. Medical ( Branch VITAMIN) Yes [id number] 1{tbl} Take 1 [facility] vit 6-08 tablet by [facility]y of no.130-iron 00:00: mouth [place] -folic 00 daily. Medical ( Branch VITAMIN) Yes [id number] 1{tbl} Take 1 [facility] vit 6-08 tablet by [facility] of no.130-iron 00:00: mouth [place] -folic 00 daily. Medical ( Branch VITAMIN) Yes [id number] 1{tbl} Take 1 [facility] vit 6-08 tablet by [facility] of no.130-iron 00:00: mouth [place] -folic 00 daily. Medical ( Branch VITAMIN) Yes [id number] 1{tbl} Take 1 [facility] vit 6-08 tablet by [facility] of no.130-iron 00:00: mouth [place] -folic 00 daily. Medical ( Branch VITAMIN) Yes [id number] 1{tbl} Take 1 [facility] vit 6-08 tablet by [facility]y of no.130-iron 00:00: mouth [place] -folic 00 daily. Medical ( Branch VITAMIN) Yes [id number] 1{tbl} Take 1 [facility] vit 6-08 tablet by [facility] of no.130-iron 00:00: mouth [place] -folic 00 daily. Medical ( Branch VITAMIN) Yes [id number] 1{tbl} Take 1 [facility] vit 6-08 tablet by ity of no.130-iron 00:00: mouth [place] -folic 00 daily. Medical ( Branch VITAMIN) Yes [id number] 1{tbl} Take 1 [facility] vit 6-08 tablet by ity of no.130-iron 00:00: mouth [place] -folic 00 daily. Medical ( Branch VITAMIN) Yes [id number] 1{tbl} Take 1 [facility] vit 6-08 tablet by ity of no.130-iron 00:00: mouth [place] -folic 00 daily. Medical ( Branch VITAMIN) Yes [id number] 1{tbl} Take 1 [facility] vit 6-08 tablet by ity of no.130-iron 00:00: mouth [place] -folic 00 daily. Medical ( Branch VITAMIN) Yes [id number] 1{tbl} Take 1 [facility] vit 6-08 tablet by [facility]y of no.130-iron 00:00: mouth [place] -folic 00 daily. Medical ( Branch VITAMIN) Yes [id number] 1{tbl} Take 1 [facility] vit 6-08 tablet by ity of no.130-iron 00:00: mouth [place] -folic 00 daily. Medical ( Branch VITAMIN) Yes [id number] 1{tbl} Take 1 [facility] vit 6-08 tablet by ity of no.130-iron 00:00: mouth [place] -folic 00 daily. Medical ( Branch VITAMIN) Yes [id number] 1{tbl} Take 1 [facility] vit 6-08 tablet by ity of no.130-iron 00:00: mouth [place] -folic 00 daily. Medical ( Branch VITAMIN) Yes [id number] 1{tbl} Take 1 [facility] vit 6-08 tablet by ity of no.130-iron 00:00: mouth [place] -folic 00 daily. Medical ( Branch VITAMIN) Yes [id number] 1{tbl} Take 1 [facility] vit 6-08 tablet by ity of no.130-iron 00:00: mouth [place] -folic 00 daily. Medical ( Branch VITAMIN) Yes [id number] 1{tbl} Take 1 [facility] vit 6-08 tablet by ity of no.130-iron 00:00: mouth [place] -folic 00 daily. Medical ( Branch VITAMIN) Yes [id number] 1{tbl} Take 1 [facility] vit 6-08 tablet by ity of no.130-iron 00:00: mouth [place] -folic 00 daily. Medical ( Branch VITAMIN) Yes [id number] 1{tbl} Take 1 [facility] vit 6-08 tablet by ity of no.130-iron 00:00: mouth [place] -folic 00 daily. Medical ( Branch VITAMIN) Yes [id number] 1{tbl} Take 1 [facility] vit 6-08 tablet by ity of no.130-iron 00:00: mouth [place] -folic 00 daily. Medical ( Branch VITAMIN) Yes [id number] 1{tbl} Take 1 [facility] vit 6-08 tablet by ity of no.130-iron 00:00: mouth [place] -folic 00 daily. Medical ( Branch VITAMIN) 2022- No [id number] 1{tbl} Take 1 [facility] vit 6-08 01-27 [...] TAKE 1 [facility] (Diflucan) 2-01 TABLET BY [facility] 150 MG 00:00: MOUTH 1 tablet 00 TIME NOW FOR 1 DOSE fluconazole Yes 1{tbl} QD Take 1 [facility] (Diflucan) 8-19 tablet by [facility] th 200 MG 00:00: mouth 1 tablet 00 (one) time each day. fluconazole Yes 200mg QD Take 200 U T (Diflucan) 8-19 mg by [facility] 200 MG 00:00: mouth 1 tablet 00 (one) time each day. amoxicillin Yes TAKE 1 [facility] (Amoxil) 8-06 [facility]SULE [facility] 500 MG 00:00: MOUTH capsule 00 EVERY 8 HOURS UNTIL ALL TAKEN ibuprofen Yes 800mg Take 800 [facility] 800 MG 8-06 mg by [facility] tablet 00:00: mouth 00 every 8 (eight) hours if needed. neomycin-po Yes [facility] lymyxin-dex 6-29 [facility] amethasone 00:00: (Maxitrol) 00 3.5-53122-3 .1 ophthalmic suspension clindamycin Yes APPLY [facility] -benzoyl 6-21 TOPICALLY Health peroxide 00:00: TO ACNE (BenzacLIN) 00 AREA TWICE gel DAILY clindamycin Yes [facility] -benzoyl 4-20 [facility] peroxide 00:00: (Duac) 00 1.2-5% gel doxycycline 0 Yes 100mg Q.5D Take 100 U T (Vibra-Tabs 4-20 mg by Health ) 100 MG 00:00: mouth 2 tablet 00 (two) times a day. doxycycline doxycycline No doxycyclin [place] hyclate 100 hyclate 100 e hyclate [facility] mg tablet mg tablet 100 mg ty TAKE 1 TAKE 1 tablet [facility] TABLET BY TABLET BY TAKE 1 l MOUTH ONCE MOUTH ONCE TABLET BY Clinics DAILY DAILY MOUTH ONCE DAILY neomycin-po neomycin-po No neomycin-p [place] lymyxin-dex lymyxin-dex olymyxin-d [facility] ameth 3.5 ameth [...] EVERY 3-4 HOURS FOR 7 DAYS clindamycin clindamycin No clindamyci [place] 1 %-benzoyl 1 %-benzoyl n 1 C [...] EVENING doxycycline doxycycline No 1 BID doxycyclin [place] hyclate 100 hyclate 100 e hyclate [facility] mg tablet mg tablet 100 mg ty Take 1 Take 1 tablet [facility] tablet tablet Take 1 l twice a day twice a day tablet Clinics by oral by oral twice a route. route. day by oral route. clindamycin clindamycin No clindamyci [place] 1 %-benzoyl 1 %-benzoyl n 1 C [facility] peroxide 5 peroxide 5 %-benzoyl ty % topical % topical peroxide 5 [facility] gel Apply gel Apply % topical l to acne to acne gel Apply Clin ics areas twice areas twice to acne a day a day areas twice a day Immunizations Ordered Immunization Filled Immunization Date Status Commen ts Source Name Name [facility] 2022-06-19 Completed [facility]00 [facility] 2022-06-19 Completed [facility] 00:00:00 [facility] 2022-06-19 Completed [facility] 00:00:00 [facility] TD 2022-06-19 Completed [facility] 00:00:00 [facility] [facility] TD 2022-06-19 Completed [facility] 00:00:00 [facility] [facility] TD 2022-06-19 Completed [facility] 00:00:00 [facility] 2022-06-19 Completed [facility] 00[facility]00:00 [facility] 2022-06-19 Completed [facility] 00:00:00 [facility] 2022-06-19 Completed [facility] 00:00:00 [facility] [facility] TD 2022-06-19 Completed [facility] of 00:00:00 [facility] [facility] TD 2022-06-19 Completed [facility] 00[facility]00:00 [facility] [facility] TD 2022-06-19 Completed [facility] 00[facility]00:00 [facility] [facility] TD 2022-06-19 Completed [facility] 00[facility]00:00 [facility] [facility] TD 2022-06-19 Completed [facility] 00:00:00 [facility] [facility] TD 2022-06-19 Completed [facility] 00:00:00 [facility] [facility] TD 2022-06-19 Completed [facility] of 00[facility]00:00 [facility] [facility] TDAP 2022-06-19 Completed [facility] of 00:00:00 [facility] [facility] TDAP 2022-06-19 Completed [facility] 00:00:00 [facility] [facility] TDAP 2022-06-19 Completed [facility] of 00:00:00 [facility] [facility] TDAP 2022-06-19 Completed [facility] of 00[facility]00:00 [facility] [facility] TD 2022-06-19 Completed [facility] of 00:00:00 [facility] [facility] TDAP 2022-06-19 Completed [facility] of 00:00:00 [facility] [facility] TDAP 2022-06-19 Completed [facility] of 00:00:00 [facility] [facility] TDAP 2022-06-19 Completed [facility] 00:00:00 [place] [facility] TDAP (ADACEL) 2018-11-28 Completed [facility] of VACCINE 00:00:00 [facility] TDAP (ADACEL) 2018-11-28 Completed [facility] VACCINE 00:00:00 [facility] TDAP (ADACEL) 2018-11-28 Completed [facility] VACCINE 00:00:00 [facility] TDAP (ADACEL) 2018-11-28 Completed [facility] VACCINE 00:00:00 [facility] TDAP (ADACEL) 2018-11-28 Completed [facility] VACCINE 00:00:00 [facility] TDAP (ADACEL) 2018-11-28 Completed [facility] of VACCINE 00:00:00 [facility] TDAP (ADACEL) 2018-11-28 Completed [facility] VACCINE 00:00:00 [facility] TDAP (ADACEL) 2018-11-28 Completed [facility] VACCINE 00:00:00 [facility] TDAP (ADACEL) 2018-11-28 Completed [facility] VACCINE 00:00:00 [facility] TDAP (ADACEL) 2018-11-28 Completed [facility] VACCINE 00:00:00 [facility] TDAP (ADACEL) 2018-11-28 Completed [facility] VACCINE 00:00:00 [facility] TDAP (ADACEL) 2018-11-28 Completed [facility] VACCINE 00:00:00 [facility] TDAP (ADACEL) 2018-11-28 Completed [facility] VACCINE 00:00:00 [facility] TDAP (ADACEL) 2018-11-28 Completed [facility] VACCINE 00:00:00 [facility] TDAP (ADACEL) 2018-11-28 Completed [facility] VACCINE 00:00:00 [facility] TDAP (ADACEL) 2018-11-28 Completed [facility] VACCINE 00:00:00 [facility] TDAP (ADACEL) 2018-11-28 Completed [facility] VACCINE 00:00:00 [facility] TDAP (ADACEL) 2018-11-28 Completed [facility] VACCINE 00:00:00 [facility] TDAP (ADACEL) 2018-11-28 Completed [facility] VACCINE 00:00:00 [facility] TDAP (ADACEL) 2018-11-28 Completed [facility] VACCINE 00:00:00 [facility] TDAP (ADACEL) 2018-11-28 Completed [facility] VACCINE 00:00:00 [facility] TDAP (ADACEL) 2018-11-28 Completed [facility] VACCINE 00:00:00 [facility] TDAP (ADACEL) 2018-11-28 Completed [facility] VACCINE 00:00:00 [facility] TDAP (ADACEL) 2018-11-28 Completed [facility] VACCINE 00:00:00 [facility] TDAP (ADACEL) 2018-11-28 Completed [facility] VACCINE 00:00:00 [facility] TDAP (ADACEL) 2018-11-28 Completed [facility] VACCINE 00:00:00 [facility] TDAP (ADACEL) 2018-11-28 Completed [facility] VACCINE 00:00:00 [facility] TDAP (ADACEL) 2018-11-28 Completed [facility] VACCINE 00:00:00 [facility] TDAP (ADACEL) 2018-11-28 Completed [facility] VACCINE 00:00:00 [facility] TDAP (ADACEL) 2018-11-28 Completed [facility] VACCINE 00:00:00 [facility] TDAP (ADACEL) 2018-11-28 Completed [facility] VACCINE 00:00:00 [facility] TDAP (ADACEL) 2018-11-28 Completed [facility] VACCINE 00:00:00 [facility] TDAP (ADACEL) 2018-11-28 Completed [facility] VACCINE 00:00:00 [facility] TDAP (ADACEL) 2018-11-28 Completed [facility] VACCINE 00:00:00 [facility] TDAP (ADACEL) 2018-11-28 Completed [facility] VACCINE 00:00:00 [facility] TDAP (ADACEL) 2018-11-28 Completed [facility] VACCINE 00:00:00 [facility] TDAP (ADACEL) 2018-11-28 Completed [facility] VACCINE 00:00:00 [facility] Meningococcal 2014-02-09 Completed [facility] Vaccine 00:00:00 [facility] TDAP 2014-02-09 Completed [facility] 00:00:00 [facility] Varicella 2014-02-09 Completed [facility] (varivax)(chicken 00:00:00 [place] [facility] pox) [facility] Meningococcal 2014-02-09 Completed [facility] Vaccine 00:00:00 [facility] TDAP 2014-02-09 Completed [facility] 00:00:00 [facility] Varicella 2014-02-09 Completed [facility] (varivax)(chicken 00:00:00 [place] [facility] pox) [facility] Meningococcal 2014-02-09 Completed [facility] Vaccine 00:00:00 [facility] TDAP 2014-02-09 Completed [facility] 00:00:00 [facility] Varicella 2014-02-09 Completed [facility] (varivax)(chicken 00:00:00 [place] [facility] pox[facility] Meningococcal 2014-02-09 Completed [facility] Vaccine 00:00:00 [facility] TDAP 2014-02-09 Completed [facility] 00:00:00 [facility] Varicella 2014-02-09 Completed [facility] (varivax)(chicken 00:00:00 [place] [facility] pox[facility] Meningococcal 2014-02-09 Completed [facility] Vaccine 00:00:00 [facility] TDAP 2014-02-09 Completed [facility] 00:00:00 [facility] Varicella 2014-02-09 Completed [facility] (varivax)(chicken 00:00:00 [place] [facility] pox) [facility] Meningococcal 2014-02-09 Completed [facility] Vaccine 00:00:00 [facility] TDAP 2014-02-09 Completed [facility] 00:00:00 [facility] Varicella 2014-02-09 Completed [facility] (varivax)(chicken 00:00:00 [place] [facility] pox) [facility] Meningococcal 2014-02-09 Completed [facility] Vaccine 00:00:00 [facility] TDAP 2014-02-09 Completed [facility] 00:00:00 [facility] Varicella 2014-02-09 Completed [facility] (varivax)(chicken 00:00:00 [place] [facility] pox) [facility] Meningococcal 2014-02-09 Completed [facility] Vaccine 00:00:00 [facility] TDAP 2014-02-09 Completed [facility] 00:00:00 [facility] Varicella 2014-02-09 Completed [facility] (varivax)(chicken 00:00:00 [place] [facility] pox) [facility] Meningococcal 2014-02-09 Completed [facility] Vaccine 00:00:00 [facility] TDAP 2014-02-09 Completed [facility] 00:00:00 [facility] Varicella 2014-02-09 Completed [facility] (varivax)(chicken 00:00:00 [place] [facility] pox) [facility] Meningococcal 2014-02-09 Completed [facility] Vaccine 00:00:00 [facility] TDAP 2014-02-09 Completed [facility] 00:00:00 [facility] Varicella 2014-02-09 Completed [facility] (varivax)(chicken 00:00:00 [place] [facility] pox[facility] Meningococcal 2014-02-09 Completed [facility] Vaccine 00:00:00 [facility] TDAP 2014-02-09 Completed [facility] 00:00:00 [facility] Varicella 2014-02-09 Completed [facility] (varivax)(chicken 00:00:00 [place] [facility] pox[facility] Meningococcal 2014-02-09 Completed [facility] Vaccine 00:00:00 [facility] TDAP 2014-02-09 Completed [facility] 00:00:00 [facility] Varicella 2014-02-09 Completed [facility] (varivax)(chicken 00:00:00 [place] [facility] pox[facility] Meningococcal 2014-02-09 Completed [facility] Vaccine 00:00:00 [facility] TDAP 2014-02-09 Completed [facility] 00:00:00 [facility] Varicella 2014-02-09 Completed [facility] (varivax)(chicken 00:00:00 [place] [facility] pox[facility] Meningococcal 2014-02-09 Completed [facility] Vaccine 00:00:00 [facility] TDAP 2014-02-09 Completed [facility] 00:00:00 [facility] Varicella 2014-02-09 Completed [facility] (varivax)(chicken 00:00:00 [place] [facility] pox) [facility] Meningococcal 2014-02-09 Completed [facility] Vaccine 00:00:00 [facility] TDAP 2014-02-09 Completed [facility] 00:00:00 [facility] Varicella 2014-02-09 Completed [facility] (varivax)(chicken 00:00:00 [place] [facility] pox) [facility] Meningococcal 2014-02-09 Completed [facility] Vaccine 00:00:00 [facility] TDAP 2014-02-09 Completed [facility] 00:00:00 [facility] Varicella 2014-02-09 Completed [facility] (varivax)(chicken 00:00:00 [place] [facility] pox) [facility] Meningococcal 2014-02-09 Completed [facility] Vaccine 00:00:00 [facility] TDAP 2014-02-09 Completed [facility] 00:00:00 [facility] Varicella 2014-02-09 Completed [facility] (varivax)(chicken 00:00:00 [place] [facility] pox) [facility] Meningococcal 2014-02-09 Completed [facility] Vaccine 00:00:00 [facility] TDAP 2014-02-09 Completed [facility] 00:00:00 [facility] Varicella 2014-02-09 Completed [facility] (varivax)(chicken 00:00:00 [place] [facility] pox) [facility] Meningococcal 2014-02-09 Completed [facility] Vaccine 00:00:00 [facility] TDAP 2014-02-09 Completed [facility] 00:00:00 [facility] Varicella 2014-02-09 Completed [facility] (varivax)(chicken 00:00:00 [place] [facility] pox) [facility] Meningococcal 2014-02-09 Completed [facility] Vaccine 00:00:00 [facility] TDAP 2014-02-09 Completed [facility] 00:00:00 [facility] Varicella 2014-02-09 Completed [facility] (varivax)(chicken 00:00:00 [place] [facility] pox) [facility] Meningococcal 2014-02-09 Completed [facility] Vaccine 00:00:00 [facility] TDAP 2014-02-09 Completed [facility] 00:00:00 [facility] Varicella 2014-02-09 Completed [facility] (varivax)(chicken 00:00:00 [place] [facility] pox) [facility] Meningococcal 2014-02-09 Completed [facility] Vaccine 00:00:00 [facility] TDAP 2014-02-09 Completed [facility] 00:00:00 [facility] Varicella 2014-02-09 Completed [facility] (varivax)(chicken 00:00:00 [place] [facility] pox) [facility] Meningococcal 2014-02-09 Completed [facility] Vaccine 00:00:00 [facility] TDAP 2014-02-09 Completed [facility] 00:00:00 [facility] Varicella 2014-02-09 Completed [facility] (varivax)(chicken 00:00:00 [place] [facility] pox) [facility] Meningococcal 2014-02-09 Completed [facility] Vaccine 00:00:00 [facility] TDAP 2014-02-09 Completed [facility] 00:00:00 [facility] Varicella 2014-02-09 Completed [facility] (varivax)(chicken 00:00:00 [place] [facility] pox) [facility] Meningococcal 2014-02-09 Completed [facility] Vaccine 00:00:00 [facility] TDAP 2014-02-09 Completed [facility] 00:00:00 [facility] Varicella 2014-02-09 Completed [facility] (varivax)(chicken 00:00:00 [place] [facility] pox) [facility] Meningococcal 2014-02-09 Completed [facility] Vaccine 00:00:00 [facility] TDAP 2014-02-09 Completed [facility] 00:00:00 [facility] Varicella 2014-02-09 Completed [facility] (varivax)(chicken 00:00:00 [place] [facility] pox) [facility] Meningococcal 2014-02-09 Completed [facility] Vaccine 00:00:00 [facility] TDAP 2014-02-09 Completed [facility] 00:00:00 [facility] Varicella 2014-02-09 Completed [facility] (varivax)(chicken 00:00:00 [place] [facility] pox) [facility] Meningococcal 2014-02-09 Completed [facility] Vaccine 00:00:00 [facility] TDAP 2014-02-09 Completed [facility] 00:00:00 [facility] Varicella 2014-02-09 Completed [facility] (varivax)(chicken 00:00:00 [place] [facility] pox) [facility] Meningococcal 2014-02-09 Completed [facility] Vaccine 00:00:00 [facility] TDAP 2014-02-09 Completed [facility] 00:00:00 [facility] Varicella 2014-02-09 Completed [facility] (varivax)(chicken 00:00:00 [place] [facility] pox) [facility] Meningococcal 2014-02-09 Completed [facility] Vaccine 00:00:00 [facility] TDAP 2014-02-09 Completed [facility] 00:00:00 [facility] Varicella 2014-02-09 Completed [facility] (varivax)(chicken 00:00:00 [place] [facility] pox) [facility] Meningococcal 2014-02-09 Completed [facility] Vaccine 00:00:00 [facility] TDAP 2014-02-09 Completed [facility] 00:00:00 [facility] Varicella 2014-02-09 Completed [facility] (varivax)(chicken 00:00:00 [place] [facility] pox) [facility] Meningococcal 2014-02-09 Completed [facility] Vaccine 00:00:00 [facility] TDAP 2014-02-09 Completed [facility] 00:00:00 [facility] Varicella 2014-02-09 Completed [facility] (varivax)(chicken 00:00:00 [place] [facility] pox) [facility] Meningococcal 2014-02-09 Completed [facility] Vaccine 00:00:00 [facility] TDAP 2014-02-09 Completed [facility] 00:00:00 [facility] Varicella 2014-02-09 Completed [facility] (varivax)(chicken 00:00:00 [place] [facility] pox) [facility] Meningococcal 2014-02-09 Completed [facility] Vaccine 00:00:00 [facility] TDAP 2014-02-09 Completed [facility] 00:00:00 [facility] Varicella 2014-02-09 Completed [facility] (varivax)(chicken 00:00:00 [place] [facility] pox) [facility] Meningococcal 2014-02-09 Completed [facility] Vaccine 00:00:00 [facility] TDAP 2014-02-09 Completed [facility] 00:00:00 [facility] Varicella 2014-02-09 Completed [facility] (varivax)(chicken 00:00:00 [place] [facility] pox) [facility] Meningococcal 2014-02-09 Completed [facility] Vaccine 00:00:00 [facility] TDAP 2014-02-09 Completed [facility] 00:00:00 [facility] Varicella 2014-02-09 Completed [facility] (varivax)(chicken 00:00:00 [place] [facility] ed[facility] pox) Branch Meningococcal 2014-02-09 Completed [facility] Vaccine 00:00:00 [facility] TDAP 2014-02-09 Completed [facility] 00:00:00 [facility] Varicella 2014-02-09 Completed [facility] of (varivax)(chicken 00:00:00 [place] [facility] edical pox) Branch H1n1 Vaccine 2009-06-24 Completed [facility] o f 00:00:00 [facility] H1n1 Vaccine 2009-06-24 Completed [facility] o f 00:00:00 [facility] H1n1 Vaccine 2009-06-24 Completed [facility] o f 00:00:00 [facility] H1n1 Vaccine 2009-06-24 Completed [facility] o f 00:00:00 [facility] H1n1 Vaccine 2009-06-24 Completed [facility] f 00:00:00 [facility] H1n1 Vaccine 2009-06-24 Completed [facility] o f 00:00:00 [facility] H1n1 Vaccine 2009-06-24 Completed [facility] o f 00:00:00 [facility] H1n1 Vaccine 2009-06-24 Completed [facility] o f 00:00:00 [facility] H1n1 Vaccine 2009-06-24 Completed [facility] o f 00:00:00 [facility] H1n1 Vaccine 2009-06-24 Completed [facility] o f 00:00:00 [facility] H1n1 Vaccine 2009-06-24 Completed [facility] o f 00:00:00 [facility] H1n1 Vaccine 2009-06-24 Completed [facility] o f 00:00:00 [facility] H1n1 Vaccine 2009-06-24 Completed [facility] [...] Vaccine 2009-06-24 Completed [facility] f 00:00:00 [facility] HEPATITIS A 2006-02-12 Completed [facility] 00:00:00 [facility] HEPATITIS A 2006-02-12 Completed [facility] 00:00:00 [facility] HEPATITIS A 2006-02-12 Completed [facility] 00:00:00 [facility] HEPATITIS A 2006-02-12 Completed [facility] 00:00:00 [facility] HEPATITIS A 2006-02-12 Completed [facility] 00:00:00 [facility] HEPATITIS A 2006-02-12 Completed [facility] 00:00:00 [place] [facility] HEPATITIS A 2006-02-12 Completed [facility] 00:00:00 [place] [facility] HEPATITIS A 2006-02-12 Completed [facility] 00:00:00 [facility] HEPATITIS A 2006-02-12 Completed [facility] 00:00:00 [facility] HEPATITIS A 2006-02-12 Completed [facility] 00:00:00 [facility] HEPATITIS A 2006-02-12 Completed [facility] 00:00:00 [facility] [place] [facility] HEPATITIS A 2006-02-12 Completed [facility] 00:00:00 [facility] [place] [facility] HEPATITIS A 2006-02-12 Completed [facility] 00:00:00 [facility] [place] [facility] HEPATITIS A 2006-02-12 Completed [facility] 00:00:00 [facility] [place] [facility] HEPATITIS A 2006-02-12 Completed [facility] 00:00:00 [facility] [place] [facility] HEPATITIS A 2006-02-12 Completed [facility] 00:00:00 [facility] [place] [facility] HEPATITIS A 2006-02-12 Completed [facility] 00:00:00 [facility] [place] [facility] HEPATITIS A 2006-02-12 Completed [facility] 00:00:00 [facility] [place] [facility] HEPATITIS A 2006-02-12 Completed [facility] 00:00:00 [facility] [place] [facility] HEPATITIS A 2006-02-12 Completed [facility] 00:00:00 [place] [facility] HEPATITIS A 2006-02-12 Completed [facility] 00:00:00 [place] [facility] HEPATITIS A 2006-02-12 Completed [facility] 00:00:00 [facility] HEPATITIS A 2006-02-12 Completed [facility] 00:00:00 [facility] HEPATITIS A 2006-02-12 Completed [facility] 00:00:00 [facility] HEPATITIS A 2006-02-12 Completed [facility] 00:00:00 [facility] HEPATITIS A 2006-02-12 Completed [facility] 00:00:00 [facility] HEPATITIS A 2006-02-12 Completed [facility] 00:00:00 [place] [facility] HEPATITIS A 2006-02-12 Completed [facility] 00:00:00 [place] [facility] HEPATITIS A 2006-02-12 Completed [facility] 00:00:00 [facility] HEPATITIS A 2006-02-12 Completed [facility] 00:00:00 [facility] HEPATITIS A 2006-02-12 Completed [facility] 00:00:00 [facility] HEPATITIS A 2006-02-12 Completed [facility] 00:00:00 [facility] HEPATITIS A 2006-02-12 Completed [facility] 00:00:00 [facility] HEPATITIS A 2006-02-12 Completed [facility] 00:00:00 [facility] HEPATITIS A 2006-02-12 Completed [facility] 00:00:00 [facility] HEPATITIS A 2006-02-12 Completed [facility] 00:00:00 [facility] HEPATITIS A 2006-02-12 Completed [facility] 00:00:00 [facility] Pneumococcal 7 2005-07-17 Completed University [...] HEPATITIS A 2005-03-14 Completed [facility] 00:00:00 [place] [facility] Pneumococcal 7 2005-03-14 Completed [facility] of Conjugate, PCV7 00:00:00 [place] [facility] (Prevnar7) [facility] HEPATITIS A 2005-03-14 Completed [facility] 00:00:00 [place] [facility] Pneumococcal 7 2005-03-14 Completed [facility] Conjugate, PCV7 00:00:00 [place] [facility] (Prevnar7) [facility] HEPATITIS A 2005-03-14 Completed [facility] 00:00:00 [place] [facility] Pneumococcal 7 2005-03-14 Completed [facility] Conjugate, PCV7 00:00:00 [place] [facility] (Prevnar7) [facility] HEPATITIS A 2005-03-14 Completed [facility] 00:00:00 [place] [facility] Pneumococcal 7 2005-03-14 Completed [facility] Conjugate, PCV7 00:00:00 [place] [facility] (Prevnar7) [facility] HEPATITIS A 2005-03-14 Completed [facility] 00:00:00 [place] [facility] Pneumococcal 7 2005-03-14 Completed [facility] Conjugate, PCV7 00:00:00 [place] [facility] (Prevnar7) [facility] HEPATITIS A 2005-03-14 Completed [facility] 00:00:00 [place] [facility] Pneumococcal 7 2005-03-14 Completed [facility] Conjugate, PCV7 00:00:00 [place] [facility] (Prevnar7) [facility] HEPATITIS A 2005-03-14 Completed [facility] 00:00:00 [place] [facility] Pneumococcal 7 2005-03-14 Completed [facility] Conjugate, PCV7 00:00:00 [place] [facility] (Prevnar7) [facility] HEPATITIS A 2005-03-14 Completed [facility] 00:00:00 [place] [facility] Pneumococcal 7 2005-03-14 Completed [facility] Conjugate, PCV7 00:00:00 [place] [facility] (Prevnar7) [facility] HEPATITIS A 2005-03-14 Completed [facility] 00:00:00 [place] [facility] Pneumococcal 7 2005-03-14 Completed [facility] Conjugate, PCV7 00:00:00 [place] [facility] (Prevnar7) [facility] HEPATITIS A 2005-03-14 Completed [facility] 00:00:00 [place] [facility] Pneumococcal 7 2005-03-14 Completed [facility] Conjugate, PCV7 00:00:00 [place] [facility] (Prevnar7) [facility] HEPATITIS A 2005-03-14 Completed [facility] 00:00:00 [facility] Pneumococcal 7 2005-03-14 Completed [facility] Conjugate, PCV7 00:00:00 [place] [facility] (Prevnar7) [facility] HEPATITIS A 2005-03-14 Completed [facility] 00:00:00 [facility] Pneumococcal 7 2005-03-14 Completed [facility] Conjugate, PCV7 00:00:00 [place] [facility] (Prevnar7) [facility] HEPATITIS A 2005-03-14 Completed [facility] 00:00:00 [facility] Pneumococcal 7 2005-03-14 Completed [facility] Conjugate, PCV7 00:00:00 [place] [facility] (Prevnar7) [facility] HEPATITIS A 2005-03-14 Completed [facility] 00:00:00 [facility] Pneumococcal 7 2005-03-14 Completed [facility] Conjugate, PCV7 00:00:00 [place] [facility] (Prevnar7) [facility] HEPATITIS A 2005-03-14 Completed [facility] 00:00:00 [facility] Pneumococcal 7 2005-03-14 Completed [facility] Conjugate, PCV7 00:00:00 [place] [facility] (Prevnar7) [facility] HEPATITIS A 2005-03-14 Completed [facility] 00:00:00 [facility] Pneumococcal 7 2005-03-14 Completed [facility] Conjugate, PCV7 00:00:00 [place] [facility] (Prevnar7) [facility] HEPATITIS A 2005-03-14 Completed [facility] 00:00:00 [facility] Pneumococcal 7 2005-03-14 Completed [facility] Conjugate, PCV7 00:00:00 [place] [facility] (Prevnar7) [facility] HEPATITIS A 2005-03-14 Completed [facility] 00:00:00 [place] [facility] Pneumococcal 7 2005-03-14 Completed [facility] Conjugate, PCV7 00:00:00 [place] [facility] (Prevnar7) [facility] HEPATITIS A 2005-03-14 Completed [facility] 00:00:00 [place] [facility] Pneumococcal 7 2005-03-14 Completed [facility] Conjugate, PCV7 00:00:00 [place] [facility] (Prevnar7) [facility] HEPATITIS A 2005-03-14 Completed [facility] 00:00:00 [place] [facility] Pneumococcal 7 2005-03-14 Completed [facility] Conjugate, PCV7 00:00:00 [place] [facility] (Prevnar7) [facility] HEPATITIS A 2005-03-14 Completed [facility] 00:00:00 [facility] Pneumococcal 7 2005-03-14 Completed [facility] Conjugate, PCV7 00:00:00 [place] [facility] (Prevnar7) [facility] HEPATITIS A 2005-03-14 Completed [facility] 00:00:00 [facility] Pneumococcal 7 2005-03-14 Completed [facility] Conjugate, PCV7 00:00:00 [place] [facility] (Prevnar7) [facility] HEPATITIS A 2005-03-14 Completed [facility] 00:00:00 [facility] Pneumococcal 7 2005-03-14 Completed [facility] Conjugate, PCV7 00:00:00 [place] [facility] (Prevnar7) [place] HEPATITIS A 2005-03-14 Completed [facility] 00:00:00 [facility] Pneumococcal 7 2005-03-14 Completed [facility] Conjugate, PCV7 00:00:00 [place] [facility] (Prevnar7) [facility] HEPATITIS A 2005-03-14 Completed [facility] 00:00:00 [facility] Pneumococcal 7 2005-03-14 Completed [facility] Conjugate, PCV7 00:00:00 [place] [facility] (Prevnar7) [facility] HEPATITIS A 2005-03-14 Completed [facility] 00:00:00 [facility] Pneumococcal 7 2005-03-14 Completed [facility] Conjugate, PCV7 00:00:00 [place] [facility] (Prevnar7) [facility] HEPATITIS A 2005-03-14 Completed [facility] 00:00:00 [place] [facility] Pneumococcal 7 2005-03-14 Completed [facility] Conjugate, PCV7 00:00:00 [place] [facility] (Prevnar7) [facility] HEPATITIS A 2005-03-14 Completed [facility] 00:00:00 [facility] [place] [facility] Pneumococcal 7 2005-03-14 Completed [facility] Conjugate, PCV7 00:00:00 [place] [facility] (Prevnar7) [facility] HEPATITIS A 2005-03-14 Completed [facility] 00:00:00 [facility] [place] [facility] Pneumococcal 7 2005-03-14 Completed [facility] Conjugate, PCV7 00:00:00 [place] [facility] (Prevnar7) [facility] HEPATITIS A 2005-03-14 Completed [facility] 00:00:00 [place] [facility] Pneumococcal 7 2005-03-14 Completed [facility] Conjugate, PCV7 00:00:00 [place] [facility] (Pre[facility] HEPATITIS A 2005-03-14 Completed [facility] 00:00:00 [facility] Pneumococcal 7 2005-03-14 Completed [facility] Conjugate, PCV7 00:00:00 [place] [facility] (Prevnar7) [facility] HEPATITIS A 2005-03-14 Completed [facility] 00:00:00 [facility] Pneumococcal 7 2005-03-14 Completed [facility] Conjugate, PCV7 00:00:00 [place] [facility] (Prevnar7) [facility] HEPATITIS A 2005-03-14 Completed [facility] 00:00:00 [facility] Pneumococcal 7 2005-03-14 Completed [facility] Conjugate, PCV7 00:00:00 [place] [facility] (Prevnar7) [facility] HEPATITIS A 2005-03-14 Completed [facility] 00:00:00 [facility] Pneumococcal 7 2005-03-14 Completed [facility] Conjugate, PCV7 00:00:00 [facility] (Prevnar7) [facility] HEPATITIS A 2005-03-14 Completed [facility] 00:00:00 [facility] Pneumococcal 7 2005-03-14 Completed [facility] Conjugate, PCV7 00:00:00 [place] [facility] (Prevnar7) [facility] HEPATITIS A 2005-03-14 Completed [facility] 00:00:00 [facility] Pneumococcal 7 2005-03-14 Completed [facility] Conjugate, PCV7 00:00:00 [place] [facility] (Prevnar7) [facility] HEPATITIS A 2005-03-14 Completed [facility] 00:00:00 [facility] Pneumococcal 7 2005-03-14 Completed [facility] Conjugate, PCV7 00:00:00 [place] [facility] (Prevnar7[facility] DTAP 2004-11-02 Completed [facility] 00:00:00 [facility] MMR 2004-11-02 Completed [facility] 00:00:00 [facility] Polio (IPV/OPV) 2004-11-02 Completed [facility] 00:00:00 [facility] DTAP 2004-11-02 Completed [facility] 00:00:00 [facility] MMR 2004-11-02 Completed [facility] 00:00:00 [facility] Polio (IPV/OPV) 2004-11-02 Completed [facility] 00:00:00 [facility] DTAP 2004-11-02 Completed [facility] 00:00:00 [facility] MMR 2004-11-02 Completed [facility] 00:00:00 [facility] Polio (IPV/OPV) 2004-11-02 Completed [facility] 00:00:00 [facility] DTAP 2004-11-02 Completed [facility] 00:00:00 [facility] MMR 2004-11-02 Completed [facility] 00:00:00 [facility] Polio (IPV/OPV) 2004-11-02 Completed [facility] 00:00:00 [facility] DTAP 2004-11-02 Completed [facility] 00:00:00 [facility] MMR 2004-11-02 Completed [facility] 00:00:00 [facility] Polio (IPV/OPV) 2004-11-02 Completed [facility] 00:00:00 [facility] DTAP 2004-11-02 Completed [facility] 00:00:00 [facility] MMR 2004-11-02 Completed [facility] 00:00:00 [facility] Polio (IPV/OPV) 2004-11-02 Completed [facility] 00:00:00 [facility] DTAP 2004-11-02 Completed [facility] 00:00:00 [facility] MMR 2004-11-02 Completed [facility] 00:00:00 [facility] Polio (IPV/OPV) 2004-11-02 Completed [facility] 00:00:00 [facility] DTAP 2004-11-02 Completed [facility] 00:00:00 [facility] MMR 2004-11-02 Completed [facility] 00:00:00 [facility] Polio (IPV/OPV) 2004-11-02 Completed [facility] 00:00:00 [facility] DTAP 2004-11-02 Completed [facility] 00:00:00 [facility] MMR 2004-11-02 Completed [facility] 00:00:00 [facility] Polio (IPV/OPV) 2004-11-02 Completed [facility] 00:00:00 [facility] DTAP 2004-11-02 Completed [facility] 00:00:00 [facility] MMR 2004-11-02 Completed [facility] 00:00:00 [facility] Polio (IPV/OPV) 2004-11-02 Completed [facility] 00:00:00 [facility] DTAP 2004-11-02 Completed [facility] 00:00:00 [facility] MMR 2004-11-02 Completed [facility] 00:00:00 [facility] Polio (IPV/OPV) 2004-11-02 Completed [facility] 00:00:00 [facility] DTAP 2004-11-02 Completed [facility] 00:00:00 [facility] MMR 2004-11-02 Completed [facility] 00:00:00 [facility] Polio (IPV/OPV) 2004-11-02 Completed [facility] 00:00:00 [facility] DTAP 2004-11-02 Completed [facility] 00:00:00 [facility] MMR 2004-11-02 Completed [facility] 00:00:00 [facility] Polio (IPV/OPV) 2004-11-02 Completed [facility] 00:00:00 [facility] DTAP 2004-11-02 Completed [facility] 00:00:00 [facility] MMR 2004-11-02 Completed [facility] 00:00:00 [facility] Polio (IPV/OPV) 2004-11-02 Completed [facility] of 00:00:00 [facility] DTAP 2004-11-02 Completed [facility] 00:00:00 [facility] MMR 2004-11-02 Completed [facility] of 00:00:00 [facility] Polio (IPV/OPV) 2004-11-02 Completed [facility] 00:00:00 [facility] DTAP 2004-11-02 Completed [facility] 00:00:00 [facility] MMR 2004-11-02 Completed [facility] 00:00:00 [facility] Polio (IPV/OPV) 2004-11-02 Completed [facility] of 00:00:00 [facility] DTAP 2004-11-02 Completed [facility] 00:00:00 [facility] MMR 2004-11-02 Completed [facility] 00:00:00 [facility] Polio (IPV/OPV) 2004-11-02 Completed [facility] of 00:00:00 [facility] DTAP 2004-11-02 Completed [facility] 00:00:00 [facility] MMR 2004-11-02 Completed [facility] 00:00:00 [facility] Polio (IPV/OPV) 2004-11-02 Completed [facility] 00:00:00 [facility] DTAP 2004-11-02 Completed [facility] 00:00:00 [facility] MMR 2004-11-02 Completed [facility] 00:00:00 [facility] Polio (IPV/OPV) 2004-11-02 Completed [facility] 00:00:00 [facility] DTAP 2004-11-02 Completed [facility] 00:00:00 [facility] MMR 2004-11-02 Completed [facility] 00:00:00 [facility] Polio (IPV/OPV) 2004-11-02 Completed [facility] of 00:00:00 [facility] DTAP 2004-11-02 Completed [facility] 00:00:00 [facility] MMR 2004-11-02 Completed [facility] 00:00:00 [facility] Polio (IPV/OPV) 2004-11-02 Completed [facility] 00:00:00 [facility] DTAP 2004-11-02 Completed [facility] 00:00:00 [facility] MMR 2004-11-02 Completed [facility] 00:00:00 [facility] Polio (IPV/OPV) 2004-11-02 Completed [facility] 00:00:00 [facility] DTAP 2004-11-02 Completed [facility] 00:00:00 [facility] MMR 2004-11-02 Completed [facility] 00:00:00 [facility] Polio (IPV/OPV) 2004-11-02 Completed [facility] 00:00:00 [facility] DTAP 2004-11-02 Completed [facility] 00:00:00 [facility] MMR 2004-11-02 Completed [facility] 00:00:00 [facility] Polio (IPV/OPV) 2004-11-02 Completed [facility] of 00:00:00 [facility] DTAP 2004-11-02 Completed [facility] 00:00:00 [facility] MMR 2004-11-02 Completed [facility] 00:00:00 [facility] Polio (IPV/OPV) 2004-11-02 Completed [facility] of 00:00:00 [facility] DTAP 2004-11-02 Completed [facility] 00:00:00 [facility] MMR 2004-11-02 Completed [facility] 00:00:00 [facility] Polio (IPV/OPV) 2004-11-02 Completed [facility] 00:00:00 [facility] DTAP 2004-11-02 Completed [facility] 00:00:00 [facility] MMR 2004-11-02 Completed [facility] 00:00:00 [facility] Polio (IPV/OPV) 2004-11-02 Completed [facility] 00:00:00 [facility] DTAP 2004-11-02 Completed [facility] 00:00:00 [facility] MMR 2004-11-02 Completed [facility] 00:00:00 [facility] Polio (IPV/OPV) 2004-11-02 Completed [facility] 00:00:00 [facility] DTAP 2004-11-02 Completed [facility] 00:00:00 [facility] MMR 2004-11-02 Completed [facility] 00:00:00 [facility] Polio (IPV/OPV) 2004-11-02 Completed [facility] of 00:00:00 [facility] DTAP 2004-11-02 Completed [facility] 00:00:00 [facility] MMR 2004-11-02 Completed [facility] 00:00:00 [facility] Polio (IPV/OPV) 2004-11-02 Completed [facility] 00:00:00 [facility] DTAP 2004-11-02 Completed [facility] 00:00:00 [facility] MMR 2004-11-02 Completed [facility] 00:00:00 [facility] Polio (IPV/OPV) 2004-11-02 Completed [facility] 00:00:00 [facility] DTAP 2004-11-02 Completed [facility] 00:00:00 [facility] MMR 2004-11-02 Completed [facility] 00:00:00 [facility] Polio (IPV/OPV) 2004-11-02 Completed [facility] 00:00:00 [facility] DTAP 2004-11-02 Completed [facility] 00:00:00 [facility] MMR 2004-11-02 Completed [facility] 00:00:00 [facility] Polio (IPV/OPV) 2004-11-02 Completed [facility] 00:00:00 [facility] DTAP 2004-11-02 Completed [facility] 00:00:00 [facility] MMR 2004-11-02 Completed [facility] 00:00:00 [facility] Polio (IPV/OPV) 2004-11-02 Completed [facility] 00:00:00 [facility] DTAP 2004-11-02 Completed [facility] 00:00:00 [facility] MMR 2004-11-02 Completed [facility] 00:00:00 [facility] Polio (IPV/OPV) 2004-11-02 Completed [facility] 00:00:00 [facility] DTAP 2004-11-02 Completed [facility] 00:00:00 [facility] MMR 2004-11-02 Completed [facility] 00:00:00 [facility] Polio (IPV/OPV) 2004-11-02 Completed [facility] 00:00:00 [facility] DTAP 2004-11-02 Completed [facility] 00:00:00 [facility] MMR 2004-11-02 Completed [facility] 00:00:00 [facility] Polio (IPV/OPV) 2004-11-02 Completed [facility] 00:00:00 [facility] DTAP 2003-07-23 Completed [facility] 00:00:00 [facility] HIB 4 Dose Schedule 2003-07-23 Completed Unive rsity of 00:00:00 [facility] DTAP 2003-07-23 Completed [facility] 00:00:00 [facility] HIB 4 Dose Schedule 2003-07-23 Completed Unive rsity of 00:00:00 [facility] DTAP 2003-07-23 Completed [facility] 00:00:00 [facility] HIB 4 Dose Schedule 2003-07-23 Completed Unive rsity of 00:00:00 [facility] DTAP 2003-07-23 Completed [facility] 00:00:00 [facility] HIB 4 Dose Schedule 2003-07-23 Completed Unive rsity of 00:00:00 [facility] DTAP 2003-07-23 Completed [facility] 00:00:00 [facility] HIB 4 Dose Schedule 2003-07-23 Completed Unive rsity of 00:00:00 [facility] DTAP 2003-07-23 Completed [facility] 00:00:00 [facility] HIB 4 Dose Schedule 2003-07-23 Completed Unive rsity of 00:00:00 [facility] DTAP 2003-07-23 Completed [facility] 00:00:00 [facility] HIB 4 Dose Schedule 2003-07-23 Completed Unive rsity of 00:00:00 [facility] DTAP 2003-07-23 Completed [facility] 00:00:00 [facility] HIB 4 Dose Schedule 2003-07-23 Completed Unive rsity of 00:00:00 [facility] DTAP 2003-07-23 Completed [facility] 00:00:00 [facility] [place] HIB 4 Dose Schedule 2003-07-23 Completed Unive rsity of 00:00:00 [facility] DTAP 2003-07-23 Completed [facility] 00:00:00 [facility] HIB 4 Dose Schedule 2003-07-23 Completed Unive rsity of 00:00:00 [facility] DTAP 2003-07-23 Completed [facility] 00:00:00 [facility] HIB 4 Dose Schedule 2003-07-23 Completed Unive rsity of 00:00:00 [facility] DTAP 2003-07-23 Completed [facility] 00:00:00 [facility] HIB 4 Dose Schedule 2003-07-23 Completed Unive rsity of 00:00:00 [facility] DTAP 2003-07-23 Completed [facility] 00:00:00 [facility] HIB 4 Dose Schedule 2003-07-23 Completed Unive rsity of 00:00:00 [facility] DTAP 2003-07-23 Completed [facility] 00:00:00 [facility] HIB 4 Dose Schedule 2003-07-23 Completed Unive rsity of 00:00:00 [facility] DTAP 2003-07-23 Completed [facility] 00:00:00 [facility] HIB 4 Dose Schedule 2003-07-23 Completed Unive rsity of 00:00:00 [facility] DTAP 2003-07-23 Completed [facility] 00:00:00 [facility] HIB 4 Dose Schedule 2003-07-23 Completed Unive rsity of 00:00:00 [facility] DTAP 2003-07-23 Completed [facility] 00:00:00 [facility] [place] HIB 4 Dose Schedule 2003-07-23 Completed Unive rsity of 00:00:00 [facility] DTAP 2003-07-23 Completed [facility] 00:00:00 [facility] [place] HIB 4 Dose Schedule 2003-07-23 Completed Unive rsity of 00:00:00 [facility] DTAP 2003-07-23 Completed [facility] 00:00:00 [facility] HIB 4 Dose Schedule 2003-07-23 Completed Unive rsity of 00:00:00 [facility] DTAP 2003-07-23 Completed [facility] 00:00:00 [facility] HIB 4 Dose Schedule 2003-07-23 Completed Unive rsity of 00:00:00 [facility] DTAP 2003-07-23 Completed [facility] 00:00:00 [facility] HIB 4 Dose Schedule 2003-07-23 Completed Unive rsity of 00:00:00 [facility] DTAP 2003-07-23 Completed [facility] 00:00:00 [facility] HIB 4 Dose Schedule 2003-07-23 Completed Unive rsity of 00:00:00 [facility] DTAP 2003-07-23 Completed [facility] 00:00:00 [facility] HIB 4 Dose Schedule 2003-07-23 Completed [facility]ive rsity of 00:00:00 [facility] DTAP 2003-07-23 Completed [facility] 00:00:00 [facility] HIB 4 Dose Schedule 2003-07-23 Completed Unive rsity of 00:00:00 [facility] DTAP 2003-07-23 Completed [facility] 00:00:00 [facility] HIB 4 Dose Schedule 2003-07-23 Completed Unive rsity of 00:00:00 [facility] DTAP 2003-07-23 Completed [facility] 00:00:00 [facility] HIB 4 Dose Schedule 2003-07-23 Completed Unive rsity of 00:00:00 [facility] DTAP 2003-07-23 Completed [facility] 00:00:00 [facility] HIB 4 Dose Schedule 2003-07-23 Completed Unive rsity of 00:00:00 [facility] DTAP 2003-07-23 Completed [facility] 00:00:00 [facility] HIB 4 Dose Schedule 2003-07-23 Completed [facility]ive rsity of 00:00:00 [facility] DTAP 2003-07-23 Completed [facility] 00:00:00 [facility] HIB 4 Dose Schedule 2003-07-23 Completed Unive rsity of 00:00:00 [facility] DTAP 2003-07-23 Completed [facility] 00:00:00 [facility] HIB 4 Dose Schedule 2003-07-23 Completed Unive rsity of 00:00:00 [facility] DTAP 2003-07-23 Completed [facility] 00:00:00 [facility] HIB 4 Dose Schedule 2003-07-23 Completed Unive rsity of 00:00:00 [facility] DTAP 2003-07-23 Completed [facility] 00:00:00 [facility] [place] HIB 4 Dose Schedule 2003-07-23 Completed Unive rsity of 00:00:00 [facility] DTAP 2003-07-23 Completed [facility] 00:00:00 [facility] HIB 4 Dose Schedule 2003-07-23 Completed Unive rsity of 00:00:00 [facility] DTAP 2003-07-23 Completed [facility] 00:00:00 [facility] HIB 4 Dose Schedule 2003-07-23 Completed Unive rsity of 00:00:00 [facility] DTAP 2003-07-23 Completed [facility] 00:00:00 [facility] HIB 4 Dose Schedule 2003-07-23 Completed Unive rsity of 00:00:00 [facility] DTAP 2003-07-23 Completed [facility] 00:00:00 [facility] HIB 4 Dose Schedule 2003-07-23 Completed Unive rsity of 00:00:00 [facility] DTAP 2003-07-23 Completed [facility] 00:00:00 [facility] HIB 4 Dose Schedule 2003-07-23 Completed [facility] 00:00:00 [facility] [...] Schedule 2002-09-17 Completed Unive rsity of 00:00:00 [facility] DTAP 2002-09-17 Completed [facility] 00:00:00 [facility] HIB 4 Dose Schedule 2002-09-17 Completed Unive rsity of 00:00:00 [facility] DTAP 2002-09-17 Completed [facility] 00:00:00 [facility] HIB 4 Dose Schedule 2002-09-17 Completed Unive rsity of 00:00:00 [facility] DTAP 2002-09-17 Completed [facility] 00:00:00 [facility] HIB 4 Dose Schedule 2002-09-17 Completed Unive rsity of 00:00:00 [facility] DTAP 2002-09-17 Completed [facility] 00:00:00 [facility] HIB 4 Dose Schedule 2002-09-17 Completed Unive rsity of 00:00:00 [facility] DTAP 2002-09-17 Completed [facility] 00:00:00 [facility] HIB 4 Dose Schedule 2002-09-17 Completed Unive rsity of 00:00:00 [facility] MMR 2001-12-18 Completed [facility] 00:00:00 [facility] Polio (IPV/OPV) 2001-12-18 Completed Universit y [facility] 00:00:00 [facility] Varicella 2001-12-18 Completed [facility] of (varivax)(chicken 00:00:00 [facility] edical pox) Branch [facility] 2001-12-18 Completed [facility] 00:00:00 [facility] Polio (IPV/OPV) 2001-12-18 Completed [facility] 00:00:00 [facility] Varicella 2001-12-18 Completed [facility] (varivax)(chicken 00:00:00 [place] [facility] 2001-12-18 Completed [facility] 00:00:00 [facility] Polio (IPV/OPV) 2001-12-18 Completed [facility] 00:00:00 [facility] Varicella 2001-12-18 Completed [facility] (varivax)(chicken 00:00:00 [place] [facility] pox) [facility] 2001-12-18 Completed [facility] 00:00:00 [facility] Polio (IPV/OPV) 2001-12-18 Completed [facility] 00:00:00 [facility] Varicella 2001-12-18 Completed [facility] (varivax)(chicken 00:00:00 [place] [facility] pox) [facility] MMR 2001-12-18 Completed [facility] 00:00:00 [facility] Polio (IPV/OPV) 2001-12-18 Completed [facility] 00:00:00 [facility] Varicella 2001-12-18 Completed [facility] (varivax)(chicken 00:00:00 [place] [facility] pox) [facility] 2001-12-18 Completed [facility] 00:00:00 [facility] Polio (IPV/OPV) 2001-12-18 Completed [facility] 00:00:00 [facility] Varicella 2001-12-18 Completed [facility] (varivax)(chicken 00:00:00 [place] [facility] pox) [facility] 2001-12-18 Completed [facility] 00:00:00 [facility] Polio (IPV/OPV) 2001-12-18 Completed [facility] 00:00:00 [facility] Varicella 2001-12-18 Completed [facility] (varivax)(chicken 00:00:00 [place] [facility] pox) [facility] 2001-12-18 Completed [facility] 00:00:00 [facility] Polio (IPV/OPV) 2001-12-18 Completed [facility] 00:00:00 [facility] Varicella 2001-12-18 Completed [facility] (varivax)(chicken 00:00:00 [place] [facility] pox[facility] 2001-12-18 Completed [facility] 00:00:00 [facility] Polio (IPV/OPV) 2001-12-18 Completed [facility] 00:00:00 [facility] Varicella 2001-12-18 Completed [facility] (varivax)(chicken 00:00:00 [place] [facility] pox[facility] 2001-12-18 Completed [facility] 00:00:00 [facility] Polio (IPV/OPV) 2001-12-18 Completed [facility] 00:00:00 [facility] Varicella 2001-12-18 Completed [facility] (varivax)(chicken 00:00:00 [place] [facility] pox[facility] 2001-12-18 Completed [facility] 00:00:00 [facility] Polio (IPV/OPV) 2001-12-18 Completed [facility] 00:00:00 [facility] Varicella 2001-12-18 Completed [facility] (varivax)(chicken 00:00:00 [place] [facility] pox[facility] 2001-12-18 Completed [facility] 00:00:00 [facility] Polio (IPV/OPV) 2001-12-18 Completed [facility] 00:00:00 [facility] Varicella 2001-12-18 Completed [facility] (varivax)(chicken 00:00:00 [place] [facility] pox[facility] 2001-12-18 Completed [facility] 00:00:00 [facility] Polio (IPV/OPV) 2001-12-18 Completed [facility] 00:00:00 [facility] Varicella 2001-12-18 Completed [facility] (varivax)(chicken 00:00:00 [place] [facility] pox[facility] 2001-12-18 Completed [facility] 00:00:00 [facility] Polio (IPV/OPV) 2001-12-18 Completed [facility] 00:00:00 [facility] Varicella 2001-12-18 Completed [facility] (varivax)(chicken 00:00:00 [place] [facility] pox[facility] 2001-12-18 Completed [facility] 00:00:00 [facility] Polio (IPV/OPV) 2001-12-18 Completed [facility] 00:00:00 [facility] Varicella 2001-12-18 Completed [facility] (varivax)(chicken 00:00:00 [facility] edical pox) Branch [facility] 2001-12-18 Completed [facility] 00:00:00 [facility] Polio (IPV/OPV) 2001-12-18 Completed [facility] 00:00:00 [facility] Varicella 2001-12-18 Completed [facility] (varivax)(chicken 00:00:00 [place] [facility] pox[facility] 2001-12-18 Completed [facility] 00:00:00 [facility] Polio (IPV/OPV) 2001-12-18 Completed [facility] 00:00:00 [facility] Varicella 2001-12-18 Completed [facility] (varivax)(chicken 00:00:00 [place] [facility] pox[facility] 2001-12-18 Completed [facility] 00:00:00 [facility] Polio (IPV/OPV) 2001-12-18 Completed [facility] 00:00:00 [facility] Varicella 2001-12-18 Completed [facility] (varivax)(chicken 00:00:00 [facility] edical pox) Branch [facility] 2001-12-18 Completed [facility] 00:00:00 [facility] Polio (IPV/OPV) 2001-12-18 Completed [facility]it [facility] 00:00:00 [facility] Varicella 2001-12-18 Completed University of (varivax)(chicken 00:00:00 [place] [facility] pox[facility] MMR 2001-12-18 Completed [facility] of 00:00:00 [facility] Polio (IPV/OPV) 2001-12-18 Completed [facility]it [facility] 00:00:00 [facility] Varicella 2001-12-18 Completed University of (varivax)(chicken 00:00:00 [place] [facility] pox) [facility] MMR 2001-12-18 Completed [facility] of 00:00:00 [facility] Polio (IPV/OPV) 2001-12-18 Completed Universit [facility] 00:00:00 [facility] Varicella 2001-12-18 Completed University of (varivax)(chicken 00:00:00 [place] [facility] pox[facility] 2001-12-18 Completed University of 00:00:00 [facility] Polio (IPV/OPV) 2001-12-18 Completed [facility]it [facility] 00:00:00 [facility] Varicella 2001-12-18 Completed [facility] of (varivax)(chicken 00:00:00 [place] [facility] pox[facility] 2001-12-18 Completed [facility] of 00:00:00 [facility] Polio (IPV/OPV) 2001-12-18 Completed Universit [facility] 00:00:00 [facility] Varicella 2001-12-18 Completed [facility] of (varivax)(chicken 00:00:00 [place] [facility] pox[facility] 2001-12-18 Completed University of 00:00:00 [facility] Polio (IPV/OPV) 2001-12-18 Completed Universit [facility] 00:00:00 [facility] Varicella 2001-12-18 Completed University of (varivax)(chicken 00:00:00 [place] [facility] pox[facility] 2001-12-18 Completed University of 00:00:00 [facility] Polio (IPV/OPV) 2001-12-18 Completed Universit [facility] 00:00:00 [facility] Varicella 2001-12-18 Completed [facility] of (varivax)(chicken 00:00:00 [place] [facility] pox) [facility] MMR 2001-12-18 Completed University of 00:00:00 [facility] Polio (IPV/OPV) 2001-12-18 Completed Universit [facility] 00:00:00 [facility] Varicella 2001-12-18 Completed [facility] of (varivax)(chicken 00:00:00 [place] [facility] pox) [facility] MMR 2001-12-18 Completed University of 00:00:00 [facility] Polio (IPV/OPV) 2001-12-18 Completed Universit [facility] of 00:00:00 [facility] Varicella 2001-12-18 Completed University of (varivax)(chicken 00:00:00 [place] [facility] pox) Branch [facility] 2001-12-18 Completed University of 00:00:00 [facility] Polio (IPV/OPV) 2001-12-18 Completed Universit y of 00:00:00 [facility] Varicella 2001-12-18 Completed [facility] of (varivax)(chicken 00:00:00 [place] [facility] pox) [facility] 2001-12-18 Completed University of 00:00:00 [facility] Polio (IPV/OPV) 2001-12-18 Completed Universit [facility] of 00:00:00 [facility] Varicella 2001-12-18 Completed [facility] of (varivax)(chicken 00:00:00 [place] [facility] pox) [facility] 2001-12-18 Completed University of 00:00:00 [facility] Polio (IPV/OPV) 2001-12-18 Completed [facility]it [facility] 00:00:00 [facility] Varicella 2001-12-18 Completed [facility] of (varivax)(chicken 00:00:00 [place] [facility] pox) [facility] 2001-12-18 Completed University of 00:00:00 [facility] Polio (IPV/OPV) 2001-12-18 Completed Universit [facility] of 00:00:00 [facility] Varicella 2001-12-18 Completed [facility] of (varivax)(chicken 00:00:00 [place] [facility] pox) [facility] 2001-12-18 Completed University of 00:00:00 [facility] Polio (IPV/OPV) 2001-12-18 Completed Universit [facility] of 00:00:00 [facility] Varicella 2001-12-18 Completed [facility] of (varivax)(chicken 00:00:00 [place] [facility] pox) [facility] 2001-12-18 Completed [facility] of 00:00:00 [facility] Polio (IPV/OPV) 2001-12-18 Completed Universit [facility] of 00:00:00 [facility] Varicella 2001-12-18 Completed University of (varivax)(chicken 00:00:00 [place] [facility] pox) Branch MMR 2001-12-18 Completed University of 00:00:00 [facility] Polio (IPV/OPV) 2001-12-18 Completed Universit [facility] of 00:00:00 [facility] Varicella 2001-12-18 Completed University of (varivax)(chicken 00:00:00 [place] [facility] pox) Branch MMR 2001-12-18 Completed [facility] of 00:00:00 [facility] Polio (IPV/OPV) 2001-12-18 Completed Universit [facility] of 00:00:00 [facility] Varicella 2001-12-18 Completed [facility] of (varivax)(chicken 00:00:00 [place] [facility] pox) [facility] MMR 2001-12-18 Completed [facility] of 00:00:00 [facility] Polio (IPV/OPV) 2001-12-18 Completed [facility]it [facility] of 00:00:00 [facility] Varicella 2001-12-18 Completed University of (varivax)(chicken 00:00:00 [facility] edical pox) Branch [facility] 2001-12-18 Completed University of 00:00:00 [facility] Polio (IPV/OPV) 2001-12-18 Completed Universit [facility] of 00:00:00 [facility] Varicella 2001-12-18 Completed [facility] of (varivax)(chicken 00:00:00 [place] [facility] pox) Branch DTAP 2001-07-24 Completed University of 00:00:00 [facility] Pneumococcal 7 2001-07-24 Completed University of Conjugate, PCV7 00:00:00 [place] [facility] (Prevnar7) Branch DTAP 2001-07-24 Completed University of 00:00:00 [facility] Pneumococcal 7 2001-07-24 Completed University of Conjugate, PCV7 00:00:00 [place] [facility] (Prevnar7) Branch DTAP 2001-07-24 Completed University of 00:00:00 [facility] Pneumococcal 7 2001-07-24 Completed University of Conjugate, PCV7 00:00:00 [place] [facility] (Prevnar7) Branch DTAP 2001-07-24 Completed [facility] of 00:00:00 [facility] Pneumococcal 7 2001-07-24 Completed University of Conjugate, PCV7 00:00:00 [place] [facility] (Prevnar7) Branch DTAP 2001-07-24 Completed University of 00:00:00 [facility] Pneumococcal 7 2001-07-24 Completed University of Conjugate, PCV7 00:00:00 [place] [facility] (Prevnar7) Branch DTAP 2001-07-24 Completed [facility] of 00:00:00 [facility] Pneumococcal 7 2001-07-24 Completed University of Conjugate, PCV7 00:00:00 [place] [facility] (Prevnar7) Branch DTAP 2001-07-24 Completed University of 00:00:00 [facility] Pneumococcal 7 2001-07-24 Completed University of Conjugate, PCV7 00:00:00 [place] [facility] (Prevnar7) Branch REPLACED BY [facility] 2001-07-24 Completed University of 00:00:00 [facility] Pneumococcal 7 2001-07-24 Completed University of Conjugate, PCV7 00:00:00 [place] [facility] (Prevnar7) Branch REPLACED BY [facility] 2001-07-24 Completed University of 00:00:00 [facility] Pneumococcal 7 2001-07-24 Completed University of Conjugate, PCV7 00:00:00 [place] [facility] (Prevnar7) Branch REPLACED BY [facility] 2001-07-24 Completed University of 00:00:00 [facility] Pneumococcal 7 2001-07-24 Completed University of Conjugate, PCV7 00:00:00 [place] [facility] (Prevnar7) Branch REPLACED BY [facility] 2001-07-24 Completed University of 00:00:00 [facility] Pneumococcal 7 2001-07-24 Completed University of Conjugate, PCV7 00:00:00 [place] [facility] (Prevnar7) Branch REPLACED BY [facility] 2001-07-24 Completed University of 00:00:00 [facility] Pneumococcal 7 2001-07-24 Completed University of Conjugate, PCV7 00:00:00 [place] [facility] (Prevnar7) Branch REPLACED BY [facility] 2001-07-24 Completed University of 00:00:00 [facility] Pneumococcal 7 2001-07-24 Completed University of Conjugate, PCV7 00:00:00 [place] [facility] (Prevnar7) Branch REPLACED BY [facility] 2001-07-24 Completed University of 00:00:00 [facility] Pneumococcal 7 2001-07-24 Completed University of Conjugate, PCV7 00:00:00 [place] [facility] (Prevnar7) Branch DTAP 2001-07-24 Completed University of 00:00:00 [facility] Pneumococcal 7 2001-07-24 Completed University of Conjugate, PCV7 00:00:00 [place] [facility] (Prevnar7) Branch DTAP 2001-07-24 Completed University of 00:00:00 [facility] Pneumococcal 7 2001-07-24 Completed University of Conjugate, PCV7 00:00:00 [place] [facility] (Prevnar7) Branch DTAP 2001-07-24 Completed University of 00:00:00 [facility] Pneumococcal 7 2001-07-24 Completed University of Conjugate, PCV7 00:00:00 [place] [facility] (Prevnar7) Branch DTAP 2001-07-24 Completed University of 00:00:00 [facility] Pneumococcal 7 2001-07-24 Completed University of Conjugate, PCV7 00:00:00 [place] [facility] (Prevnar7) Branch DTAP 2001-07-24 Completed University of 00:00:00 [facility] Pneumococcal 7 2001-07-24 Completed University of Conjugate, PCV7 00:00:00 [place] [facility] (Prevnar7) Branch DTAP 2001-07-24 Completed University of 00:00:00 [facility] Pneumococcal 7 2001-07-24 Completed University of Conjugate, PCV7 00:00:00 [place] [facility] (Prevnar7) Branch DTAP 2001-07-24 Completed University of 00:00:00 [facility] Pneumococcal 7 2001-07-24 Completed University of Conjugate, PCV7 00:00:00 [place] [facility] (Prevnar7) Branch DTAP 2001-07-24 Completed University of 00:00:00 [facility] Pneumococcal 7 2001-07-24 Completed University of Conjugate, PCV7 00:00:00 [place] [facility] (Prevnar7) Branch DTAP 2001-07-24 Completed University of 00:00:00 [facility] Pneumococcal 7 2001-07-24 Completed University of Conjugate, PCV7 00:00:00 [place] [facility] (Prevnar7) Branch DTAP 2001-07-24 Completed University of 00:00:00 [facility] Pneumococcal 7 2001-07-24 Completed University of Conjugate, PCV7 00:00:00 [place] [facility] (Prevnar7) Branch DTAP 2001-07-24 Completed University of 00:00:00 [facility] Pneumococcal 7 2001-07-24 Completed University of Conjugate, PCV7 00:00:00 [place] [facility] (Prevnar7) Branch DTAP 2001-07-24 Completed University of 00:00:00 [facility] Pneumococcal 7 2001-07-24 Completed University of Conjugate, PCV7 00:00:00 [place] [facility] (Prevnar7) Branch DTAP 2001-07-24 Completed University of 00:00:00 [facility] Pneumococcal 7 2001-07-24 Completed University of Conjugate, PCV7 00:00:00 [place] [facility] (Prevnar7) Branch DTAP 2001-07-24 Completed University of 00:00:00 [facility] Pneumococcal 7 2001-07-24 Completed University of Conjugate, PCV7 00:00:00 [place] [facility] (Prevnar7) Branch DTAP 2001-07-24 Completed University of 00:00:00 [facility] Pneumococcal 7 2001-07-24 Completed University of Conjugate, PCV7 00:00:00 [place] [facility] (Prevnar7) Branch DTAP 2001-07-24 Completed University of 00:00:00 [facility] Pneumococcal 7 2001-07-24 Completed University of Conjugate, PCV7 00:00:00 [place] [facility] (Prevnar7) Branch DTAP 2001-07-24 Completed University of 00:00:00 [facility] Pneumococcal 7 2001-07-24 Completed University of Conjugate, PCV7 00:00:00 [place] [facility] (Prevnar7) Branch DTAP 2001-07-24 Completed University of 00:00:00 [facility] Pneumococcal 7 2001-07-24 Completed University of Conjugate, PCV7 00:00:00 [place] [facility] (Prevnar7) Branch DTAP 2001-07-24 Completed University of 00:00:00 [facility] Pneumococcal 7 2001-07-24 Completed University of Conjugate, PCV7 00:00:00 [place] [facility] (Prevnar7) Branch DTAP 2001-07-24 Completed University of 00:00:00 [facility] Pneumococcal 7 2001-07-24 Completed University of Conjugate, PCV7 00:00:00 [place] [facility] (Prevnar7) Branch DTAP 2001-07-24 Completed University of 00:00:00 [facility] Pneumococcal 7 2001-07-24 Completed University of Conjugate, PCV7 00:00:00 [place] [facility] (Prevnar7) Branch DTAP 2001-07-24 Completed University of 00:00:00 [facility] Pneumococcal 7 2001-07-24 Completed University of Conjugate, PCV7 00:00:00 [place] [facility] (Prevnar7) Branch DTAP 2001-07-24 Completed University of 00:00:00 [facility] Pneumococcal 7 2001-07-24 Completed University of Conjugate, PCV7 00:00:00 [place] [facility] (Prevnar7) Branch HIB 4 Dose Schedule 2001-04-22 Completed Unive rsity of 00:00:00 [facility] Hep B, Adol or Pedi 2001-04-22 Completed Unive rsity of Dosage 00:00:00 [facility] Pneumococcal 7 2001-04-22 Completed University of Conjugate, PCV7 00:00:00 [place] [facility] (Prevnar7) Branch HIB 4 Dose Schedule 2001-04-22 Completed Unive rsity of 00:00:00 [facility] Hep B, Adol or Pedi 2001-04-22 Completed Unive rsity of Dosage 00:00:00 [facility] Pneumococcal 7 2001-04-22 Completed University of Conjugate, PCV7 00:00:00 [place] [facility] (Prevnar7) Branch HIB 4 Dose Schedule 2001-04-22 Completed Unive rsity of 00:00:00 [facility] Hep B, Adol or Pedi 2001-04-22 Completed Unive rsity of Dosage 00:00:00 [facility] Pneumococcal 7 2001-04-22 Completed University of Conjugate, PCV7 00:00:00 [place] [facility] (Prevnar7) Branch HIB 4 Dose Schedule 2001-04-22 Completed Unive rsity of 00:00:00 [facility] Hep B, Adol or Pedi 2001-04-22 Completed Unive rsity of Dosage 00:00:00 [facility] Pneumococcal 7 2001-04-22 Completed University of Conjugate, PCV7 00:00:00 [place] [facility] (Prevnar7) Branch HIB 4 Dose Schedule 2001-04-22 Completed Unive rsity of 00:00:00 [facility] Hep B, Adol or Pedi 2001-04-22 Completed Unive rsity of Dosage 00:00:00 [facility] Pneumococcal 7 2001-04-22 Completed University of Conjugate, PCV7 00:00:00 [place] [facility] (Prevnar7) Branch HIB 4 Dose Schedule 2001-04-22 Completed Unive rsity of 00:00:00 [facility] Hep B, Adol or Pedi 2001-04-22 Completed Unive rsity of Dosage 00:00:00 [facility] Pneumococcal 7 2001-04-22 Completed University of Conjugate, PCV7 00:00:00 [place] [facility] (Prevnar7) Branch HIB 4 Dose Schedule 2001-04-22 Completed Unive rsity of 00:00:00 [facility] Hep B, Adol or Pedi 2001-04-22 Completed Unive rsity of Dosage 00:00:00 [facility] Pneumococcal 7 2001-04-22 Completed University of Conjugate, PCV7 00:00:00 [place] [facility] (Prevnar7) Branch HIB 4 Dose Schedule 2001-04-22 Completed Unive rsity of 00:00:00 [facility] Hep B, Adol or Pedi 2001-04-22 Completed Unive rsity of Dosage 00:00:00 [facility] Pneumococcal 7 2001-04-22 Completed University of Conjugate, PCV7 00:00:00 [place] [facility] (Prevnar7) Branch HIB 4 Dose Schedule 2001-04-22 Completed Unive rsity of 00:00:00 [facility] Hep B, Adol or Pedi 2001-04-22 Completed Unive rsity of Dosage 00:00:00 [facility] Pneumococcal 7 2001-04-22 Completed University of Conjugate, PCV7 00:00:00 [place] [facility] (Prevnar7) Branch HIB 4 Dose Schedule 2001-04-22 Completed Unive rsity of 00:00:00 [facility] Hep B, Adol or Pedi 2001-04-22 Completed Unive rsity of Dosage 00:00:00 [facility] Pneumococcal 7 2001-04-22 Completed University of Conjugate, PCV7 00:00:00 [place] [facility] (Prevnar7) Branch HIB 4 Dose Schedule 2001-04-22 Completed Unive rsity of 00:00:00 [facility] Hep B, Adol or Pedi 2001-04-22 Completed Unive rsity of Dosage 00:00:00 [facility] Pneumococcal 7 2001-04-22 Completed University of Conjugate, PCV7 00:00:00 [place] [facility] (Prevnar7) Branch HIB 4 Dose Schedule 2001-04-22 Completed Unive rsity of 00:00:00 [facility] Hep B, Adol or Pedi 2001-04-22 Completed Unive rsity of Dosage 00:00:00 [facility] Pneumococcal 7 2001-04-22 Completed University of Conjugate, PCV7 00:00:00 [place] [facility] (Prevnar7) Branch HIB 4 Dose Schedule 2001-04-22 Completed Unive rsity of 00:00:00 [facility] Hep B, Adol or Pedi 2001-04-22 Completed Unive rsity of Dosage 00:00:00 [facility] Pneumococcal 7 2001-04-22 Completed University of Conjugate, PCV7 00:00:00 [place] [facility] (Prevnar7) Branch HIB 4 Dose Schedule 2001-04-22 Completed Unive rsity of 00:00:00 [facility] Hep B, Adol or Pedi 2001-04-22 Completed Unive rsity of Dosage 00:00:00 [facility] Pneumococcal 7 2001-04-22 Completed University of Conjugate, PCV7 00:00:00 [place] [facility] (Prevnar7) Branch HIB 4 Dose Schedule 2001-04-22 Completed Unive rsity of 00:00:00 [facility] Hep B, Adol or Pedi 2001-04-22 Completed Unive rsity of Dosage 00:00:00 [facility] Pneumococcal 7 2001-04-22 Completed University of Conjugate, PCV7 00:00:00 [place] [facility] (Prevnar7) Branch HIB 4 Dose Schedule 2001-04-22 Completed Unive rsity of 00:00:00 [facility] Hep B, Adol or Pedi 2001-04-22 Completed Unive rsity of Dosage 00:00:00 [facility] Pneumococcal 7 2001-04-22 Completed University of Conjugate, PCV7 00:00:00 [place] [facility] (Prevnar7) Branch HIB 4 Dose Schedule 2001-04-22 Completed Unive rsity of 00:00:00 [facility] Hep B, Adol or Pedi 2001-04-22 Completed Unive rsity of Dosage 00:00:00 [facility] Pneumococcal 7 2001-04-22 Completed University of Conjugate, PCV7 00:00:00 [place] [facility] (Prevnar7) Branch HIB 4 Dose Schedule 2001-04-22 Completed Unive rsity of 00:00:00 [facility] Hep B, Adol or Pedi 2001-04-22 Completed Unive rsity of Dosage 00:00:00 [facility] Pneumococcal 7 2001-04-22 Completed University of Conjugate, PCV7 00:00:00 [place] [facility] (Prevnar7) Branch HIB 4 Dose Schedule 2001-04-22 Completed Unive rsity of 00:00:00 [facility] Hep B, Adol or Pedi 2001-04-22 Completed Unive rsity of Dosage 00:00:00 [facility] Pneumococcal 7 2001-04-22 Completed University of Conjugate, PCV7 00:00:00 [place] [facility] (Prevnar7) Branch HIB 4 Dose Schedule 2001-04-22 Completed Unive rsity of 00:00:00 [facility] Hep B, Adol or Pedi 2001-04-22 Completed Unive rsity of Dosage 00:00:00 [facility] Pneumococcal 7 2001-04-22 Completed University of Conjugate, PCV7 00:00:00 [place] [facility] (Prevnar7) Branch HIB 4 Dose Schedule 2001-04-22 Completed Unive rsity of 00:00:00 [facility] Hep B, Adol or Pedi 2001-04-22 Completed Unive rsity of Dosage 00:00:00 [facility] Pneumococcal 7 2001-04-22 Completed University of Conjugate, PCV7 00:00:00 [place] [facility] (Prevnar7) Branch HIB 4 Dose Schedule 2001-04-22 Completed Unive rsity of 00:00:00 [facility] Hep B, Adol or Pedi 2001-04-22 Completed Unive rsity of Dosage 00:00:00 [facility] Pneumococcal 7 2001-04-22 Completed University of Conjugate, PCV7 00:00:00 [place] [facility] (Prevnar7) Branch HIB 4 Dose Schedule 2001-04-22 Completed Unive rsity of 00:00:00 [facility] Hep B, Adol or Pedi 2001-04-22 Completed Unive rsity of Dosage 00:00:00 [facility] Pneumococcal 7 2001-04-22 Completed University of Conjugate, PCV7 00:00:00 [place] [facility] (Prevnar7) Branch HIB 4 Dose Schedule 2001-04-22 Completed Unive rsity of 00:00:00 [facility] Hep B, Adol or Pedi 2001-04-22 Completed Unive rsity of Dosage 00:00:00 [facility] Pneumococcal 7 2001-04-22 Completed University of Conjugate, PCV7 00:00:00 [place] [facility] (Prevnar7) Branch HIB 4 Dose Schedule 2001-04-22 Completed Unive rsity of 00:00:00 [facility] Hep B, Adol or Pedi 2001-04-22 Completed Unive rsity of Dosage 00:00:00 [facility] Pneumococcal 7 2001-04-22 Completed University of Conjugate, PCV7 00:00:00 [place] [facility] (Prevnar7) Branch HIB 4 Dose Schedule 2001-04-22 Completed Unive rsity of 00:00:00 [facility] Hep B, Adol or Pedi 2001-04-22 Completed Unive rsity of Dosage 00:00:00 [facility] Pneumococcal 7 2001-04-22 Completed University of Conjugate, PCV7 00:00:00 [place] [facility] (Prevnar7) Branch HIB 4 Dose Schedule 2001-04-22 Completed Unive rsity of 00:00:00 [facility] Hep B, Adol or Pedi 2001-04-22 Completed Unive rsity of Dosage 00:00:00 [facility] Pneumococcal 7 2001-04-22 Completed University of Conjugate, PCV7 00:00:00 [place] [facility] (Prevnar7) Branch HIB 4 Dose Schedule 2001-04-22 Completed Unive rsity of 00:00:00 [facility] Hep B, Adol or Pedi 2001-04-22 Completed Unive rsity of Dosage 00:00:00 [facility] Pneumococcal 7 2001-04-22 Completed University of Conjugate, PCV7 00:00:00 [place] [facility] (Prevnar7) Branch HIB 4 Dose Schedule 2001-04-22 Completed Unive rsity of 00:00:00 [facility] Hep B, Adol or Pedi 2001-04-22 Completed Unive rsity of Dosage 00:00:00 [facility] Pneumococcal 7 2001-04-22 Completed University of Conjugate, PCV7 00:00:00 [place] [facility] (Prevnar7) Branch HIB 4 Dose Schedule 2001-04-22 Completed Unive rsity of 00:00:00 [facility] Hep B, Adol or Pedi 2001-04-22 Completed Unive rsity of Dosage 00:00:00 [facility] Pneumococcal 7 2001-04-22 Completed University of Conjugate, PCV7 00:00:00 [place] [facility] (Prevnar7) Branch HIB 4 Dose Schedule 2001-04-22 Completed Unive rsity of 00:00:00 [facility] Hep B, Adol or Pedi 2001-04-22 Completed Unive rsity of Dosage 00:00:00 [facility] Pneumococcal 7 2001-04-22 Completed University of Conjugate, PCV7 00:00:00 [place] [facility] (Prevnar7) Branch HIB 4 Dose Schedule 2001-04-22 Completed Unive rsity of 00:00:00 [facility] Hep B, Adol or Pedi 2001-04-22 Completed Unive rsity of Dosage 00:00:00 [facility] Pneumococcal 7 2001-04-22 Completed [facility] of Conjugate, PCV7 00:00:00 [place] [facility] (Prevnar7) [facility] HIB 4 Dose Schedule 2001-04-22 Completed Unive rsity of 00:00:00 [facility] Hep B, Adol or Pedi 2001-04-22 Completed Unive rsity of Dosage 00:00:00 [facility] Pneumococcal 7 2001-04-22 Completed University of Conjugate, PCV7 00:00:00 [place] [facility] (Prevnar7) [facility] HIB 4 Dose Schedule 2001-04-22 Completed Unive rsity of 00:00:00 [facility] Hep B, Adol or Pedi 2001-04-22 Completed [facility] Dosage 00:00:00 [facility] Pneumococcal 7 2001-04-22 Completed [facility] Conjugate, PCV7 00:00:00 [facility] (Pre[facility]ar[facility] HIB 4 Dose Schedule 2001-04-22 Completed [facility] of 00:00:00 [facility] Hep B, Adol or Pedi 2001-04-22 Completed [facility] Dosage 00:00:00 [facility] Pneumococcal 7 2001-04-22 Completed [facility] Conjugate, PCV7 00:00:00 [facility] (Prevnar7) [facility] HIB 4 Dose Schedule 2001-04-22 Completed [facility] of 00:00:00 [facility] Hep B, Adol or Pedi 2001-04-22 Completed [facility] Dosage 00:00:00 [facility] Pneumococcal 7 2001-04-22 Completed [facility] Conjugate, PCV7 00:00:00 [facility] (Prevnar7) [facility] HIB 4 Dose Schedule 2001-04-22 Completed [facility] of 00:00:00 [facility] Hep B, Adol or Pedi 2001-04-22 Completed [facility] of Dosage 00:00:00 [facility] Pneumococcal 7 2001-04-22 Completed [facility] Conjugate, PCV7 00:00:00 [place] [facility] (Prevnar7) [facility] DTAP 2001-02-14 Completed [facility] of 00:00:00 [facility] HIB 4 Dose Schedule 2001-02-14 Completed [facility] of 00:00:00 [facility] Polio (IPV/OPV) 2001-02-14 Completed [facility] of 00:00:00 [facility] DTAP 2001-02-14 Completed [facility] of 00:00:00 [facility] HIB 4 Dose Schedule 2001-02-14 Completed [facility] of 00:00:00 [facility] Polio (IPV/OPV) 2001-02-14 Completed [facility] of 00:00:00 [facility] DTAP 2001-02-14 Completed [facility] of 00:00:00 [facility] HIB 4 Dose Schedule 2001-02-14 Completed [facility] of 00:00:00 [facility] Polio (IPV/OPV) 2001-02-14 Completed [facility] 00:00:00 [facility] DTAP 2001-02-14 Completed [facility] of 00:00:00 [facility] HIB 4 Dose Schedule 2001-02-14 Completed [facility] of 00:00:00 [facility] Polio (IPV/OPV) 2001-02-14 Completed [facility] of 00:00:00 [facility] DTAP 2001-02-14 Completed [facility] 00:00:00 [facility] HIB 4 Dose Schedule 2001-02-14 Completed [facility] of 00:00:00 [facility] Polio (IPV/OPV) 2001-02-14 Completed [facility] of 00:00:00 [facility] DTAP 2001-02-14 Completed [facility] of 00:00:00 [facility] HIB 4 Dose Schedule 2001-02-14 Completed [facility] of 00:00:00 [facility] Polio (IPV/OPV) 2001-02-14 Completed [facility] of 00:00:00 [facility] DTAP 2001-02-14 Completed [facility] of 00:00:00 [facility] HIB 4 Dose Schedule 2001-02-14 Completed [facility] 00:00:00 [facility] Polio (IPV/OPV) 2001-02-14 Completed [facility] of 00:00:00 [facility] DTAP 2001-02-14 Completed [facility] 00:00:00 [facility] HIB 4 Dose Schedule 2001-02-14 Completed [facility] 00:00:00 [facility] Polio (IPV/OPV) 2001-02-14 Completed [facility] 00:00:00 [facility] DTAP 2001-02-14 Completed [facility] 00:00:00 [facility] HIB 4 Dose Schedule 2001-02-14 Completed [facility] 00:00:00 [facility] Polio (IPV/OPV) 2001-02-14 Completed [facility] 00:00:00 [facility] DTAP 2001-02-14 Completed [facility] of 00:00:00 [facility] HIB 4 Dose Schedule 2001-02-14 Completed [facility] of 00:00:00 [facility] Polio (IPV/OPV) 2001-02-14 Completed [facility] of 00:00:00 [facility] DTAP 2001-02-14 Completed [facility] 00:00:00 [facility] HIB 4 Dose Schedule 2001-02-14 Completed [facility] 00:00:00 [facility] Polio (IPV/OPV) 2001-02-14 Completed [facility] of 00:00:00 [facility] DTAP 2001-02-14 Completed [facility] of 00:00:00 [facility] HIB 4 Dose Schedule 2001-02-14 Completed [facility] 00:00:00 [facility] Polio (IPV/OPV) 2001-02-14 Completed [facility] 00:00:00 [facility] DTAP 2001-02-14 Completed [facility] of 00:00:00 [facility] HIB 4 Dose Schedule 2001-02-14 Completed [facility] 00:00:00 [facility] Polio (IPV/OPV) 2001-02-14 Completed [facility] 00:00:00 [facility] DTAP 2001-02-14 Completed [facility] of 00:00:00 [facility] HIB 4 Dose Schedule 2001-02-14 Completed [facility] of 00:00:00 [facility] Polio (IPV/OPV) 2001-02-14 Completed [facility] 00:00:00 [facility] DTAP 2001-02-14 Completed [facility] of 00:00:00 [...] Schedule 2001-02-14 Completed [facility] of 00:00:00 [facility] Polio (IPV/OPV) 2001-02-14 Completed [facility] of 00:00:00 [facility] DTAP 2001-02-14 Completed [facility] 00:00:00 [facility] HIB 4 Dose Schedule 2001-02-14 Completed [facility] of 00:00:00 [facility] Polio (IPV/OPV) 2001-02-14 Completed [facility] of 00:00:00 [facility] DTAP 2001-02-14 Completed [facility] 00:00:00 [facility] HIB 4 Dose Schedule 2001-02-14 Completed [facility] of 00:00:00 [facility] Polio (IPV/OPV) 2001-02-14 Completed [facility] of 00:00:00 [facility] DTAP 2001-02-14 Completed [facility] 00:00:00 [facility] HIB 4 Dose Schedule 2001-02-14 Completed [facility] of 00:00:00 [facility] Polio (IPV/OPV) 2001-02-14 Completed [facility] 00:00:00 [facility] DTAP 2001-02-14 Completed [facility] 00:00:00 [facility] HIB 4 Dose Schedule 2001-02-14 Completed [facility] of 00:00:00 [facility] Polio (IPV/OPV) 2001-02-14 Completed [facility] 00:00:00 [facility] DTAP 2001-02-14 Completed [facility] 00:00:00 [facility] HIB 4 Dose Schedule 2001-02-14 Completed [facility] 00:00:00 [facility] Polio (IPV/OPV) 2001-02-14 Completed [facility] of 00:00:00 [facility] DTAP 2001-02-14 Completed [facility] 00:00:00 [facility] HIB 4 Dose Schedule 2001-02-14 Completed [facility] 00:00:00 [facility] Polio (IPV/OPV) 2001-02-14 Completed Universit [...] Schedule 2001-02-14 Completed [facility] 00:00:00 [facility] Polio (IPV/OPV) 2001-02-14 Completed Universit [...] Schedule 2001-02-14 Completed [facility] 00:00:00 [facility] Polio (IPV/OPV) 2001-02-14 Completed [facility] 00:00:00 [facility] DTAP 2001-02-14 Completed [facility] 00:00:00 [facility] HIB 4 Dose Schedule 2001-02-14 Completed [facility] 00:00:00 [facility] Polio (IPV/OPV) 2001-02-14 Completed [facility] 00:00:00 [facility] DTAP 2001-02-14 Completed [facility] 00:00:00 [facility] HIB 4 Dose Schedule 2001-02-14 Completed [facility] 00:00:00 [facility] Polio (IPV/OPV) 2001-02-14 Completed [facility] of 00:00:00 [facility] DTAP 2001-02-14 Completed [facility] 00:00:00 [facility] HIB 4 Dose Schedule 2001-02-14 Completed [facility] 00:00:00 [facility] Polio (IPV/OPV) 2001-02-14 Completed [facility] of 00:00:00 [facility] DTAP 2001-02-14 Completed [facility] 00:00:00 [facility] HIB 4 Dose Schedule 2001-02-14 Completed [facility] 00:00:00 [facility] Polio (IPV/OPV) 2001-02-14 Completed [facility] of 00:00:00 [facility] DTAP 2001-02-14 Completed [facility] 00:00:00 [facility] HIB 4 Dose Schedule 2001-02-14 Completed [facility] 00:00:00 [facility] Polio (IPV/OPV) 2001-02-14 Completed [facility] of 00:00:00 [facility] DTAP 2001-02-14 Completed [facility] 00:00:00 [facility] HIB 4 Dose Schedule 2001-02-14 Completed [facility] of 00:00:00 [facility] Polio (IPV/OPV) 2001-02-14 Completed [facility] 00:00:00 [facility] DTAP 2001-02-14 Completed [facility] 00:00:00 [facility] HIB 4 Dose Schedule 2001-02-14 Completed [facility] 00:00:00 [facility] Polio (IPV/OPV) 2001-02-14 Completed [facility] 00:00:00 [facility] DTAP 2001-02-14 Completed [facility] 00:00:00 [facility] HIB 4 Dose Schedule 2001-02-14 Completed [facility] 00:00:00 [facility] Polio (IPV/OPV) 2001-02-14 Completed [facility] of 00:00:00 [facility] DTAP 2001-02-14 Completed [facility] 00:00:00 [facility] HIB 4 Dose Schedule 2001-02-14 Completed [facility] of 00:00:00 [facility] Polio (IPV/OPV) 2001-02-14 Completed [facility] 00:00:00 [facility] DTAP 2001-02-14 Completed [facility] 00:00:00 [facility] HIB 4 Dose Schedule 2001-02-14 Completed [facility] 00:00:00 [facility] Polio (IPV/OPV) 2001-02-14 Completed [facility] of 00:00:00 [facility] DTAP 2000 Completed [facility] of 00:00:00 [facility] HIB 4 Dose Schedule 2000 Completed [facility] 00:00:00 [facility] Hep B, Adol or Pedi 2000 Completed [facility] Dosage 00:00:00 [facility] Polio (IPV/OPV) 2000 Completed [facility] 00:00:00 [facility] DTAP 2000 Completed [facility] 00:00:00 [facility] HIB 4 Dose Schedule 2000 Completed [facility] 00:00:00 [facility] Hep B, Adol or Pedi 2000 Completed [facility] Dosage 00:00:00 [facility] Polio (IPV/OPV) 2000 Completed [facility] 00:00:00 [facility] DTAP 2000 Completed [facility] of 00:00:00 [facility] HIB 4 Dose Schedule 2000 Completed [facility] 00:00:00 [facility] Hep B, Adol or Pedi 2000 Completed [facility] Dosage 00:00:00 [facility] Polio (IPV/OPV) 2000 Completed [facility] 00:00:00 [facility] DTAP 2000 Completed [facility] 00:00:00 [facility] HIB 4 Dose Schedule 2000 Completed [facility] 00:00:00 [facility] Hep B, Adol or Pedi 2000 Completed [facility] Dosage 00:00:00 [facility] Polio (IPV/OPV) 2000 Completed [facility] 00:00:00 [facility] DTAP 2000 Completed [facility] 00:00:00 [facility] HIB 4 Dose Schedule 2000 Completed [facility] 00:00:00 [facility] Hep B, Adol or Pedi 2000 Completed [facility] Dosage 00:00:00 [facility] Polio (IPV/OPV) 2000 Completed [facility] 00:00:00 [facility] DTAP 2000 Completed [facility] 00:00:00 [facility] HIB 4 Dose Schedule 2000 Completed [facility] 00:00:00 [facility] Hep B, Adol or Pedi 2000 Completed [facility] Dosage 00:00:00 [facility] Polio (IPV/OPV) 2000 Completed [facility] 00:00:00 [facility] DTAP 2000 Completed [facility] 00:00:00 [facility] HIB 4 Dose Schedule 2000 Completed [facility] of 00:00:00 [facility] Hep B, Adol or Pedi 2000 Completed [facility] Dosage 00:00:00 [facility] Polio (IPV/OPV) 2000 Completed [facility] 00:00:00 [facility] DTAP 2000 Completed [facility] 00:00:00 [facility] HIB 4 Dose Schedule 2000 Completed [facility] 00:00:00 [facility] Hep B, Adol or Pedi 2000 Completed [facility] Dosage 00:00:00 [facility] Polio (IPV/OPV) 2000 Completed [facility] 00:00:00 [facility] DTAP 2000 Completed [facility] 00:00:00 [facility] HIB 4 Dose Schedule 2000 Completed [facility] 00:00:00 [facility] Hep B, Adol or Pedi 2000 Completed [facility] Dosage 00:00:00 [facility] Polio (IPV/OPV) 2000 Completed [facility] 00:00:00 [facility] DTAP 2000 Completed [facility] 00:00:00 [facility] HIB 4 Dose Schedule 2000 Completed [facility] of 00:00:00 [facility] Hep B, Adol or Pedi 2000 Completed [facility] Dosage 00:00:00 [facility] Polio (IPV/OPV) 2000 Completed [facility] 00:00:00 [facility] DTAP 2000 Completed [facility] 00:00:00 [facility] HIB 4 Dose Schedule 2000 Completed [facility] of 00:00:00 [facility] Hep B, Adol or Pedi 2000 Completed [facility] Dosage 00:00:00 [facility] Polio (IPV/OPV) 2000 Completed [facility] 00:00:00 [facility] DTAP 2000 Completed [facility] 00:00:00 [facility] HIB 4 Dose Schedule 2000 Completed [facility] 00:00:00 [facility] Hep B, Adol or Pedi 2000 Completed [facility] Dosage 00:00:00 [facility] Polio (IPV/OPV) 2000 Completed [facility] 00:00:00 [facility] DTAP 2000 Completed [facility] 00:00:00 [facility] HIB 4 Dose Schedule 2000 Completed [facility] of 00:00:00 [facility] Hep B, Adol or Pedi 2000 Completed [facility] Dosage 00:00:00 [facility] Polio (IPV/OPV) 2000 Completed [facility] 00:00:00 [facility] DTAP 2000 Completed [facility] 00:00:00 [facility] HIB 4 Dose Schedule 2000 Completed [facility] of 00:00:00 [facility] Hep B, Adol or Pedi 2000 Completed [facility] Dosage 00:00:00 [facility] Polio (IPV/OPV) 2000 Completed [facility] 00:00:00 [facility] DTAP 2000 Completed [facility] 00:00:00 [facility] HIB 4 Dose Schedule 2000 Completed [facility] 00:00:00 [facility] Hep B, Adol or Pedi 2000 Completed [facility] Dosage 00:00:00 [facility] Polio (IPV/OPV) 2000 Completed [facility] 00:00:00 [facility] DTAP 2000 Completed [facility] 00:00:00 [facility] HIB 4 Dose Schedule 2000 Completed [facility] of 00:00:00 [facility] Hep B, Adol or Pedi 2000 Completed [facility] of Dosage 00:00:00 [facility] Polio (IPV/OPV) 2000 Completed [facility] of 00:00:00 [facility] DTAP 2000 Completed [facility] 00:00:00 [facility] HIB 4 Dose Schedule 2000 Completed [facility] 00:00:00 [facility] Hep B, Adol or Pedi 2000 Completed [facility] Dosage 00:00:00 [facility] Polio (IPV/OPV) 2000 Completed [facility] 00:00:00 [facility] DTAP 2000 Completed [facility] 00:00:00 [facility] HIB 4 Dose Schedule 2000 Completed [facility] 00:00:00 [facility] Hep B, Adol or Pedi 2000 Completed [facility] Dosage 00:00:00 [facility] Polio (IPV/OPV) 2000 Completed [facility] 00:00:00 [facility] DTAP 2000 Completed [facility] 00:00:00 [facility] HIB 4 Dose Schedule 2000 Completed [facility] 00:00:00 [facility] Hep B, Adol or Pedi 2000 Completed [facility] of Dosage 00:00:00 [facility] Polio (IPV/OPV) 2000 Completed [facility] 00:00:00 [facility] DTAP 2000 Completed [facility] 00:00:00 [facility] HIB 4 Dose Schedule 2000 Completed [facility] 00:00:00 [facility] Hep B, Adol or Pedi 2000 Completed [facility] of Dosage 00:00:00 [facility] Polio (IPV/OPV) 2000 Completed [facility] of 00:00:00 [facility] DTAP 2000 Completed [facility] 00:00:00 [facility] HIB 4 Dose Schedule 2000 Completed [facility] of 00:00:00 [facility] Hep B, Adol or Pedi 2000 Completed [facility] of Dosage 00:00:00 [facility] Polio (IPV/OPV) 2000 Completed [facility] 00:00:00 [facility] DTAP 2000 Completed [facility] 00:00:00 [facility] HIB 4 Dose Schedule 2000 Completed [facility] of 00:00:00 [facility] Hep B, Adol or Pedi 2000 Completed [facility] of Dosage 00:00:00 [facility] Polio (IPV/OPV) 2000 Completed [facility] of 00:00:00 [facility] DTAP 2000 Completed [facility] 00:00:00 [facility] HIB 4 Dose Schedule 2000 Completed [facility] of 00:00:00 [facility] Hep B, Adol or Pedi 2000 Completed [facility] Dosage 00:00:00 [facility] Polio (IPV/OPV) 2000 Completed [facility] 00:00:00 [facility] DTAP 2000 Completed [facility] 00:00:00 [facility] HIB 4 Dose Schedule 2000 Completed [facility] of 00:00:00 [facility] Hep B, Adol or Pedi 2000 Completed [facility] of Dosage 00:00:00 [facility] Polio (IPV/OPV) 2000 Completed [facility] of 00:00:00 [facility] DTAP 2000 Completed [facility] 00:00:00 [facility] HIB 4 Dose Schedule 2000 Completed [facility] of 00:00:00 [facility] Hep B, Adol or Pedi 2000 Completed [facility] of Dosage 00:00:00 [facility] Polio (IPV/OPV) 2000 Completed [facility] 00:00:00 [facility] DTAP 2000 Completed [facility] 00:00:00 [facility] HIB 4 Dose Schedule 2000 Completed [facility] of 00:00:00 [facility] Hep B, Adol or Pedi 2000 Completed [facility] Dosage 00:00:00 [facility] Polio (IPV/OPV) 2000 Completed [facility] 00:00:00 [facility] DTAP 2000 Completed [facility] 00:00:00 [facility] HIB 4 Dose Schedule 2000 Completed [facility] of 00:00:00 [facility] Hep B, Adol or Pedi 2000 Completed [facility] of Dosage 00:00:00 [facility] Polio (IPV/OPV) 2000 Completed [facility] 00:00:00 [facility] DTAP 2000 Completed [facility] 00:00:00 [facility] HIB 4 Dose Schedule 2000 Completed [facility] of 00:00:00 [facility] Hep B, Adol or Pedi 2000 Completed [facility] of Dosage 00:00:00 [facility] Polio (IPV/OPV) 2000 Completed [facility] 00:00:00 [facility] DTAP 2000 Completed [facility] 00:00:00 [facility] HIB 4 Dose Schedule 2000 Completed [facility] 00:00:00 [facility] Hep B, Adol or Pedi 2000 Completed [facility] Dosage 00:00:00 [facility] Polio (IPV/OPV) 2000 Completed [facility] 00:00:00 [facility] DTAP 2000 Completed [facility] 00:00:00 [facility] HIB 4 Dose Schedule 2000 Completed [facility] of 00:00:00 [facility] Hep B, Adol or Pedi 2000 Completed [facility] Dosage 00:00:00 [facility] Polio (IPV/OPV) 2000 Completed [facility] 00:00:00 [facility] DTAP 2000 Completed [facility] 00:00:00 [facility] HIB 4 Dose Schedule 2000 Completed [facility] of 00:00:00 [facility] Hep B, Adol or Pedi 2000 Completed [facility] of Dosage 00:00:00 [facility] Polio (IPV/OPV) 2000 Completed [facility] 00:00:00 [facility] DTAP 2000 Completed [facility] 00:00:00 [facility] HIB 4 Dose Schedule 2000 Completed [facility] of 00:00:00 [facility] Hep B, Adol or Pedi 2000 Completed [facility] of Dosage 00:00:00 [facility] Polio (IPV/OPV) 2000 Completed [facility] 00:00:00 [facility] DTAP 2000 Completed [facility] 00:00:00 [facility] HIB 4 Dose Schedule 2000 Completed [facility] of 00:00:00 [facility] Hep B, Adol or Pedi 2000 Completed [facility] of Dosage 00:00:00 [facility] Polio (IPV/OPV) 2000 Completed [facility] 00:00:00 [facility] DTAP 2000 Completed [facility] 00:00:00 [facility] HIB 4 Dose Schedule 2000 Completed [facility] of 00:00:00 [facility] Hep B, Adol or Pedi 2000 Completed [facility] of Dosage 00:00:00 [facility] Polio (IPV/OPV) 2000 Completed [facility] 00:00:00 [facility] DTAP 2000 Completed [facility] 00:00:00 [facility] HIB 4 Dose Schedule 2000 Completed [facility] of 00:00:00 [facility] Hep B, Adol or Pedi 2000 Completed [facility] of Dosage 00:00:00 [facility] Polio (IPV/OPV) 2000 Completed [facility] 00:00:00 [facility] DTAP 2000 Completed [facility] 00:00:00 [facility] HIB 4 Dose Schedule 2000 Completed [facility] of 00:00:00 [facility] Hep B, Adol or Pedi 2000 Completed [facility] of Dosage 00:00:00 [facility] Polio (IPV/OPV) 2000 Completed [facility] 00:00:00 [facility] DTAP 2000 Completed [facility] 00:00:00 [facility] HIB 4 Dose Schedule 2000 Completed [facility] of 00:00:00 [facility] Hep B, Adol or Pedi 2000 Completed [facility] of Dosage 00:00:00 [facility] Polio (IPV/OPV) 2000 Completed Universit [...] 2000 Completed [facility] of Dosage 00:00:00 [facility] Hep B, Adol or Pedi 2000 Completed [facility] of Dosage 00:00:00 [facility] Hep B, Adol or Pedi 2000 Completed [facility] of Dosage 00:00:00 [facility] Vital Signs Vital Name Observation Time Observation Value Comments Source Systolic blood 2023-01-25 20:48:00 107 mm[Hg] [facility] of pressure [facility] Diastolic blood 2023-01-25 20:48:00 64 mm[Hg] Unive [facility]ity of pressure [facility] Heart rate 2023-01-25 20:48:00 85 /min [facility]i ty of [facility] Body temperature 2023-01-25 20:48:00 36.67 [facility] ersity of [facility] Respiratory rate 2023-01-25 20:48:00 18 /min Univ ersity of [facility] Body height 2023-01-25 20:48:00 162.6 cm [facility] Body weight 2023-01-25 20:48:00 78.926 kg Universi ty of [facility] BMI 2023-01-25 20:48:00 29.87 kg/m2 Universi ty [facility] Oxygen saturation in 2023-01-25 20:48:00 98 /min [facility] Arterial blood by [facility] Pulse oximetry Branch Systolic blood 2022-08-23 22:13:00 103 mm[Hg] Univer sity of pressure [facility] Diastolic blood 2022-08-23 22:13:00 67 mm[Hg] Unive rsity of pressure [facility] Heart rate 2022-08-23 22:13:00 85 /min Universi ty of [facility] Body temperature 2022-08-23 22:13:00 37.06 Maricruz Univ ersity of [facility] Body height 2022-08-23 22:13:00 162.6 cm [facility] [place] [facility] [place] Body weight 2022-08-23 22:13:00 84.46 kg Universi ty of [facility] BMI 2022-08-23 22:13:00 31.96 kg/m2 Universi ty of [facility] Heart rate 2022-08-04 14:00:00 73 /min [facility] Respiratory rate 2022-08-04 14:00:00 20 /min Univ [facility] Oxygen saturation in 2022-08-04 14:00:00 100 /min University of Arterial blood by [facility] Pulse oximetry Branch Systolic blood 2022-08-04 09:54:00 117 mm[Hg] Univer sity of pressure [facility] Diastolic blood 2022-08-04 09:54:00 95 mm[Hg] Unive rsity of [facility] Body temperature 2022-08-04 09:54:00 35.94 Maricruz Univ [facility] Body height 2022-08-02 22:23:00 162.6 cm [facility] Body weight 2022-08-02 22:23:00 93.895 kg [facility] BMI 2022-08-02 22:23:00 35.53 kg/m2 [facility] Systolic blood 2022-08-02 20:48:00 123 mm[Hg] Univer sity of [facility] Diastolic blood 2022-08-02 20:48:00 77 mm[Hg] Unive rsity of [facility] Heart rate 2022-08-02 20:48:00 102 /min [facility] Body temperature 2022-08-02 20:48:00 36.72 Maricruz Univ [facility] Body height 2022-08-02 20:48:00 162.6 cm [facility] Body weight 2022-08-02 20:48:00 94.439 kg [facility] BMI 2022-08-02 20:48:00 35.74 kg/m2 [facility] Systolic blood 2022-07-25 19:43:00 126 mm[Hg] Univer sity of [facility] Diastolic blood 2022-07-25 19:43:00 86 mm[Hg] Unive rsity of [facility] Heart rate 2022-07-25 19:43:00 96 /min [facility] Body temperature 2022-07-25 19:43:00 36.78 Maricruz Univ [facility] Body height 2022-07-25 19:43:00 162.6 cm [facility] Body weight 2022-07-25 19:43:00 92.443 kg [facility] BMI 2022-07-25 19:43:00 34.98 kg/m2 [facility] Systolic blood 2022-07-04 19:36:00 105 mm[Hg] Univer [facility]ity of [facility] Diastolic blood 2022-07-04 19:36:00 71 mm[Hg] Unive rsity of [facility] Heart rate 2022-07-04 19:36:00 97 /min Universi ty of [facility] Body temperature 2022-07-04 19:36:00 36.61 Maricruz Univ ersity of [facility] Respiratory rate 2022-07-04 19:36:00 18 /min Univ ersity of [facility] Body height 2022-07-04 19:36:00 162.6 cm [facility] Body weight 2022-07-04 19:36:00 91.264 kg [facility] BMI 2022-07-04 19:36:00 34.54 kg/m2 [facility] Oxygen saturation in 2022-07-04 19:36:00 99 /min University Arterial blood by [facility] Pulse oximetry Branch Systolic blood 2022-06-19 19:25:00 101 mm[Hg] Univer sity of pressure [facility] Diastolic blood 2022-06-19 19:25:00 67 mm[Hg] Unive rsity of [facility] Heart rate 2022-06-19 19:25:00 80 /min [facility] Body temperature 2022-06-19 19:25:00 36.72 Maricruz Univ ersity of [facility] Respiratory rate 2022-06-19 19:25:00 18 /min Univ ersity of [facility] Body height 2022-06-19 19:25:00 162.6 cm [facility] Body weight 2022-06-19 19:25:00 87.816 kg [facility] BMI 2022-06-19 19:25:00 33.23 kg/m2 [facility] Systolic blood 2022-05-31 19:08:00 99 mm[Hg] Univer [facility]ity [facility] Diastolic blood 2022-05-31 19:08:00 64 mm[Hg] Unive [facility]ity of [facility] Heart rate 2022-05-31 19:08:00 94 /min [facility] Body temperature 2022-05-31 19:08:00 36.67 Maricruz [facility] Respiratory rate 2022-05-31 19:08:00 18 /min Univ [facility] Body height 2022-05-31 19:08:00 162.6 cm [facility] Body weight 2022-05-31 19:08:00 85.276 kg [facility] BMI 2022-05-31 19:08:00 32.27 kg/m2 [facility] Systolic blood 2022-05-03 20:15:00 106 [...] 2022-05-03 20:15:00 162.6 cm [facility] Body weight 2022-05-03 20:15:00 82.555 kg [facility] BMI 2022-05-03 20:15:00 31.24 kg/m2 [facility] Systolic blood 2022-04-27 04:49:00 119 mm[Hg] Univer [facility]ity [facility] Diastolic blood 2022-04-27 04:49:00 61 mm[Hg] Unive rsity of [facility] Heart rate 2022-04-27 04:49:00 80 /min [facility] Body temperature 2022-04-27 04:49:00 36.89 Maricruz [facility] Respiratory rate 2022-04-27 04:49:00 20 /min Univ [facility]ity [facility] Oxygen saturation in 2022-04-27 04:49:00 100 /min University Arterial blood by [facility] Pulse oximetry Branch Body weight 2022-04-27 04:04:00 81.829 kg [facility] BMI 2022-04-27 04:04:00 30.97 kg/m2 [facility] Systolic blood 2022-04-05 18:58:00 100 mm[Hg] Univer [facility]ity of [facility] Diastolic blood 2022-04-05 18:58:00 66 mm[Hg] Unive rsity of [facility] Heart rate 2022-04-05 18:58:00 86 /min Universi ty of [facility] Body temperature 2022-04-05 18:58:00 36.78 Maricruz Univ [facility]ity [facility] Respiratory rate 2022-04-05 18:58:00 18 /min Univ ersity [facility] Body height 2022-04-05 18:58:00 162.6 cm [facility] ty [facility] [place] [facility] [place] Body weight 2022-04-05 18:58:00 78.926 kg [facility] BMI 2022-04-05 18:58:00 29.87 kg/m2 [facility] Systolic blood 2022-03-22 18:57:00 104 mm[Hg] Univer [facility]ity of [facility] Diastolic blood 2022-03-22 18:57:00 66 mm[Hg] Unive rsity of [facility] Heart rate 2022-03-22 18:57:00 118 /min [facility]i [facility] Body temperature 2022-03-22 18:57:00 37.06 Maricruz Univ [facility] Respiratory rate 2022-03-22 18:57:00 18 /min Univ ersity [facility] Body height 2022-03-22 18:57:00 162.6 cm [facility] Body weight 2022-03-22 18:57:00 76.794 kg [facility] BMI 2022-03-22 18:57:00 29.06 kg/m2 [facility] Oxygen saturation in 2022-03-22 18:57:00 97 /min University of Arterial blood by [facility] Pulse oximetry Branch BP Diastolic 2021-01-04 00:00:00 52 mm[Hg] [facility] Height 2021-01-04 00:00:00 64 [in_i] [facility] BMI (Body Mass 2021-01-04 00:00:00 27.1 kg/m2 [facility] s BP Systolic 2021-01-04 00:00:00 84 mm[Hg] [facility] s Body Weight 2021-01-04 00:00:00 2528 [oz_av] [facility] BP Diastolic 2020-10-21 00:00:00 72 mm[Hg] [facility] Height 2020-10-21 00:00:00 64 [in_i] [facility] s BMI (Body Mass 2020-10-21 00:00:00 28.2 kg/m2 [facility] BP Systolic 2020-10-21 00:00:00 112 mm[Hg] [facility] Body Weight 2020-10-21 00:00:00 2624 [oz_av] [facility] Height/Length 2021-07-26 10:08:23 162.56 cm [...] Systolic blood 2022-05-08 17:37:00 102 mm[Hg] [facility] pressure Diastolic blood 2022-05-08 17:37:00 62 mm[Hg] [facility] pressure Heart rate 2022-05-08 17:37:00 77 /min [facility] Body temperature 2022-05-08 17:37:00 36.61 Maricruz [facility] Respiratory rate 2022-05-08 17:37:00 18 /min [facility] Body height 2022-05-08 17:37:00 162.6 cm [facility] Body weight 2022-05-08 17:37:00 81.647 kg [facility] BMI 2022-05-08 17:37:00 30.90 kg/m2 [facility] Oxygen saturation in 2022-05-08 17:13:40 99 /min [facility] Arterial blood by Pulse oximetry Procedures Procedure Date / Time Performing Clinician Source Performed POCT URINALYSIS 2023-01-25 21:11:00 John Martinez [facility] POCT TEST 2023-01-25 21:11:00 John Martinez [facility] CBC WITH DIFF 2022-08-04 09:50:00 Gladis [facility] CENTRAL NEURAXIAL BLOCK 2022-08-03 16:20:00 Veto [place]ows [facility] CBC WITH DIFF 2022-08-02 23:11:00 Griffith, Demetrius [facility] HEPATITIS B SURFACE 2022-08-02 23:11:00 Demetrius Griffith [facility] ANTIGEN Medical Branch ADC OR HAIM ONLY - RPR 2022-08-02 23:11:00 Demetrius Griffith [facility] HIV 1/2 AG-AB WITH REFLEX 2022-08-02 23:11:00 Demetrius Griffith [facility] HB ABO GROUPING 2022-08-02 22:15:00 Demetrius Griffith [place] [facility] RHO (D) IMMUNE GLOBULIN 2022-08-02 22:15:00 Demetrius Griffith [facility] ASSIGNMENT OF BENEFITS 2022-08-02 21:49:01 Doctor Unassigned, [facility] [place] CONSENT/REFUSAL FOR 2022-08-02 21:47:38 Doctor Unassigned, [facility] DIAGNOSIS AND TREATMENT [place] [facility] [place] POCT URINALYSIS W/O 2022-08-02 00:00:00 Demetrius Griffith [facility] SPECIFIC [facility] DSU PRE-OP 2022-07-26 06:01:00 Doctor Unassigned, [facility] Name [facility] [place] >14 WEEKS US 2022-07-25 22:21:[address] [facility] POCT URINALYSIS W/O 2022-07-25 00:00:00 Demetrius Griffith [facility] SPECIFIC [facility] DME/SUPPLY JUSTIFICATION 2022-07-11 06:01:00 Doctor Unassaye, [facility] [place] [facility] [place] ASSIGNMENT OF BENEFITS 2022-06-27 14:39:36 Doctor Unassigned, [facility] [place] POCT URINALYSIS W/O 2022-06-19 19:28:00 Demetrius Griffith [facility] SPECIFIC GRAVITY [facility] TDAP VACCINE, >11 YRS, IM 2022-06-19 19:26:45 Demetrius Griffith [facility] TYPE AND SCREEN, 2022-05-08 21:17:00 Kaitlin Romo [facility] OBSTETRICAL PATIENT US BIOPHYSICAL 2022-05-08 19:08:00 Kaitlin Romo [facility] PROFILE POCT URINALYSIS W/O 2022-05-03 00:00:00 Demetrius Griffith [facility] US LIMITED 2022-04-27 20:48:00 SachaJayale Alves [facility] ASSIGNMENT OF BENEFITS 2022-04-27 03:50:27 Doctor Unassigned, [facility] [place] [facility] CONSENT/REFUSAL FOR 2022-04-27 03:50:09 Doctor Unassigned, [facility] DIAGNOSIS AND TREATMENT [place] [facility] OP CORRESPONDENCE 2022-04-25 05:01:00 Doctor Unassigned, [facility] Name Medical Branch MATERNAL SERUM SCREEN 1-Q 2022-04-05 20:13:00 Demetrius Griffith Un [facility] POCT URINALYSIS W/O 2022-04-05 00:00:00 Fabby Suh [facility] [place] VISUAL FIELD - 2021-10-24 18:31:10 [place] [facility] - B[facility] EYES [place] OCT, OPTIC NERVE - OU - 2021-10-24 18:15:43 [place] [place] Plan of Care Planned Activity Planned Date Details Comments Source Future Scheduled 2023-03-16 COVID-19 VACCINE (#1) [facility] Test 16:11:25 [code = COVID-19 VACCINE (#1)] Future Scheduled 2023-03-16 Hepatitis C screening [facility] Test 16:11:25 (procedure) [code = 938407331] Future Scheduled 2023-03-16 [facility] 16:11:25 malignant neoplasm of cervix (procedure) [code = 364925336] Future Scheduled 2023-03-16 [facility] Test 16:11:25 Chlamydia trachomatis (procedure) [code = 843953739] Future Scheduled 2023-03-16 INFLUENZA VACCINE [facility] 16:11:25 (#1) [code = INFLUENZA VACCINE (#1)] Future Scheduled 2022-12-25 COVID-19 VACCINE (#1) [facility] Test 22:16:52 [code = COVID-19 VACCINE (#1)] Future Scheduled 2022-12-25 Hepatitis C screening [facility] Test 22:16:52 (procedure) [code = 702003059] Future Scheduled 2022-12-25 [facility] Test 22:16:52 malignant neoplasm of cervix (procedure) [code = 908492167] Future Scheduled 2022-12-25 [facility]ZA [facility]ACCINE [facility] 22:16:52 [code = INFLUENZA VACCINE] Future Scheduled 2022-12-25 [facility] Test 22:16:52 Chlamydia trachomatis (procedure) [code = 508794015] Future Scheduled 2022-10-10 COVID-19 VACCINE (#1) [facility] Test 13:45:26 [code = COVID-19 VACCINE (#1)] Future Scheduled 2022-10-10 Hepatitis C screening [facility] Test 13:45:26 (procedure) [code = 221209720] Future Scheduled 2022-10-10 [facility] Test 13:45:26 malignant neoplasm of cervix (procedure) [code = 151804015] Future Scheduled 2022-10-10 INFLUENZA VACCINE [facility] Test 13:45:26 [code = INFLUENZA VACCINE] Future Scheduled 2022-10-10 [facility] Test 13:45:26 Chlamydia trachomatis (procedure) [code = 645361259] Diagnostic Test 2020-10-21 iron + TIBC + [facility] Pending 00:00:00 ferritin, serum [code Hospit al Clinics = iron + TIBC + ferritin, serum] Diagnostic Test 2020-10-21 CBC w/ auto diff [facility] Pending 00:00:00 [code = CBC w/ auto Hospital Clinics diff] Diagnostic Test 2020-10-21 test, urine [facility] Pending 00:00:00 [code = Hospital C linics test, urine] Diagnostic Test 2020-10-21 CT + NG RNA, urine [facility] Pending 00:00:00 [code = CT + NG RNA, Hospita l Clinics urine] Encounters Start End Encounter Admission Attending Care Care Encounter Source Date/Time Date/Time Type Type Clinicians Facility Department ID 2022-03-03 Outpatient X [facility] MICAH [id number] Univers 16:15:59 ity of [facility] 2021-09-19 Outpatient [facility] [id number] [place] 11:23:27 Health 2021-09-19 Outpatient [facility] [id number] [place] 11:23:27 Health 2021-05-07 Emergency [facility] [id number] Univers 10:41:53 ity of [facility] 2021-05-05 Emergency [facility] [id number] Univers 19:52:41 ity of [facility] 2023-02-20 2023-02-20 Outpatient R GLADIS DEMETRIUS [facility] [id number] Univers 13:30:00 13:30:00 ity of [facility] 2023-01-25 2023-01-25 Outpatient R MICHELLE [facility] [id number] Univers 15:40:00 16:45:57 OMAYEMI ity [facility] 2023-01-25 2023-01-25 [facility] 1.2.840. [id number] Univers 15:40:00 16:45:57 Care Unknown, Attending HEALTH [id number] ity of [place] 4[place]2.7.2.686 [place] EMELY?BLEA [id number] Ne johan [address] MEDICAL OFFICE BUILDING 2023-01-23 2023-01-23 Outpatient R DEMETRIUS GRIFFITH [facility] [id number] Univers 09:30:00 09:30:00 ity [facility] 2023-01-22 2023-01-22 Jeramy Griffith [facility] [id number] Univers 00:00:00 00:00:00 Cam [place] 350.1.13.10 i ty of [place] [id number] Ne johan [place] [address] Branch BUILDING 2022-09-26 2022-09-26 Outpatient R DEMETRIUS GRIFFITH [facility] [id number] Univers 14:00:00 14:00:00 ity of [facility] 2022-08-23 2022-08-23 Outpatient R GLADIS DEMETRIUS [facility] [id number] Univers 15:45:00 16:47:02 ity of [facility] 2022-08-23 2022-08-23 Routine Demetrius Griffith [facility] [id number] Univers 15:45:00 16:47:02 Cam [place] 350.1.13.10 ity of [place] [id number] [address] 2022-08-02 2022-08-04 Inpatient P DEMETRIUS GRIFFITH [facility] MICAH [id number] Univers 15:47:00 19:04:00 ity of [facility] 2022-08-02 2022-08-04 Hospital Demetrius Griffith [facility] 1.2.840.114 [id number] Univers 15:47:00 19:04:00 Encounter Cam PAULINETON 350.1.13.10 ity [place] [id number] [address] 2022-08-03 2022-08-03 Anesthesia [facility] 1.2.840.114 [id number] Univers 10:20:00 14:35:00 Event CHANDA herndon 350.1.13.10 i ty of [place] 4.2.7.2.686 [place] CAMPUS [id number] [address] 2022-08-02 2022-08-02 Outpatient R DEMETRIUS GRIFFITH [facility] [id number] Univers 14:30:00 15:27:07 ity of [facility] 2022-08-02 2022-08-02 Routine Demetrius Griffith [facility] [id number] Univers 14:30:00 15:27:07 Cam PAULINETON 350.1.13.10 ity of [place] [id number] [address] 2022-08-02 2022-08-02 Telephone Angeli [facility] 1.2.840.114 [id number] Univers 00:00:00 00:00:00 Fabby ARMAS 350.1.13.10 i ty of [place] [id number] Ne dical NAL [address] [facility] 2022-08-01 2022-08-01 Outpatient R ANGELI [facility] [id number] Univers 14:00:00 14:00:00 FBABY ity of [facility] 2022-07-28 2022-07-28 Telephone Demetrius Griffith [facility] 1.2.840.114 [id number] Univers 00:00:00 00:00:00 Caesar ARMAS 350.1.13.10 i ty of [place] [id number] Ne dical NAL [address] [facility] 2022-07-27 2022-07-27 Telephone Demetrius Griffith [facility] 1.2.840.114 [id number] Univers 00:00:00 00:00:00 Caesar ARMAS 350.1.13.10 i ty of [place] [id number] Ne dical NAL 134 [facility] 2022-07-26 2022-07-26 Food Service Tray Attendant 2, Adc Lab [facility] 1.2.840.114 [id number] Univers 14:00:00 14:15:00 Visit Demetrius Griffith 350.1.13.10 ity [facility] 4[place] [id number] [facility] [address] [facility] 2022-07-26 2022-07-26 Outpatient R DEMETRIUS GRIFFITH [facility] [id number] Univers 14:00:00 14:00:00 ity of [facility] 2022-07-26 2022-07-26 Orders Doctor ANNABELLE 1.2.840.114 [id number] Univers 00:00:00 00:00:00 Only Unassigned, CONNIE 350.1.13.10 ity of [place] [facility] 4.2.7.2.686 [place] [id number] [address] 2022-07-26 2022-07-26 Case Demetrius Griffith [facility] [id number] Univers 00:00:00 00:00:00 Management Caesar ARMAS 350.1.13.10 it[place] [id number] [address] 2022-07-25 2022-07-25 Outpatient R GLADIS DEMETRIUS [facility] [id number] Univers 14:00:00 15:09:01 ity of [facility] 2022-07-25 2022-07-25 Routine Gladis [facility] [id number] Univers 14:00:00 15:09:01 Caesar ARMAS 350.1.13.10 ity of [place] [id number] [address] 2022-07-18 2022-07-18 Outpatient R GLADIS [facility] [id number] Univers 13:00:00 13:00:00 ity of [facility] 2022-07-13 2022-07-13 Telephone [facility] [id number] Univers 00:00:00 00:00:00 Michelle ARMAS 350.1.13.10 ity [address] [facility] 4[place] [id number] [address] 2022-07-11 2022-07-11 Telephone [facility] [id number] Univers 00:00:00 00:00:00 Michelle ARMAS 350.1.13.10 ity [address] [facility] 4[place] [id number] [address] 2022-07-11 2022-07-11 Orders Doctor ANNABELLE 1.2.840.114 [id number] Univers 00:00:00 00:00:00 Only Unassigned, CONNIE 350.1.13.10 ity of [place] [facility] 4.2.7.2.686 [place] [id number] [address] 2022-07-04 2022-07-04 Outpatient R ANGELI [facility] [id number] Univers 13:45:00 13:53:36 FABBY ity of [facility] 2022-07-04 2022-07-04 Routine Angeli [facility] [id number] Univers 13:45:00 13:53:36 Fabbyalina ARMAS 350.1.13.10 ity of [place] [id number] Ne dical NAL [address] [facility] 2022-06-27 2022-06-27 Food Service Tray Attendant 2, Adc Lab [facility] 1.2.840.114 [id number] Univers 09:00:00 09:15:00 Visit Demetrius Griffith 350.1.13.10 ity of [place] [id number] Ne dical NAL [address] [facility] 2022-06-27 2022-06-27 Outpatient R DEMETRIUS GRIFFITH [facility] [id number] Univers 09:00:00 09:00:00 ity of [facility] 2022-06-27 2022-06-27 Orders Doctor ANNABELLE 1.2.840.114 [id number] Univers 00:00:00 00:00:00 Only Unassigned, CONNIE 350.1.13.10 ity of [place] [facility] 4.2.7.2.686 [place] [id number] [address] 2022-06-20 2022-06-20 Telephone Demetrius Griffith [facility] 1.2.840.114 [id number] Univers 00:00:00 00:00:00 Caesar ARMAS 350.1.13.10 i ty of [place] [id number] Ne dical NAL 134 [facility] 2022-06-19 2022-06-19 Food Service Tray Attendant 2, Adc Lab [facility] 1.2.840.114 [id number] Univers 14:15:00 14:30:00 Visit Demetrius Griffith 350.1.13.10 ity of [place] [id number] Ne dical NAL [address] [facility] 2022-06-19 2022-06-19 Outpatient R DEMETRIUS GRIFFITH [facility] [id number] Univers 13:15:00 14:08:06 ity of [facility] 2022-06-19 2022-06-19 Routine Demetrius Griffith [facility] [id number] Univers 13:15:00 14:08:06 Cam [place] 350.1.13.10 ity of [place] [id number] Ne dical NAL [address] [place] [address] 2022-06-19 2022-06-19 Letter Demetrius Griffith [facility] [id number] [id number] Univers 00:00:00 00:00:00 (Out) Cam [place] 350.1.13.10 i ty of [place] [id number] [address] 2022-06-19 2022-06-19 Case JOSE Suh [id number] Univers 00:00:00 00:00:00 Management Fabby PEDIATRIC 350.1.13.10 [place] [id number] [address] CARE CLINIC 2022-05-31 2022-05-31 Outpatient R ANGELI [facility] [id number] Univers 13:15:00 13:48:25 FABBY ity of [facility] 2022-05-31 2022-05-31 Routine Angeli [facility] 1.2.260.186 8187 0261 Univers 13:15:00 13:48:25 Fabby [place] 350.1.13.10 ity of [place] [phone] [address] 2022-05-09 2022-05-09 Outpatient R GLADIS DEMETRIUS [facility] [id number] Univers 13:15:00 13:15:00 ity of [facility] 2022-05-08 2022-05-08 Emergency Clarissa, 1.2.840.1 [id number] [id number] Methodi 12:13:00 16:47:[address] 3.430.2.7 Hospit a .3.600368 l .8 2022-05-08 2022-05-08 Emergency Clarissa, 1.2.840.1 [id number] [id number] Methodi 12:13:00 16:47:[address] 3.430.2.7 Hospit a .3.323649 l .8 2022-05-08 2022-05-08 Travel 1.2.840.1 1.2.032.921 9248 [id number] Methodi 00:00:00 00:00:[address] 3.430.2.7 0.2.7.3.698 Ho spita .3.139938 084.8 l .8 2022-05-08 2022-05-08 Travel 1.2.840.1 1.2.988.705 7537 980036 Methodi 00:00:00 00:00:[address] 3.430.2.7 0.2.7.3.698 Ho spita .3.762847 084.8 l .8 2022-05-03 2022-05-03 Outpatient R DEMETRIUS GRIFFITH [facility] 12894 [id number] Univers 15:30:00 16:03:00 ity of [facility] 2022-05-03 2022-05-03 Routine Demetrius Griffith [facility] 1.2.452.991 [id number] 4367 Univers 15:30:00 16:03:00 Cam CHANDA 350.1.13.10 ity of Visit [place] 4.2.7.2.686 Kylah LIU [phone] Ne dical [address] 2022-04-27 2022-04-27 Emergency Bass, 1.2.840.1 [id number] Methodi 13:50:00 16:22:[address] Maria Ines 3.430.2.7 Hospit a .3.044214 l .8 2022-04-27 2022-04-27 Emergency Bass, 1.2.840.1 [id number] Methodi 13:50:00 16:22:[address] Spann 3.430.2.7 Hospit a .3.619263 l .8 2022-04-26 2022-04-27 Outpatient P DEMETRIUS GRIFFITH [facility] IMCAH 47545 [id number] Univers 23:10:00 00:05:00 ity of [facility] 2022-04-26 2022-04-27 Emergency Gladis [facility] 1.2.840.114 97 [id number] Univers 23:10:00 00:05:00 Caesar ARMAS 350.1.13.10 i ty of [place] [phone] [facility] [address] 2022-04-26 2022-04-26 Orders Doctor ALANIS 1.2.840.114 [id number] Univers 00:00:00 00:00:00 Only Unassigned, CONNIE 350.1.13.10 ity of [place] [facility] 4.2.7.2.686 [place] [phone] [facility] [address] 2022-04-25 2022-04-25 Orders Doctor ANNABELLE 1.2.840.114 [id number] Univers 00:00:00 00:00:00 Only Unassigned, CONNIE 350.1.13.10 ity of [place] [facility] 4.2.7.2.686 [place] [phone] [facility] [address] 2022-04-10 2022-04-10 Telephone Demetrius Griffith [facility] 1.2.840.114 97 [id number] Univers 00:00:00 00:00:00 Caesar ARMAS 350.1.13.10 i ty of [place] [phone] Ne dical [facility] [address] [facility] 2022-04-07 2022-04-07 Outpatient P [facility] [id number] Univers 09:45:00 09:45:00 ity of [facility] 2022-04-05 2022-04-05 Food Service Tray Attendant 2, Adc Lab [facility] 1.2.840.114 [id number] Univers 14:45:00 15:00:00 Visit Fabby Suh 350.1.13.10 ity of [place] [phone] Ne dical [facility] [address] [facility] 2022-04-05 2022-04-05 Outpatient R ANEGLI [facility] 22046 [id number] Univers 14:45:00 14:45:00 FABBY ity [facility] 2022-04-05 2022-04-05 Routine Angeli [facility] 1.2.939.392 5913 8156 Univers 10:30:00 14:35:36 Fabby ARMAS 350.1.13.10 ity of [place] [phone] Ne dical NAL [address] [facility] 2022-04-05 2022-04-05 Orders Demetrius Griffith 1.2.619.431 0408 2460 Univers 00:00:00 00:00:00 Only Cam CONNIE 350.1.13.10 it y of [facility] 4.2.7.2.686 [place] [phone] [address] 2022-03-28 2022-03-28 Food Service Tray Attendant Ultrasound, Adc [facility] 1.2 .840.114 [id number] Univers 13:00:00 14:00:00 Visit Kae Schmidt 350.1 .13.10 ity of [place] [id number] Ne dical [facility] [address] [facility] 2022-03-28 2022-03-28 Outpatient P [facility] [id number] Univers 13:00:00 13:00:00 ity of [facility] 2022-03-28 2022-03-28 Outpatient P MAXI [facility] [id number] Univers 13:00:00 13:00:00 SHILA it y of [facility] 2022-03-23 2022-03-23 Letter ANNABELLE Cuellar 1.2.840.114 [id number] Univers 00:00:00 00:00:00 (Out) Clarissa Bernardo CONNIE 350.1.13.10 it y of [facility] 4.2.7.2.686 [place] [phone] [address] 2022-03-22 2022-03-22 Urgent Migdalia De Santiago [facility] 1.2.840.114 [id number] Univers 14:00:00 14:06:15 Care Fabby Suh [facility] 350.1.13.10 ity of Erickson Shah 4.2.7.2.686 [facility]?BLEA [phone] [address] MEDICAL OFFICE BUILDING 2022-03-22 2022-03-22 Outpatient R TAM [facility] [id number] Univers 14:00:00 14:06:15 ERICKSON [facility] 2022-03-22 2022-03-22 Outpatient R TAM [facility] [id number] Univers 14:00:00 14:00:00 [facility]22-[facility]-22 2022-03-22 Routine [facility] 1.2.078.667 4438 0913 Univers 09:45:00 13:32:46 Fabby ARMAS 350.1.13.10 ity of [place] [id number] Ne dic[address] 2022-03-22 2022-03-22 Telephone [facility] 1.2.840.114 [id number] Univers 00:00:00 00:00:00 Fabby ARMAS 350.1.13.10 i ty of [place] [phone] Ne dic[address] 2022-03-08 2022-03-08 Outpatient R DEMETRIUS GRIFFITH [facility] 95406 [id number] Univers 13:00:00 13:41:52 ity [facility] 2022-03-08 2022-03-08 Routine Gladis Demetrius [facility] 1.2.420.920 6957 3214 Univers 13:00:00 13:41:52 Cam [place] 350.1.13.10 ity of [facility] 4.2.7.2.[place] [phone] Ne dical NAL [address] [place] [address] 2022-03-03 2022-03-03 Outpatient X GRIFFITH DEMETRIUS [facility] MICAH [id number] [id number] Univers 13:36:00 16:00:00 ity of [facility] 2022-03-03 2022-03-03 Emergency Henry Devries [facility] 1.2.840. 114 [id number] Univers 13:36:00 16:00:00 Demetrius Griffith [place]ON 350.1.13.10 ity of [place] [phone] [address] 2022-02-08 2022-02-08 Outpatient R ANGELI [facility] [id number] Univers 11:15:00 12:26:47 FABBY ity of [facility] 2022-02-08 2022-02-08 Routine [facility] 1.2.720.403 8248 0733 Univers 11:15:00 12:26:47 Fabby CHANDA 350.1.13.10 ity of [place] [phone] Ne dical NAL [address] [place] [address] 2022-01-23 2022-01-23 Telephone Demetrius Griffith [facility] 1.2.840.114 [id number] Univers 00:00:00 00:00:00 Cam [place] 350.1.13.10 i ty of [place] 4[place].2.[place] [id number] Ne dical NAL [address] [place] [address] 2022-01-20 2022-01-20 Telephone Demetrius Griffith [facility] 1.2.840.114 [id number] Univers 00:00:00 00:00:00 Cam [place] 350.1.13.10 i ty of [facility] 4.2.7.2.[place] [phone] Ne dical NAL [address] [place] [address] 2022-01-19 2022-01-19 Telephone Demetrius Griffith [facility] 1.2.840.114 95 [id number] Univers 00:00:00 00:00:00 Caesar ARMAS 350.1.13.10 i ty of [place] [phone] [facility] 134 [facility] 2022-01-18 2022-01-18 Outpatient R [facility] [id number] Univers 08:30:00 08:30:00 ity of [facility] 2022-01-17 2022-01-17 Food Service Tray Attendant 2, Adc Lab [facility] 1.2.840.114 [id number] Univers 09:15:00 09:30:00 Visit Demetrius Griffith CHANDA 350.1.13.10 ity of [place] [phone] [facility] 353 [facility] 2022-01-17 2022-01-17 Outpatient R GLADIS DEMETRIUS [facility] [id number] Univers 09:15:00 09:15:00 ity of [facility] 2022-01-11 2022-01-11 Outpatient R GLADIS DEMETRIUS [facility] [id number] Univers 10:45:00 12:01:06 ity of [facility] 2022-01-11 2022-01-11 Routine Gladis [facility] 1.2.230.911 1034 6981 Univers 10:45:00 12:01:06 Caesar ARAMS 350.1.13.10 ity of Visit [place] [phone] [facility] 134 [facility] 2022-01-11 2022-01-11 Outpatient R DEMETRIUS GRIFFITH [facility] [id number] Univers 10:45:00 10:45:00 ity of [facility] 2022-01-11 2022-01-11 Orders Doctor ALANIS 1.2.840.114 [id number] Univers 00:00:00 00:00:00 Only Unassigned, CONNIE 350.1.13.10 ity of [place] [facility] 4.2.7.2.686 [place] [phone] [address] 2022-01-02 2022-01-02 Telephone Demetrius Griffith [facility] 1.2.840.114 [id number] Univers 00:00:00 00:00:00 Caesar ARMAS 350.1.13.10 i ty of [place] [phone] [address] 2022-01-02 2022-01-02 Telephone Demetrius Griffith [facility] 1.2.840.114 94 [id number] Univers 00:00:00 00:00:00 Caesar ARMAS 350.1.13.10 i ty of [place] [id number] [address] 2021-12-21 2021-12-21 Telephone Nilam [facility] 1.2.840.11 4 [id number] Univers 00:00:00 00:00:00 Adalid [place] 350.1.13.10 it y of [facility] [phone] [address] 2021-12-20 2021-12-20 Orders Doctor ANNABELLE 1.2.840.114 [id number] Univers 00:00:00 00:00:00 Only Unassigned, CONNIE 350.1.13.10 ity of [place] [facility] 4.2.7.2.686 [place] [id number] [address] 2021-12-14 2021-12-14 Outpatient R ADALID ROGEL [facility] B [id number] Univers 16:00:00 17:01:05 ADALID ROGEL of [facility] 2021-12-14 2021-12-14 Initial Nilam [facility] 1.2.840.114 [id number] Univers 16:00:00 17:01:05 Adalid [place] 350.1.13.10 i ty of [place] [id number] [address] 2021-10-26 2021-10-26 Office Angeli [facility] 1.2.596.134 2566 1514 Univers 15:45:00 15:45:00 Visit Fabby ARMAS 350.1.13.10 i ty of [place].2.[place] [phone] Ne dical [facility] [address] [facility] 2021-10-26 2021-10-26 Food Service Tray Attendant 2, Adc Lab [facility] 1.2.840.114 [id number] Univers 15:15:00 15:30:00 Visit Fabby Suh 350.1.13.10 ity [address] [facility] 4.2.7.2.[place] [phone] [facility] 353 [facility] 2021-10-26 2021-10-26 Outpatient R ANGELI [facility] 35012 [id number] Univers 15:45:00 [facility]:05:[facility] 2021-10-26 2021-10-26 Orders Doctor ALANIS 1..840.114 [id number] Univers 00:00:00 00:00:00 Only Unassigned, CONNIE 350.1.13.10 ity of [place] [facility] 4.2.7.2.686 [place] [id number] [address] 2021-10-26 2021-10-26 Demetrius Godfrey [facility] 1.2.712.683 [id number] 3754 Univers 00:00:00 00:00:00 Caesar ARMAS 350.1.13.10 i ty of [place].2.[place] [phone] [facility] [address] [facility] 2021-10-25 2021-10-25 Outpatient R ANGELI [facility] [id number] Univers 10:30:00 10:30:00 FABBY el [facility] 2021-10-25 2021-10-25 Outpatient R ANGELI [facility] [id number] Univers 10:30:00 10:30:00 FABBY el [facility] 2021-10-24 2021-10-24 Office RAFAEL Leyva 6400 1.2.885.956 4276 [id number] [place] 12:30:00 12:45:[address] 350.1.13.58 Health atomi 9.2.7.2.686 [id number] 4 2021-09-19 2021-09-19 Office Tiana Goncalves 6400 1.2.840.114 1 [id number] [place] 09:00:00 12:26:[address] 350.1.13.58 Health 9.2.7.2.686 [id number] 5 2021-06-08 2021-06-08 Case Gladis [facility] 1.2.405.122 9191 7517 Univers 00:00:00 00:00:00 Management Caesar ARMAS 350.1.13.10 ity of [place] [id number] Ne dical NAL [address] [facility] 2021-06-07 2021-06-07 Food Service Tray Attendant Jessica, Adrian Lab Main [facility] 1.2.8 40.114 [id number] Univers 10:04:19 10:19:19 Visit Demetrius Griffith 350.1.13.10 ity [address] [facility] 4.2.7.2.686 [place] [phone] Ne dical NAL [address] [facility] 2021-06-07 2021-06-07 Outpatient R GLADIS DEMETRIUS [facility] [id number] Univers 10:15:00 10:15:00 ity of [facility] 2021-06-07 2021-06-07 [facility] 1.2.914.816 [id number] 3117 Univers 09:17:52 09:48:54 Visit Caesar ARMAS 350.1.13.10 i ty of [facility] 4.2.7.2.[place] [id number] Ne dical NAL [address] [facility] 2021-06-07 2021-06-07 Outpatient R GLADIS DEMETRIUS [facility] [id number] Univers 09:00:00 09:48:54 ity of [facility] 2021-06-07 2021-06-07 Orders Doctor ALANIS 1.2.840.114 [id number] Univers 00:00:00 00:00:00 Only Unassigned, CONNIE 350.1.13.10 ity of [place] [facility] 4.2.7.2.686 [place] as [phone] [address] 2021-02-24 2021-02-24 Case Demetrius Griffith [facility] 1.2.117.999 5187 3904 Univers 00:00:00 00:00:00 Management Caesar Chanda 350.1.13.10 ity [facility] 4[place]2.7.2.[place] [phone] Ne dical [address] 2021-02-22 2021-02-22 Outpatient R [facility] [id number] Univers 09:00:00 09:00:00 ity [facility] 2021-02-21 2021-02-21 Office Demetrius Griffith [facility] 1.2.608.211 [id number] [id number] Univers 13:14:38 13:58:52 Visit Caesar [place] 350.1.13.10 i ty of [place].2.[place] [phone] [address] 2021-02-21 2021-02-21 Outpatient R DEMETRIUS GRIFFITH [facility] [id number] Univers 13:30:00 13:30:00 ity of [facility] 2021-02-18 2021-02-18 Outpatient [facility] [id number] Univers 08:30:00 08:30:00 MICHELLE ity [facility] 2021-01-04 2021-01-04 Outpatient JOSEPHINE_R [facility] [address] [place] 11:49:00 11:49:00 0629 Commun i ty Hospita [facility] Clinics 2021-01-04 2021-01-04 Jeremi [facility] [place] [facility] [place] 00:00:00 00:00:00 [facility] DO[facility] [address] [facility] [address] Clinic [place], [place], [phone] JOSEPHINE , Ph. 2021-01-04 2021-01-04 Outpatient Josephine [facility] [id number] 00:00:00 00:00:00 Jeremi [id number] All [id number] 2020-11-22 2020-11-22 Outpatient ERJOSÉON_R [facility] [address] 04:58:00 04:58:00 0517 Commun i ty Hospita l Clinics 2020-11-18 2020-11-18 Laboratory Lab, Adc Fam Pob I [facility] 1.2. 840.114 [id number] Univers 17:57:24 18:17:24 Only Shazia Jay [facility] 350.1.13.10 ity of [place] 4.2.7.2.686 [place] Professio [phone] [address] One 2020-11-18 2020-11-18 Outpatient [facility] [id number] Univers 18:00:00 18:00:00 SHAZIA do [facility] 2020-11-18 2020-11-18 Luisito [facility] 1.2.840.114 [id number] Univers 00:00:00 00:00:00 (Out) Caridad Marcos [facility] 350.1.13.10 ity of [place] 4.2.7.2.686 [place] Professio [phone] [address] One 2020-10-21 2020-10-21 Outpatient ERJOSÉON_R [facility] [address] [place] 04:08:00 04:08:00 0415 Commun i ty Hospita l Clinics 2020-10-21 2020-10-21 Jeremi [facility] [place] 00:00:00 00:00:00 [facility] DO: [address] Hospit a [facility] [address] HOSPITAL Clinic s [place], [place] CLINIC, [address] JOSEPHINE , Ph. 2020-10-21 2020-10-21 Outpatient Josephine [facility] 18bed [id number] 00:00:00 00:00:00 Jeremi [id number] All [id number] [id number] 2020-10-18 2020-10-18 Outpatient MAKI [facility] [address] [place] 11:34:00 11:34:00 0412 Commun i ty Hospita l Clinics 2020-09-28 2020-09-28 Patient Dat [facility] 1.2.840.114 [id number] Univers 00:00:00 00:00:00 Outreach Tyson PRIMARY 350.1.13.10 i ty of [facility] 4.2.7.2.[place] VIR[place] [phone] [address] 2020-09-23 2020-09-23 Outpatient Ale SUH [facility] [id number] Univers 15:30:00 15:30:00 [facility] 2020-09-13 2020-09-13 Outpatient Ael SUH [facility] [id number] Univers 09:15:00 09:15:00 [facility] 2020-08-25 2020-08-25 Outpatient [facility] [id number] Univers 13:00:00 13:00:00 [facility] 2020-08-20 2020-08-20 Telephone [facility] 1.2.534.925 [id number] 1551 Univers 00:00:00 00:00:00 [facility] 350.1.13.10 it y of [place] 4.2.7.2.686 [place] Profess[place] [phone] Ne dical nal 044 [facility] One 2020-08-18 2020-08-18 Telephone [facility] 1.2.110.955 7711 8183 Univers 00:00:00 00:00:00 [facility] 350.1.13.10 it y of [place] 4.2.7.2.686 [place] Profess[place] [phone] Ne dicwa nal [address] [place] Office [facility] One 2020-08-13 2020-08-13 Urgent Provider, [facility] Urgent Care [facility] 1.2.840.114 [id number] Univers 14:17:28 14:37:28 Care Robert Zuleta [facility] 350.1.13.10 ity of [place] 4.2.7.2.686 [place] Professio [phone] [address] One 2020-08-13 2020-08-13 Outpatient [facility] [id number] Univers 14:20:00 14:20:00 ROBERT ity [facility] 2020-06-18 2020-06-18 Emergency [facility] 1.2.075.710 [id number] Univers 09:36:00 11:11:00 Pa Chanda 350.1.13.10 i ty of [place].2.[place] [phone] [address] 2020-03-15 2020-03-15 Nurse ANNABELLE Cuellar 1.2.840.114 [id number] Univers 00:00:00 00:00:00 Triage Clarissa ROSALES 350.1.13.10 it y of [facility] 4.2.7.2.686 [place] [phone] [facility] [address] [place] 2020-03-12 2020-03-12 Telephone [facility] 1.2.840.114 [id number] Univers 00:00:00 00:00:00 aFbby Armas 350.1.13.10 i ty of [place].2.[place] [phone] [facility] 134 [facility] 2020-03-11 2020-03-11 Telephone [facility] 1.2.840.114 [id number] Univers 00:00:00 00:00:00 Fabby Armas 350.1.13.10 i ty of [place].2.[place] [phone] [facility] 134 [facility] 2020-03-09 2020-03-09 Outpatient R [facility] [id number] Univers 08:00:00 08:00:00 ity [facility] 2020-03-09 2020-03-09 Telephone [facility] 1.2.840.114 [id number] 00:00:00 00:00:00 Fabby [place] 350.1.13.10 [place] 4.2.7.2.686 Professio [phone] [address] 2020-03-09 2020-03-09 [facility] 1.2.840.114 [id number] Univers 00:00:00 00:00:00 Fabby [place] 350.1.13.10 i ty of [place] [phone] [address] 2020-03-08 2020-03-08 Telephone [facility] 1.2.840.114 [id number] 00:00:00 00:00:00 Fabby [place] 350.1.13.10 [place] 4.2.7.2.686 Professio [phone] [address] 2020-03-08 2020-03-08 [facility]phone [facility] 1.2.840.114 [id number] [facility] 00:00:00 00:00:00 Fabby [place] 350.1.13.10 i [place] [phone] [address] 2020-03-05 2020-03-05 Office [facility] [id number] 15:45:34 16:27:28 Visit Fabby Armas 350.1.13.10 [place] 4.2.7.2.686 Professio [phone] [address] 2020-03-05 2020-03-05 Office [facility] [id number] [facility] 15:45:34 16:27:28 Visit Fabby Armas 350.1.13.10 i [place] [phone] [address] 2020-03-05 2020-03-05 [facility] [id number] [facility] 15:30:00 15:30:00 FABBY el [facility] 2020-03-05 2020-03-05 Outpatient R [facility] [id number] Univers 15:00:00 15:00:00 ity of [facility] 2020-03-05 2020-03-05 [facility]patient [facility] [id number] Univers 10:45:00 10:45:00 FABBY [facility] 2020-03-05 2020-03-05 Orders Doctor ANNABELLE 1.2.840.114 [id number] Univers 00:00:00 00:00:00 Only Unassigned, CONNIE 350.1.13.10 [facility] 4.2.7.2.686 [place] [phone] [address] 2020-03-03 2020-03-03 Telephone [facility] 1.2.840.114 [id number] Univers 00:00:00 00:00:00 Fabby Armas 350.1.13.10 i [place] [phone] Ne [address] 2020-02-09 2020-02-09 Outpatient R [facility] [id number] Univers 10:00:00 10:00:00 FABBY [facility] 2020-02-09 2020-02-09 Telephone [facility] 1.2.840.114 [id number] Univers 00:00:00 00:00:00 Fabby Armas 350.1.13.10 i [place] [phone] Ne dical [address] 2020-02-08 2020-02-08 Case [facility] 1.2.677.525 [id number] Univers 00:00:00 00:00:00 Management Fabby Armas 350.1.13.10 it[place] [phone] Ne dical [address] 2020-02-06 2020-02-06 Office [facility] [id number] Univers 12:57:11 13:22:04 Visit Fabby Armas 350.1.13.10 i ty [place] [phone] Ne dical nal [address] [place] [address] 2020-02-06 2020-02-06 Outpatient R MARGARITOAROLDODELFINA [facility] [id number] Univers 13:15:00 13:15:00 FABBY ity [facility] 2020-02-06 2020-02-06 Outpatient R [facility] [id number] Univers 09:20:00 09:20:00 ity of [facility] 2020-02-05 2020-02-05 Telephone [facility] 1.2.840.114 [id number] Univers 00:00:00 00:00:00 Fabbyalina Armas 350.1.13.10 [place] Professio [phone] [address] 2020-01-20 2020-01-20 Telephone [facility] [id number] Univers 00:00:00 00:00:00 Michelle Armas 350.1.13.10 it[place] [phone] Ne dical nal [address] [place] [address] 2020-01-19 2020-01-19 Case [facility] 1.2.840.114 [id number] Univers 00:00:00 00:00:00 Management Michelle Armas 350.1.13.10 [place] [phone] Ne dicwa nal [address] [place] [address] 2020-01-16 2020-01-16 [facility] 1.2.840.114 [id number] Univers 14:47:31 15:55:51 Visit Michelle Armas 350.1.13.10 [place] [phone] [address] 2020-01-16 2020-01-16 [facility] [id number] Univers 14:30:00 14:30:00 MICHELLE el [facility] 2020-01-16 2020-01-16 Orders Doctor ANNABELLE 1.2.840.114 [id number] Univers 00:00:00 00:00:00 Only Unassigned, CONNIE 350.1.13.10 ity of [place] [facility] 4.2.7.2.686 [place] [phone] [facility] [address] [place] 2020-01-15 2020-01-15 [facility]phone [facility] 1.2.840.114 [id number] Univers 00:00:00 00:00:00 Fabby Armas 350.1.13.10 i [place] [phone] Ne dical nal 134 [facility] 2019-12-24 2019-12-24 Patient Demetrius Griffith [facility] [id number] Univers 00:00:00 00:00:00 Secure Msg Caesar Armas 350.1.13.10 it[place] [phone] Ne dical nal 134 [facility] 2019-11-11 2019-11-11 Emergency [facility] 1.2.840.114 [id number] Univers 00:23:35 02:02:00 Celeste Armas 350.1.13.10 [place] of [place] [phone] [facility] [address] [place] 2019-11-02 2019-11-02 [facility] 1.2.840.114 [id number] Univers 12:32:54 23:59:00 Encounter Rashi CERVANTES 350.1.13.10 ity of [facility] 4.2.7.2.686 [facility] [phone] [facility] [address] [place] 2019-11-02 2019-11-02 Emergency [facility] [id number] [address] 03:36:00 03:36:00 [facility] 2019-11-02 2019-11-02 Emergency [facility] [id number] [address] 03:36:00 03:36:00 [id number] [facility] 2019-11-02 2019-11-02 Outpatient [facility] [id number] Univers 00:00:00 00:00:00 WAHEEDUL ity o f [facility] 2019-10-27 2019-10-27 Patient Demetrius Griffith [facility] [id number] Univers 00:00:00 00:00:00 Secure Msg Caesar Armas 350.1.13.10 it[place] of [place] [phone] [address] 2019-08-25 2019-08-25 Office [facility] [id number] [id number] Univers 08:04:44 08:50:12 Visit Fabby Armas 350.1.13.10 i ty [place] [phone] [address] 2019-08-25 2019-08-25 Orders Doctor ANNABELLE 1.2.840.114 [id number] Univers 00:00:00 00:00:00 Only Unassigned, CONNIE 350.1.13.10 ity of [place] [facility] 4.2.7.2.686 [place] [phone] [facility] [address] [place] 2019-04-10 2019-04-10 Outpatient R DEMETRIUS GRIFFITH [facility] [id number] Univers 15:15:00 17:04:52 ity of [facility] 2019-03-16 2019-03-16 Emergency [facility] [id number] Univers 14:00:11 15:41:00 Brit Armas 350.1.13.10 i [place] [phone] [facility] [address] [place] 2019-03-06 2019-03-06 Routine Demetrius Griffith [facility] [id number] Univers 15:53:58 16:55:11 Caesar Armas 350.1.13.10 ity of [place] [phone] [address] 2019-02-28 2019-02-28 Patient Oswald [facility] 1.2.840.114 [id number] Univers 00:00:00 00:00:00 Secure Msg Stephanie Marcos [place] 350.1.13.10 ity of [place] [phone] Ne dical nal 134 [facility] 2019-02-04 2019-02-07 Hospital Demetrius Griffith [facility] 1.2.840.114 [id number] Univers 15:37:00 19:05:00 Encounter Caesar Armas 350.1.13.10 it[place] of [place] [phone] [facility] [address] [place] 2019-02-04 2019-02-04 Routine Demetrius Griffith [facility] 1.2.300.175 [id number] Univers 14:54:45 15:27:46 Caesar Armas 350.1.13.10 ity of [place] [phone] Ne dical nal 134 [facility] 2019-02-04 2019-02-04 Orders Doctor ANNABELLE 1.2.840.114 [id number] Univers 00:00:00 00:00:00 Only Unassigned, CONNIE 350.1.13.10 ity of [place] [facility] 4.2.7.2.686 [place] [phone] [facility] [address] [place] Results Test Description Test Time Test Comments Results Result Comments Source POCT URINALYSIS W SPECIFIC GRAVITY 2023-01-25 21:12:00 Test Item Value Reference Range Interpretation Comme nts POCT U SP GRAV (test code = 3255) 1.010 mg/dl 1.005-1.025 POCT PH U (test code = 3254) 6 mg/dl 5-8 POCT U LEUK EST (test code = 3263) trace Negative - Negative POCT U NIT (test code = 3262) neg Negative - Negative POCT U PROT (test code = 3259) trace Negative - Negative POCT U GLU (test code = 3256) normal Negative - Negative POCT U KETONE (test code = 3258) neg Negative - Negative POCT U UROBILI (test code = 3260) neg 0.2-1 POCT U BILI (test code = 3261) neg Negative - Negative POCT U BLD (test code = 3257) about 250 Negative - Negative POCT U COLOR (test code = 3266) yellow POCT U APPEAR (test code = 3267) cloudy Lab Interpretation (test code = 21243-4) Abnormal [facility] [id number] 21:11:00 Test Item Value Reference Range Interpretation Comments POCT PREG (test code = 1605) Negative On board controls acceptable with C Yes Line (test code = 3574) POCT PREG LOT # (test code = 3575) POCT PREG TEST DATE (test code = 3576) Lab Interpretation (test code = Normal 28936-1) [facility] with [id number] 11:18:26 Test Item Value Reference Range Interpretation Comments WBC (test code = See_Comment H [Automated 8990-2) message] The sy stem which generated this result transmitted reference range : 4.30 - 11.10 10*3/?L. The reference range was not used to interpret this result as normal/abnormal . RBC (test code = See_Comment [Automated 399-8) message] The sy stem which generated this result transmitted reference range : 3.93 - 5.25 10*6/?L. The reference range was not used to interpret this result as normal/abnormal . HGB (test code = 11.7 g/dL 11.6-15.0 718-7) HCT (test code = 36.7 % 35.7-45.2 4544-3) MCV (test code = 79.6 fL 80.6-95.5 L 787-2) MCH (test code = 25.4 pg 25.9-32.8 L 785-6) MCHC (test code = 31.9 g/dL 31.6-35.1 786-4) RDW-SD (test code = 41.6 fL 39.0-49.9 54623-6) RDW-CV (test code = 14.6 % 12.0-15.5 788-0) PLT (test code = See_Comment L [Automated 777-3) message] The sy stem which generated this result transmitted reference range : 166 - 358 10*3/ ?L. The reference r alix was not used to interpret this result as normal/abnormal . MPV (test code = 12.2 fL 9.5-12.9 14836-5) NRBC/100 WBC (test See_Comment [Automat ed code = 8188465003) message] The system which generated this result transmitted reference range : 0.0 - 10.0 /100 WBCs. The refer ence range was not u sed to interpret th is result as normal/abnormal . NRBC x10^3 (test code See_Comment [Auto mated = 8258124419) message] The s ystem which generated this result transmitted reference range : 10*3/?L. The reference range was not used to interpret this result as normal/abnormal . GRAN MAT (NEUT) % 69.7 % (test code = 770-8) IMM GRAN % (test code 0.80 % = 3700566813) LYMPH % (test code = 20.9 % 736-9) MONO % (test code = 7.6 % 5905-5) EOS % (test code = 0.8 % 713-8) BASO % (test code = 0.2 % 706-2) GRAN MAT x10^3(ANC) 9.56 10*3/uL 1.88-7.09 H (test code = 7242966887) IMM GRAN x10^3 (test 0.11 10*3/uL 0.00-0.06 H code = 4498428255) LYMPH x10^3 (test code 2.87 10*3/uL 1.32-3.29 = 731-0) MONO x10^3 (test code 1.04 10*3/uL 0.33-0.92 H = 742-7) EOS x10^3 (test code = 0.11 10*3/uL 0.03-0.39 711-2) BASO x10^3 (test code 0.03 10*3/uL 0.01-0.07 = 704-7) Lab Interpretation Abnormal (test code = 41041-4) [facility] IMMUNE [id number] 21:21:44 Test Item Value Reference Range Interpretation Comments RHIG CANDIDATE? No- see comment Patient i s not a (test code = candidate for R [facility]- 5055) Patient is Rh Positive.Perfor med at [facility] Laboratory Services - ADC Blood Uwgb349 [address] Free: [phone] A No. [id number] [facility] and Screen - ONCE [id number] 00:11:31 Test Item Value Reference Range Interpretation Comments ABO & RH (test code O Positive Performe d at [facility] = 20) Laboratory Serv [facility] Blood Bank1 [address] [address]Toll Free: [phone] A No. [id number] IAT (test code = Negative Performed a t [facility] 1185) Laboratory Serv [facility]1 [address] [place] [address] Free: [phone] A No. [id number] [facility]/O SPECIFIC [id number] 20:46:00 Test Item Value Reference Range Interpretation [...] code = 3257) n/a Negative - Negative [facility] W/O SPECIFIC [id number] 19:49:00 Test Item Value Reference Range Interpretation [...] code = 3257) n/a Negative - Negative [facility] W/O SPECIFIC [id number] 19:28:00 Test Item Value Reference Range Interpretation [...] code = 3257) n/a Negative - Negative [facility] URINALYSIS W/O SPECIFIC [id number] 20:51:00 Test Item Value Reference Range Interpretation [...] code = 3257) n/a Negative - Negative [facility] SERUM SCREEN [id number] 20:00:00 Test Item Value Reference Range Interpretation Comments INTERPRETATION:-Q SEE NOTE Screen ne gative for (test code = open NTD. 47003-2) MSAFP RISK OPEN <1 IN 5000 NTD-Q (test code = 59102-5) $MSAFP-Q (test 43.9 ng/mL code = 1834-1) ADJ MULTIPLE OF MEDIAN-Q (test code = 80920-8) -Q (test code = See Below This is a s creening 8251-1) test, not a dmitri gnostic test. Thisrisk assessment repo rt is based in part o n demographicdata provided by the ordering physic gerry. Please notifyth e laboratory prom ptly if any data are in correct. Forassistance w ith recalculations, please call your local [facility] lab oratory. For assistance withinterpretat ion of these results, please contact yourLoc al [facility] gen etic counselor or [phone] [facility]([phone]). Inte rpretive CutoffsScreen P ositive for Open [...] provided for informational/e ducation al purposes on y.) GESTATIONAL AGE-Q weeks (test code = 89094-2) MATERNAL WEIGHT-Q lbs (test code = 3142-7) EST'D DATE OF 08/12/2022 DELIVERY-Q (test code = 47881-7) ILANA DETERMINED LMP BY-Q (test code = 18649-1) MOTHER'S ETHNIC ORIGIN-Q (test code = 48749-5) NUMBER OF FETUSES-Q (test code = 30297-6) INSULIN-DEPEND NO DIABETIC-Q (test code = 31546-2) REPEAT SPECIMEN-Q NO (test code = 01298-3) HX OF NEURAL TUBE NO DEFECTS-Q (test code = 08405-7) PREV NO DOWN SYND-Q (test code = 79728-9) DONOR EGG-Q (test NO code = 70122-9) DONOR AGE: EGG NOT GIVEN REPORT COMME NT:VERIFY RETRIEVAL-Q (test PT ID code = 06397-9) JEWEL (test code = PERFORMED BY JEWEL) [facility]; [address] [place] [address]; MARY JIMENEZ MD [facility] URINALYSIS W/O SPECIFIC [id number] 19:00:00 Test Item Value Reference Range Interpretation [...] code = 3257) n/a Negative - Negative [facility] URINALYSIS W/O SPECIFIC [id number] 19:00:00 Test Item Value Reference Range Interpretation [...] code = 3257) n/a Negative - Negative [facility] Heights[facility] Stimulating [id number] 10:35:14 Test Item Value Reference Range Interpretation Comments TSH (test code = TSH) 1.650 mIU/mL 0.270-4.200 Lipid [id number] 10:28:08 Test Item Value Reference Range Interpretation Comments Cholesterol Total 200 mg/dL 0-200 RISK OF HE ART (test code = DISEASEPublishe d by Cholesterol Total) [employer] Elba lyte Optimal Borderl ine [...] is LDL/HDL Ratio=L DL Calc/HDL Chol Urine [id number] 08:29:07 C Urine Added by [id number]_CUL_INDNo growth at 24 hours. No growth at 48 hours.RPR [id number] 19:04:53 Test Item Value Reference Range Interpretation [...] = 07-08-2020 N Expiration Dt) HCG Qualitative [id number] 06:59:14 Test Item Value Reference Range Interpretation [...] 72 hours. Lot # (test code = [id number] N Lot #) Expiration Dt (test 10/06/2020 N code = Expiration Dt) Neg Control (test Negative code = Neg Control) Pos Control (test Positive code = Pos Control) Internal QC (test Acceptable code = Internal QC) Automated [id number] 06:09:27 Test Item Value Reference Range Interpretation Comments Neutro Auto (test code = Neutro 60.5 % 36.0-70.0 Auto) Lymph Auto (test code = Lymph Auto) 30.6 % 12.0-44.0 [place] Auto (test code = [place] Auto) 6.1 % 0.0-11.0 Eos, Auto (test code = Eos, Auto) 2.1 % 0.0-7.0 Basophil Auto (test code = Basophil 0.3 % 0.0-2.0 Auto) Neutro Absolute (test code = Neutro 6.6 x10 1.6-7.4 Absolute) Lymph Absolute (test code = Lymph 3.33 x10 .50-4.60 Absolute) [place] Absolute (test code = [place] .66 x10 .00-1.20 Absolute) Eos Absolute (test code = Eos 0.23 x10 0.00-0.74 Absolute) Baso Absolute (test code = Baso 0.03 x10 0.00-0.21 Absolute) IG [id number] 06:09:27 Test Item Value Reference Range Interpretation Comments IG (test code = IG) 0.4 % 0.0-5.0 IG Abs (test code = IG Abs) 0 x10 N Complete Blood Count with [id number] 06:09:26 Test Item Value Reference Range Interpretation [...] = IPF) 0 % N Comprehensive Metabolic [id number] 06:01:23 Test Item Value Reference Range Interpretation [...] A/G 1.6 ratio N Ratio) Comprehensive Metabolic [id number] 06:01:23 Test Item Value Reference Range Interpretation [...] the National Kidney Foundation, http://nkdep.ni h.gov Alcohol [id number] 06:01:23 Test Item Value Reference Range Interpretation Comments Ethanol Level (test <0.00 g/dL 0.00-0.01 Intoxica brooke 0.080 g/dL code = Ethanol or more Level) Ethanol Inst (test <0 N code = Ethanol Inst) Comprehensive Metabolic [id number] 06:01:23 Test Item Value Reference Range Interpretation [...] ag e have not been validated by [facility] MDRD study and should be interpreted [...] ag e have not been validated by [facility] MDRD study and should be interpreted wit h caution. eGFR R esult Interpretation: eGFR > or = 60 is in the Normal RangeeGF R < 60 may mean kid isacc diseaseeGFR < 1 5 may mean kidney failure Rang es recommended by the National Kidney Foundation, http://nkdep.ni h.gov Urinalysis [id number] 05:47:01 Test Item Value Reference Range Interpretation Comments UA WBC (test code = UA WBC) 6-10 0-5 A UA RBC (test code = UA RBC) 0-5 0-5 UA Bacteria (test code = UA None Seen Bacteria) UA Squam Epithelial (test code = UA 6-10 A Squam Epithelial) UA Mucous (test code = UA Mucous) Moderate A Urine Drug [id number] 05:43:24 Test Item Value Reference Range Interpretation [...] if desired . Urinalysis with Culture, if [id number] 05:43:13 Test Item Value Reference Range Interpretation [...]
[2023-03-22] MEDS ORDERED: IBUPROFEN 200 MG TAB PO ONE (09:20)
[2023-03-22] MEDS ORDERED: IBUPROFEN 400 MG TAB ONE (09:20)
[2023-03-22 09:23] LABS: Specific Gravity 1.025 (1.005-1.030)
[2023-03-22 09:24] LABS: Specific Gravity 1.025 (1.005-1.030); Urine Bilirubin NEGATIVE (Negative); Urine Blood Negative (Negative); Urine Clarity Clear (Clear); Urine Color Light-Yellow (Yellow); Urine Glucose NEGATIVE (Negative); Urine Protein NEGATIVE (Negative); Urine Urobilinogen Normal (Normal); Urine pH 6.5 (5.0-7.0)
--- NOTE | 2023-03-22 09:53 | ER ---
Nurse's Notes [facility] Name: Tali Guidry Age: 22 yrs Sex: Female : 2000 Arrival Date: 03/22/2023 Time: 07:58 Bed 15 Private MD: Diagnosis: Low back pain;Strain of muscle, fascia and tendon of abdomen, lower back and pelvis Presentation: 03/22 08:12 Chief complaint: Patient states: left lower back pain x 2 months, more severe for the ko1 past 2 days. No pain or burning on urination. Coronavirus screen: At this time, the client does not indicate any symptoms associated with coronavirus-19. Ebola Screen: No symptoms or risks identified at this time. Initial Sepsis Screen: Does the patient meet any 2 criteria? No. Patient's initial sepsis screen is negative. Does the patient have a suspected source of infection? No. Patient's initial sepsis screen is negative. Risk Assessment: Do you want to hurt yourself or someone else? Patient reports no desire to harm self or others. Onset of symptoms is unknown. 08:12 Method Of Arrival: Ambulatory ko1 08:12 Acuity: GERMAN 3 ko1 Triage Assessment: 08:14 General: Appears in no apparent distress. comfortable, Behavior is calm, cooperative, ko1 appropriate for age. Pain: Complains of pain in left low back. Musculoskeletal: Circulation, motion, and sensation intact. 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 - Social history:: Smoking status: Patient denies any tobacco usage or history of. - Family history:: not pertinent. Screenin:49 [facility] ED Fall Risk Assessment (Adult) History of falling in the last 3 months, ph including since admission No falls in past 3 months (0 pts) Confusion or Disorientation No (0 pts) Intoxicated or Sedated No (0 pts) Impaired Gait No (0 pts) Mobility Assist Device Used No (0 pt) Altered Elimination No (0 pt) Score/Fall Risk Level 0 - 2 = Low Risk Oriented to surroundings, Maintained a safe environment, Hourly rounding (assess needs \T\ fall precautionary measures) done. Abuse screen: Denies threats or abuse. Denies injuries from another. Nutritional screening: No deficits noted. Tuberculosis screening: No symptoms or risk factors identified. Assessment: 10:01 General: Appears in no apparent distress. Behavior is calm, cooperative, appropriate ph for age. Pain: Complains of pain in left low back. Neuro: Level of Consciousness is awake, alert, obeys commands, Oriented to person, place, time, situation. Cardiovascular: Capillary refill < 3 seconds in bilateral fingers Patient's skin is warm and dry. Respiratory: Airway is patent Respiratory effort is even, unlabored. Derm: Skin is pink, warm \T\ dry. Musculoskeletal: Circulation, motion, and sensation intact. Range of motion: intact in all extremities. Vital Signs: 08:12 BP 122 / 86; Pulse 78; Resp 16; Temp 98.2; Pulse Ox 100% ; Weight 81.65 kg; Height 5 ko1 ft. 4 in. ; 10:02 BP 118 / 76; Pulse 72; Resp 18; Temp 97.9; Pulse Ox 99% on R/A; ph 08:12 Body Mass Index 30.90 (81.65 kg, 162.56 cm) ko1 ED Course: 08:01 Patient arrived in ED. rg4 08:04 Wood Guidry MD is Attending Physician. selena 08:14 Triage completed. ko1 08:14 Arm band placed on right wrist. Patient placed in an exam room, on a stretcher, on ko1 pulse oximetry, Patient notified of wait time. 08:16 Isabelle Chase, RN is Primary Nurse. ko1 08:50 Patient has correct armband on for positive identification. Call light in reach. Side ph rails up X2. naval architect on. Pulse ox on. NIBP on. Door closed. Noise minimized. Warm blanket given. 09:21 PREGU Sent. ph 09:21 Urinalysis w/ reflexes Sent. ph 09:51 Lumbar Spine (3 Views) XRAY In Process Unspecified. EDMS 10:01 No provider procedures requiring assistance completed. Patient did not have IV access ph during this emergency room visit. Administered Medications: 09:21 Drug: Ibuprofen PO 600 mg Route: PO; ph 10:02 Follow up: Response: No adverse reaction ph Medication: 08:50 VIS not applicable for this client. ph Outcome: 09:53 Discharge ordered by . selena 10:02 Discharged to home ambulatory. ph 10:02 Condition: good 10:02 Discharge instructions given to patient, Instructed on discharge instructions, follow up and referral plans. medication usage, Demonstrated understanding of instructions, follow-up care, medications, Prescriptions given X 2. 10:03 Patient left the ED. ph Signatures: Dispatcher [employer] EDWood Pierre MD MD cha Hall, Patricia, RN RN ph Garcia, Rubi rg4 Isabelle Chase RN RN ko1
--- NOTE | 2023-03-22 09:53 | EDPHYS ---
Physician Documentation [facility] Name: Tali Guidry Age: 22 yrs Sex: Female : 2000 Arrival Date: 03/22/2023 Time: 07:58 Bed 15 Private MD: ANDRÉS Physician Wood Guidry HPI: 03/22 09:00 This 22 yrs old Female presents to ER via Ambulatory with complaints of Back selena Pain. 09:00 The patient presents with pain that is acute, with no known mechanism of injury. The selena symptoms are located in the low back, left low back. Onset: The symptoms/episode began/occurred 3 day(s) ago. The pain does not radiate. Associated signs and symptoms: The patient has no apparent associated signs or symptoms. The problem was sustained from unknown cause. Modifying factors: The patient symptoms are alleviated by remaining still, the patient symptoms are aggravated by movement. Severity of symptoms: At their worst the symptoms were mild, in the emergency department the symptoms are unchanged. The patient has not experienced similar symptoms in the past. 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 - Social history:: Smoking status: Patient denies any tobacco usage or history of. - Family history:: not pertinent. ROS: 09:00 Constitutional: Negative for fever, chills, and weight loss, Eyes: Negative for injury, selena pain, redness, and discharge, ENT: Negative for injury, pain, and discharge, Neck: Negative for injury, pain, and swelling, Cardiovascular: Negative for chest pain, palpitations, and edema, Respiratory: Negative for shortness of breath, cough, wheezing, and pleuritic chest pain, Abdomen/GI: Negative for abdominal pain, nausea, vomiting, diarrhea, and constipation, : Negative for injury, bleeding, discharge, and swelling, MS/Extremity: Negative for injury and deformity, Skin: Negative for injury, rash, and discoloration, Neuro: Negative for headache, weakness, numbness, tingling, and seizure, Psych: Negative for depression, anxiety, suicide ideation, homicidal ideation, and hallucinations, Allergy/Immunology: Negative for hives, rash, and allergies, Endocrine: Negative for neck swelling, polydipsia, polyuria, polyphagia, and marked weight changes, Hematologic/Lymphatic: Negative for swollen nodes, abnormal bleeding, and unusual bruising. 09:00 Back: Positive for decreased range of motion, pain at rest, of the left low back. Exam: 09:00 Constitutional: This is a well developed, well nourished patient who is awake, alert, selena and in no acute distress. Head/Face: Normocephalic, atraumatic. Eyes: Pupils equal round and reactive to light, extra-ocular motions intact. Lids and lashes normal. Conjunctiva and sclera are non-icteric and not injected. Cornea within normal limits. Periorbital areas with no swelling, redness, or edema. ENT: Nares patent. No nasal discharge, no septal abnormalities noted. Tympanic membranes are normal and external auditory canals are clear. Oropharynx with no redness, swelling, or masses, exudates, or evidence of obstruction, uvula midline. Mucous membranes moist. Neck: Trachea midline, no thyromegaly or masses palpated, and no cervical lymphadenopathy. Supple, full range of motion without nuchal rigidity, or vertebral point tenderness. No Meningismus. Chest/axilla: Normal chest wall appearance and motion. Nontender with no deformity. No lesions are appreciated. Cardiovascular: Regular rate and rhythm with a normal S1 and S2. No gallops, murmurs, or rubs. Normal PMI, no JVD. No pulse deficits. Respiratory: Lungs have equal breath sounds bilaterally, clear to auscultation and percussion. No rales, rhonchi or wheezes noted. No increased work of breathing, no retractions or nasal flaring. Abdomen/GI: Soft, non-tender, with normal bowel sounds. No distension or tympany. No guarding or rebound. No evidence of tenderness throughout. Skin: Warm, dry with normal turgor. Normal color with no rashes, no lesions, and no evidence of cellulitis. MS/ Extremity: Pulses equal, no cyanosis. Neurovascular intact. Full, normal range of motion. Neuro: Awake and alert, GCS 15, oriented to person, place, time, and situation. Cranial nerves II-XII grossly intact. Motor strength 5/5 in all extremities. Sensory grossly intact. Cerebellar exam normal. Normal gait. Psych: Awake, alert, with orientation to person, place and time. Behavior, mood, and affect are within normal limits. 09:00 Back: pain, ROM is painful, normal spinal alignment noted, CVA tenderness, is absent, muscle spasm, is not present. 09:00 Skin: no rash present. Vital Signs: 08:12 BP 122 / 86; Pulse 78; Resp 16; Temp 98.2; Pulse Ox 100% ; Weight 81.65 kg; Height 5 ko1 ft. 4 in. ; 10:02 BP 118 / 76; Pulse 72; Resp 18; Temp 97.9; Pulse Ox 99% on R/A; ph 08:12 Body Mass Index 30.90 (81.65 kg, 162.56 cm) ko1 MDM: 08:05 Patient medically screened. selena 09:08 Differential diagnosis: Fatigue Fracture Obesity Pyelonephritis ruptured disc, selena Scoliosis sprain, Ureterolithiasis. Data reviewed: vital signs, nurses notes, lab test result(s), radiologic studies, plain films. Consideration of Admission/Observation Escalation of care including admission/observation considered. I considered the following discharge prescriptions or medication management in the emergency department Medications were administered in the Emergency Department. See MAR. Independent interpretation of the following test(s) in the Emergency Department X-Ray: My interpretation is lumbar sprain. Test considered but Not performed: Labs: no cbc, no comp. Care significantly affected by the following chronic conditions: Obesity. 03/22 09:00 Order name: Urinalysis w/ reflexes; Complete Time: 09:52 [facility] 03/22 09:00 Order name: PREGU; Complete Time: 09:52 [facility] 03/22 09:00 Order name: Lumbar Spine (3 Views) XRAY selena Administered Medications: 09:21 Drug: Ibuprofen PO 600 mg Route: PO; ph 10:02 Follow up: Response: No adverse reaction ph Disposition Summary: 03/22/23 09:53 Discharge Ordered Location: Home selena Problem: new selena Symptoms: have improved selena Condition: Stable selena Diagnosis - Low back pain selena - Strain of muscle, fascia and tendon of abdomen, lower back and pelvis selena Followup: selena - With: Private Physician - When: 2 - 3 days - Reason: Recheck today's complaints, Continuance of care, Re-evaluation by your physician Discharge Instructions: - Discharge Summary Sheet selena - Acute Back Pain, Adult selena - Musculoskeletal Pain selena Forms: - Medication Reconciliation Form selena - Thank You Letter selena - Antibiotic Education selena - Prescription Opioid Use selena - Patient Portal Instructions selena - Leadership Thank You Letter selena Prescriptions: - Diclofenac Sodium 75 mg Oral tablet,delayed release (DR/EC) - take 1 tablet by ORAL route 2 times per day; 20 tablet; Refills: 0, Product [facility] Selection Permitted - Cyclobenzaprine 5 mg Oral Tablet - take 1 tablet by ORAL route 3 times per day As needed; 15 tablet; Refills: 0, [facility] Product Selection Permitted Signatures: Dispatcher [employer] Wood Thomson MD MD cha Hall, Patricia, RN RN Isabelle Luna RN RN ko1
--- NOTE | 2023-03-22 10:05 | RAD REPORT ---
EXAM DESCRIPTION: RAD - Lumbar Spine 3 Views - 03/22/2023 9:50 am CLINICAL HISTORY: LOWER BACK PAIN COMPARISON: No comparisons TECHNIQUE: Lumbar spine, 3 views. FINDINGS: Lumbar vertebral bodies are normal in height and alignment. No fracture or acute bony proc ess seen. No disc space narrowing. No other significant findings. IMPRESSION: Negative Lumbar Spine examination.
[2023-03-22 10:09] VITALS: BP 118/76; TEMP 97.9; O2SAT 99
== END 2023-03-22 10:03 | disposition home or self-care (01) ==
LOC: ER 07:58
DX: S39.012A Strain of muscle, fascia and tendon of lower back, initial encounter (principal); S39.011A Strain of muscle, fascia and tendon of abdomen, initial encounter; S39.013A Strain of muscle, fascia and tendon of pelvis, initial encounter
CPT/HCPCS: 72100; 81003; 81025; 99284

== ENCOUNTER → 2023-07-27 | Emergency (ER) | payer SELFPAY ==
[~2023-07-27] MED LIST: FAMOTIDINE 20 MG/2 ML VIAL IV ONE; NA CHLORIDE 0.9% 1,000 ML ONE; NITROFURAN MACRO 100 MG CAP PO ONE; ONDANSETRON 4 MG/2 ML VIAL ONE; POTASSIUM 25 MEQ EFFERV TAB ONE
[2023-07-27 23:11] LABS: Absolute Lymphocytes (CBC) 1.5 K/uL (0.7-4.9); Hematocrit 39.3 % (36.0-45.0); Lymphocytes % 16.2 % (15.3-44.8); MCV 79.6 fL (80-100); MPV 9.4 fL (7.6-11.3); Platelets 171 thou/uL (152-406); RBC Red Blood Cell Count 4.95 M/uL (3.86-4.86)
[2023-07-27 23:40] LABS: Specific Gravity > 1.030 (1.005-1.030)
[2023-07-27 23:45] LABS: Albumin 3.1 g/dL (3.4-5.0); Bilirubin Total 0.2 mg/dL (0.2-1.0); Potassium 3.2 mEq/L (3.5-5.1); Protein, Total 6.8 g/dL (6.4-8.2)
[2023-07-27 23:58] LABS: Specific Gravity > 1.030 (1.005-1.030); Urine Bacteria 20-50 /HPF (<20); Urine Bilirubin NEGATIVE (Negative); Urine Blood Negative (Negative); Urine Clarity Extremely Turbid (Clear); Urine Color Yellow (Yellow); Urine Glucose NEGATIVE (Negative); Urine Mucus 4+ /HPF (None Seen); Urine Protein 1+ (Negative); Urine RBC <5 /HPF (None Seen); Urine Urobilinogen 2+ (Normal); Urine pH 6.5 (5.0-7.0)
--- NOTE | 2023-07-28 00:40 | ER ---
Nurse's Notes [facility] Name: Tali Guidry Age: 22 yrs Sex: Female : 2000 Arrival Date: 07/27/2023 Time: 21:48 Bed 16 Private MD: Diagnosis: UTI/ Urinary tract infection, site not specified;Other specified related conditions, first trimester;Upper abdominal pain, unspecified;Nausea with vomiting, unspecified;Hypokalemia Presentation: 07/27 22:06 Chief complaint: Patient states: abdominal cramping that started today, and I'm vc1 vomiting none stop. Coronavirus screen: Vaccine status: Patient reports receiving the 2nd dose of the covid vaccine. Client denies travel out of the [place] in the last 14 days. muscle pain, vomiting. Client presents with at least one sign or symptom that may indicate coronavirus-19. Ebola Screen: Patient negative for fever greater than or equal to 101.5 degrees Fahrenheit, and additional compatible Ebola Virus Disease symptoms Patient denies exposure to infectious person. Patient denies travel to an Ebola-affected area in the 21 days before illness onset. No symptoms or risks identified at this time. Risk Assessment: Do you want to hurt yourself or someone else? Patient reports no desire to harm self or others. Onset of symptoms was July 27, 2023. 22:06 Method Of Arrival: Ambulatory vc1 22:06 Acuity: GERMAN 3 vc1 22:14 Initial Sepsis Screen: Does the patient meet any 2 criteria? HR > 90 bpm. No. Patient's vc1 initial sepsis screen is negative. Does the patient have a suspected source of infection? No. Patient's initial sepsis screen is negative. Triage Assessment: 22:09 General: Appears in no apparent distress. uncomfortable, ill, Behavior is cooperative, vc1 crying. Pain: Complains of pain in right upper quadrant and left upper quadrant Pain does not radiate. Pain currently is 10 out of 10 on a pain scale. Quality of pain is described as sharp, Pain began suddenly, Aggravated by increased activity. EENT: Nares with drainage noted. Neuro: No deficits noted. Cardiovascular: No deficits noted. Respiratory: Reports cough that is non-productive, Airway is patent Respiratory effort is even, unlabored, Respiratory pattern is regular, symmetrical. GI: Reports upper abdominal pain, vomiting, Patient currently denies diarrhea. : Denies vaginal bleeding. Derm: Skin is pale. Musculoskeletal: No deficits noted. No signs and/or symptoms reported regarding the musculoskeletal system. 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 - Social history:: Smoking status: Reported history of juuling and/or vaping. Patient/guardian denies using tobacco. Screenin:56 [facility] ED Fall Risk Assessment (Adult) History of falling in the last 3 months, jw7 including since admission No falls in past 3 months (0 pts) Score/Fall Risk Level 0 - 2 = Low Risk Oriented to surroundings, Maintained a safe environment, Educated pt \T\ family on fall prevention, incl call for assistance when getting out of bed. Abuse screen: Denies threats or abuse. Denies injuries from another. Nutritional screening: No deficits noted. Tuberculosis screening: No symptoms or risk factors identified. Assessment: 22:15 General: see triage assessment. jw7 23:20 Reassessment: Patient appears in no apparent distress at this time. Patient and/or jw7 family updated on plan of care and expected duration. Pain level reassessed. Patient is alert, oriented x 3, equal unlabored respirations, skin warm/dry/pink. 23:31 General: FHT's 164. jw7 07/28 00:45 Reassessment: Patient appears in no apparent distress at this time. Patient and/or jw7 family updated on plan of care and expected duration. Pain level reassessed. Patient is alert, oriented x 3, equal unlabored respirations, skin warm/dry/pink. Patient states feeling better. Patient states symptoms have improved. Vital Signs: 07/27 22:06 Weight 72.57 kg; Height 5 ft. 4 in. ; Pain 10/10; vc1 22:14 BP 117 / 75; Pulse 98; Resp 18; Temp 98; Pulse Ox 100% ; vc1 07/28 00:02 BP 103 / 66; Pulse 95; Resp 17 S; Pulse Ox 99% on R/A; jw7 01:00 BP 100 / 66; Pulse 60; Resp 16 S; Pulse Ox 99% on R/A; jw7 07/27 22:06 Body Mass Index 27.46 (72.57 kg, 162.56 cm) vc1 07/27 22:06 Pain Scale: Adult vc1 Vitals: 07/27 23:32 Heart Tones 164. jw7 ED Course: 21:50 Patient arrived in ED. jj6 21:52 Wood Bunch PA is PHCP. cp 21:52 Alvaro Cary MD is Attending Physician. cp 22:08 Triage completed. vc1 22:09 Arm band placed on right wrist. vc1 22:46 Raisa Núñez RN is Primary Nurse. jw7 22:54 Patient has correct armband on for positive identification. Bed in low position. Call [facility] light in reach. 22:55 Initial lab(s) drawn, by me, sent to lab. Inserted saline lock: 20 gauge in left [facility] antecubital area, using aseptic technique. Blood collected. 23:36 US Abdomen Limited: gallbladder In Process Unspecified. EDMS 23:36 US OB Limited In Process Unspecified. EDMS 07/28 01:07 No provider procedures requiring assistance completed. IV discontinued, intact, jw7 bleeding controlled, No redness/swelling at site. Pressure dressing applied. 01:08 Provided Education on: discharge instructions and medication usage. jw7 Administered Medications: 07/27 23:13 Drug: NS 0.9% IV 1000 ml IV at 1 bolus Per protocol; 1000 mL bolus Route: IV; Rate: 1 jw7 bolus; Site: left antecubital; 07/28 01:06 Follow up: Response: No adverse reaction; IV Status: Completed infusion; IV Intake: jw7 1000ml 07/27 23:13 Drug: Famotidine IVP 20 mg IVP once; dilute with 10 mL 0.9% NaCl; give over 2 minutes jw7 Route: IVP; Site: left antecubital; 07/28 01:06 Follow up: Response: No adverse reaction; Marked relief of symptoms jw7 07/27 23:13 Drug: Ondansetron IVP 4 mg IVP once; over 2 minutes Route: IVP; Site: left antecubital; jw7 07/28 01:06 Follow up: Response: No adverse reaction; Marked relief of symptoms jw7 00:35 Drug: Potassium PO Effervescent Tablet 50 mEq PO once; dissolve in 4 ounces of water or jw7 juice Route: PO; 01:06 Follow up: Response: No adverse reaction jw7 00:35 Drug: Macrobid PO 100 mg PO once; administer with food Route: PO; jw7 01:06 Follow up: Response: No adverse reaction jw7 Medication: 07/27 22:57 VIS not applicable for this client. jw7 Intake: 07/28 01:06 IV: 1000ml; Total: 1000ml. jw7 Outcome: 00:39 Discharge ordered by . [email or web address] 01:07 Discharged to home ambulatory, jw7 01:07 Condition: stable 01:07 Discharge instructions given to patient, Instructed on discharge instructions, follow up and referral plans. medication usage, Demonstrated understanding of instructions, follow-up care, medications, Prescriptions given X 2, 01:08 Patient left the ED. jw7 Signatures: Dispatcher [employer] EDMS Wood Bunch PA PA cp Jeffries, Jennifer jj6 Marcy Santoyo, RN RN vc1 Raisa Núñez RN RN jw7
--- NOTE | 2023-07-28 00:40 | EDPHYS ---
Physician Documentation [facility] Name: Tali Guidry Age: 22 yrs Sex: Female : 2000 Arrival Date: 07/27/2023 Time: 21:48 Bed 16 Private MD: ED Physician Alvaro Cary HPI: 07/27 22:30 This 22 yrs old Female presents to ER via Ambulatory with complaints of EST 10 WKS cp Gestation, Nausea/Vomiting, Abdominal Pain, Headache. 22:30 The patient presents to the emergency department with abdominal pain, of the right cp upper quadrant and left upper quadrant, that started today, described as waxing/waning, nausea and vomiting, and is intermittent, described as bilious. The estimated gestational age is 10 weeks. 22:30 course: care: at a clinic, Leakage of Fluid: none appreciated. cp Associated signs and symptoms: Pertinent positives: abdominal pain, Pertinent negatives: diarrhea, fever, ruptured membranes, shortness of breath, vaginal bleeding, vaginal discharge, cough. 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 - Social history:: Smoking status: Reported history of juuling and/or vaping. Patient/guardian denies using tobacco. ROS: 22:35 Constitutional: Positive for poor PO intake, Negative for body aches, chills, fever, cp 22:35 Eyes: Negative for injury, pain, redness, and discharge, cp 22:35 ENT: Negative for drainage from ear(s), ear pain, sore throat, difficulty swallowing, difficulty handling secretions, 22:35 Cardiovascular: Negative for chest pain, 22:35 Respiratory: Negative for cough, shortness of breath, wheezing, 22:35 Abdomen/GI: Positive for abdominal pain, nausea and vomiting, 22:35 : Negative for hematuria, vaginal bleeding, 22:35 Neuro: Negative for altered mental status, dizziness, headache, weakness, 22:35 All other systems are negative, Exam: 22:40 Constitutional: The patient appears in no acute distress, alert, awake, non-toxic, well cp developed, well nourished, uncomfortable, 22:40 Head/Face: Normocephalic, atraumatic. cp 22:40 Eyes: Periorbital structures: appear normal, Conjunctiva: normal, no exudate, no injection, Sclera: no appreciated abnormality, Lids and lashes: appear normal, bilaterally, 22:40 ENT: External ear(s): are unremarkable, Nose: is normal, Mouth: Lips: moist, Oral mucosa: moist, Posterior pharynx: Airway: no evidence of obstruction, patent, 22:40 Chest/axilla: Inspection: normal, 22:40 Cardiovascular: Rate: normal, Rhythm: regular, 22:40 Respiratory: the patient does not display signs of respiratory distress, Respirations: normal, no use of accessory muscles, no retractions, labored breathing, is not present, Breath sounds: are clear throughout, no decreased breath sounds, no stridor, no wheezing, 22:40 Abdomen/GI: Inspection: abdomen appears normal, Bowel sounds: active, all quadrants, Palpation: soft, in all quadrants, mild abdominal tenderness, in the right upper quadrant and left upper quadrant, rebound tenderness, is not appreciated, involuntary guarding, is not appreciated, 22:40 Back: CVA tenderness, is absent, Vital Signs: 22:06 Weight 72.57 kg; Height 5 ft. 4 in. ; Pain 10/10; vc1 22:14 BP 117 / 75; Pulse 98; Resp 18; Temp 98; Pulse Ox 100% ; vc1 07/28 00:02 BP 103 / 66; Pulse 95; Resp 17 S; Pulse Ox 99% on R/A; jw7 01:00 BP 100 / 66; Pulse 60; Resp 16 S; Pulse Ox 99% on R/A; jw7 07/27 22:06 Body Mass Index 27.46 (72.57 kg, 162.56 cm) vc1 07/27 22:06 Pain Scale: Adult [facility] MDM: 07/27 22:19 Patient medically screened. cp 01/20 00:38 Data reviewed: vital signs, nurses notes, lab test result(s), radiologic studies, cp ultrasound. 07/27 22:24 Order name: CBC with Diff; Complete Time: 00:13 cp 07/28 00:14 Interpretation: Normal except: RBC 4.95; MCV 79.6; MCH 26.9; EARLINE% 77.1. 07/27 22:24 Order name: CMP; Complete Time: 00:13 cp 07/28 00:14 Interpretation: Normal except: K 3.2; AST 9; ALB 3.1; GLOB 3.7; A/G 0.8. 07/27 22:24 Order name: Lipase; Complete Time: 00:13 cp 07/27 22:24 Order name: Test, Urine; Complete Time: 00:13 07/28 00:14 Interpretation: Reviewed. 07/27 22:24 Order name: Urinalysis w/ reflexes; Complete Time: 00:13 cp 07/28 00:14 Interpretation: Normal except: [facility] Extremely Turbid; Urine SG > 1.030; UKET 2+; UPROT cp 1+; UUROB 2+; UESTR 25; UBACT 20-50; MUCUS 4+. 07/27 22:40 Order name: Beta hcg; Complete Time: 00:13 cp 07/27 22:42 Order name: US Abdomen Limited: gallbladder 07/27 22:42 Order name: US OB Limited 07/27 22:24 Order name: IV Saline Lock; Complete Time: 22:55 cp 07/27 22:24 Order name: Labs collected and sent; Complete Time: 22:55 07/27 22:40 Order name: FHT's; Complete Time: 23:31 cp 07/28 00:17 Order name: PO challenge; Complete Time: 00:29 cp Administered Medications: 07/27 23:13 Drug: NS 0.9% IV 1000 ml IV at 1 bolus Per protocol; 1000 mL bolus Route: IV; Rate: 1 jw7 bolus; Site: left antecubital; 07/28 01:06 Follow up: Response: No adverse reaction; IV Status: Completed infusion; IV Intake: jw7 1000ml 07/27 23:13 Drug: Famotidine IVP 20 mg IVP once; dilute with 10 mL 0.9% NaCl; give over 2 minutes jw7 Route: IVP; Site: left antecubital; 07/28 01:06 Follow up: Response: No adverse reaction; Marked relief of symptoms jw7 07/27 23:13 Drug: Ondansetron IVP 4 mg IVP once; over 2 minutes Route: IVP; Site: left antecubital; jw7 07/28 01:06 Follow up: Response: No adverse reaction; Marked relief of symptoms jw7 00:35 Drug: Potassium PO Effervescent Tablet 50 mEq PO once; dissolve in 4 ounces of water or jw7 juice Route: PO; 01:06 Follow up: Response: No adverse reaction jw7 00:35 Drug: Macrobid PO 100 mg PO once; administer with food Route: PO; jw7 01:06 Follow up: Response: No adverse reaction jw7 Disposition Summary: 07/28/23 00:39 Discharge Ordered Notes: Location: Home cp Problem: new cp Symptoms: have improved cp Condition: Stable cp Diagnosis - UTI/ Urinary tract infection, site not specified cp - Other specified related conditions, first trimester cp - Upper abdominal pain, unspecified cp - Nausea with vomiting, unspecified cp - Hypokalemia cp Followup: cp - With: Private Physician - When: 2 - 3 days - Reason: Recheck today's complaints Discharge Instructions: - Discharge Summary Sheet cp - Abdominal Pain During cp - Potassium Content of Foods cp - Nausea and Vomiting, Adult cp - First Trimester of cp - and Urinary Tract Infection cp - Hypokalemia cp - Warning Signs During cp Forms: - Medication Reconciliation Form cp - Thank You Letter cp - Antibiotic Education cp - Prescription Opioid Use cp - Patient Portal Instructions cp - Leadership Thank You Letter cp Prescriptions: - Zofran 4 mg Oral Tablet - take 1 tablet ORAL route every 12 hours As needed; 20 tablet; Refills: 0, cp Product Selection Permitted - Macrobid 100 mg Oral Capsule - take 1 capsule ORAL route every 12 hours for 7 days; 14 capsule; Refills: 0, cp Product Selection Permitted Signatures: Dispatcher [employer] Wood Bhandari PA PA cp Calcote, Vanessa RN RN vc1 Raisa Núñez RN RN jw7
[2023-07-28 07:33] VITALS: BP 100/66; TEMP 98; O2SAT 99
--- NOTE | 2023-07-29 18:30 | RAD REPORT ---
EXAM DESCRIPTION: US - Abdomen Exam Limited - 07/27/2023 11:34 pm US Abdomen Limited, gallbladder CLINICAL HISTORY: The patient is 22 years old and is Female; upper abdomen pain Bed Name: 16 TECHNIQUE: Real-time ultrasound of the gallbladder fossa with image documentation. COMPARISON: No relevant prior studies available. FINDINGS: GALLBLADDER: Unremarkable No gallstones. COMMON BILE DUCT: Unremarkable as visualized. No stones. No dilation. Common bile duct measures 0.2 cm in diameter. INFERIOR VENA CAVA: Visualized IVC appears unremarkable. IMPRESSION: No acute findings in the gallbladder fossa. Electronically signed by: Colby Treviño MD 07/27/2023 11:49 PM NETWORK SECURITY ADMINISTRATOR Due to temporary technical issues with the PACS/Fluency reporting system, reports are being signed by the in house radiologists without review as a courtesy to insure prompt reporting. The interpreting radiologist is fully responsible for the content of the report.
--- NOTE | 2023-07-29 18:38 | RAD REPORT ---
EXAM DESCRIPTION: US - OB Limited - 07/27/2023 11:34 pm CLINICAL HISTORY: 22 years Female ABD PAIN COMPARISON: None TECHNIQUE: Real-time sonography of the fetus was performed. FINDINGS: Gestational sac is seen within the uterus. pole is identified measuring 3.9 cm. This correlates with a age of 10 weeks 6 days. Gestational sac is identified measuring 2.4 cm. Hear t rate was 163 bpm. Cervix measured 3.3 cm. No subchorionic hemorrhage. The uterus is normal in size measuring 9.8 x 6.3 x 7.8 cm area Right ovary is normal in size and echogenicity measuring 2.9 x 2.1 x 2.1 cm. Doppler evaluation revea led satisfactory flow. 1.2 x 1.1 cm simple cyst right ovary. This finding is thought to be benign. No further follow-up needed. Left ovary not visualized throughout the study. No abnormal fluid collections seen. IMPRESSION: Single viable 10 week 6 day intrauterine fetus. No abnormality noted. No sonographic abnormality right ovary. Left ovary not visualized throughout the study. Electronically signed by: Karime Worthy MD 07/27/2023 11:55 PM DIMMER BOARD OPERATOR Due to temporary technical issues with the PACS/Fluency reporting system, reports are being signed by the in house radiologists without review as a courtesy to insure prompt reporting. The interpreting radiologist is fully responsible for the content of the report.
== END ==
LOC: ER 21:48
DX: O23.41 Unspecified infection of urinary tract in pregnancy, first trimester (principal); N39.0 Urinary tract infection, site not specified; O21.9 Vomiting of pregnancy, unspecified; O26.891 Other specified pregnancy related conditions, first trimester; E87.6 Hypokalemia; Z3A.10 10 weeks gestation of pregnancy; Z87.891 Personal history of nicotine dependence
CPT/HCPCS: 36415; 76705; 76815; 80053; 81001; 81025; 83690; 84702; 85025; 96361; 96374; 96375; 99284; J2405; J7030

== ENCOUNTER 2024-05-28 07:32 | Emergency (ER) | payer OTHER ==
[2024-05-28] MEDS ORDERED: FLUCONAZOLE 100 MG TAB ONE (07:56)
[2024-05-28] MEDS ORDERED: LIDOCAINE 1% MPF 5 ML VIAL ONE (07:56)
[2024-05-28] MEDS ORDERED: CEFTRIAXONE 1000 MG/VIAL ONE (07:56)
[2024-05-28] MEDS ORDERED: AZITHROMYCIN 250 MG TAB ONE (07:56)
[2024-05-28] MEDS ORDERED: DOXYCYCLINE 100 MG CAP PO ONE (07:57)
--- NOTE | 2024-05-28 08:19 | ER ---
Nurse's Notes [facility] Name: Tali Guidry Age: 23 yrs Sex: Female : 2000 Arrival Date: 05/28/2024 Time: 07:32 Bed 14 Private MD: Diagnosis: Candidiasis, unspecified Presentation: 05/28 07:39 Chief complaint: Patient states: Vaginal itching, discomfort, white discharge for 1 ll1 week. No fever. Coronavirus screen: Client denies travel out of the [place] in the last 14 days. At this time, the client does not indicate any symptoms associated with coronavirus-19. Ebola Screen: Patient denies travel to an Ebola-affected area in the 21 days before illness onset. Initial Sepsis Screen: Does the patient meet any 2 criteria? No. Patient's initial sepsis screen is negative. Does the patient have a suspected source of infection? No. Patient's initial sepsis screen is negative. Risk Assessment: Do you want to hurt yourself or someone else? Patient reports no desire to harm self or others. Onset of symptoms was May 21, 2024. 07:39 Method Of Arrival: Ambulatory ll1 07:39 Acuity: GERMAN 4 ll1 Triage Assessment: 07:39 General: Appears in no apparent distress. Behavior is calm, cooperative, appropriate ll1 for age. Pain: Denies pain. : Reports discharge, from vagina that is white, vaginal itching. 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 - Infectious Disease History:: Denies. - Social history:: Smoking status: Reported history of juuling and/or vaping. - Family history:: not pertinent. Screenin:[address] [facility] ED Fall Risk Assessment (Adult) History of falling in the last 3 months, kc6 including since admission No falls in past 3 months (0 pts) Confusion or Disorientation No (0 pts) Intoxicated or Sedated No (0 pts) Impaired Gait No (0 pts) Mobility Assist Device Used No (0 pt) Altered Elimination No (0 pt) Score/Fall Risk Level 0 - 2 = Low Risk Oriented to surroundings, Maintained a safe environment. Abuse screen: Denies threats or abuse. Denies injuries from another. Nutritional screening: No deficits noted. Tuberculosis screening: No symptoms or risk factors identified. Assessment: 08:12 General: Appears in no apparent distress. comfortable, well groomed, well developed, kc6 Behavior is calm, cooperative, appropriate for age. Pain: Complains of pain in pelvis. Neuro: Level of Consciousness is awake, alert, obeys commands, Oriented to person, place, time, situation, Appropriate for age. Cardiovascular: Capillary refill < 3 seconds. Respiratory: Airway is patent Trachea midline Respiratory effort is even, unlabored, Respiratory pattern is regular, symmetrical. GI: No signs and/or symptoms were reported involving the gastrointestinal system. : Urine is cloudy, Vaginal discharge is white, yellow, Reports burning with urination, pain in suprapubic area vaginal itching. EENT: No signs and/or symptoms were reported regarding the EENT system. Derm: No signs and/or symptoms reported regarding the dermatologic system. Skin is intact, is healthy with good turgor, Skin is pink, warm \T\ dry. Musculoskeletal: No signs and/or symptoms reported regarding the musculoskeletal system. Circulation, motion, and sensation intact. Capillary refill < 3 seconds, Range of motion: intact in all extremities. 08:34 Reassessment: No changes from previously documented assessment. Patient and/or family ll1 updated on plan of care and expected duration. Pain level reassessed. Patient is alert, oriented x 3, equal unlabored respirations, skin warm/dry/pink. Vital Signs: 07:39 BP 127 / 75; Pulse 88; Resp 16; Temp 97.1; Pulse Ox 99% ; Weight 72.57 kg; Height 5 ft. ll1 4 in. ; Pain 0/10; 08:34 BP 117 / 73; Pulse 89; Resp 16; Pulse Ox 99% ; Pain 0/10; ll1 07:39 Body Mass Index 27.46 (72.57 kg, 162.56 cm) ll1 07:39 Pain Scale: Adult ll1 08:34 Pain Scale: Adult ll1 ED Course: 07:35 Patient arrived in ED. im 07:41 Triage completed. ll1 07:41 Arm band placed on. ll1 07:43 Wood Guidry MD is Attending Physician. selena 07:52 Ines Dee, RN is Primary Nurse. kc6 08:09 PREGU Sent. kc6 08:09 Urinalysis w/ reflexes Sent. kc6 08:11 Patient has correct armband on for positive identification. Bed in low position. Call kc6 light in reach. Side rails up X 1. Pulse ox on. NIBP on. Door closed. Noise minimized. Lights dimmed. Pillow given. 08:11 Patient maintains SpO2 saturation greater than 95% on room air. kc6 08:17 Alba Sellers MD is Referral Physician. [facility] 08:35 Provided Education on: return to ED for worsening symptoms. ll1 08:35 No provider procedures requiring assistance completed. Patient did not have IV access ll1 during this emergency room visit. Administered Medications: 08:09 Drug: Rocephin (cefTRIAXone) IM 500 mg IM once Route: IM; Site: left deltoid; kc6 08:34 Follow up: Response: No adverse reaction ll1 08:09 Drug: AZITHromycin PO 1 grams PO once Route: PO; kc6 08:34 Follow up: Response: No adverse reaction ll1 08:09 Drug: Doxycycline PO 100 mg PO once Route: PO; kc6 08:34 Follow up: Response: No adverse reaction ll1 08:09 Drug: Fluconazole PO 200 mg PO once Route: PO; kc6 08:34 Follow up: Response: No adverse reaction ll1 Medication: 08:36 VIS not applicable for this client. ll1 Outcome: 08:18 Discharge ordered by . [facility] 08:35 Discharged to home ambulatory, ll1 08:35 Condition: stable 08:35 Discharge instructions given to patient, Instructed on discharge instructions, follow up and referral plans. medication usage, Demonstrated understanding of instructions, follow-up care, medications, Prescriptions given X 3, 08:36 Patient left the ED. ll1 Signatures: Wood Guidry MD MD cha Lewis, Lynsay, RN RN ll1 Ines Dee, RN RN kc6 Lisa Shankar
--- NOTE | 2024-05-28 08:19 | EDPHYS ---
Physician Documentation [facility] Name: Tali Guidry Age: 23 yrs Sex: Female : 2000 Arrival Date: 05/28/2024 Time: 07:32 Bed 14 Private MD: Wood Ybarra HPI: 05/28 08:12 This 23 yrs old Female presents to ER via Ambulatory with complaints of selena Vaginal Itching, Vaginal Discharge. 08:12 The patient presents with perineal itching, a possible exposure to a sexually selena transmitted disease, urinary symptoms, dysuria. Onset: The symptoms/episode began/occurred 3 day(s) ago. Modifying factors: The symptoms are alleviated by nothing, the symptoms are aggravated by nothing. Associated signs and symptoms: The patient has no apparent associated signs or symptoms. Severity of symptoms: At their worst the symptoms were mild, in the emergency department the symptoms are unchanged. The patient is sexually active, reportedly has a single partner. The patient has not experienced similar symptoms in the past. 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 - Infectious Disease History:: Denies. - Social history:: Smoking status: Reported history of juuling and/or vaping. - Family history:: not pertinent. ROS: 08:12 Constitutional: Negative for fever, chills, and weight loss, Eyes: Negative for injury, selena pain, redness, and discharge, ENT: Negative for injury, pain, and discharge, Neck: Negative for injury, pain, and swelling, Cardiovascular: Negative for chest pain, palpitations, and edema, Respiratory: Negative for shortness of breath, cough, wheezing, and pleuritic chest pain, Abdomen/GI: Negative for abdominal pain, nausea, vomiting, diarrhea, and constipation, Back: Negative for injury and pain, MS/Extremity: Negative for injury and deformity, Skin: Negative for injury, rash, and discoloration, Neuro: Negative for headache, weakness, numbness, tingling, and seizure, Psych: Negative for depression, anxiety, suicide ideation, homicidal ideation, and hallucinations, Allergy/Immunology: Negative for hives, rash, and allergies, Endocrine: Negative for neck swelling, polydipsia, polyuria, polyphagia, and marked weight changes, Hematologic/Lymphatic: Negative for swollen nodes, abnormal bleeding, and unusual bruising, 08:12 : Positive for burning with urination, vaginal itching, Exam: 08:12 Constitutional: This is a well developed, well nourished patient who is awake, alert, selena and in no acute distress. Head/Face: Normocephalic, atraumatic. Eyes: Pupils equal round and reactive to light, extra-ocular motions intact. Lids and lashes normal. Conjunctiva and sclera are non-icteric and not injected. Cornea within normal limits. Periorbital areas with no swelling, redness, or edema. ENT: Nares patent. No nasal discharge, no septal abnormalities noted. Tympanic membranes are normal and external auditory canals are clear. Oropharynx with no redness, swelling, or masses, exudates, or evidence of obstruction, uvula midline. Mucous membranes moist. Neck: Trachea midline, no thyromegaly or masses palpated, and no cervical lymphadenopathy. Supple, full range of motion without nuchal rigidity, or vertebral point tenderness. No Meningismus. Chest/axilla: Normal chest wall appearance and motion. Nontender with no deformity. No lesions are appreciated. Cardiovascular: Regular rate and rhythm with a normal S1 and S2. No gallops, murmurs, or rubs. Normal PMI, no JVD. No pulse deficits. Respiratory: Lungs have equal breath sounds bilaterally, clear to auscultation and percussion. No rales, rhonchi or wheezes noted. No increased work of breathing, no retractions or nasal flaring. Back: No spinal tenderness. No costovertebral tenderness. Full range of motion. Skin: Warm, dry with normal turgor. Normal color with no rashes, no lesions, and no evidence of cellulitis. MS/ Extremity: Pulses equal, no cyanosis. Neurovascular intact. Full, normal range of motion. Neuro: Awake and alert, GCS 15, oriented to person, place, time, and situation. Cranial nerves II-XII grossly intact. Motor strength 5/5 in all extremities. Sensory grossly intact. Cerebellar exam normal. Normal gait. 08:12 Abdomen/GI: Inspection: abdomen appears normal, Bowel sounds: normal, Palpation: abdomen is soft and non-tender, Liver: no appreciated palpable abnormalities, Hernia: not appreciated, Vital Signs: 07:39 BP 127 / 75; Pulse 88; Resp 16; Temp 97.1; Pulse Ox 99% ; Weight 72.57 kg; Height 5 ft. ll1 4 in. ; Pain 0/10; 08:34 BP 117 / 73; Pulse 89; Resp 16; Pulse Ox 99% ; Pain 0/10; ll1 07:39 Body Mass Index 27.46 (72.57 kg, 162.56 cm) ll1 07:39 Pain Scale: Adult ll1 08:34 Pain Scale: Adult ll1 MDM: 07:43 Medical Screening Exam initiated selena 08:16 Differential diagnosis: perlita infection, cervicitis, pelvic inflammatory disease, selena urinary tract infection, vaginosis. Data reviewed: vital signs, nurses notes, lab test result(s), urinalysis. Consideration of Admission/Observation Escalation of care including admission/observation considered. I considered the following discharge prescriptions or medication management in the emergency department Medications were administered in the Emergency Department. See MAR. Test considered but Not performed: Labs: no cbc, no comp met. Care significantly affected by the following chronic conditions: none. Counseling: I had a detailed discussion with the patient and/or guardian regarding the historical points, exam findings, and any diagnostic results supporting the discharge/admit diagnosis, lab results, the need for outpatient follow up, for definitive care, a family practitioner, an OB/Gyne specialist. 05/28 07:48 Order name: Urinalysis w/ reflexes [facility] 05/28 07:48 Order name: PREGU; Complete Time: 08:20 [facility] 05/28 08:17 Order name: Glucose, Ancillary Testing; Complete Time: : [facility] 05/28 07:48 Order name: Blood Glucose Level; Complete Time: 07:52 [facility] Administered Medications: 08:09 Drug: Rocephin (cefTRIAXone) IM 500 mg IM once Route: IM; Site: left deltoid; kc6 08:34 Follow up: Response: No adverse reaction 1 08:09 Drug: AZITHromycin PO 1 grams PO once Route: PO; kc6 08:34 Follow up: Response: No adverse reaction ll1 08:09 Drug: Doxycycline PO 100 mg PO once Route: PO; kc6 08:34 Follow up: Response: No adverse reaction ll1 08:09 Drug: Fluconazole PO 200 mg PO once Route: PO; kc6 08:34 Follow up: Response: No adverse reaction ll1 Disposition Summary: 05/28/24 08:18 Discharge Ordered Notes: Location: Home [facility] Problem: [facility] Symptoms: have improved selena Condition: Stable selena Diagnosis - Candidiasis, unspecified selena Followup: sleena - With: Private Physician - When: 2 - 3 days - Reason: Recheck today's complaints, Continuance of care, Re-evaluation by your physician Followup: selena - With: Alba Sellers MD - When: 2 - 3 days - Reason: Recheck today's complaints, Re-evaluation by your physician Discharge Instructions: - Discharge Summary Sheet [facility] - Vaginal Yeast Infection, Adult [facility] Forms: - Medication Reconciliation Form [facility] - Antibiotic Education [facility] - Prescription Opioid Use [facility] - Patient Portal Instructions [facility] - Leadership Thank You Letter [facility] - Work release form kc6 Prescriptions: - Cipro 250 mg Oral tablet - take 1 tablet ORAL route every 12 hours; 10 tablet; Refills: 0, Product [facility] Selection Permitted - Doxycycline Hyclate 100 mg Oral tablet - take 1 tablet ORAL route every 12 hours; 14 tablet; Refills: 0, Product [facility] Selection Permitted - Fluconazole 200 mg Oral tablet - take 1 tablet ORAL route once take 1 tab every weeek x 1 dose for 4 weeks; 4 selena tablet; Refills: 0, Product Selection Permitted Signatures: Dispatcher [employer] Wood Thomson MD MD cha Lewis, Lynsay RN RN ll1 Ines Dee RN RN kc6 Corrections: (The following items were deleted from the chart) 08:18 08:18 Unspecified sexually transmitted disease [facility]
[2024-05-28 08:20] LABS: Specific Gravity > 1.030 (1.005-1.030)
[2024-05-28 08:21] LABS: Specific Gravity > 1.030 (1.005-1.030); Sqamous Epithelial 20-50 /HPF (None Seen); Transitional Epithelial <5 /HPF (None Seen); Urine Bacteria <20 /HPF (<20); Urine Bilirubin NEGATIVE (Negative); Urine Blood Trace (Negative); Urine Clarity Extremely Turbid (Clear); Urine Color Yellow (Yellow); Urine Culture Reflex Order NOT NEEDED; Urine Glucose NEGATIVE (Negative); Urine Ketones NEGATIVE (Negative); Urine Microscopic Reflex YN ORDER UMIC; Urine Mucus 4+ /HPF (None Seen); Urine Nitrite NEGATIVE (Negative); Urine Protein 1+ (Negative); Urine RBC <5 /HPF (None Seen); Urine Urobilinogen Normal (Normal); Urine pH 5.5 (5.0-7.0)
[2024-05-28 08:47] VITALS: TEMP 97.1; O2SAT 99
[2024-05-28 08:51] VITALS: BP 117/73
== END 2024-05-28 08:36 | disposition home or self-care (01) ==
LOC: ER 07:32
DX: B37.9 Candidiasis, unspecified (principal)
CPT/HCPCS: 81001; 81025; 82947; J2003; J0696